=== PATIENT | female | born 1960 | race Caucasian/White ===

== ENCOUNTER 2017-12-01 06:56 | Emergency (ER) | payer OTHER ==
[~2017-12-01] VITALS: Ht 172.7 cm; Wt 104.3 kg
[~2017-12-01 06:56] MED LIST: ALCLOMETASONE D15 GM TOP; AMLODIPINE BESY10 MG PO; CYCLOBENZAPRINE10 MG PO; DERMOTIC20 ML; FARXIGA PO; FENOFIBRATE67 MG PO; FISH OIL 1,0001 EAC2 PO; FLUOCINOLON118.28 ML OT; FUROSEMIDE40 MG PO; GABAPENTIN400 MG PO; LEVEMIR100 UNIT/1 SQ; LEVOTHYROXINE75 MCG PO; LIDODERM700 MG TOP; LOSARTAN POTASS50 MG PO; METFORMIN HCL500 MG PO; MINOCIN50 MG PO; MINOCYCLINE HCL50 MG PO; NORCO 10-325 T1 EACH PO; NOVOLIN R100 UNIT/1 SQ; OMEPRAZOLE40 MG PO; PRAVASTATIN SOD40 MG PO; TIZANIDINE HCL4 M1 PO
[2017-12-01] MEDS ORDERED: ASPIRIN 81 MG CHEW TAB PO ONE (07:45)
[2017-12-01 07:52] LABS: BASOPHILS % 0.6 % (0.0-1.0); EOSINOPHILS # (AUTO) 0.2 (0.0-0.4); EOSINOPHILS % 2.7 % (0.0-6.0); HEMATOCRIT 40.8 % (34.2-44.1); HEMOGLOBIN 13.3 g/dL (12.0-16.0); LYMPHOCYTES # (AUTO) 2.7 (1.0-3.2); LYMPHOCYTES % 40.3 % (18.0-39.1); MEAN CORPUSCULAR HGB CONC 32.6 g/dL (31-35); MEAN CORPUSCULAR VOLUME 89.1 fL (81-99); MONOCYTES # (AUTO) 0.4 (0.2-0.8); MONOCYTES % 5.6 % (4.4-11.3); NEUTROPHILS # (AUTO) 3.3 (2.1-6.9); PLATELET COUNT 288 x10e3/uL (140-360); RED BLOOD COUNT 4.58 x10e6/uL (3.6-5.1); RED CELL DISTRIBUTION WIDTH 13.2 % (11.7-14.4)
[2017-12-01] MEDS ORDERED: CLONIDINE HCL0.1 MG PO (07:54)
[2017-12-01] MEDS ORDERED: CYCLOBENZAPRINE10 MG PO (07:54)
[2017-12-01] MEDS ORDERED: MIRALAX17 GM PO (07:54)
[2017-12-01] MEDS ORDERED: FERROUS SULFAT325 MG PO (07:54)
[2017-12-01] MEDS ORDERED: TIZANIDINE HCL4 MG PO (07:54)
[2017-12-01] MEDS ORDERED: BUMETANIDE1 MG PO (07:54)
[2017-12-01] MEDS ORDERED: PLAVIX75 MG PO (07:54)
[2017-12-01 08:04] LABS: ALANINE AMINOTRANSFERASE 23 IU/L (0-55); ALBUMIN 3.7 g/dL (3.5-5.0); ALKALINE PHOSPHATASE 90 IU/L (40-150); ANION GAP 12.5 mmol/L (8-16); BLOOD UREA NITROGEN 16 mg/dL (7-26); BUN/CREATININE RATIO 21 (6-25); CARBON DIOXIDE 28 mmol/L (22-29); CHLORIDE 105 mmol/L (98-107); CREATINE KINASE 63 IU/L (29-168); CREATININE, SERUM 0.77 mg/dL (0.57-1.11); EST GLOMERULAR FILTRATION RATE > 60 ML/MIN (60-); GLUCOSE 178 mg/dL (74-118); POTASSIUM 4.5 mmol/L (3.5-5.1); SODIUM 141 mmol/L (136-145)
[2017-12-01 08:07] LABS: CLARITY,URINE HAZY (CLEAR); COLOR,URINE YELLOW (YELLOW); KETONES,URINE NEGATIVE (NEGATIVE); LEUKOCYTE ESTERASE ,URINE 1+ (NEGATIVE); NITRITE,URINE NEGATIVE (NEGATIVE); PROTEIN,URINE DIPSTICK NEGATIVE (NEGATIVE); URINE UROBILINOGEN 0.2 mg/dL (0.2 - 1)
[2017-12-01 08:08] LABS: BILIRUBIN,URINE NEGATIVE (NEGATIVE)
[2017-12-01 08:28] LABS: BACTERIA,URINE FEW /HPF; EPITHELIAL CELLS,URINE MODERATE /LPF; MUCUS,URINE FEW (RARE); RBC,URINE 0-5 /HPF (0-5); RENAL EPITHELIAL CELLS,URINE RARE
[2017-12-01] MEDS ORDERED: MECLIZINE HCL 12.5 MG TAB PO NR (08:30)
[2017-12-01] MEDS ORDERED: KETOROLAC TROMETHAMINE 30 MG/ML VIAL IV NR (08:30)
[2017-12-01] MEDS ORDERED: ONDANSETRON HCL INJ 2 MG/ML VIAL IV NR (08:30)
[2017-12-01] MEDS ORDERED: CEFTRIAXONE SOD 1 GM VIAL IV NR (08:45)
--- NOTE | 2017-12-01 11:07 | Diagnostic Imaging Report ---
History:Syncopal episodes Comparison studies:None Technique: Axial images were obtained from the skull base to the vertex. Coronal and sagittal images reconstructed from the axial data. Intravenous contrast: None Findings: Scalp/skull: No abnormalities. Extra-axial spaces: No masses. No fluid collections. Brain sulci: Age-appropriate. Ventricles: Age-appropriate. No hydrocephalus. Parenchyma: Few small hypodensities in the supratentorial white matter are small vessel ischemic changes. Chronic lacunar infarct at the right putamen. No masses, hemorrhage, acute or chronic cortical vascular insults. Sellar/suprasellar region: No abnormalities. Craniocervical junction: Patent foramen magnum. No Chiari one malformation. Incidental findings: Atherosclerotic calcifications in the carotid siphons and vertebral arteries . Impression: No acute abnormalities. Chronic findings: 1. Mild supratentorial white matter small vessel ischemic changes. Signed by: DR Pedro Metzger M.D. on 12/01/2017 11:04 AM
[2017-12-01 12:37] VITALS: BP 132/80
== END 2017-12-01 13:08 | disposition home or self-care (01) ==
LOC: ER 06:56
DX: H81.13 Benign paroxysmal vertigo, bilateral (principal); N10 Acute pyelonephritis; I10 Essential (primary) hypertension; E11.9 Type 2 diabetes mellitus without complications; E78.00 Pure hypercholesterolemia, unspecified; Z88.5 Allergy status to narcotic agent; Z91.010 Allergy to peanuts; Z91.018 Allergy to other foods
CPT/HCPCS: 36415; 70450; 80053; 81001; 82550; 82553; 84484; 85025; 93005; 99284; J0696; J1885; J2405

== ENCOUNTER 2018-03-18 16:55 | Inpatient (IN) | payer OTHER ==
[~2018-03-18] VITALS: Ht 172.7 cm; Wt 108.7 kg
[~2018-03-18 16:55] MED LIST changes: +BUMETANIDE1 MG PO; +CLONIDINE HCL0.1 MG PO; +FERROUS SULFAT325 MG PO; +MIRALAX17 GM PO; +PLAVIX75 MG PO; +TIZANIDINE HCL4 MG PO
[2018-03-18] MEDS ORDERED: ONDANSETRON HCL 4 MG ORAL DISINTEGRATING TAB PO ONE (17:30)
[2018-03-18] MEDS ORDERED: HYDROCODONE/APAP 10MG-325MG TAB PO ONE (17:30)
[2018-03-18] MEDS ORDERED: IBUPROFEN 400 MG TAB PO ONE (17:30)
[2018-03-18] MEDS ORDERED: ACETAMINOPHEN 325 MG TAB PO ONE (17:30)
[2018-03-18] MEDS ORDERED: SODIUM CHLORIDE 0.9% 1000ML 1,000 ML IV ONE ×2 (19:45→21:00)
[2018-03-18] MEDS ORDERED: ASPIRIN 81 MG CHEW TAB PO ONE (19:45)
--- NOTE | 2018-03-18 20:02 | Diagnostic Imaging Report ---
Frontal and lateral views of the chest. HISTORY: Fever COMPARISON: None available. DISCUSSION: Soft tissue attenuation partially limits sensitivity of the exam. Lungs: The lungs are well inflated. No evidence of a consolidative pneumonia or pulmonary alveolar edema. Pleura: No pleural effusion or pneumothorax. Heart and mediastinum: The cardiomediastinal silhouette appears unremarkable. Bones: Mild multilevel degenerative changes of the thoracic spine and accentuation of the thoracic kyphosis. IMPRESSION: 1. No acute radiographic abnormality. 2. Specifically, no pneumonia. Signed by: Dr. Dimas Ingram D.O., M.M.M. on 03/18/2018 7:59 PM
[2018-03-18 20:37] LABS: BASOPHILS # (AUTO) 0.1 (0.0-0.1); BASOPHILS % 0.3 % (0.0-1.0); HEMATOCRIT 36.9 % (34.2-44.1); HEMOGLOBIN 12.2 g/dL (12.0-16.0); LYMPHOCYTES # (AUTO) 0.8 (1.0-3.2); LYMPHOCYTES % 4.8 % (18.0-39.1); MEAN CORPUSCULAR HEMOGLOBIN 28.8 pg (28-32); MEAN CORPUSCULAR HGB CONC 33.1 g/dL (31-35); MEAN CORPUSCULAR VOLUME 87.2 fL (81-99); MONOCYTES # (AUTO) 0.6 (0.2-0.8); MONOCYTES % 3.2 % (4.4-11.3); NEUTROPHILS # (AUTO) 15.5 (2.1-6.9); NEUTROPHILS % 90.5 % (38.7-80.0); PLATELET COUNT 291 x10e3/uL (140-360); RED BLOOD COUNT 4.23 x10e6/uL (3.6-5.1); RED CELL DISTRIBUTION WIDTH 12.7 % (11.7-14.4)
[2018-03-18 20:56] LABS: ALANINE AMINOTRANSFERASE 19 IU/L (0-55); ALBUMIN 3.6 g/dL (3.5-5.0); ALBUMIN/GLOBULIN RATIO 0.9 (0.8-2.0); ALKALINE PHOSPHATASE 66 IU/L (40-150); ANION GAP 18.1 mmol/L (8-16); BLOOD UREA NITROGEN 18 mg/dL (7-26); BUN/CREATININE RATIO 12 (6-25); CALCIUM 8.9 mg/dL (8.4-10.2); CARBON DIOXIDE 19 mmol/L (22-29); CHLORIDE 102 mmol/L (98-107); CREATINE KINASE 150 IU/L (29-168); EST GLOMERULAR FILTRATION RATE 36 ML/MIN (60-); GLUCOSE 263 mg/dL (74-118); POTASSIUM 4.1 mmol/L (3.5-5.1); SODIUM 135 mmol/L (136-145)
[2018-03-18] MEDS ORDERED: ONDANSETRON HCL INJ 2 MG/ML VIAL IV PRN (21:30)
[2018-03-18] MEDS ORDERED: MORPHINE SULFATE 2 MG/ML SYR IV PRN (21:30)
[2018-03-18] MEDS ORDERED: PIPER-TAZ 3.375 GM 50 ML IV SCH (22:00)
[2018-03-18] MEDS: PIPERACILLIN/TAZO 2.25 GM 50 ML IV SCH (22:45)
[2018-03-18] MEDS: VANCOMYCIN 1GM/NS 250 ML 250 ML IV SCH (23:12)
[2018-03-19] VITALS (10 sets, daily range): BP systolic 121–149; BP diastolic 59–77
[2018-03-19] MEDS ORDERED: TRAMADOL HCL 50 MG TAB PO PRN
[2018-03-19] MEDS ORDERED: DEXTROSE 50% SYRINGE 50 ML IV PRN ×2 (00:30→14:45)
[2018-03-19 00:52] LABS: BILIRUBIN,URINE NEGATIVE (NEGATIVE); CLARITY,URINE CLEAR (CLEAR); COLOR,URINE YELLOW (YELLOW); EPITHELIAL CELLS,URINE FEW /LPF; KETONES,URINE NEGATIVE (NEGATIVE); LEUKOCYTE ESTERASE ,URINE NEGATIVE (NEGATIVE); MUCUS,URINE FEW (RARE); NITRITE,URINE NEGATIVE (NEGATIVE); PROTEIN,URINE DIPSTICK NEGATIVE (NEGATIVE); RBC,URINE 0-5 /HPF (0-5); RENAL EPITHELIAL CELLS,URINE FEW; URINE UROBILINOGEN 0.2 mg/dL (0.2 - 1); WBC,URINE (MAN) 0-5 /HPF (0-5)
[2018-03-19] MEDS: HYDROCODONE/APAP 10MG-325MG TAB PO PRN ×2 (00:54→19:32)
[2018-03-19] MEDS: SODIUM CHLORIDE 0.9% 1000ML 1,000 ML IV SCH ×3 (01:29→12:16)
[2018-03-19] MEDS: ACETAMINOPHEN 325 MG TAB PO PRN ×2 (04:50→20:28)
[2018-03-19 04:54] LABS: BASOPHILS % 0.3 % (0.0-1.0); HEMATOCRIT 34.2 % (34.2-44.1); HEMOGLOBIN 11.2 g/dL (12.0-16.0); LYMPHOCYTES % 8.2 % (18.0-39.1); MEAN CORPUSCULAR HEMOGLOBIN 28.8 pg (28-32); MEAN CORPUSCULAR HGB CONC 32.7 g/dL (31-35); MEAN CORPUSCULAR VOLUME 87.9 fL (81-99); MONOCYTES # (AUTO) 0.3 (0.2-0.8); MONOCYTES % 2.6 % (4.4-11.3); NEUTROPHILS # (AUTO) 10.6 (2.1-6.9); NEUTROPHILS % 88.4 % (38.7-80.0); PLATELET COUNT 247 x10e3/uL (140-360); RED BLOOD COUNT 3.89 x10e6/uL (3.6-5.1); RED CELL DISTRIBUTION WIDTH 12.9 % (11.7-14.4)
[2018-03-19 05:17] LABS: ANION GAP 16.9 mmol/L (8-16); CALCIUM 8.9 mg/dL (8.4-10.2); CREATININE, SERUM 1.03 mg/dL (0.57-1.11); POTASSIUM 3.9 mmol/L (3.5-5.1)
[2018-03-19] MEDS: PIPERACILLIN/TAZO 2.25 GM 50 ML IV SCH ×3 (05:49→21:07)
[2018-03-19] MEDS: LEVOTHYROXINE SODIUM 75 MCG TAB PO SCH (05:49)
[2018-03-19] MEDS: GABAPENTIN 400 MG CAP PO SCH ×2 (06:38→14:13)
[2018-03-19] MEDS: INSULIN REGULAR, HUMAN 100 UNIT/1 ML 3ML VIAL SQ SCH ×2 (08:43→12:15)
[2018-03-19] MEDS: CLOPIDOGREL BISULFATE 75 MG TAB PO SCH (08:49)
[2018-03-19] MEDS: PANTOPRAZOLE SOD 40 MG TABEC PO SCH (08:49)
[2018-03-19] MEDS: BUMETANIDE 1 MG TAB PO SCH (08:49)
[2018-03-19] MEDS: CYCLOBENZAPRINE HCL 10 MG TAB PO SCH ×3 (08:49→19:32)
[2018-03-19] MEDS: FERROUS SULFATE 325 MG TAB PO SCH ×3 (08:49→19:31)
[2018-03-19] MEDS: TIZANIDINE HCL 4 MG TAB PO SCH (08:50)
[2018-03-19] MEDS: POLYETHYLENE GLYCOL 3350 17 GM PACK PO SCH (08:56)
[2018-03-19] MEDS ORDERED: MINOCYCLINE HCL 50 MG CAP PO SCH (09:00)
[2018-03-19] MEDS ORDERED: AMLODIPINE BESYLATE 10 MG TAB PO SCH (09:00)
[2018-03-19] MEDS: VANCOMYCIN 1GM/NS 250 ML 250 ML IV SCH ×2 (10:34→21:07)
[2018-03-19] MEDS: CLONIDINE HCL 0.1 MG TAB PO SCH (16:57)
[2018-03-19] MEDS: METFORMIN HCL 500 MG TAB CR PO SCH (16:57)
[2018-03-19] MEDS: INSULIN LISPRO 100 UNIT/1 ML 3ML VIAL SQ SCH ×2 (16:57→20:28)
[2018-03-19] MEDS: INSULIN DETEMIR 100 UNIT/ML PEN SQ SCH (20:26)
[2018-03-20] VITALS (7 sets, daily range): BP systolic 98–147; BP diastolic 53–69
[2018-03-20] MEDS: HYDROCODONE/APAP 10MG-325MG TAB PO PRN ×2 (05:00→13:34)
[2018-03-20] MEDS: PIPERACILLIN/TAZO 2.25 GM 50 ML IV SCH ×3 (05:00→23:00)
[2018-03-20] MEDS: LEVOTHYROXINE SODIUM 75 MCG TAB PO SCH (05:00)
[2018-03-20 05:21] LABS: BASOPHILS % 0.2 % (0.0-1.0); EOSINOPHILS % 0.3 % (0.0-6.0); HEMATOCRIT 31.2 % (34.2-44.1); HEMOGLOBIN 10.2 g/dL (12.0-16.0); LYMPHOCYTES # (AUTO) 1.2 (1.0-3.2); LYMPHOCYTES % 11.3 % (18.0-39.1); MEAN CORPUSCULAR HEMOGLOBIN 28.7 pg (28-32); MEAN CORPUSCULAR HGB CONC 32.7 g/dL (31-35); MEAN CORPUSCULAR VOLUME 87.9 fL (81-99); MONOCYTES # (AUTO) 0.4 (0.2-0.8); MONOCYTES % 3.9 % (4.4-11.3); NEUTROPHILS # (AUTO) 8.6 (2.1-6.9); NEUTROPHILS % 83.3 % (38.7-80.0); PLATELET COUNT 207 x10e3/uL (140-360); RED BLOOD COUNT 3.55 x10e6/uL (3.6-5.1); RED CELL DISTRIBUTION WIDTH 12.9 % (11.7-14.4)
[2018-03-20 05:42] LABS: ANION GAP 12.6 mmol/L (8-16); BLOOD UREA NITROGEN 15 mg/dL (7-26); BUN/CREATININE RATIO 20 (6-25); CALCIUM 8.7 mg/dL (8.4-10.2); CARBON DIOXIDE 19 mmol/L (22-29); CHLORIDE 109 mmol/L (98-107); CREATININE, SERUM 0.76 mg/dL (0.57-1.11); EST GLOMERULAR FILTRATION RATE > 60 ML/MIN (60-); GLUCOSE 102 mg/dL (74-118); POTASSIUM 3.6 mmol/L (3.5-5.1); SODIUM 137 mmol/L (136-145)
[2018-03-20] MEDS: INSULIN LISPRO 100 UNIT/1 ML 3ML VIAL SQ SCH ×4 (07:30→21:00)
[2018-03-20] MEDS: SODIUM CHLORIDE 0.9% 1000ML 1,000 ML IV SCH ×2 (07:39→09:35)
[2018-03-20] MEDS: POLYETHYLENE GLYCOL 3350 17 GM PACK PO SCH (09:00)
[2018-03-20] MEDS ORDERED: AMLODIPINE BESYLATE 10 MG TAB PO SCH (09:00)
[2018-03-20] MEDS: METFORMIN HCL 500 MG TAB CR PO SCH ×2 (09:21→16:35)
[2018-03-20] MEDS: BUMETANIDE 1 MG TAB PO SCH (09:21)
[2018-03-20] MEDS: AMLODIPINE BESYLATE 5 MG TAB PO SCH (09:22)
[2018-03-20] MEDS: GABAPENTIN 400 MG CAP PO SCH ×3 (09:22→20:51)
[2018-03-20] MEDS: CLONIDINE HCL 0.1 MG TAB PO SCH ×2 (09:22→16:23)
[2018-03-20] MEDS: LOSARTAN POTASSIUM 100 MG TAB PO SCH (09:22)
[2018-03-20] MEDS: FERROUS SULFATE 325 MG TAB PO SCH ×3 (09:22→20:55)
[2018-03-20] MEDS: CYCLOBENZAPRINE HCL 10 MG TAB PO SCH ×3 (09:22→21:13)
[2018-03-20] MEDS: PANTOPRAZOLE SOD 40 MG TABEC PO SCH (09:23)
[2018-03-20] MEDS: VANCOMYCIN 1GM/NS 250 ML 250 ML IV SCH ×2 (09:23→09:47)
[2018-03-20] MEDS: TIZANIDINE HCL 4 MG TAB PO SCH (09:23)
[2018-03-20] MEDS: CLOPIDOGREL BISULFATE 75 MG TAB PO SCH (09:23)
[2018-03-20] MEDS: INSULIN DETEMIR 100 UNIT/ML PEN SQ SCH (21:00)
[2018-03-21] VITALS (8 sets, daily range): BP systolic 109–168; BP diastolic 56–77
[2018-03-21] MEDS: VANCOMYCIN 1GM/NS 250 ML 250 ML IV SCH ×3 (00:15→22:32)
[2018-03-21] MEDS: SODIUM CHLORIDE 0.9% 1000ML 1,000 ML IV SCH (03:49)
[2018-03-21 05:00] LABS: BASOPHILS % 0.3 % (0.0-1.0); EOSINOPHILS # (AUTO) 0.2 (0.0-0.4); EOSINOPHILS % 2.6 % (0.0-6.0); HEMATOCRIT 27.4 % (34.2-44.1); HEMOGLOBIN 8.8 g/dL (12.0-16.0); LYMPHOCYTES # (AUTO) 1.4 (1.0-3.2); MEAN CORPUSCULAR HEMOGLOBIN 28.9 pg (28-32); MEAN CORPUSCULAR HGB CONC 32.1 g/dL (31-35); MEAN CORPUSCULAR VOLUME 90.1 fL (81-99); MONOCYTES # (AUTO) 0.4 (0.2-0.8); MONOCYTES % 6.1 % (4.4-11.3); NEUTROPHILS # (AUTO) 4.5 (2.1-6.9); NEUTROPHILS % 69.2 % (38.7-80.0); PLATELET COUNT 180 x10e3/uL (140-360); RED BLOOD COUNT 3.04 x10e6/uL (3.6-5.1); RED CELL DISTRIBUTION WIDTH 13.1 % (11.7-14.4)
[2018-03-21] MEDS: LEVOTHYROXINE SODIUM 75 MCG TAB PO SCH (05:05)
[2018-03-21] MEDS: PIPERACILLIN/TAZO 2.25 GM 50 ML IV SCH ×3 (05:05→21:36)
[2018-03-21] MEDS: METFORMIN HCL 500 MG TAB CR PO SCH ×2 (08:09→17:33)
[2018-03-21] MEDS: FERROUS SULFATE 325 MG TAB PO SCH ×3 (08:09→20:45)
[2018-03-21] MEDS: CLONIDINE HCL 0.1 MG TAB PO SCH ×2 (08:09→17:33)
[2018-03-21] MEDS: BUMETANIDE 1 MG TAB PO SCH (08:09)
[2018-03-21] MEDS: PANTOPRAZOLE SOD 40 MG TABEC PO SCH (08:09)
[2018-03-21] MEDS: CYCLOBENZAPRINE HCL 10 MG TAB PO SCH ×3 (08:09→20:45)
[2018-03-21] MEDS: GABAPENTIN 400 MG CAP PO SCH ×3 (08:09→20:45)
[2018-03-21] MEDS: POLYETHYLENE GLYCOL 3350 17 GM PACK PO SCH (08:09)
[2018-03-21] MEDS: LOSARTAN POTASSIUM 100 MG TAB PO SCH (08:09)
[2018-03-21] MEDS: AMLODIPINE BESYLATE 5 MG TAB PO SCH (08:09)
[2018-03-21] MEDS: CLOPIDOGREL BISULFATE 75 MG TAB PO SCH (08:09)
[2018-03-21] MEDS: TIZANIDINE HCL 4 MG TAB PO SCH ×2 (08:10→09:00)
[2018-03-21] MEDS: INSULIN LISPRO 100 UNIT/1 ML 3ML VIAL SQ SCH ×4 (08:10→20:44)
[2018-03-21] MEDS: HYDROCODONE/APAP 10MG-325MG TAB PO PRN ×2 (12:30→20:46)
[2018-03-21] MEDS: INSULIN DETEMIR 100 UNIT/ML PEN SQ SCH (20:45)
[2018-03-22] VITALS (8 sets, daily range): BP systolic 130–168; BP diastolic 60–77
[2018-03-22] MEDS: PIPERACILLIN/TAZO 2.25 GM 50 ML IV SCH ×3 (05:14→21:11)
[2018-03-22] MEDS: LEVOTHYROXINE SODIUM 75 MCG TAB PO SCH (05:14)
[2018-03-22] MEDS: HYDROCODONE/APAP 10MG-325MG TAB PO PRN ×3 (05:15→21:11)
[2018-03-22] MEDS: INSULIN LISPRO 100 UNIT/1 ML 3ML VIAL SQ SCH ×4 (07:30→21:20)
[2018-03-22] MEDS: CYCLOBENZAPRINE HCL 10 MG TAB PO SCH ×3 (09:28→21:10)
[2018-03-22] MEDS: GABAPENTIN 400 MG CAP PO SCH ×3 (09:28→21:10)
[2018-03-22] MEDS: AMLODIPINE BESYLATE 5 MG TAB PO SCH (09:29)
[2018-03-22] MEDS: TIZANIDINE HCL 4 MG TAB PO SCH ×2 (09:29→21:10)
[2018-03-22] MEDS: LOSARTAN POTASSIUM 100 MG TAB PO SCH (09:29)
[2018-03-22] MEDS: CLOPIDOGREL BISULFATE 75 MG TAB PO SCH (09:29)
[2018-03-22] MEDS: METFORMIN HCL 500 MG TAB CR PO SCH ×2 (09:29→17:01)
[2018-03-22] MEDS: PANTOPRAZOLE SOD 40 MG TABEC PO SCH (09:29)
[2018-03-22] MEDS: POLYETHYLENE GLYCOL 3350 17 GM PACK PO SCH (09:29)
[2018-03-22] MEDS: BUMETANIDE 1 MG TAB PO SCH (09:29)
[2018-03-22] MEDS: FERROUS SULFATE 325 MG TAB PO SCH ×3 (09:29→21:00)
[2018-03-22] MEDS: CLONIDINE HCL 0.1 MG TAB PO SCH ×2 (09:30→17:02)
[2018-03-22] MEDS: VANCOMYCIN 1GM/NS 250 ML 250 ML IV SCH ×2 (10:45→21:52)
[2018-03-22] MEDS: INSULIN DETEMIR 100 UNIT/ML PEN SQ SCH (21:10)
[2018-03-23] VITALS (7 sets, daily range): BP systolic 117–163; BP diastolic 57–88
[2018-03-23] MEDS: ACETAMINOPHEN 325 MG TAB PO PRN (00:45)
[2018-03-23] MEDS: HYDROCODONE/APAP 10MG-325MG TAB PO PRN ×2 (05:50→19:16)
[2018-03-23] MEDS: PIPERACILLIN/TAZO 2.25 GM 50 ML IV SCH ×3 (05:51→21:30)
[2018-03-23] MEDS: LEVOTHYROXINE SODIUM 75 MCG TAB PO SCH (05:51)
[2018-03-23] MEDS: POLYETHYLENE GLYCOL 3350 17 GM PACK PO SCH ×2 (09:00→09:08)
[2018-03-23] MEDS: FERROUS SULFATE 325 MG TAB PO SCH ×3 (09:04→21:00)
[2018-03-23] MEDS: BUMETANIDE 1 MG TAB PO SCH (09:04)
[2018-03-23] MEDS: INSULIN LISPRO 100 UNIT/1 ML 3ML VIAL SQ SCH ×4 (09:05→21:20)
[2018-03-23] MEDS: CLONIDINE HCL 0.1 MG TAB PO SCH ×2 (09:06→19:15)
[2018-03-23] MEDS: AMLODIPINE BESYLATE 5 MG TAB PO SCH (09:06)
[2018-03-23] MEDS: LOSARTAN POTASSIUM 100 MG TAB PO SCH ×2 (09:07→09:22)
[2018-03-23] MEDS: CYCLOBENZAPRINE HCL 10 MG TAB PO SCH ×3 (09:08→21:20)
[2018-03-23] MEDS: CLOPIDOGREL BISULFATE 75 MG TAB PO SCH (09:08)
[2018-03-23] MEDS: PANTOPRAZOLE SOD 40 MG TABEC PO SCH (09:08)
[2018-03-23] MEDS: GABAPENTIN 400 MG CAP PO SCH ×3 (09:11→21:20)
[2018-03-23] MEDS: METFORMIN HCL 500 MG TAB CR PO SCH ×2 (09:11→19:15)
[2018-03-23] MEDS: VANCOMYCIN 1GM/NS 250 ML 250 ML IV SCH ×2 (10:30→22:00)
[2018-03-23] MEDS: ENOXAPARIN SOD INJ 40 MG/0.4 ML SYR SC SCH (19:15)
[2018-03-23] MEDS: SODIUM CHLORIDE FLUSH 10 ML SYR INJ PRN (19:17)
[2018-03-23] MEDS: TIZANIDINE HCL 4 MG TAB PO SCH (21:30)
[2018-03-23] MEDS: INSULIN DETEMIR 100 UNIT/ML PEN SQ SCH (21:30)
[2018-03-24 05:25] VITALS: BP 114/56
[2018-03-24] MEDS: LEVOTHYROXINE SODIUM 75 MCG TAB PO SCH (05:32)
[2018-03-24] MEDS: PIPERACILLIN/TAZO 2.25 GM 50 ML IV SCH ×3 (05:32→21:23)
[2018-03-24] MEDS: INSULIN LISPRO 100 UNIT/1 ML 3ML VIAL SQ SCH ×4 (07:30→21:00)
[2018-03-24 08:13] VITALS: BP 135/71
[2018-03-24] MEDS: LOSARTAN POTASSIUM 100 MG TAB PO SCH (08:34)
[2018-03-24] MEDS: GABAPENTIN 400 MG CAP PO SCH ×3 (08:34→21:20)
[2018-03-24] MEDS: AMLODIPINE BESYLATE 5 MG TAB PO SCH (08:34)
[2018-03-24] MEDS: CLONIDINE HCL 0.1 MG TAB PO SCH ×2 (08:34→16:21)
[2018-03-24] MEDS: CLOPIDOGREL BISULFATE 75 MG TAB PO SCH (08:34)
[2018-03-24] MEDS: CYCLOBENZAPRINE HCL 10 MG TAB PO SCH ×3 (08:35→21:20)
[2018-03-24] MEDS: PANTOPRAZOLE SOD 40 MG TABEC PO SCH (08:35)
[2018-03-24] MEDS: BUMETANIDE 1 MG TAB PO SCH (08:35)
[2018-03-24] MEDS: METFORMIN HCL 500 MG TAB CR PO SCH ×2 (08:59→16:20)
[2018-03-24] MEDS: FERROUS SULFATE 325 MG TAB PO SCH ×3 (09:00→21:00)
[2018-03-24] MEDS: POLYETHYLENE GLYCOL 3350 17 GM PACK PO SCH (09:00)
[2018-03-24] MEDS: VANCOMYCIN 1GM/NS 250 ML 250 ML IV SCH ×2 (10:33→21:23)
[2018-03-24 12:28] VITALS: BP 157/68
[2018-03-24] MEDS: SODIUM CHLORIDE FLUSH 10 ML SYR INJ PRN (12:34)
[2018-03-24] MEDS: HYDROCODONE/APAP 10MG-325MG TAB PO PRN ×2 (12:35→20:58)
[2018-03-24 16:19] VITALS: BP 139/63
[2018-03-24] MEDS: ENOXAPARIN SOD INJ 40 MG/0.4 ML SYR SC SCH (16:20)
[2018-03-24 20:00] VITALS: BP 133/63
[2018-03-24 20:54] VITALS: BP 133/63
[2018-03-24] MEDS ORDERED: SODIUM CHLORIDE 0.9% 250ML 250 ML ONE (20:57)
[2018-03-24] MEDS: TIZANIDINE HCL 4 MG TAB PO SCH (21:20)
[2018-03-24] MEDS: INSULIN DETEMIR 100 UNIT/ML PEN SQ SCH (21:23)
[2018-03-25] VITALS (7 sets, daily range): BP systolic 117–160; BP diastolic 56–74
[2018-03-25] MEDS: PIPERACILLIN/TAZO 2.25 GM 50 ML IV SCH ×2 (05:24→14:00)
[2018-03-25] MEDS: LEVOTHYROXINE SODIUM 75 MCG TAB PO SCH (05:24)
[2018-03-25] MEDS: INSULIN LISPRO 100 UNIT/1 ML 3ML VIAL SQ SCH ×4 (07:30→21:51)
[2018-03-25] MEDS: FERROUS SULFATE 325 MG TAB PO SCH ×3 (09:15→21:47)
[2018-03-25] MEDS: AMLODIPINE BESYLATE 5 MG TAB PO SCH (09:20)
[2018-03-25] MEDS: GABAPENTIN 400 MG CAP PO SCH ×3 (09:20→21:49)
[2018-03-25] MEDS: BUMETANIDE 1 MG TAB PO SCH (09:20)
[2018-03-25] MEDS: POLYETHYLENE GLYCOL 3350 17 GM PACK PO SCH (09:20)
[2018-03-25] MEDS: CLOPIDOGREL BISULFATE 75 MG TAB PO SCH (09:20)
[2018-03-25] MEDS: METFORMIN HCL 500 MG TAB CR PO SCH ×2 (09:20→17:26)
[2018-03-25] MEDS: CYCLOBENZAPRINE HCL 10 MG TAB PO SCH ×3 (09:20→21:49)
[2018-03-25] MEDS: LOSARTAN POTASSIUM 100 MG TAB PO SCH (09:20)
[2018-03-25] MEDS: PANTOPRAZOLE SOD 40 MG TABEC PO SCH (09:20)
[2018-03-25] MEDS: CLONIDINE HCL 0.1 MG TAB PO SCH ×2 (09:21→17:27)
[2018-03-25] MEDS: VANCOMYCIN 750MG/NS 150ML IVPB 150 ML IV SCH ×2 (09:45→21:50)
[2018-03-25] MEDS: HYDROCODONE/APAP 10MG-325MG TAB PO PRN (10:07)
[2018-03-25] MEDS: ENOXAPARIN SOD INJ 40 MG/0.4 ML SYR SC SCH (17:26)
[2018-03-25] MEDS: TIZANIDINE HCL 4 MG TAB PO SCH (21:49)
[2018-03-25] MEDS: INSULIN DETEMIR 100 UNIT/ML PEN SQ SCH (21:51)
[2018-03-26] VITALS (7 sets, daily range): BP systolic 119–153; BP diastolic 56–65
[2018-03-26] MEDS: HYDROCODONE/APAP 10MG-325MG TAB PO PRN ×3 (03:05→22:52)
[2018-03-26] MEDS: LEVOTHYROXINE SODIUM 75 MCG TAB PO SCH (05:47)
[2018-03-26 06:49] LABS: BLOOD UREA NITROGEN 8 mg/dL (7-26); BUN/CREATININE RATIO 12 (6-25); CALCIUM 7.5 mg/dL (8.4-10.2); CHLORIDE 103 mmol/L (98-107); CREATININE, SERUM 0.69 mg/dL (0.57-1.11); EST GLOMERULAR FILTRATION RATE > 60 ML/MIN (60-); GLUCOSE 111 mg/dL (74-118); POTASSIUM 3.5 mmol/L (3.5-5.1); SODIUM 140 mmol/L (136-145)
[2018-03-26] MEDS: INSULIN LISPRO 100 UNIT/1 ML 3ML VIAL SQ SCH ×4 (07:30→21:06)
[2018-03-26 07:42] LABS: BASOPHILS % 0.5 % (0.0-1.0); EOSINOPHILS # (AUTO) 0.1 (0.0-0.4); EOSINOPHILS % 1.8 % (0.0-6.0); HEMATOCRIT 28.6 % (34.2-44.1); HEMOGLOBIN 9.2 g/dL (12.0-16.0); LYMPHOCYTES # (AUTO) 1.8 (1.0-3.2); LYMPHOCYTES % 30.9 % (18.0-39.1); MEAN CORPUSCULAR HEMOGLOBIN 28.4 pg (28-32); MEAN CORPUSCULAR HGB CONC 32.2 g/dL (31-35); MEAN CORPUSCULAR VOLUME 88.3 fL (81-99); MONOCYTES # (AUTO) 0.4 (0.2-0.8); MONOCYTES % 6.6 % (4.4-11.3); NEUTROPHILS # (AUTO) 3.2 (2.1-6.9); NEUTROPHILS % 53.3 % (38.7-80.0); PLATELET COUNT 335 x10e3/uL (140-360); RED BLOOD COUNT 3.24 x10e6/uL (3.6-5.1); RED CELL DISTRIBUTION WIDTH 12.8 % (11.7-14.4)
[2018-03-26] MEDS: PANTOPRAZOLE SOD 40 MG TABEC PO SCH (08:35)
[2018-03-26] MEDS: METFORMIN HCL 500 MG TAB CR PO SCH ×2 (08:35→17:40)
[2018-03-26] MEDS: BUMETANIDE 1 MG TAB PO SCH (08:35)
[2018-03-26] MEDS: CLONIDINE HCL 0.1 MG TAB PO SCH ×2 (08:35→17:40)
[2018-03-26] MEDS: GABAPENTIN 400 MG CAP PO SCH ×3 (08:35→21:02)
[2018-03-26] MEDS: AMLODIPINE BESYLATE 5 MG TAB PO SCH (08:35)
[2018-03-26] MEDS: CLOPIDOGREL BISULFATE 75 MG TAB PO SCH (08:35)
[2018-03-26] MEDS: LOSARTAN POTASSIUM 100 MG TAB PO SCH (08:35)
[2018-03-26] MEDS: CYCLOBENZAPRINE HCL 10 MG TAB PO SCH ×3 (08:35→21:02)
[2018-03-26 08:36] LABS: CARBON DIOXIDE 19 mmol/L (22-29)
[2018-03-26 08:43] LABS: ANION GAP 21.5 mmol/L (8-16)
[2018-03-26] MEDS: FERROUS SULFATE 325 MG TAB PO SCH ×3 (09:00→21:00)
[2018-03-26] MEDS: POLYETHYLENE GLYCOL 3350 17 GM PACK PO SCH (09:00)
[2018-03-26 11:34] LABS: BAND NEUTROPHILS % (MANUAL) 1 %; EOSINOPHILS % (MANUAL) 3 % (0-7); LYMPHOCYTES % (MANUAL) 26 % (19-48); METAMYELOCYTES % (MANUAL) 1 % (0-0); MONOCYTES % (MANUAL) 3 % (3.4-9.0); NEUTROPHILS % (MANUAL) 66 % (40-74)
[2018-03-26 11:44] LABS: PLATELET ESTIMATE ADEQUATE; PLATELET MORPHOLOGY COMMENT FEW LARGE; RBC MORPHOLOGY COMMENT ABNORMAL
[2018-03-26 11:45] LABS: HYPOCHROMASIA MODERATE
[2018-03-26] MEDS: VANCOMYCIN 750MG/NS 150ML IVPB 150 ML IV SCH (15:30)
[2018-03-26] MEDS: ENOXAPARIN SOD INJ 40 MG/0.4 ML SYR SC SCH (17:40)
[2018-03-26] MEDS: TIZANIDINE HCL 4 MG TAB PO SCH (21:02)
[2018-03-26] MEDS: INSULIN DETEMIR 100 UNIT/ML PEN SQ SCH (21:06)
[2018-03-27] VITALS: BP 128/57
[2018-03-27] MEDS ORDERED: VANCOMYCIN 750MG/NS 150ML IVPB 150 ML IV SCH (03:30)
[2018-03-27 04:00] VITALS: BP 150/67
[2018-03-27] MEDS ORDERED: SODIUM CHLORIDE 0.9% 100 ML 100 ML ONE (04:14)
[2018-03-27] MEDS: LEVOTHYROXINE SODIUM 75 MCG TAB PO SCH (05:46)
[2018-03-27] MEDS: INSULIN LISPRO 100 UNIT/1 ML 3ML VIAL SQ SCH (07:30)
[2018-03-27 08:02] VITALS: BP 154/66
[2018-03-27] MEDS: METFORMIN HCL 500 MG TAB CR PO SCH (08:36)
[2018-03-27] MEDS: BUMETANIDE 1 MG TAB PO SCH (08:36)
[2018-03-27] MEDS: CLONIDINE HCL 0.1 MG TAB PO SCH (08:36)
[2018-03-27] MEDS: FERROUS SULFATE 325 MG TAB PO SCH (08:37)
[2018-03-27] MEDS: POLYETHYLENE GLYCOL 3350 17 GM PACK PO SCH (08:37)
[2018-03-27] MEDS: PANTOPRAZOLE SOD 40 MG TABEC PO SCH (08:37)
[2018-03-27] MEDS: CYCLOBENZAPRINE HCL 10 MG TAB PO SCH (08:37)
[2018-03-27] MEDS: AMLODIPINE BESYLATE 5 MG TAB PO SCH (08:37)
[2018-03-27] MEDS: GABAPENTIN 400 MG CAP PO SCH (08:37)
[2018-03-27] MEDS: LOSARTAN POTASSIUM 100 MG TAB PO SCH (08:37)
[2018-03-27] MEDS: CLOPIDOGREL BISULFATE 75 MG TAB PO SCH (08:37)
[2018-03-27] MEDS ORDERED: BACTRIM DS TAB1 EACH PO (09:46)
[2018-03-27 09:52] VITALS: BP 154/66
--- NOTE | 2018-03-27 12:32 | Discharge Summary ---
DISCHARGE DIAGNOSES: 1. Left lower extremity cellulitis, improving. 2. Type 2 diabetes mellitus, well controlled. 3. Hypertension, well controlled. 4. Morbid obesity. HISTORY OF PRESENT ILLNESS: Ms. Baxter is a pleasant 57-year-old lady well known to me from the office, who has past medical history significant for type 2 diabetes mellitus, hypertension, peripheral neuropathy, chronic pain, GI bleeding, morbid obesity, and prior episodes of lower extremity cellulitis. She presented with the sudden onset of fever up to 103 degrees, increased left leg redness and warmth, and at the time of presentation in the emergency department she had an elevated white count of 15,000. She was admitted for IV antibiotic. She was started on a combination of IV vancomycin and IV Zosyn and also bed rest. Blood cultures were negative. Venous Doppler was negative for any DVT. During the stay, she had a very slow resolution of symptoms with increased erythema and significant amount of pain. This has slowly subsided over the last 7 days. At the time of discharge, the patient is much less symptomatic. She is not having fever, and her white count has returned to normal. She has no nausea, no vomiting. She is being discharged home in stable condition, and she is to resume her usual home medications and to take trimethoprim/sulfamethoxazole double-strength twice a day for the next 14 days and she is to follow up in my office in 10 days' time. DEANN MERRITT MD Job#: [id number]
--- OUTSIDE RECORDS SUMMARY | 2018-04-02 09:10 | XMS REPORT ---
Author Author [facility] Address Unknown Phone Unavailable Care Team Providers Care Abattoir Manager Name Role Phone Mg GOMEZ Unavailable Unavailable Nellie TURNER Unavailable Unavailable Problems This patient has no known problems. Allergies, Adverse Reactions, Alerts This patient has no known allergies or adverse reactions. Medications This patient has no known medications. Results Test Description Test Time Test Comments Text Results Atomic Results Result Comments CHEST 2 VIEWS 2018-03-18 19:58:00 [place] [address] Patient Name: LAURYN COLLINS MR #: [id number] : 1960 Age/Sex: 57/F Req #: [id number] Adm Physician: Ordered by: DELIA GOMEZ MD Report #: [id number] Location: ER Room/Bed: Procedure: [id number] DX/CHEST 2 VIEWS Exam Date: 03/18/18 Exam Time: 1939 REPORT STATUS: Signed Frontal and lateral views of the chest. HISTORY: Fever COMPARISON: None available. DISCUSSION: Soft tissue attenuation partially limits sensitivity of the exam. Lungs: The lungs are well inflated. No evidence of a consolidative pneumonia or pulmonary alveolar edema. Pleura: No pleural effusion or pneumothorax. Heart and mediastinum: The cardiomediastinal silhouette appears unremarkable. Bones: Mild multilevel degenerative changes of the thoracic spine and accentuation of the thoracic kyphosis. IMPRESSION: 1. No acute radiographic abnormality. 2. Specifically, no pneumonia. Signed by: Dr. Steffen Ingram D.O., M.M.M. on 03/18/2018 7:59 PM Dictated By: STEFFEN INGRAM DO 56 Transcribed By: THEA on 03/18/181958 COPY TO: DELIA GOMEZ MD CT BRAIN WO 2017-12-01 11:01:00 [place] [address] Patient Name: LAURYN COLLINS MR #: [id number] : 1960 Age/Sex: 57/F Req #: [id number] Adm Physician: Ordered by: ROHAN TURNER MD Report #: [id number] Location: ER Room/Bed: Procedure: [id number] CT/CT BRAIN WO Exam Date: 12/01/17 Exam Time: 0843 REPORT STATUS: Signed History:Syncopal episodes Comparison studies:None Technique: Axial images were obtained from the skull base to the vertex. Coronal and sagittal images reconstructed from the axial data. Intravenous contrast: None Findings: Scalp/skull: No abnormalities. Extra-axial spaces: No masses. No fluid collections. Brain sulci: Age-appropriate. Ventricles: Age-appropriate. No hydrocephalus. Parenchyma: Few small hypodensities in the supratentorial white matter are small vessel ischemic changes. Chronic lacunar infarct at the right putamen. No masses, hemorrhage, acute or chronic cortical vascular insults. Sellar/suprasellar region: No abnormalities. Craniocervical junction: Patent foramen magnum. No Chiari one malformation. Incidental findings: Atherosclerotic calcifications in the carotid siphons and vertebral arteries . Impression: No acute abnormalities. Chronic findings: 1. Mild supratentorial white matter small vessel ischemic changes. Signed by: DR Pedro Metzger M.D. on 12/01/2017 11:04 AM Dictated By: PEDRO VALENCIA MD [id number] Transcribed By: THEA on 12/01/17 1107 COPY TO: ROHAN TURNER MD
== END 2018-03-27 10:27 | disposition home or self-care (01) | DRG 603 ==
LOC: ER 16:55 → ERHOLD 21:55 → IMCU 03-19 00:57 → OBSVTOIN 03-21 15:16 → MED/SURG 03-21 21:19
PROVIDERS: ADMIT Internal Medicine; ATTEND Internal Medicine
DX: L03.116 Cellulitis of left lower limb (principal); E11.42 Type 2 diabetes mellitus with diabetic polyneuropathy; G89.29 Other chronic pain; Z68.39 Body mass index [BMI] 39.0-39.9, adult; I10 Essential (primary) hypertension; Z82.49 Family history of ischemic heart disease and other diseases of the circulatory system; E66.01 Morbid (severe) obesity due to excess calories; Z79.4 Long term (current) use of insulin; Z88.5 Allergy status to narcotic agent; Z91.010 Allergy to peanuts; Z91.018 Allergy to other foods
CPT/HCPCS: 36415; 71046; 80048; 80053; 80202; 81001; 82550; 82553; 82948; 83605; 84484; 85025; 87040; 87400; 93971; 96365; 99284; G0378; J1650; J2543; J3370; J7030; J7050

== ENCOUNTER 2018-11-04 08:21 | Emergency (ER) | payer OTHER ==
[~2018-11-04] VITALS: Ht 172.7 cm; Wt 108.4 kg
[~2018-11-04 08:21] MED LIST changes: +BACTRIM DS TAB1 EACH PO
[2018-11-04] MEDS ORDERED: ASPIRIN 81 MG CHEW TAB PO ONE (09:15)
[2018-11-04] MEDS ORDERED: KETOROLAC TROMETHAMINE 30 MG/ML VIAL IV STA (09:18)
[2018-11-04 09:26] LABS: CLARITY,URINE CLEAR (CLEAR); COLOR,URINE YELLOW (YELLOW); LEUKOCYTE ESTERASE ,URINE NEGATIVE (NEGATIVE); NITRITE,URINE NEGATIVE (NEGATIVE); PROTEIN,URINE DIPSTICK 1+ (NEGATIVE)
[2018-11-04 09:28] LABS: BILIRUBIN,URINE NEGATIVE (NEGATIVE); KETONES,URINE NEGATIVE (NEGATIVE); URINE UROBILINOGEN 0.2 mg/dL (0.2 - 1)
[2018-11-04] MEDS ORDERED: PROMETHAZINE 25MG/ NS 50ML (IV) IV ONE (09:30)
[2018-11-04 09:36] LABS: BASOPHILS % 0.5 % (0.0-1.0); EOSINOPHILS # (AUTO) 0.2 (0.0-0.4); HEMATOCRIT 38.2 % (34.2-44.1); HEMOGLOBIN 12.5 g/dL (12.0-16.0); LYMPHOCYTES # (AUTO) 2.2 (1.0-3.2); LYMPHOCYTES % 28.4 % (18.0-39.1); MEAN CORPUSCULAR HEMOGLOBIN 28.5 pg (28-32); MEAN CORPUSCULAR HGB CONC 32.7 g/dL (31-35); MONOCYTES # (AUTO) 0.4 (0.2-0.8); MONOCYTES % 4.7 % (4.4-11.3); NEUTROPHILS # (AUTO) 4.8 (2.1-6.9); NEUTROPHILS % 62.5 % (38.7-80.0); PLATELET COUNT 383 x10e3/uL (140-360); RED BLOOD COUNT 4.39 x10e6/uL (3.6-5.1); RED CELL DISTRIBUTION WIDTH 12.5 % (11.7-14.4)
[2018-11-04 09:37] LABS: BACTERIA,URINE FEW /HPF; EPITHELIAL CELLS,URINE RARE /LPF; RBC,URINE 0-5 /HPF (0-5); WBC,URINE (MAN) 0-5 /HPF (0-5)
[2018-11-04 09:39] LABS: INR 0.81; PROTHROMBIN TIME 11.6 seconds (11.9-14.5)
[2018-11-04 09:40] LABS: PARTIAL THROMBOPLASTIN TIME 30.7 seconds (23.8-35.5)
[2018-11-04 09:45] LABS: ALANINE AMINOTRANSFERASE 17 IU/L (0-55); ALBUMIN 3.8 g/dL (3.5-5.0); ALBUMIN/GLOBULIN RATIO 0.9 (0.8-2.0); ALKALINE PHOSPHATASE 115 IU/L (40-150); BLOOD UREA NITROGEN 15 mg/dL (7-26); BUN/CREATININE RATIO 18 (6-25); CARBON DIOXIDE 21 mmol/L (22-29); CHLORIDE 106 mmol/L (98-107); CREATININE, SERUM 0.83 mg/dL (0.57-1.11); EST GLOMERULAR FILTRATION RATE > 60 ML/MIN (60-); GLUCOSE 208 mg/dL (74-118); SODIUM 137 mmol/L (136-145)
[2018-11-04 10:23] LABS: CREATINE KINASE MB 0.9 ng/mL (0-5.0)
[2018-11-04 10:30] LABS: AMYLASE 37 U/L (25-125); LIPASE 70 U/L (8-78)
--- NOTE | 2018-11-04 12:45 | Diagnostic Imaging Report ---
EXAM: CT Abdomen and Pelvis WITH contrast INDICATION: Upper abdominal pain. COMPARISON: None. TECHNIQUE: Abdomen and pelvis were scanned utilizing a multidetector helical scanner from the lung base to the pubic symphysis after administration of IV contrast. Coronal and sagittal reformations were obtained. Routine protocol was performed. Scan was performed when during portal venous phase. IV CONTRAST: 100 cc of Isovue-370. ORAL CONTRAST: Water COMPLICATIONS: None RADIATION DOSE: Total DLP: 791.4 mGy*cm Dose modulation, iterative reconstruction, and/or weight based adjustment of the mA/kV was utilized to reduce the radiation dose to as low as reasonably achievable. FINDINGS: LINES and TUBES: None. LOWER THORAX: Scattered coronary atherosclerosis. HEPATOBILIARY: Hepatic steatosis with hepatomegaly. Hypodensity near the falciform ligament likely represents focal fatty infiltration. Indeterminant 1.1 cm hypodense lesion in the right hepatic lobe inferiorly on series 2, image 42. Status post cholecystectomy. There is left-sided pneumobilia, which may reflect prior intervention. No evidence of bowel or ductal dilatation. SPLEEN: No splenomegaly. PANCREAS: No focal masses or ductal dilatation. ADRENALS: No adrenal nodules KIDNEYS/URETERS: Kidneys enhance symmetrically. No evidence of hydronephrosis, solid mass, or stone. Mild bilateral perinephric stranding is nonspecific. GI TRACT: No evidence of wall thickening or distension. Appendix is surgically absent per clinical history. Postsurgical changes in the proximal stomach. PELVIC ORGANS/BLADDER: Status post hysterectomy. LYMPH NODES: No lymphadenopathy. VESSELS: There are moderate atherosclerotic calcifications in the aorta and branch vessels. PERITONEUM / RETROPERITONEUM: No free air or fluid. BONES AND SOFT TISSUES: No acute osseous abnormality. No suspicious lytic or blastic lesions. CONCLUSION: Hepatic steatosis with hepatomegaly. Indeterminant 1.1 cm hypodensity in the right hepatic lobe. Follow-up liver protocol CT or MRI is suggested for further evaluation. Status post cholecystectomy. Left-sided pneumobilia is nonspecific, and could reflect prior intervention. Signed by: Dr. Ronnell Shankar MD on 11/04/2018 12:41 PM
[2018-11-04 13:50] VITALS: BP 146/67
[2018-11-04] MEDS ORDERED: IOPAMIDOL 370 MG/ML 200 ML INFUS..BTL INJ ONE (14:31)
[2018-11-04] MEDS ORDERED: SODIUM CHLORIDE 0.9% 50ML 50 ML ONE (14:31)
== END 2018-11-04 14:08 | disposition home or self-care (01) ==
LOC: ER 08:21
DX: R10.11 Right upper quadrant pain (principal); R10.13 Epigastric pain; R11.0 Nausea; R51 Headache; I10 Essential (primary) hypertension; E11.9 Type 2 diabetes mellitus without complications; E03.9 Hypothyroidism, unspecified
CPT/HCPCS: 36415; 74177; 80053; 81001; 82150; 82550; 82553; 83690; 84484; 85025; 85610; 85730; 93005; 99284; J1885; J2550; Q9967

== ENCOUNTER 2019-07-24 14:25 | Emergency (ER) | payer OTHER ==
[~2019-07-24] VITALS: Ht 172.7 cm; Wt 108.4 kg
--- OUTSIDE RECORDS SUMMARY | 2019-07-24 17:10 | XMS REPORT | Summary of Care ---
Author Author CANDE Sanchez, ENMANUEL Organization Unknown Address Unknown Phone Unavailable Care Team Providers Care Belt Puncher Name Role Phone CARMINE Huitron, BERTHA Unavailable Mray MERRITT M.D., DEANN FIERRO M.D., JANAY Unavailable Unavailable SAYRA Huitron, LESLI Unavailable Unavailable ANJEL Huitron, MARCELO Unavailable Unavailable CANDE Sanchez, ENMANUEL Unavailable Unavailable BRIAN Huitron, LUCRECIA Unavailable Unavailable JOSEPH Huitron, VIMALUSTAFA Unavailable Unavailable SHAINA NEAL NC, DEANN Marcos Unavailable Unavailable Anjel NEAL, Marcelo Unavailable Unavailable BROCK NEAL NC, MIGUEL CRUMP Unavailable Unavailable Sayra NEAL, Lesli Unavailable Unavailable JOSEPH NEAL, DONATO Unavailable Unavailable CARMINE NEAL, BERTHA Holliday Unavailable Unavailable Brian NEAL, Ph.D. Unavailable Unavailable Abby NEAL, Dimas Unavailable Unavailable Unavailable Unavailable Functional Status Name Dates Details Functional status health issues are not documented Status: Name Dates Details Cognitive status health issues are not documented Status: Problems Name Dates Details Carpal tunnel syndrome (354.0, G56.00) Status: Active Non-nephrotic range proteinuria (791.0, R80.9) Status: Active Colon cancer screening (V76.51, Z12.11) Status: Active Gastric ulcer (531.90, K25.9) Status: Active Pre-ulcerative calluses (700, L84) Status: Active Osteopenia (733.90, M85.80) Status: Active Angular cheilosis (528.5, K13.0) Status: Active Acute effusion of right ear (381.00, H65.191) Status: Active Mild aortic sclerosis (440.0, I70.0) Status: Active Acute diverticulitis (562.11, K57.92) Status: Active Atypical chest pain (786.59, R07.89) Status: Active Chronic pain (338.29, G89.29) Status: Active Peripheral edema (782.3, R60.9) Status: Active Sleep apnea (780.57, G47.30) Status: Active Polypharmacy (V58.69, Z79.899) Status: Active Fissure in skin of foot (709.8, R23.4) Status: Active Tinea pedis (110.4, B35.3) Status: Active Tinnitus, right (388.30, H93.11) Status: Active Chronic otitis externa (380.23, H60.60) Status: Active Pain of left hip joint (719.45, M25.552) Status: Active Rib pain on left side (786.50, R07.81) Status: Active NLD (necrobiosis lipoidica) (709.3, L92.1) Status: Active Venous stasis dermatitis of left lower extremity (454.1, I87.2) Status: Active Lipodermatosclerosis (729.39, I83.10) Status: Active Acute gastroenteritis (558.9, K52.9) Status: Active Nausea (787.02, R11.0) Status: Active Heart murmur (785.2, R01.1) Status: Active Otitis externa; acute (380.10, H60.509) Status: Active Chronic narcotic use (305.50, F11.90) Status: Active Controlled substance agreement signed (V58.69, Z79.899) Status: Active Sacroiliac dysfunction (724.6, M53.3) Status: Active Anemia (285.9, D64.9) Status: Active Morbid obesity (278.01, E66.01) Status: Active Hypothyroidism (244.9, E03.9) Status: Active CAD (coronary artery disease) (414.00, I25.10) Status: Active Breast cancer screening (V76.10, Z12.39) Status: Active Abdominal pain, acute (789.00, R10.9) Status: Active Colon polyps (211.3, K63.5) Status: Active Constipation (564.00, K59.00) Status: Active Fatty liver (571.8, K76.0) Status: Active Multiple gastric polyps (211.1, K31.7) Status: Active Chronic gastritis (535.10, K29.50) Status: Active Hyperlipidemia (272.4, E78.5) Status: Active Cellulitis of foot (682.7, L03.119) Status: Active Cellulitis of left lower extremity (682.6, L03.116) Status: Active Acute pharyngitis (462, J02.9) Status: Active Acute upper respiratory infection (465.9, J06.9) Status: Active Sacroiliac joint dysfunction (724.6, M53.3) Status: Active Facet arthritis of lumbosacral region (721.3, M47.817) Status: Active Lumbar spondylosis (721.3, M47.816) Status: Active Myofascial pain syndrome (729.1, M79.18) Status: Active Primary hypertension (401.9, I10) Status: Active Non-adherence to medical treatment (V15.81, Z91.19) Status: Active BMI 38.0-38.9,adult (V85.38, Z68.38) Status: Active Need for immunization against influenza (V04.81, Z23) Status: Active Excessive cerumen in both ear canals (380.4, H61.23) Status: Active Asymmetric SNHL (sensorineural hearing loss) (389.16, H90.5) Status: Active Tinnitus (388.30, H93.19) Status: Active Uncontrolled diabetes mellitus (250.02, E11.65) Status: Active Uncontrolled hypertension (401.9, I10) Status: Active Diabetic peripheral neuropathy (250.60, E11.42) Status: Active Medications Name Dates Details Levothyroxine Sodium 75 MCG Oral Tablet TAKE 1 TABLET BY MOUTH ONCE DAILY Quantity: 90 DEANN MERRITT M.D. * Start : 19-Feb-2015 Active metFORMIN HCl - 500 MG Oral Tablet TAKE 2 TABLETS BY MOUTH TWICE DAILY * Quantity: 120 Refills: 2 LESLI COLBERT M.D. * Start : 12-Jun-2013 Active Cyclobenzaprine HCl - 10 MG Oral Tablet Take 1 tablet three times a day * Refills: 0 Active Farxiga 10 MG Oral Tablet TAKE 1 TABLET BY MOUTH ONCE DAILY * Quantity: 30 Refills: 2 LESLI COLBERT M.D. * Start : 01-Jul-2015 Active Alclometasone Dipropionate 0.05 % External Cream APPLY CREAM SPARINGLY TO AFFECTED AREA(S) THREE TIMES DAILY * Quantity: 15 Refills: 0 DEANN MERRITT M.D. * Start : 15-Oct-2015 Active Losartan Potassium 100 MG Oral Tablet TAKE 1 TABLET BY MOUTH ONCE DAILY * Quantity: 90 Refills: 3 ANJEL Huitron, MARCELO * Start : 19-Aug-2018 Active Levemir FlexTouch 100 UNIT/ML Subcutaneous Solution Pen-injector inject 50 U SC qHS MDD:60 U * Quantity: 2 Refills: 2 LESLI COLBERT M.D. * Start : 15-Mar-2016 Active 5 x 3 ML Pen BD Pen Needle Mini U/F 31G X 5 MM use as directed to inject insulin 4 times daily * Quantity: 200 Refills: 2 SAYRA Huitron, LESLI * Start : 15-Mar-2016 Active HumaLOG KwikPen 200 UNIT/ML Subcutaneous Solution Pen-injector inject 15 U SC qAC plus CF 1:50>150 mg/dL and take 2-5 U for bedtime snack MDD:60 U * Quantity: 2 Refills: 2 LESLI COLBERT M.D. * Start : 15-Mar-2016 Active 2 x 3 ML Pen Omeprazole 40 MG Oral Capsule Delayed Release TAKE 1 CAPSULE BY MOUTH ONCE DAILY * Quantity: 90 Refills: 1 DEANN MERRITT M.D. * Start : 31-Mar-2016 Active Ferrous Sulfate 325 (65 Fe) MG Oral Tablet Delayed Release TAKE 1 TABLEt three times a week. * Quantity: 30 Refills: 0 DAENN MERRITT M.D. * Start : 28-Apr-2016 Active Accu-Chek FastClix Lancets USE DIRECTED to check 4 TIMES DAILY * Quantity: 400 Refills: 0 LESLI COLBERT M.D. * Start : 05-Jan-2017 Active Clopidogrel Bisulfate 75 MG Oral Tablet TAKE 1 TABLET BY MOUTH ONCE DAILY * Quantity: 90 Refills: 0 MARCELO HOBBS M.D. * Start : 06-Feb-2017 Active Accu-Chek Brittney Plus In Vitro Strip check BG 4xs daily as directed * Quantity: 4 Refills: 0 LESLI COLBERT M.D. * Start : 22-Jun-2017 Active 100 Strip Box MiraLax Oral Packet MIX 1 PACKET IN 8 OUNCES OF LIQUID AND DRINK ONCE DAILY. * Refills: 0 Active cloNIDine HCl - 0.1 MG Oral Tablet TAKE 1 TABLET BY MOUTH TWICE DAILY * Quantity: 180 Refills: 1 DEANN MERRITT M.D. * Start : 11-Oct-2017 Active Bumetanide 1 MG Oral Tablet TAKE ALTERNATING 2MG AND 1 MG DOSE. * Quantity: 45 Refills: 3 DEANN MERRITT M.D. * Start : 24-Oct-2017 Active Fluocinolone Acetonide 0.01 % Otic Oil INSTILL 3 TO 4 DROPS INTO BOTH EARS ONCE DAILY * Quantity: 20 Refills: 0 BERTHA LOU M.D. * Start : 31-Jan-2018 Active amLODIPine Besylate 10 MG Oral Tablet TAKE 1 TABLET BY MOUTH ONCE DAILY * Quantity: 30 Refills: 6 DEANN MERRITT M.D. * Start : 04-Feb-2018 Active ProLink Solutionse 14 Day Sensor use as directed to monitor sugars every 14 days * Quantity: 2 Refills: 2 LESLI COLBERT M.D. * Start : 08-Feb-2018 Active Triamcinolone Acetonide 0.1 % External Ointment Apply small amount to red, raised, itchy areas twice daily. Avoid face, folds of groin, armpits. * Quantity: 1 Refills: 6 LUCRECIA MATA M.D. * Start : 26-Apr-2018 Active 80 GM Tube Ondansetron 4 MG Oral Tablet Disintegrating 1 TAB EVERY 6 HOURS NEEDED FOR NAUSEA * Quantity: 28 Refills: 0 DEANN MERRITT M.D. * Start : 29-May-2018 Active tiZANidine HCl - 4 MG Oral Tablet TAKE 1 TABLET BY MOUTH ONCE DAILY AT BEDTIME * Quantity: 30 Refills: 2 VIMAL RUIZ M.D.USTAFA * Start : 27-Aug-2018 Active Neurontin 800 MG Oral Tablet TAKE 1 TABLET 3 TIMES DAILY. * Quantity: 90 Refills: 2 SRI Huitron JANAY * Start : 27-Aug-2018 Active HYDROcodone-Acetaminophen 5-325 MG Oral Tablet TAKE 1 TABLET Every twelve hours PRN * Quantity: 60 Refills: 0 KARSTEN RUIZ M.D.AFCynthia * Start : 31-Aug-2018 Active [employer] Santosh [place] Device 1 reciever/[place] for Santosh * Quantity: 1 Refills: 0 SAYRA Huitron, LESLI * Start : 12-Sep-2018 Active Fenofibrate 145 MG Oral Tablet TAKE 1 TABLET DAILY. * Quantity: 90 Refills: 1 SHAINA Huitron, DEANN * Start : 10-Jan-2019 Active Rosuvastatin Calcium 10 MG Oral Tablet TAKE 1 TABLET AT BEDTIME. * Quantity: 90 Refills: 1 SHAINA Huitron, DEANN * Start : 29-Jan-2019 Active Januvia 100 MG Oral Tablet TAKE 1 TABLET DAILY. * Quantity: 90 Refills: 1 SHAINA Huitron, DEANN * Start : 12-Mar-2019 Active Allergies and Adverse Reactions Name Dates Details Morphine Derivatives (Allergy) Status: Active Peanuts (Allergy) Status: Active Past Medical History Name Dates Details History of Acute midline thoracic back pain (724.1, M54.6) Status: Resolved History of Acute upper respiratory infection (465.9, J06.9) Status: Resolved History of angular cheilitis (V12.79, Z87.19) Status: Resolved History of Aortic stenosis, moderate (424.1, I35.0) Status: Resolved History of backache (V13.59, Z87.39) Status: Resolved History of Bacterial pharyngitis (462, J02.8) Status: Resolved History of Bacterial UTI (599.0, N39.0) Status: Resolved History of Bruising (924.9, T14.8XXA) Status: Resolved History of Cellulitis of heel (682.7, L03.119) Status: Resolved History of Cellulitis of left lower extremity (682.6, L03.116) Status: Resolved History of Cervicalgia (723.1, M54.2) Status: Resolved History of chest pain (V13.89, Z87.898) Status: Resolved History of dysphagia (V12.79, Z87.19) Status: Resolved History of Hernia (553.9, K46.9) Status: Resolved History of hypothyroidism (V12.29, Z86.39) Status: Resolved History of insomnia (V13.89, Z87.898) Status: Resolved History of Noncompliance with treatment plan (V15.81, Z91.11) Status: Resolved History of Obstructive sleep apnea (327.23, G47.33) Status: Resolved History of Other intervertebral disc degeneration of lumbar region (722.52, M51.36) Status: Resolved History of Otitis externa (380.10, H60.90) Status: Resolved History of palpitations (V12.59, Z87.898) Status: Resolved History of pancreatitis (V12.79, Z87.19) Status: Resolved History of pneumococcal vaccination (V49.89, Z92.29) Status: Resolved History of Shortness of breath on exertion (786.05, R06.02) Status: Resolved History of syncope (V15.89, Z87.898) Status: Resolved History of Tinea pedis of both feet (110.4, B35.3) Status: Resolved History of type 2 diabetes mellitus (V12.29, Z86.39) Status: Resolved History of Vasovagal near syncope (780.2, R55) Status: Resolved Procedures Procedure Dates Details Abdomen AP view [id number] Date: 03-Jul-2019 History of Tonsillectomy Completed History of Rhinoplasty Completed Comments: Completed: 1990 History of Cataract Surgery Completed History of Tubal Ligation Completed History of Appendectomy Completed History of Cholecystectomy Completed History of Hernia Repair Completed History of Hysterectomy Completed Comments: Completed: 2002 History of Hernia Repair Completed 16-Sep-2012 History of Hysterectomy Completed History of Foot Surgery Completed Immunization Name Dates Details Tdap on: Jun-2013 Fluzone INJ Lot #: [id number] on: 27-Mar-2014 Pneumococcal polysaccharide vaccine, 23 valent Lot #: [id number] on: 26-Jun-2014 Fluzone INJ Lot #: [id number] on: 04-Jun-2015 Fluzone INJ Lot #: [id number] on: 31-Mar-2016 Fluzone Quadrivalent 0.5 ML Intramuscular Suspension Prefilled Syringe Lot #: [id number] on: 12-Mar-2017 Fluzone Quadrivalent 0.5 ML Intramuscular Suspension Prefilled Syringe Lot #: [id number] on: 20-Feb-2018 Fluzone Quadrivalent 0.5 ML Intramuscular Suspension Prefilled Syringe Lot #: [id number] on: 12-Mar-2019 Family History Name Dates Details Family history of Congenital Heart Disease Status: Active Family history of Lung Cancer (V16.1) Status: Active Family history of Hypertension (V17.49) Status: Active Family history of Lung Cancer (V16.1) Status: Active Name Dates Details Family history of Acute Myocardial Infarction (V17.3) Status: Active Social History Name Dates Details - Status: Name Dates Details Never smoker Vital Signs Date Test Result Details No Known Vitals to report Results Date Description Value Details Results not documented Plan of Care Name Dates Details Planned Observations Planned Goals not documented Planned Encounters Appointment; LESLI COLBERT M.D. On: 30-Jul-2019 16:00 Appointment; MARCELO HOBBS M.D. On: 13-Aug-2019 17:00 Appointment; BERTHA LOU M.D. On: 11-Sep-2019 15:00 Appointment; DIMAS CORADO M.D. On: 20-Jan-2020 16:15 Interventions Provided Labs/Procedures/Imaging* Abdomen AP view [id number]; To Be Done: 03 Jul 2019 Instructions Name Dates Details Instructions not documented Encounters Appointment; DIMAS CORADO M.D. Encounter Diagnosis: Problem not documented On: 05-Jul-2017 15:45 Appointment; DEANN MERRITT M.D. Encounter Diagnosis: Problem not documented On: 12-Jul-2017 16:00 Appointment; DEANN MERRITT M.D. Encounter Diagnosis: Problem not documented On: 13-Aug-2017 14:15 Appointment; MARCELO HOBBS M.D. Encounter Diagnosis: Problem not documented On: 22-Aug-2017 16:20 Appointment; LESLI COLBERT M.D. Encounter Diagnosis: Problem not documented On: 31-Aug-2017 16:00 Appointment; DEANN MERRITT M.D. Encounter Diagnosis: Problem not documented On: 19-Sep-2017 15:30 Appointment; DEANN MERRITT M.D. Encounter Diagnosis: Problem not documented On: 11-Oct-2017 15:30 Appointment; DEANN MERRITT M.D. Encounter Diagnosis: Problem not documented On: 24-Oct-2017 16:00 Appointment; DEANN MERRITT M.D. Encounter Diagnosis: Problem not documented On: 21-Nov-2017 16:00 Appointment; DEANN MERRITT M.D. Encounter Diagnosis: Problem not documented On: 14-Dec-2017 13:45 Appointment; DEANN MERRITT M.D. Encounter Diagnosis: Problem not documented On: 24-Jan-2018 16:00 Appointment; BERTHA LOU M.D. Encounter Diagnosis: Problem not documented On: 31-Jan-2018 15:15 Appointment; DEANN MERRITT M.D. Encounter Diagnosis: Problem not documented On: 04-Feb-2018 13:15 Appointment; LESLI COLBERT M.D. Encounter Diagnosis: Problem not documented On: 08-Feb-2018 15:30 Appointment; DEANN MERRITT M.D. Encounter Diagnosis: Problem not documented On: 20-Feb-2018 16:00 Appointment; DEANN MERRITT M.D. Encounter Diagnosis: Problem not documented On: 03-Apr-2018 14:30 Appointment; DEANN MERRITT M.D. Encounter Diagnosis: Problem not documented On: 12-Apr-2018 11:00 Appointment; DEANN MERRITT M.D. Encounter Diagnosis: Problem not documented On: 19-Apr-2018 11:00 Appointment; DEANN MERRITT M.D. Encounter Diagnosis: Problem not documented On: 26-Apr-2018 12:00 Appointment; LUCRECIA MATA M.D. Encounter Diagnosis: Problem not documented On: 26-Apr-2018 14:00 Appointment; DEANN MERRITT M.D. Encounter Diagnosis: Problem not documented On: 01-May-2018 16:00 Appointment; DEANN MERRITT M.D. Encounter Diagnosis: Problem not documented On: 07-May-2018 16:00 Appointment; DEANN MERRITT M.D. Encounter Diagnosis: Problem not documented On: 29-May-2018 13:30 Appointment; DEANN MERRITT M.D. Encounter Diagnosis: Problem not documented On: 06-Jun-2018 16:00 Appointment; [facility] [place] Encounter Diagnosis: Problem not documented On: 26-Jun-2018 16:00 Appointment; MARCELO HOBBS M.D. Encounter Diagnosis: Problem not documented On: 26-Jun-2018 17:00 Appointment; DEANN MERRITT M.D. Encounter Diagnosis: Problem not documented On: 01-Jul-2018 14:00 Appointment; BERTHA LOU M.D. Encounter Diagnosis: Problem not documented On: 01-Aug-2018 15:00 Appointment; BERTHA LOU M.D. Encounter Diagnosis: Problem not documented On: 01-Aug-2018 15:45 Appointment; DEANN MERRITT M.D. Encounter Diagnosis: Problem not documented On: 22-Aug-2018 16:00 Appointment; DONATO RUIZ M.D. Encounter Diagnosis: Problem not documented On: 27-Aug-2018 15:00 Appointment; LESLI COLBERT M.D. Encounter Diagnosis: Problem not documented On: 12-Sep-2018 16:00 Appointment; TRES BERNAL Encounter Diagnosis: Problem not documented On: 17-Sep-2018 15:30 Appointment; BERTHA LOU M.D. Encounter Diagnosis: Problem not documented On: 19-Sep-2018 15:00 Appointment; DONATO RUIZ M.D. Encounter Diagnosis: Problem not documented On: 01-Oct-2018 15:45 Appointment; DONATO RUIZ M.D. Encounter Diagnosis: Problem not documented On: 09-Oct-2018 15:30 Appointment; DONATO RUIZ M.D. Encounter Diagnosis: Problem not documented On: 07-Nov-2018 16:00 Appointment; DIMAS CORADO M.D. Encounter Diagnosis: Problem not documented On: 12-Nov-2018 16:00 Appointment; DEANN MERRITT M.D. Encounter Diagnosis: Problem not documented On: 18-Nov-2018 16:00 Appointment; LESLI COLBERT M.D. Encounter Diagnosis: Problem not documented On: 13-Dec-2018 16:00 Appointment; DEANN MERRITT M.D. Encounter Diagnosis: Problem not documented On: 18-Dec-2018 16:00 Appointment; DIMAS CORADO M.D. Encounter Diagnosis: Problem not documented On: 21-Jan-2019 16:00 Appointment; DEANN MERRITT M.D. Encounter Diagnosis: Problem not documented On: 29-Jan-2019 16:00 Appointment; DEANN MERRITT M.D. Encounter Diagnosis: Problem not documented On: 06-Feb-2019 15:30 Appointment; JANAY FIERRO M.D. Encounter Diagnosis: Problem not documented On: 27-Feb-2019 15:15 Appointment; DEANN MERRITT M.D. Encounter Diagnosis: Problem not documented On: 28-Feb-2019 11:00 Appointment; DEANN MERRITT M.D. Encounter Diagnosis: Problem not documented On: 12-Mar-2019 16:00 Appointment; BERTHA LOU M.D. Encounter Diagnosis: Problem not documented On: 13-Mar-2019 15:00 Appointment; DEANN MERRITT M.D. Encounter Diagnosis: Problem not documented On: 08-Apr-2019 16:00 Appointment; JANAY FIERRO M.D. Encounter Diagnosis: Problem not documented On: 10-Apr-2019 15:15 Appointment; JANAY FIERRO M.D. Encounter Diagnosis: Problem not documented On: 16-Apr-2019 16:00
[2019-07-24 18:10] LABS: BASOPHILS % 0.4 % (0.0-1.0); EOSINOPHILS # (AUTO) 0.1 (0.0-0.4); EOSINOPHILS % 0.5 % (0.0-6.0); HEMATOCRIT 39.3 % (34.2-44.1); HEMOGLOBIN 12.8 g/dL (12.0-16.0); LYMPHOCYTES # (AUTO) 2.4 (1.0-3.2); LYMPHOCYTES % 24.7 % (18.0-39.1); MEAN CORPUSCULAR HEMOGLOBIN 28.6 pg (28-32); MEAN CORPUSCULAR HGB CONC 32.6 g/dL (31-35); MEAN CORPUSCULAR VOLUME 87.7 fL (81-99); MONOCYTES # (AUTO) 0.4 (0.2-0.8); MONOCYTES % 4.2 % (4.4-11.3); NEUTROPHILS # (AUTO) 6.7 (2.1-6.9); NEUTROPHILS % 69.8 % (38.7-80.0); PLATELET COUNT 289 x10e3/uL (140-360); RED BLOOD COUNT 4.48 x10e6/uL (3.6-5.1); RED CELL DISTRIBUTION WIDTH 13.7 % (11.7-14.4)
[2019-07-24 18:29] LABS: ALANINE AMINOTRANSFERASE 20 IU/L (0-55); ALBUMIN 3.8 g/dL (3.5-5.0); ALBUMIN/GLOBULIN RATIO 1.1 (0.8-2.0); ALKALINE PHOSPHATASE 72 IU/L (40-150); BLOOD UREA NITROGEN 11 mg/dL (7-26); BUN/CREATININE RATIO 13 (6-25); CALCIUM 9.6 mg/dL (8.4-10.2); CARBON DIOXIDE 22 mmol/L (22-29); CHLORIDE 106 mmol/L (98-107); CREATININE, SERUM 0.83 mg/dL (0.57-1.11); EST GLOMERULAR FILTRATION RATE > 60 ML/MIN (60-); GLUCOSE 173 mg/dL (74-118); SODIUM 141 mmol/L (136-145)
== END 2019-07-24 18:29 | disposition home or self-care (01) ==
LOC: ER 14:25
DX: S20.219A Contusion of unspecified front wall of thorax, initial encounter (principal); S50.12XA Contusion of left forearm, initial encounter; S80.12XA Contusion of left lower leg, initial encounter; V49.49XA Driver injured in collision with other motor vehicles in traffic accident, initial encounter; Y92.410 Unspecified street and highway as the place of occurrence of the external cause; E11.9 Type 2 diabetes mellitus without complications; E03.9 Hypothyroidism, unspecified; I10 Essential (primary) hypertension; M54.9 Dorsalgia, unspecified; G89.29 Other chronic pain; K21.9 Gastro-esophageal reflux disease without esophagitis; Z79.4 Long term (current) use of insulin
CPT/HCPCS: 36415; 80053; 85025; 99283

== ENCOUNTER 2019-07-28 08:10 | Emergency (ER) | payer OTHER ==
[~2019-07-28] VITALS: Ht 172.7 cm; Wt 108.4 kg
[2019-07-28] MEDS ORDERED: LIDOCAINE 4% PATCH TP ONE (08:30)
[2019-07-28] MEDS ORDERED: KETOROLAC TROMETHAMINE 60 MG/2 ML VIAL IM ONE (09:45)
[2019-07-28] MEDS ORDERED: KETOROLAC TROMETHAMINE 60 MG/2 ML VIAL ONE (09:54)
--- NOTE | 2019-07-28 10:10 | Diagnostic Imaging Report ---
Exam: Right rib series Clinical history: Rib pain Findings: There is no evidence of acute displaced fractures in the visualized osseous structures. The cardiac size is within normal limits. There is no evidence of primary consolidation, pleural effusion, or pneumothorax. Impression: 1. No radiographic evidence of acute osseous injury. Signed by: Dr. Red Cisse MD on 07/28/2019 10:08 AM
[2019-07-28] MEDS ORDERED: ULTRAM50 MG PO (10:35)
== END 2019-07-28 10:58 | disposition home or self-care (01) ==
LOC: ER 08:10
DX: S29.9XXA Unspecified injury of thorax, initial encounter (principal); S20.211A Contusion of right front wall of thorax, initial encounter; V47.5XXA Car driver injured in collision with fixed or stationary object in traffic accident, initial encounter; Y92.488 Other paved roadways as the place of occurrence of the external cause
CPT/HCPCS: 71101; 99283; J1885

== ENCOUNTER 2019-12-24 18:33 | Inpatient (IN) | payer OTHER ==
[~2019-12-24] VITALS: Ht 172.7 cm; Wt 106.6 kg
[~2019-12-24 18:33] MED LIST changes: +ULTRAM50 MG PO
[2019-12-24] MEDS ORDERED: PIPER-TAZ 3.375 GM 50 ML IV ONE (19:30)
[2019-12-24] MEDS ORDERED: VANCOMYCIN 1GM/NS 250 ML 250 ML IV ONE (19:30)
[2019-12-24] MEDS ORDERED: ACETAMINOPHEN 325 MG TAB PO ONE ×2 (19:30→22:30)
--- NOTE | 2019-12-24 19:33 | Emergency Department Note ---
History of Present Illnes History of Present Illness Chief Complaint: COVID PUI History of Present Illness This is a 59 year old female PRESENTS TO THE ER C/O BODY ACHES, FEVER/CHILLS, REDNESS TO RLE AND SPASMS TO BLE ONSET YESTERDAY; REPORTS FEVER AT HOME 103 YESTERDAY; PT DENIES SOB OR COUGH; REDNESS NOTED TO RLE; TEMP 100.0 IN TRIAGE; HX OF CELLULITIS; REPORTS SYMPTOMS ARE SIMILIAR TO WHEN SHE HAD CELLULITIS IN THE PAST; . Historian: Patient Arrival Mode: Car Onset (how long ago): day(s) (1) Location: rle Quality: rendess, pain, fever, body aches Radiation: Reports non-radiation Severity: moderate Onset quality: gradual Duration (how long): day(s) (1) Timing of current episode: constant Progression: worsening Context: Reports recent illness (fever) Relieving factors: none Exacerbating factors: movement Associated symptoms: Reports denies other symptoms Treatments prior to arrival: none Past Medical/Family History Physician Review I have reviewed the patient's past medical and family history. Any updates have been documented here. Past Medical History Recent Fever: Yes Clinical Suspicion of Infectio: Yes New/Unexplained Change in Ment: No Past Medical History: Hypertension, Diabetes, Hypothyroidism, GERD Other Medical History: HEART MURMUR HERNIATED L4/5 ARTHRITIS SLEEP APNEA CELLULITIS Past Surgical History: Cholecysctectomy, Appendectomy, Hysterectomy, T&A, Hernia Repair Other Surgery: NOSE CATARACTS BONE SPURS BILATERAL FEET Social History Smoking Cessation: Never Smoker Alcohol Use: None Any Illegal Drug Use: No Physically hurt or threatened: No Family History Family history of heart diseas: No Other family history htn,dm Other Last Tetanus: UTD Review of Systems Review of Systems Constitutional: Reports as per HPI EENTM: Reports no symptoms Cardiovascular: Reports no symptoms Respiratory: Reports no symptoms Gastrointestinal: Reports no symptoms Genitourinary: Reports no symptoms Musculoskeletal: Reports as per HPI Integumentary: Reports as per HPI Neurological: Reports no symptoms Psychological: Reports no symptoms Endocrine: Reports no symptoms Hematological/Lymphatic: Reports no symptoms Physical Exam Related Data Allergies: Coded Allergies: morphine (Verified Allergy, Severe, SWELLING, 07/28/19) paprika (Verified Allergy, Unknown, 07/28/19) peanut (Verified Allergy, Unknown, 07/28/19) Triage Vital Signs Vital Signs Date Time Temp Pulse Resp B/P (MAP) Pulse Ox O2 Delivery O2 Flow Rate FiO2 12/24/19 19:07 100.0 75 20 110/72 96 Room Air Vital signs reviewed: Yes Physical Exam CONSTITUTIONAL Constitutional: Present well-developed, Present well-nourished HENT HENT: Present normocephalic, Present atraumatic, Present oropharynx clear/moist, Present nose normal HENT L/R: Present left ext ear normal, Present right ext ear normal EYES Eyes: Reports PERRL, Reports conjunctivae normal NECK Neck: Present ROM normal PULMONARY Pulmonary: Present effort normal, Present breath sounds normal CARDIOVASCULAR Cardiovascular: Present regular rhythm, Present heart sounds normal, Present capillary refill normal, Present normal rate GASTROINTESTINAL Abdominal: Present soft, Present nontender, Present bowel sounds normal GENITOURINARY Genitourinary: Present exam deferred SKIN Skin: Present warm, Present dry MUSCULOSKELETAL Musculoskeletal: Present ROM normal, Present tenderness (mild rle), Present swelling (mild rle), Present other (erythema and warth to rle from ankle to knee) NEUROLOGICAL Neurological: Present alert, Present oriented x 3, Present no gross motor or sensory deficits PSYCHOLOGICAL Psychological: Present mood/affect normal, Present judgement normal Results Laboratory Laboratory Laboratory Tests Test 12/24/19 19:14 White Blood Count 13.02 x10e3/uL (4.8-10.8) Red Blood Count 4.17 x10e6/uL (3.6-5.1) Hemoglobin 11.2 g/dL (12.0-16.0) Hematocrit 35.3 % (34.2-44.1) Mean Corpuscular Volume 84.7 fL (81-99) Mean Corpuscular Hemoglobin 26.9 pg (28-32) Mean Corpuscular Hemoglobin Concent 31.7 g/dL (31-35) Red Cell Distribution Width 13.4 % (11.7-14.4) Platelet Count 293 x10e3/uL (140-360) Neutrophils (%) (Auto) 79.5 % (38.7-80.0) Lymphocytes (%) (Auto) 15.1 % (18.0-39.1) Monocytes (%) (Auto) 4.1 % (4.4-11.3) Eosinophils (%) (Auto) 0.3 % (0.0-6.0) Basophils (%) (Auto) 0.5 % (0.0-1.0) Neutrophils # (Auto) 10.4 (2.1-6.9) Lymphocytes # (Auto) 2.0 (1.0-3.2) Monocytes # (Auto) 0.5 (0.2-0.8) Eosinophils # (Auto) 0.0 (0.0-0.4) Basophils # (Auto) 0.1 (0.0-0.1) Absolute Immature Granulocyte (auto 0.06 x10e3/uL (0-0.1) Urine Color Yellow (YELLOW) Urine Clarity Sl cloudy (CLEAR) Urine pH 5.5 (5 - 7) Urine Specific [place] 1.020 (1.010-1.025) Urine Protein Negative (NEGATIVE) Urine Glucose (UA) 3+ (NEGATIVE) Urine Ketones Trace (NEGATIVE) Urine Blood Negative (NEGATIVE) Urine Nitrite Negative (NEGATIVE) Urine Bilirubin Negative (NEGATIVE) Urine Urobilinogen 0.2 mg/dL (0.2 - 1) Urine Leukocyte Esterase Trace (NEGATIVE) Urine RBC None /HPF (0-5) Urine WBC 0-5 /HPF (0-5) Urine Epithelial Cells Moderate /LPF (NONE) Urine Transitional Epithelial Cells Few (NONE) Urine Bacteria Moderate /HPF (NONE) Sodium Level 136 mmol/L (136-145) Potassium Level 3.6 mmol/L (3.5-5.1) Chloride Level 103 mmol/L (98-107) Carbon Dioxide Level 24 mmol/L (22-29) Anion Gap 12.6 mmol/L (8-16) Blood Urea Nitrogen 24 mg/dL (7-26) Creatinine 1.45 mg/dL (0.57-1.11) Estimat Glomerular Filtration Rate 37 ML/MIN (60-) BUN/Creatinine Ratio 17 (6-25) Glucose Level 217 mg/dL (74-118) Calcium Level 9.3 mg/dL (8.4-10.2) Total Bilirubin 0.3 mg/dL (0.2-1.2) Aspartate Amino Transf (AST/SGOT) 13 IU/L (5-34) Alanine Aminotransferase (ALT/SGPT) 13 IU/L (0-55) Alkaline Phosphatase 64 IU/L (40-150) Total Protein 7.3 g/dL (6.5-8.1) Albumin 3.4 g/dL (3.5-5.0) Globulin 3.9 g/dL (2.3-3.5) Albumin/Globulin Ratio 0.9 (0.8-2.0) Lab results reviewed: Yes Imaging Imaging results reviewed: Yes Impressions Procedure: [id number] DX/CHEST SINGLE (PORTABLE) Exam Date: Exam Time: REPORT STATUS: Signed EXAMINATION: CHEST SINGLE (PORTABLE) INDICATION: Fever COMPARISON: Chest x-ray 07/28/2019 FINDINGS: TUBES and LINES: None. LUNGS: Normal lung volumes. Lungs are clear. No consolidations. PLEURA: No pleural effusion or pneumothorax. HEART AND MEDIASTINUM: The cardiomediastinal silhouette is unremarkable. BONES AND SOFT TISSUES: No acute osseous lesion. Soft tissues are unremarkable. UPPER ABDOMEN: No free air under the diaphragm. IMPRESSION: No acute thoracic radiographic abnormality. Signed by: Kaleb Mohan DO on 12/24/2019 10:16 PM Assessment & Plan Medical Decision Making MDM pt with fever, body aches, redness, pain and swelling to rle, states similar symptoms with cellulitis in the past. cbc. cmp, blood cultrure,ua, cxr odered to eval for leukocytosis, electrolyte abnormality, uti, pneumonia zosyn 3.375 grams iv ordered vancomycin 1 gram iv ordered tylenol 650 mg po ordered PT WITH CELLULITIS OF RLE, I SPOKE WITH DR LATIF ADMIT TO INPATIENT Reassessment Reassessment time: 22:18 Reassessment PT'S SYMPTOMS UNCHANGED, I WENT OVER LAB AND XRAY RESULTS WITH PT. Assessment & Plan Final Impression: (1) Cellulitis (2) Diabetes (3) Fever Depart Disposition: ADMITTED Last Vital Signs Date Time Temp Pulse Resp B/P (MAP) Pulse Ox O2 Delivery O2 Flow Rate FiO2 12/24/19 19:07 100.0 75 20 110/72 96 Room Air Home Meds Active Scripts Tramadol Hcl (ULTRAM) 50 Mg Tablet, 50 MG PO Q6HR PRN for MILD PAIN (1-3), #12 TAB Prov:TOMMY CHAPPELL DO 07/28/19 Sulfamethoxazole/Trimethoprim (BACTRIM DS TABLET) 1 Each Tablet, 1 TAB PO BID, #28 TAB Prov:DEANN MERRITT MD 03/27/18 Minocycline Hcl (MINOCIN) 50 Mg Capsule, 100 MG PO BID for 10 Days Prov:SANTOS FUENTES MD 07/11/16 Reported Medications Bumetanide (BUMETANIDE) 1 Mg Tablet, 1 MG PO DAILY, #30 TAB 12/01/17 Clonidine Hcl (CLONIDINE HCL) 0.1 Mg Tablet, 0.1 MG PO BID, #60 TAB 12/01/17 Polyethylene Glycol 3350 (MIRALAX) 17 Gm Powd.pack, 17 GM PO DAILY 12/01/17 Clopidogrel Bisulfate* (PLAVIX) 75 Mg Tablet, 75 MG PO DAILY, #30 TAB 12/01/17 Ferrous Sulfate (FERROUS SULFATE) 325 Mg Tablet, 325 MG PO TID 12/01/17 Tizanidine Hcl (TIZANIDINE HCL) 4 Mg Tablet, 4 MG PO DAILY, TAB 12/01/17 Cyclobenzaprine Hcl (CYCLOBENZAPRINE HCL) 10 Mg Tablet, 10 MG PO TID, TAB 12/01/17 Omeprazole (OMEPRAZOLE) 40 Mg Capsule.dr, 40 MG PO DAILY 07/08/16 Pravastatin Sodium (PRAVASTATIN SODIUM) 40 Mg Tablet, 40 MG PO HS 03/05/16 Insulin Regular, Human (NOVOLIN R) 100 Unit/1 Ml Vial, 15 UNITS SQ AC 03/05/16 Metformin Hcl (METFORMIN HCL) 500 Mg Tablet, 1000 MG PO BID, #60 TAB 03/05/16 Losartan Potassium (LOSARTAN POTASSIUM) 50 Mg Tablet, 50 MG PO DAILY 03/05/16 Levothyroxine Sodium (LEVOTHYROXINE SODIUM) 75 Mcg Tablet, 75 MCG PO DAILY, #30 TAB 03/05/16 Insulin Detemir (LEVEMIR) 100 Unit/1 Ml Vial, 45 UNITS SQ HS 03/05/16 Hydrocodone Bit/Acetaminophen (NORCO 10-325 TABLET) 1 Each Tablet, 10 MG PO Q8H PRN for PAIN 03/05/16 Gabapentin (GABAPENTIN) 400 Mg Capsule, 800 MG PO TID, #30 CAP 03/05/16 Fenofibrate,Micronized (FENOFIBRATE) 67 Mg Capsule, 67 MG PO 03/05/16 [Farxiga] 10 No Conflict Check, 10 MG PO DAILY 03/05/16 Amlodipine Besylate (AMLODIPINE BESYLATE) 10 Mg Tablet, 10 MG PO DAILY, #30 TAB 03/05/16 Medications in the ED Acetaminophen 650 mg ONCE ONCE PO ; Start 12/24/19 at 19:30; Stop 12/24/19 at 19:31; Status UNV Piperacillin Sod/ Tazobactam Sod 50 ml @ 50 mls/hr NOW ONCE IV ; Start 12/24/19 at 19:30; Stop 12/24/19 at 20:29; Status UNV Vancomycin HCl 250 ml @ 200 mls/hr NOW ONCE IV ; Start 12/24/19 at 19:30; Stop 12/24/19 at 20:44; Status UNV BERTHA FERNÁNDEZ MD Dec 24, 2019 19:33
[2019-12-24 19:38] LABS: BASOPHILS # (AUTO) 0.1 (0.0-0.1); BASOPHILS % 0.5 % (0.0-1.0); EOSINOPHILS % 0.3 % (0.0-6.0); HEMATOCRIT 35.3 % (34.2-44.1); HEMOGLOBIN 11.2 g/dL (12.0-16.0); LYMPHOCYTES % 15.1 % (18.0-39.1); MEAN CORPUSCULAR HEMOGLOBIN 26.9 pg (28-32); MEAN CORPUSCULAR HGB CONC 31.7 g/dL (31-35); MEAN CORPUSCULAR VOLUME 84.7 fL (81-99); MONOCYTES # (AUTO) 0.5 (0.2-0.8); MONOCYTES % 4.1 % (4.4-11.3); NEUTROPHILS # (AUTO) 10.4 (2.1-6.9); NEUTROPHILS % 79.5 % (38.7-80.0); PLATELET COUNT 293 x10e3/uL (140-360); RED BLOOD COUNT 4.17 x10e6/uL (3.6-5.1); RED CELL DISTRIBUTION WIDTH 13.4 % (11.7-14.4)
[2019-12-24 19:47] LABS: CLARITY,URINE SL CLOUDY (CLEAR); COLOR,URINE YELLOW (YELLOW); KETONES,URINE TRACE (NEGATIVE); LEUKOCYTE ESTERASE ,URINE TRACE (NEGATIVE); NITRITE,URINE NEGATIVE (NEGATIVE); PROTEIN,URINE DIPSTICK NEGATIVE (NEGATIVE)
[2019-12-24 19:48] LABS: BILIRUBIN,URINE NEGATIVE (NEGATIVE); URINE UROBILINOGEN 0.2 mg/dL (0.2 - 1)
[2019-12-24 19:55] LABS: ALBUMIN 3.4 g/dL (3.5-5.0); ALBUMIN/GLOBULIN RATIO 0.9 (0.8-2.0); ANION GAP 12.6 mmol/L (8-16); CALCIUM 9.3 mg/dL (8.4-10.2); CREATININE, SERUM 1.45 mg/dL (0.57-1.11); POTASSIUM 3.6 mmol/L (3.5-5.1)
[2019-12-24 20:02] LABS: BACTERIA,URINE MODERATE /HPF; EPITHELIAL CELLS,URINE MODERATE /LPF; TRANSITIONAL EPI CELLS,URINE FEW; WBC,URINE (MAN) 0-5 /HPF (0-5)
--- NOTE | 2019-12-24 22:19 | Diagnostic Imaging Report ---
EXAMINATION: CHEST SINGLE (PORTABLE) INDICATION: Fever COMPARISON: Chest x-ray 07/28/2019 FINDINGS: TUBES and LINES: None. LUNGS: Normal lung volumes. Lungs are clear. No consolidations. PLEURA: No pleural effusion or pneumothorax. HEART AND MEDIASTINUM: The cardiomediastinal silhouette is unremarkable. BONES AND SOFT TISSUES: No acute osseous lesion. Soft tissues are unremarkable. UPPER ABDOMEN: No free air under the diaphragm. IMPRESSION: No acute thoracic radiographic abnormality. Signed by: Kaleb Mohan DO on 12/24/2019 10:16 PM
[2019-12-24] MEDS: VANCOMYCIN 1GM/NS 250 ML 250 ML IV SCH (22:30)
[2019-12-24] MEDS ORDERED: DEXTROSE 50% SYRINGE 50 ML IV PRN (22:30)
[2019-12-25] VITALS (10 sets, daily range): BP systolic 108–161; BP diastolic 50–86
--- NOTE | 2019-12-25 02:27 | NUR ---
RECEIVED PATIENT FROM ED VIA WHEELCHAIR AT THIS TIME. PATIENT AMBULATED TO BED, STEADY GAIT NOTED. PATIENT A&OX4. PAIN 10/10 REPORTED, GENERALIZED BUT WORSE IN BLE, WILL MEDICATE. LUNG SOUNDS CLEAR. BOWEL SOUNDS ACTIVE. SKIN INTACT. RLE SWELLING AND REDNESS NOTED FROM ANKLE TO MID-CALF, AROUND CIRCUMFERENCE OF LEG. NO BREAKS IN THE SKIN NOTED. R WRIST 20G IV ASYMPTOMATIC, INTACT, AND PATENT. PATIENT ORIENTED TO ROOM AND CURRENT TREATMENT PLAN. BED LOCKED IN LOWEST POSITION, SIDE RAILS UPX2, CALL LIGHT IN REACH.
[2019-12-25] MEDS ORDERED: PNEUMOCOCCAL VACCINE POLYVALENT 23 MCG/0.5 ML VIAL IM SCH (02:45)
[2019-12-25] MEDS: SODIUM CHLORIDE 0.9% 1000ML 1,000 ML IV ONE ×2 (02:59→04:00)
[2019-12-25] MEDS: HYDROMORPHONE 1MG/1ML INJ IV PRN ×5 (03:01→22:30)
[2019-12-25] MEDS ORDERED: VASCEPA1 GM PO (03:39)
[2019-12-25] MEDS ORDERED: TRESIBA FL200 UNIT/1 SC (03:39)
[2019-12-25] MEDS ORDERED: HUMALOG KW200 UNIT/1 SC (03:39)
[2019-12-25] MEDS ORDERED: JANUVIA100 MG PO (03:39)
[2019-12-25] MEDS ORDERED: ZOFRAN4 MG PO (03:39)
[2019-12-25] MEDS ORDERED: CRESTOR10 MG PO (03:39)
[2019-12-25] MEDS ORDERED: SODIUM CHLORIDE 0.9% 1000ML 1,000 ML ONE (04:00)
[2019-12-25] MEDS: PIPER-TAZ 3.375 GM 50 ML IV SCH ×3 (05:33→22:40)
[2019-12-25 05:55] LABS: BASOPHILS % 0.4 % (0.0-1.0); EOSINOPHILS # (AUTO) 0.1 (0.0-0.4); EOSINOPHILS % 1.2 % (0.0-6.0); HEMATOCRIT 33.1 % (34.2-44.1); HEMOGLOBIN 10.4 g/dL (12.0-16.0); LYMPHOCYTES # (AUTO) 1.7 (1.0-3.2); LYMPHOCYTES % 20.8 % (18.0-39.1); MEAN CORPUSCULAR HEMOGLOBIN 27.7 pg (28-32); MEAN CORPUSCULAR HGB CONC 31.4 g/dL (31-35); MEAN CORPUSCULAR VOLUME 88.3 fL (81-99); MONOCYTES # (AUTO) 0.5 (0.2-0.8); NEUTROPHILS # (AUTO) 5.7 (2.1-6.9); NEUTROPHILS % 71.1 % (38.7-80.0); PLATELET COUNT 208 x10e3/uL (140-360); RED BLOOD COUNT 3.75 x10e6/uL (3.6-5.1); RED CELL DISTRIBUTION WIDTH 13.7 % (11.7-14.4)
[2019-12-25 06:38] LABS: ALBUMIN/GLOBULIN RATIO 0.8 (0.8-2.0); ANION GAP 12.5 mmol/L (8-16); CALCIUM 8.9 mg/dL (8.4-10.2); CREATININE, SERUM 1.2 mg/dL (0.57-1.11); POTASSIUM 3.5 mmol/L (3.5-5.1)
[2019-12-25] MEDS ORDERED: HYDROCODONE/APAP 10MG-325MG TAB PO PRN (07:00)
[2019-12-25] MEDS: POLYETHYLENE GLYCOL 3350 17 GM PACK PO SCH (08:05)
[2019-12-25] MEDS: METFORMIN HCL 500 MG TAB PO SCH ×2 (08:05→17:03)
[2019-12-25] MEDS: BUMETANIDE 1 MG TAB PO SCH (08:06)
[2019-12-25] MEDS: SITAGLIPTIN 100 MG TAB PO SCH (08:06)
[2019-12-25] MEDS: CLONIDINE HCL 0.1 MG TAB PO SCH ×2 (08:06→17:03)
[2019-12-25] MEDS: FERROUS SULFATE 325 MG TAB PO SCH (08:07)
[2019-12-25] MEDS: CYCLOBENZAPRINE HCL 10 MG TAB PO SCH ×3 (08:07→22:19)
[2019-12-25] MEDS: GABAPENTIN 400 MG CAP PO SCH ×3 (08:08→22:19)
[2019-12-25] MEDS: CLOPIDOGREL BISULFATE 75 MG TAB PO SCH (08:09)
[2019-12-25] MEDS: PANTOPRAZOLE SOD 40 MG TABEC PO SCH (08:09)
[2019-12-25] MEDS: INSULIN REGULAR, HUMAN 100 UNIT/1 ML 3ML VIAL SQ SCH ×7 (08:30→21:00)
[2019-12-25] MEDS: LEVOTHYROXINE SODIUM 75 MCG TAB PO SCH (09:00)
[2019-12-25] MEDS: VANCOMYCIN 1GM/NS 250 ML 250 ML IV SCH (10:55)
[2019-12-25] MEDS: AMLODIPINE BESYLATE 10 MG TAB PO SCH (11:06)
[2019-12-25] MEDS: ONDANSETRON HCL INJ 2MG/ML 2ML 2 MG/ML VIAL IV PRN ×3 (12:16→22:30)
--- NOTE | 2019-12-25 18:21 | History and Physical ---
HISTORY OF PRESENT ILLNESS: The patient came in with fever, body aches, chills, and redness in the right lower extremity with temperature at home being about 103. The patient came in, was found to have cellulitis of the lower extremities and admitted for the same. PAST MEDICAL HISTORY: History of hypertension, history of hyperlipidemia, history of sleep apnea, history of arthritis, history of low back pain, history of hypothyroidism, and history of diabetes mellitus. MEDICATIONS: She takes at home, amlodipine 10 mg, Bumex 1 mg daily, clonidine 0.1 mg b.i.d., clopidogrel 75 mg daily, cyclobenzaprine 10 mg 3 times a day, fenofibrate 67 mg daily, ferrous sulfate 325 mg daily, gabapentin 3 times a day, insulin Tresiba 60 units of insulin, Humalog 60 units before meals and at bedtime, levothyroxine 75 mcg, losartan 50 mg, metformin 1000 mg twice a day, minocycline 50 mg, omeprazole 40 mg, polyethylene glycol as needed, rosuvastatin 10, sitagliptin 100 mg, sulfamethoxazole twice a day, tizanidine, tramadol, . PAST SURGICAL HISTORY: History of hernia repair x3, cholecystectomy, appendectomy, total hysterectomy, tubal ligation, tonsillectomy, adenoidectomy, bilateral cataract, and sinus surgery. SOCIAL HISTORY: No EtOH. No IV drug abuse. No history of smoking. REVIEW OF SYSTEMS: Negative for chest pain. Positive for fever. Positive for chills. Positive for some shortness of breath and positive for generalized weakness and fatigue. Other, review of systems are negative. PHYSICAL EXAMINATION: HEENT: Alert and oriented x3. VITAL SIGNS: Temperature is 98.0, blood pressure is 133/55, pulse is 63, and pulse oximetry of 96% on room air. HEENT: Normocephalic, atraumatic. The patient is obese. CVS: S1 and S2 normal. Regular rate and rhythm. ABDOMEN: Soft, nontender, nondistended. EXTREMITIES: Right lower extremity with erythema, tenderness, and swelling extending up into the mid calf area. The patient also has a cut in the right great toe, which the infection. IMAGING STUDIES: The patient's chest x-ray shows no thoracic abnormalities. MICROBIOLOGY: Urine culture is pending. The patient with fever, body ache, redness, cellulitis of the right extremities with ascending lymphangitis. PLAN: Zosyn 3.375 mg, vancomycin 1 g IV q.12. Tylenol as needed. Restart all home medication. Further recommendation per clinical course. We will also give her DVT prophylaxis, was subcu Lovenox 30 mg b.i.d. Further recommendation per clinical course. vancomycin trough will be done. We will continue to monitor the patient also. DVT test to be done. MD TYRESE Pratt/MODL /[id number]
--- NOTE | 2019-12-25 19:00 | NUR ---
BEDSIDE SHIFT REPORT GIVEN TO THE CARTON STENCILER RN. PT DENIED FURTHER NEEDS
--- NOTE | 2019-12-25 19:07 | NUR ---
Patient received sitting in bed. AAO x 4. Patient had no complaints of pain. Respirations even and non-labored. Safety measures in place. Patient instructed to call for assistance when needed. Call light within reach.
[2019-12-25] MEDS ORDERED: SIMVASTATIN 40 MG TAB PO SCH (21:00)
[2019-12-25] MEDS: SIMVASTATIN 20 MG TAB PO SCH (21:00)
[2019-12-25] MEDS: ENOXAPARIN 30 MG/0.3 ML SYR SC SCH (22:25)
[2019-12-26] VITALS (7 sets, daily range): BP systolic 114–140; BP diastolic 54–72
[2019-12-26] MEDS ORDERED: SODIUM CHLORIDE 0.9% 250ML 250 ML ONE (00:17)
[2019-12-26] MEDS: VANCOMYCIN 1GM/NS 250 ML 250 ML IV SCH ×2 (00:22→21:25)
[2019-12-26] MEDS: ONDANSETRON HCL INJ 2MG/ML 2ML 2 MG/ML VIAL IV PRN ×3 (04:54→16:19)
[2019-12-26] MEDS: HYDROMORPHONE 1MG/1ML INJ IV PRN ×4 (04:54→22:01)
[2019-12-26] MEDS: LEVOTHYROXINE SODIUM 75 MCG TAB PO SCH (06:00)
[2019-12-26] MEDS: PIPER-TAZ 3.375 GM 50 ML IV SCH ×3 (06:00→22:55)
--- NOTE | 2019-12-26 07:00 | NUR ---
BEDSIDE SHIFT REPORT RECEIVED FROM THE TEST FACILITY ENGINEER RN. EDUCATED PT ABOUT FALL PRECAUTIONS. PT VERBALIZED UNDERSTANDING. CALL LIGHT WITH IN EASY REACH. BED IS LOW AND LOCKED. SIDE RAILS X2. ALL SAFETY MEASURES IN PLACE. PT DENIES NEEDS AT THIS TIME.
--- NOTE | 2019-12-26 07:00 | NUR ---
Walking rounds done. Patient resting comfortably. BSSR given to oncoming nurse regarding patient's status.
[2019-12-26] MEDS: INSULIN REGULAR, HUMAN 100 UNIT/1 ML 3ML VIAL SQ SCH ×7 (07:30→21:00)
[2019-12-26 08:17] LABS: BASOPHILS % 0.6 % (0.0-1.0); EOSINOPHILS # (AUTO) 0.2 (0.0-0.4); EOSINOPHILS % 3.6 % (0.0-6.0); HEMATOCRIT 33.4 % (34.2-44.1); HEMOGLOBIN 10.1 g/dL (12.0-16.0); LYMPHOCYTES # (AUTO) 1.6 (1.0-3.2); LYMPHOCYTES % 33.1 % (18.0-39.1); MEAN CORPUSCULAR HEMOGLOBIN 26.1 pg (28-32); MEAN CORPUSCULAR HGB CONC 30.2 g/dL (31-35); MEAN CORPUSCULAR VOLUME 86.3 fL (81-99); MONOCYTES # (AUTO) 0.4 (0.2-0.8); MONOCYTES % 8.4 % (4.4-11.3); NEUTROPHILS # (AUTO) 2.5 (2.1-6.9); NEUTROPHILS % 53.7 % (38.7-80.0); PLATELET COUNT 244 x10e3/uL (140-360); RED BLOOD COUNT 3.87 x10e6/uL (3.6-5.1); RED CELL DISTRIBUTION WIDTH 13.2 % (11.7-14.4)
[2019-12-26 08:37] LABS: ANION GAP 11.3 mmol/L (8-16); CREATININE, SERUM 1.01 mg/dL (0.57-1.11); MAGNESIUM 2.1 MG/DL (1.3-2.1); POTASSIUM 4.3 mmol/L (3.5-5.1)
[2019-12-26] MEDS: POLYETHYLENE GLYCOL 3350 17 GM PACK PO SCH (09:00)
[2019-12-26] MEDS: METFORMIN HCL 500 MG TAB PO SCH ×2 (09:00→16:27)
--- NOTE | 2019-12-26 09:15 | NUR ---
PAGED DR. LATIF AND INFORMED PT VANC TROUGH 14.4. NEW ORDER RECEIVED.
[2019-12-26] MEDS: BUMETANIDE 1 MG TAB PO SCH (09:42)
[2019-12-26] MEDS: CLONIDINE HCL 0.1 MG TAB PO SCH ×2 (09:42→16:19)
[2019-12-26] MEDS: FERROUS SULFATE 325 MG TAB PO SCH (09:43)
[2019-12-26] MEDS: GABAPENTIN 400 MG CAP PO SCH ×3 (09:43→21:26)
[2019-12-26] MEDS: CLOPIDOGREL BISULFATE 75 MG TAB PO SCH (09:43)
[2019-12-26] MEDS: PANTOPRAZOLE SOD 40 MG TABEC PO SCH (09:43)
[2019-12-26] MEDS: SITAGLIPTIN 100 MG TAB PO SCH (09:43)
[2019-12-26] MEDS: AMLODIPINE BESYLATE 10 MG TAB PO SCH (09:45)
[2019-12-26] MEDS: CYCLOBENZAPRINE HCL 10 MG TAB PO SCH ×3 (09:45→21:39)
[2019-12-26] MEDS: ENOXAPARIN 30 MG/0.3 ML SYR SC SCH ×2 (09:45→21:27)
[2019-12-26] MEDS ORDERED: POLYETHYLENE GLYCOL 3350 17 GM PACK PO PRN (15:45)
--- NOTE | 2019-12-26 19:00 | NUR ---
BEDSIDE SHIFT REPORT GIVEN TO THE PRESS LOADER RN. PT DENIED FURTHER NEEDS.
--- NOTE | 2019-12-26 19:51 | Progress Note ---
DATE: SUBJECTIVE: A 59-year-old female came in with cellulitis of the right lower extremity. The patient is feeling better. Tenderness, erythema, and warmth is going down. No chest pain. No shortness of breath. No nausea. No vomiting. OBJECTIVE: VITAL SIGNS: Temperature is 98.4, respirations of 18, blood pressure is 122/54, and pulse oximetry of 97%. HEENT: Normocephalic and atraumatic. Pupils are reactive. CVS: S1 and S2 normal. Regular rate and rhythm. ABDOMEN: Soft, nontender, and nondistended. EXTREMITIES: Right lower extremity with swelling and erythema, which is better than yesterday. Right toe with cellulitis, doing better. LABORATORY VALUES: White count of 4.74, hemoglobin of 10.1, and hematocrit of 33.4. Chemistry shows sodium of 138, potassium of 4.3, BUN of 18, creatinine 1.01, glucose of 137 to 230, magnesium is 2.9, and calcium of 9.0. ASSESSMENT: Ms. Manuela Baxter with: 1. Cellulitis of the left lower extremity. 2. Hypertension, hyperlipidemia, and diabetes mellitus. PLAN: Continue Zosyn 3.375 g q.6 hours, vancomycin 1 g q.24 hours. The patient is on subcutaneous Lovenox 30 mg b.i.d. for prophylaxis and venous Doppler will be ordered. Further recommendation per clinical course. We will continue to monitor the patient. MD TYRESE Pratt/MODL /[id number]
[2019-12-26] MEDS: SIMVASTATIN 20 MG TAB PO SCH (21:26)
[2019-12-27] VITALS (8 sets, daily range): BP systolic 99–132; BP diastolic 47–67
[2019-12-27] MEDS: ONDANSETRON HCL INJ 2MG/ML 2ML 2 MG/ML VIAL IV PRN ×4 (01:45→17:48)
[2019-12-27] MEDS: HYDROMORPHONE 1MG/1ML INJ IV PRN ×5 (01:51→21:22)
[2019-12-27] MEDS: PIPER-TAZ 3.375 GM 50 ML IV SCH ×3 (06:50→22:41)
[2019-12-27] MEDS: LEVOTHYROXINE SODIUM 75 MCG TAB PO SCH (06:50)
[2019-12-27] MEDS ORDERED: SODIUM CHLORIDE 0.9% 250ML 250 ML ONE (07:00)
--- NOTE | 2019-12-27 07:10 | NUR ---
PATIENT IS ALERT, AWAKE, AND IN STABLE CONDITION WITH NO S/S OF RESPIRATORY DISTRESS- NO PAIN VOICED AT THIS TIME. CALL LIGHT IS WITHIN REACH, PATIENT INSTRUCTED TO CALL FOR ASSISTANCE NEEDED.
[2019-12-27] MEDS: INSULIN REGULAR, HUMAN 100 UNIT/1 ML 3ML VIAL SQ SCH ×7 (07:30→20:28)
--- NOTE | 2019-12-27 07:41 | NUR ---
REPORT GIVEN TO DAYSHIFT. ALERT. NO SIGNS IV INFILTRATION. BED LOCKED AND IN LOW POSITION. CALL LIGHT WITHIN REACH. BED ALARM ACTIVATED.
[2019-12-27] MEDS: ENOXAPARIN 30 MG/0.3 ML SYR SC SCH ×2 (08:53→20:29)
[2019-12-27] MEDS: PANTOPRAZOLE SOD 40 MG TABEC PO SCH (08:53)
[2019-12-27] MEDS: CYCLOBENZAPRINE HCL 10 MG TAB PO SCH ×3 (08:54→20:35)
[2019-12-27] MEDS: AMLODIPINE BESYLATE 10 MG TAB PO SCH (08:54)
[2019-12-27] MEDS: FERROUS SULFATE 325 MG TAB PO SCH (08:54)
[2019-12-27] MEDS: CLOPIDOGREL BISULFATE 75 MG TAB PO SCH (08:54)
[2019-12-27] MEDS: GABAPENTIN 400 MG CAP PO SCH ×3 (08:54→20:29)
[2019-12-27] MEDS: SITAGLIPTIN 100 MG TAB PO SCH (08:54)
[2019-12-27] MEDS: CLONIDINE HCL 0.1 MG TAB PO SCH ×2 (08:55→17:00)
[2019-12-27] MEDS: BUMETANIDE 1 MG TAB PO SCH (08:55)
[2019-12-27] MEDS: METFORMIN HCL 500 MG TAB PO SCH ×2 (08:55→17:02)
--- NOTE | 2019-12-27 11:14 | Progress Note ---
DATE: SUBJECTIVE: This is a 59-year-old Ms. Baxter with cellulitis of the right lower extremity. The patient is doing better. A Doppler is still pending. No chest pain. No shortness of breath. MEDICATIONS: Reviewed. OBJECTIVE: VITAL SIGNS: Temperature 98.0, pulse of 64, respirations 16, blood pressure is 132/67, pulse ox on room air is 100%. HEENT: Normocephalic and atraumatic. Pupils are reactive. CVS: S1 and S2 normal. Regular rate and rhythm. ABDOMEN: Soft, nontender. EXTREMITIES: Right lower extremity erythema down, extremity swelling down. Positive for some tenderness and pain, and erythema in the right toe. LABORATORY VALUES: White count is 4.74, hemoglobin and hematocrit are 10.1 and 33.4. Chemistries; glucose is running in the 160s to 230s. BUN and creatinine are normal at 18 and 1.01. SEROLOGY: Coronavirus is pending still. Toxicology; vancomycin trough is 14.4. ASSESSMENT AND PLAN: Ms. Manuela Baxter with: 1. Cellulitis of left lower extremity. 2. Hypertension. 3. Hyperlipidemia. 4. Diabetes mellitus. Continue on Zosyn 3.375 q.6 hours. Continue vancomycin. The patient is on subcutaneous Lovenox for DVT prophylaxis. Keep moving, top run to be seen. Possible discharge in 1 to 2 days. Further recommendation per clinical course. MD TYRESE Pratt/MODL /[id number]
--- NOTE | 2019-12-27 19:26 | NUR ---
PATIENT IS RESTING IN BED- IN STABLE CONDITION WITH NO S/S OF RESPIRATORY DISTRESS. NO C/O PAIN AT THIS TIME- PAIN MEDICATION WAS RECENTLY GIVEN AND NOT AVAILABLE AT THIS TIME. CALL LIGHT IS WITHIN REACH, PATIENT INSTRUCTED TO CALL FOR ASSISTANCE NEEDED. BEDSIDE SHIFT REPORT GIVEN TO ONCOMING NURSE.
[2019-12-27] MEDS: SIMVASTATIN 20 MG TAB PO SCH (20:29)
[2019-12-27] MEDS: VANCOMYCIN 1GM/NS 250 ML 250 ML IV SCH (20:29)
[2019-12-28] VITALS: BP 107/55
[2019-12-28 01:45] VITALS: BP 145/90
[2019-12-28] MEDS: HYDROMORPHONE 1MG/1ML INJ IV PRN (01:50)
[2019-12-28] MEDS: ONDANSETRON HCL INJ 2MG/ML 2ML 2 MG/ML VIAL IV PRN (01:50)
[2019-12-28 04:00] VITALS: BP 110/52
[2019-12-28] MEDS: LEVOTHYROXINE SODIUM 75 MCG TAB PO SCH (05:23)
[2019-12-28] MEDS: PIPER-TAZ 3.375 GM 50 ML IV SCH (05:23)
[2019-12-28 07:10] VITALS: BP 110/52
--- NOTE | 2019-12-28 07:12 | NUR ---
PATIENT IS IN STABLE CONDITION WITH NO S/S OF RESPIRATORY DISTRESS- NO PAIN VOICED. CALL LIGHT IS WITHIN REACH, PATIENT INSTRUCTED TO CALL FOR ASSISTANCE NEEDED.
--- NOTE | 2019-12-28 07:13 | NUR ---
REPORT GIVEN TO DAYSHIFT NURSE. ALERT. NO SIGNS IV INFILTRATION. BED LOCKED AND IN LOW POSITION. CALL LIGHT WITHIN REACH. BED ALARM ACTIVATED.
[2019-12-28] MEDS: INSULIN REGULAR, HUMAN 100 UNIT/1 ML 3ML VIAL SQ SCH ×2 (07:30→09:19)
[2019-12-28 08:23] VITALS: BP 128/51
[2019-12-28] MEDS: BUMETANIDE 1 MG TAB PO SCH (08:48)
[2019-12-28] MEDS: METFORMIN HCL 500 MG TAB PO SCH (08:48)
[2019-12-28] MEDS: FERROUS SULFATE 325 MG TAB PO SCH (08:48)
[2019-12-28] MEDS: CLOPIDOGREL BISULFATE 75 MG TAB PO SCH (08:49)
[2019-12-28] MEDS: ENOXAPARIN 30 MG/0.3 ML SYR SC SCH (08:49)
[2019-12-28] MEDS: SITAGLIPTIN 100 MG TAB PO SCH (08:49)
[2019-12-28] MEDS: GABAPENTIN 400 MG CAP PO SCH (08:49)
[2019-12-28] MEDS: CYCLOBENZAPRINE HCL 10 MG TAB PO SCH (08:49)
[2019-12-28] MEDS: CLONIDINE HCL 0.1 MG TAB PO SCH (08:49)
[2019-12-28] MEDS: AMLODIPINE BESYLATE 10 MG TAB PO SCH (08:49)
[2019-12-28] MEDS: PANTOPRAZOLE SOD 40 MG TABEC PO SCH (08:49)
--- NOTE | 2019-12-28 10:19 | Progress Note ---
DATE: SUBJECTIVE: The patient is a 59-year-old female who came in with cellulitis of the right lower extremity post nail injury. The patient is feeling better. Her redness and erythema has come down. The patient continues to feel well. Her doppler was negative. OBJECTIVE: VITAL SIGNS: Temperature is 98.1, blood pressure is 128/51, respirations of 16, pulse oximeter 97% on room air. HEENT: Normocephalic and atraumatic. Pupils are reactive. CVS: S1 and S2 normal. Regular rate and rhythm. ABDOMEN: Soft, nontender. EXTREMITIES: Right lower extremity; redness, erythema, and swelling all down except for some redness in the LABORATORY DATA: The patient's laboratory values are stable. ASSESSMENT AND PLAN: The patient can be discharged home today on clindamycin to be followed up with Dr. Lara and the patient has been given mid , Sunday until she follows up with Dr. Lara. Further recommendation per clinical course. Strict ER warnings given. MD TYRESE Pratt/MODL /[id number]
--- NOTE | 2019-12-28 11:53 | NUR ---
PATIENT DISCHARGE HOME- PATIENT OFF THE UNIT AT 1100 PER WHEELCHAIR ACCOMPANIED BY RN TO THE FRONT LOBBY. PATIENT IS IN STABLE CONDITION WITH NO S/S OF RESPIRATORY DISTRESS. NO PAIN VOICED. IV REMOVED WITH TIP INTACT. DISCHARGE TEACHING, INSTRUCTIONS, AND MEDICATIONS GIVEN TO THE PATIENT. ALL PERSONAL ITEMS TAKEN WITH THE PATIENT.
== END 2019-12-28 11:00 | disposition home or self-care (01) | DRG 603 ==
LOC: ER 19:30 → ERHOLD 22:27 → MED/SURG3 12-25 02:29
PROVIDERS: ADMIT Family Medicine; ATTEND Family Medicine
DX: L03.115 Cellulitis of right lower limb (principal); Z11.59 Encounter for screening for other viral diseases; E11.9 Type 2 diabetes mellitus without complications; R50.9 Fever, unspecified; I10 Essential (primary) hypertension; E78.5 Hyperlipidemia, unspecified
CPT/HCPCS: 36415; 71045; 80048; 80053; 80202; 81001; 82948; 83735; 84443; 85025; 87040; 87086; 93970; 99284; J1170; J1650; J1817; J2405; J2543; J3370; J7030; J7050; U0002

== ENCOUNTER 2020-03-23 04:59 | Observation (INO) | payer OTHER ==
[~2020-03-23] VITALS: Ht 172.7 cm; Wt 113.4 kg
[~2020-03-23 04:59] MED LIST changes: +CRESTOR10 MG PO; +HUMALOG KW200 UNIT/1 SC; +JANUVIA100 MG PO; +TRESIBA FL200 UNIT/1 SC; +VASCEPA1 GM PO; +ZOFRAN4 MG PO
[2020-03-23] MEDS ORDERED: ONDANSETRON HCL INJ 2MG/ML 2ML 2 MG/ML VIAL IV STA ×2 (05:09→05:12)
[2020-03-23] MEDS ORDERED: ACETAMINOPHEN 325 MG TAB PO STA (05:10)
[2020-03-23] MEDS ORDERED: SODIUM CHLORIDE 0.9% 1000ML 1,000 ML IV STA ×2 (05:11→05:13)
[2020-03-23] MEDS ORDERED: MORPHINE SULFATE INJ 4 MG/ML INJ 1ML IV STA (05:12)
[2020-03-23] MEDS ORDERED: PIPER-TAZ 3.375 GM 50 ML IV SCH (05:15)
--- NOTE | 2020-03-23 05:17 | Emergency Department Note ---
History of Present Illnes History of Present Illness Chief Complaint: COVID PUI History of Present Illness This is a 59 year old female presents to the ED for r "hip" pain with dysuria and R leg redness. . Historian: Patient Onset (how long ago): day(s) (1) Radiation: Reports extremity, Reports flank Severity: moderate Onset quality: gradual Duration (how long): day(s) (1) Timing of current episode: constant Progression: worsening Chronicity: new Context: Denies recent illness, Denies recent surgery, Denies recent immobilization, Denies recent travel, Denies trauma/injury, Denies new medica tions, Denies hx of DVT/PE, Denies non-compliance w/ medications, Denies other Relieving factors: none Exacerbating factors: none Associated symptoms: Reports fever/chills, Reports malaise, Reports shortness of breath, Reports weakness Treatments prior to arrival: none (JAYDEN GARCIA DO) Past Medical/Family History Physician Review I have reviewed the patient's past medical and family history. Any updates have been documented here. (JAYDEN GACRIA DO) Past Medical History Recent Fever: Yes Clinical Suspicion of Infectio: Yes New/Unexplained Change in Ment: Yes Past Medical History: Hypertension, Diabetes, Hypothyroidism, GERD Other Medical History: HEART MURMUR HERNIATED L4/5 ARTHRITIS SLEEP APNEA CELLULITIS NEUROPATHY Past Surgical History: Cholecysctectomy, Appendectomy, Hysterectomy, T&A, Hernia Repair Other Surgery: NOSE CATARACTS BONE SPURS BILATERAL FEET (JAYDEN GARCIA DO) Social History Smoking Cessation: Never Smoker Alcohol Use: None Any Illegal Drug Use: No (JAYDEN GARCIA DO) Other Last Tetanus: UTD (JAYDEN GARCIA DO) Review of Systems Review of Systems Constitutional: Reports fever EENTM: Reports no symptoms Cardiovascular: Reports no symptoms Respiratory: Reports dyspnea Gastrointestinal: Reports no symptoms Genitourinary: Reports no symptoms Musculoskeletal: Reports joint pain (R hip), Reports muscle pain Integumentary: Reports change in color Neurological: Reports no symptoms Psychological: Reports no symptoms Endocrine: Reports no symptoms Hematological/Lymphatic: Reports no symptoms (JAYDEN GARCIA DO) Physical Exam Related Data Allergies: Coded Allergies: morphine (Verified Allergy, Severe, SWELLING, 07/28/19) paprika (Verified Allergy, Unknown, 07/28/19) peanut (Verified Allergy, Unknown, 07/28/19) Vital signs reviewed: Yes (JAYDEN GARCIA DO) Physical Exam CONSTITUTIONAL Constitutional: Present morbidly obese HENT HENT: Present normocephalic, Present atraumatic, Present oropharynx clear/moist, Present nose normal HENT L/R: Present left ext ear normal, Present right ext ear normal EYES Eyes: Reports PERRL, Reports conjunctivae normal NECK Neck: Present ROM normal PULMONARY Pulmonary: Present effort normal, Present breath sounds normal CARDIOVASCULAR Cardiovascular: Present LLE edema, Present RLE edema GASTROINTESTINAL Abdominal: Present right CVA tenderness GENITOURINARY Genitourinary: Present exam deferred SKIN Skin: Present erythema (distal 1/3 R leg) MUSCULOSKELETAL Musculoskeletal: Present ROM normal NEUROLOGICAL Neurological: Present alert, Present oriented x 3, Present no gross motor or sensory deficits PSYCHOLOGICAL Psychological: Present mood/affect normal, Present judgement normal (JAYDEN GARCIA DO) Results Laboratory Lab results reviewed: Yes (JAYDEN GARCIA DO) Imaging Imaging results reviewed: Yes Impressions [place] [address] Patient Name: LAURYN COLLINS MR #: [id number] : 1960 Age/Sex: 59/F Req #: [id number] Adm Physician: Ordered by: JAYDEN GARCIA DO Report #: [id number] Location: ER Room/Bed: Procedure: [id number] DX/CHEST SINGLE (PORTABLE) Exam Date: 03/23/20 Exam Time: 0740 REPORT STATUS: Signed EXAMINATION: CHEST SINGLE (PORTABLE) INDICATION: Shortness of breath, right hip pain COMPARISON: CT abdomen and pelvis of the same day, chest radiograph 12/24/2019 FINDINGS: LINES/TUBES:EKG leads overlie the chest. LUNGS:The lungs are well-inflated. No focal consolidation or pulmonary edema. PLEURA:No pleural effusion or pneumothorax. MEDIASTINUM:The cardiomediastinal silhouette appears normal in size and shape. BONES/SOFT TISSUES:No acute osseous injury. ABDOMEN:No free air under the diaphragm. IMPRESSION: No focal pneumonia or pulmonary edema. Signed by: Enrique Ge MD on 03/23/2020 8:49 AM Dictated By: ENRIQUE GE MD 8 Transcribed By: THEA on 03/23/20848 COPY TO: JAYDEN GARCIA DO~ [place] [address] Patient Name: LAURYN COLLINS MR #: [id number] : 1960 Age/Sex: 59/F Req #: [id number] Adm Physician: Ordered by: JAYDEN GARCIA DO Report #: [id number] Location: ER Room/Bed: Procedure: [id number] CT/CT ABDOMEN/PELVIS W Exam Date: 03/23/20 Exam Time: 0740 REPORT STATUS: Signed EXAM: CT Abdomen and Pelvis WITH intravenous contrast INDICATION: Right flank pain COMPARISON: CT abdomen and pelvis of 11/04/2018 TECHNIQUE: Abdomen and pelvis were scanned utilizing a multidetector helical scanner from the lung base to the pubic symphysis after administration of IV contrast. Coronal and sagittal reformations were obtained. Routine protocol was performed. Scan was performed during portal venous phase. IV CONTRAST: 100mL of Isovue 370 ORAL CONTRAST: None RADIATION DOSE: Total DLP: 731 mGy*cm Dose modulation, iterative reconstruction, and/or weight based adjustment of the mA/kV was utilized to reduce the radiation dose to as low as reasonably achievable. FINDINGS: LOWER THORAX: Normal. HEPATOBILIARY: Diffuse hepatic steatosis. No focal liver lesion. No biliary ductal dilation. Small amount of common bile duct and left intrahepatic pneumobilia, unchanged from 11/04/2018. Status post cholecystectomy. SPLEEN: No splenomegaly. PANCREAS: No focal masses or ductal dilatation. ADRENALS: No adrenal nodules. KIDNEYS/URETERS: No hydronephrosis, stones, or solid mass lesions. PELVIC ORGANS/BLADDER: Unremarkable. PERITONEUM / RETROPERITONEUM: No free air or fluid. LYMPH NODES: No lymphadenopathy. VESSELS: Mild scattered atherosclerotic calcifications of the nonaneurysmal abdominal aorta and major branches. GI TRACT: No abnormal bowel thickening. No bowel obstruction. BONES AND SOFT TISSUES: No acute osseous injury. No suspicious lytic or blastic lesions. IMPRESSION: No acute findings in the abdomen or pelvis. Diffuse hepatic steatosis. Unchanged common bile duct and left intrahepatic ductal pneumobilia. Signed by: Enrique Ge MD on 03/23/2020 8:48 AM Dictated By: ENRIQUE GE MD 7 Transcribed By: THEA on 03/23/20847 COPY TO: JAYDEN GARCIA DO~ (JAYDEN GARCIA DO) Procedures 12 Lead ECG Interpretation ECG Interpretation : ECG: ECG 1 Box Sealing Inspector: Interpreted by ED physician Date: Mar 23, 2020 Time: 05:26 Prior ECG tracings: reviewed Rhythm: sinus rhythm Rate: normal BPM: 94 QRS axis: normal ST segments normal: Yes T waves normal: No T waves flattening: all Clinical Impression: non-specific ECG (JAYDEN GARCIA DO) Assessment & Plan Medical Decision Making MDM Diff Dx : PNA, Cellulitis, UTI, sepsis, COVID-19 infection, ACS (JAYDEN GARCIA DO) MDM W/u shows cellulitis. Discussed with Dr. Nina who has agreed to admit. (MALGORZATA INMAN MD) Reassessment Reassessment time: 09:16 Reassessment Well appearing, NAD (MALGORZATA INMAN MD) Assessment & Plan Final Impression: (1) Cellulitis (JAYDEN GARCIA DO) Depart Disposition: ADMITTED Home Meds Active Scripts Tramadol Hcl (ULTRAM) 50 Mg Tablet, 50 MG PO Q6HR PRN for MILD PAIN (1-3), #12 TAB Prov:TOMMY CHAPPELL DO 07/28/19 Sulfamethoxazole/Trimethoprim (BACTRIM DS TABLET) 1 Each Tablet, 1 TAB PO BID, #28 TAB Prov:DEANN MERRITT MD 03/27/18 Minocycline Hcl (MINOCIN) 50 Mg Capsule, 100 MG PO BID for 10 Days Prov:SANTOS FUENTES MD 07/11/16 Reported Medications Insulin Lispro (Humalog Kwikpen U-200) 200 Unit/1 Ml Insuln.pen, 16 UNITS SC AC 12/25/19 Insulin Degludec (Tresiba Flextouch U-200) 200 Unit/1 Ml Insuln.pen, 60 UNITS SC HS 12/25/19 Icosapent Ethyl (Vascepa) 1 Gm Capsule, 1 GM PO BID 12/25/19 Sitagliptin Phosphate (JANUVIA) 100 Mg Tablet, 100 MG PO DAILY, #30 TAB 12/25/19 Rosuvastatin Calcium (CRESTOR) 10 Mg Tab, 10 MG PO HS THERAPEUTICALLY SUBSTITUTED WITH SIMVASTATIN 40MG 12/25/19 Ondansetron Hcl* (ZOFRAN*) 4 Mg Tablet, 4 MG PO Q6H PRN for NAUSEA 12/25/19 Bumetanide (BUMETANIDE) 1 Mg Tablet, 1 MG PO DAILY, #30 TAB 12/01/17 Clonidine Hcl (CLONIDINE HCL) 0.1 Mg Tablet, 0.1 MG PO BID, #60 TAB 12/01/17 Polyethylene Glycol 3350 (MIRALAX) 17 Gm Powd.pack, 17 GM PO DAILY 12/01/17 Clopidogrel Bisulfate* (PLAVIX) 75 Mg Tablet, 75 MG PO DAILY, #30 TAB 12/01/17 Ferrous Sulfate (FERROUS SULFATE) 325 Mg Tablet, 325 MG PO DAILY 12/01/17 Tizanidine Hcl (TIZANIDINE HCL) 4 Mg Tablet, 4 MG PO BID, TAB 12/01/17 Cyclobenzaprine Hcl (CYCLOBENZAPRINE HCL) 10 Mg Tablet, 10 MG PO TID, TAB 12/01/17 Omeprazole (OMEPRAZOLE) 40 Mg Capsule.dr, 40 MG PO DAILY 07/08/16 Pravastatin Sodium (PRAVASTATIN SODIUM) 40 Mg Tablet, 40 MG PO HS 03/05/16 Insulin Regular, Human (NOVOLIN R) 100 Unit/1 Ml Vial, 15 UNITS SQ AC 03/05/16 Metformin Hcl (METFORMIN HCL) 500 Mg Tablet, 1000 MG PO BID, #60 TAB 03/05/16 Losartan Potassium (LOSARTAN POTASSIUM) 50 Mg Tablet, 100 MG PO DAILY 03/05/16 Levothyroxine Sodium (LEVOTHYROXINE SODIUM) 75 Mcg Tablet, 75 MCG PO DAILY, #30 TAB 03/05/16 Insulin Detemir (LEVEMIR) 100 Unit/1 Ml Vial, 45 UNITS SQ HS 03/05/16 Hydrocodone Bit/Acetaminophen (NORCO 10-325 TABLET) 1 Each Tablet, 5 MG PO Q8H PRN for PAIN 03/05/16 Gabapentin (GABAPENTIN) 400 Mg Capsule, 800 MG PO TID, #30 CAP 03/05/16 Fenofibrate,Micronized (FENOFIBRATE) 67 Mg Capsule, 67 MG PO 03/05/16 [Farxiga] 10 No Conflict Check, 10 MG PO DAILY 03/05/16 Amlodipine Besylate (AMLODIPINE BESYLATE) 10 Mg Tablet, 10 MG PO DAILY, #30 TAB 03/05/16 Medications in the ED Ondansetron HCl 4 mg NOW STAT IV ; Start 03/23/20 at 05:09; Stop 03/23/20 at 05:12; Status DC Piperacillin Sod/ Tazobactam Sod 50 ml @ 50 mls/hr Q6H IV ; Start 03/23/20 at 05:15; Stop 03/30/20 at 05:14; Status UNV Acetaminophen 975 mg ONCE STAT PO ; Start 03/23/20 at 05:10; Stop 03/23/20 at 05:13; Status DC Sodium Chloride 1,000 ml @ 0 mls/hr Q0M STAT IV ; Start 03/23/20 at 05:11; Stop 03/23/20 at 05:13; Status DC Morphine Sulfate 4 mg ONCE STAT IV ; Start 03/23/20 at 05:12; Stop 03/23/20 at 05:13; Status UNV Ondansetron HCl 4 mg NOW STAT IV ; Start 03/23/20 at 05:12; Stop 03/23/20 at 05:13; Status UNV (JAYDEN GARCIA DO) JAYDEN GARCIA DO Mar 23, 2020 05:17 MALGORZATA INMAN MD Mar 23, 2020 09:16
[2020-03-23] MEDS ORDERED: KETOROLAC TROMETHAMINE 30 MG/ML VIAL IV STA (05:31)
--- OUTSIDE RECORDS SUMMARY | 2020-03-23 05:32 | XMS REPORT | Continuity of Care Document ---
Author Author [employer] LAURYN Mir [employer] Address Unknown Phone Unavailable Care Team Providers Care Night Coordinator Name Role Phone [employer] Unavailable Un available Problems Problem Status Onset Date Classification Date Reported Comments Source Back Pain Active 10/23/2013 [facility] Essential Hypertension Active 10/23/2013 [facility] Hypothyroidism Active 10/23/2013 [facility] Morbid Obesity Active 10/23/2013 [facility] Type 2 Diabetes Mellitus - Uncomplicated, Uncontrolled Active 10/23/2013 [facility] Uncontrolled Type 2 Diabetes With Foot Ulcer Active 10/23/2013 [facility] Hypertension Active 09/23/2013 [facility] Hyperlipidemia Active 10/23/2013 [facility] Abdominal Pain Active 10/23/2013 [facility] Change In The Stool Active 10/23/2013 [facility] Anemia Active 10/23/2013 [facility] Medications Medication Details Route Status Patient Instructions Ordering Provider Order Date Source Hydrocodone-Acetaminophen 7.5-325 MG Oral Tablet ; Start Date: 08/08/2013 (Active) Active 08/08/2013 [facility] Diazepam 10 MG Oral Tablet ; S tart Date: 08/08/2013 (Active) Active 08/08/2013 [facility] Pravastatin Sodium 40 MG Oral Tablet ; Start Date: 06/17/2013; End Date: (Active) Active 06/17/2013 [facility] Lisinopril 20 MG Oral Tablet ; Start Date: 06/12/2013; End Date: (Active) Active 06/12/2013 [facility] MetFORMIN HCl 500 MG Oral Tablet ; Start Date: 06/12/2013; End Date: (Active) Active 06/12/2013 [facility] Levothyroxine Sodium 50 MCG Oral Tablet ; Start Date: ; End Date: (Active) Inactive [facility] Levothyroxine Sodium 75 MCG Oral Tablet ; Start Date: ; End Date: (Active) Inactive [facility] Aspirin 81 MG Oral Tablet (Ac tive) [facility] Cleocin 300 MG Oral Capsule ( Active) [facility] Diazepam 10 MG Oral Tablet (A ctive) [facility] Gabapentin 300 MG Oral Capsule (Active) Active [facility] Hydrocodone-Acetaminophen 7.5-325 MG Oral Tablet (Active) Active [facility] HumuLIN R 100 UNIT/ML Injection Solution (Active) Active [facility] Meloxicam 7.5 MG Oral Tablet (Active) [facility] Keflex TABS (Active) Active [facility] Pantoprazole Sodium 40 MG Oral Tablet Delayed Release (Active) [facility] Dicyclomine HCl 20 MG Oral Tablet (Active) [facility] Iron TABS (Active) Active [facility] Allergies, Adverse Reactions, Alerts Substance Category Reaction Severity Reaction type Status Date Reported Comments Source Morphine Derivatives drug kiersten rgy drug aller gy [facility] Peanuts food allergy food allergy [facility] Immunizations No Data Provided for This Section Results No Data Provided for This Section Pathology Reports No Data Provided for This Section Diagnostic Reports No Data Provided for This Section Consultation Notes No Data Provided for This Section Discharge Summaries No Data Provided for This Section History and Physicals No Data Provided for This Section Vital Signs No Data Provided for This Section Encounters Location Location Details Encounter Type Encounter Number Reason For Visit Attending Provider ADM Date DC Date Status Source AUDIT [id number] 06/16/2013 06/16/2013 [facility] A[facility] [id number] 06/17/2013 06/17/2013 [facility] A[facility] [id number] 07/14/2013 07/14/2013 [facility] Claudio MEDINA tegan: DEANN MERRITT, Status: Pen, Time: 3:15 PM [id number] 07/14/19 14 06/17/2013 [facility] A[facility]IT [id number] 08/12/2013 08/12/2013 [facility] Claudio MEDINA tegan: DEANN MERRITT, Status: Pen, Time: 3:00 PM [id number] 08/26/19 14 08/12/2013 [facility] [id number] 08/25/2013 08/25/2013 [facility] AUDIT [id number] 08/26/2013 08/26/2013 [facility] A[facility] [id number] 09/04/2013 09/04/2013 [facility] [id number] 09/23/2013 09/23/2013 [facility] Claudio MEDINA tegan: DEANN MERRITT, Status: Pen, Time: 2:45 PM [id number] 09/30/19 14 09/23/2013 [facility] AUDIT [id number] 10/23/2013 10/23/2013 [facility] Claudio MEDINA tegan: DEANN MERRITT, Status: Pen, Time: 3:45 PM [id number] 11/15/19 14 10/23/2013 [facility] Procedures No Data Provided for This Section Assessment and Plan No Data Provided for This Section Plan of Care Plan of Care Date Source CT Abdomen/Pelvis w/wo contrast [id number] 08/25/2013 [facility] 10/23/[address] [facility] [address] Abdomen/Pelvis w/wo contrast [id number] [facility] CBC (INCLUDES DIFF/PLT) 09/23/2013 Routine 09/23/[address] [facility] [address] Abdomen/Pelvis w/wo contrast [id number] 08/25/2013 [facility] 09/04/[address] [facility] [address] Abdomen/Pelvis w/wo contrast [id number] 08/25/2013 [facility] 08/26/2013 [facility] Endocrinology Referral 07/14/2013 Routine 07/14/2013 [facility] Social History Social History Date Source Marital History - Currently (Active) Never A Smoker (Active) 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) Marital History - Currently (Active) Being A Social Drinker (Active) Never A Smoker (Active) 10/23/2013 [facility] Family History Value Date S ource Paternal history of Acute Myocardial Inf arction (V17.3); (Active) Maternal history of Congenital Heart Disease (Active) Maternal history of Lung Cancer (V16.1); (Active) Maternal history of Hypertension (V17.49); (Active) Maternal history of Lung Cancer (V16.1); (Active) 10/23/2013 [facility] Paternal history of Acute Myocardial Inf arction (V17.3); (Active) Maternal history of Congenital Heart Disease (Active) Maternal history of Lung Cancer (V16.1); (Active) Maternal history of Hypertension (V17.49); (Active) Maternal history of Lung Cancer (V16.1); (Active) 09/23/2013 [facility] Paternal history of Acute Myocardial Inf arction (V17.3); (Active) Maternal history of Congenital Heart Disease (Active) Maternal history of Lung Cancer (V16.1); (Active) Maternal history of Hypertension (V17.49); (Active) Maternal history of Lung Cancer (V16.1); (Active) 09/04/2013 [facility] Paternal history of Acute Myocardial Inf arction (V17.3); (Active) Maternal history of Congenital Heart Disease (Active) Maternal history of Lung Cancer (V16.1); (Active) Maternal history of Hypertension (V17.49); (Active) Maternal history of Lung Cancer (V16.1); (Active) 08/26/2013 [facility] Paternal history of Acute Myocardial Inf arction (V17.3); (Active) Maternal history of Congenital Heart Disease (Active) Maternal history of Lung Cancer (V16.1); (Active) Maternal history of Hypertension (V17.49); (Active) Maternal history of Lung Cancer (V16.1); (Active) 08/25/2013 [facility] Paternal history of Acute Myocardial Inf arction (V17.3); (Active) Maternal history of Congenital Heart Disease (Active) Maternal history of Lung Cancer (V16.1); (Active) Maternal history of Hypertension (V17.49); (Active) Maternal history of Lung Cancer (V16.1); (Active) 08/12/2013 [facility] Paternal history of Acute Myocardial Inf arction (V17.3); (Active) Maternal history of Congenital Heart Disease (Active) Maternal history of Lung Cancer (V16.1); (Active) Maternal history of Hypertension (V17.49); (Active) Maternal history of Lung Cancer (V16.1); (Active) 07/14/2013 [facility] Paternal history of Acute Myocardial Inf arction (V17.3); (Active) Maternal history of Congenital Heart Disease (Active) Maternal history of Lung Cancer (V16.1); (Active) 06/17/2013 [facility] Paternal history of Acute Myocardial Inf arction (V17.3); (Active) Maternal history of Congenital Heart Disease (Active) Maternal history of Lung Cancer (V16.1); (Active) 06/16/2013 [facility] Advance Directives Order Name Results Value Date Source Advance Directives Advance Dir ectives No Advance Directives available. 10/23/2013 [facility] Advance Directives Advance Dir ectives No Advance Directives available. 09/23/2013 [facility] Advance Directives Advance Dir ectives No Advance Directives available. 09/04/2013 [facility] Advance Directives Advance Dir ectives No Advance Directives available. 08/26/2013 [facility] Advance Directives Advance Dir ectives No Advance Directives available. 08/25/2013 [facility] Advance Directives Advance Dir ectives No Advance Directives available. 08/12/2013 [facility] Advance Directives Advance Dir ectives No Advance Directives available. 07/14/2013 [facility] Advance Directives Advance Dir ectives No Advance Directives available. 06/17/2013 [facility] Advance Directives Advance Dir ectives No Advance Directives available. 06/16/2013 [facility] Functional Status No Data Provided for This Section
--- OUTSIDE RECORDS SUMMARY | 2020-03-23 05:34 | XMS REPORT | Continuity of Care Document ---
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 blood pressure 2019-11-12 16:03:00 74 mm[Hg] Loc ation: LUE; Position: Sitting [facility] Body height 2019-11-12 16:03:00 68 [in_us] [facility] Weight 2019-11-12 16:03:00 240.375 [lb_av] [facility] Body mass index (BMI) [Ratio] 2019-11-12 16:03:00 36.55 kg/m2 [facility] Body temperature 2019-11-12 16:03:00 97.6 [degF] Method: [facility] Heart Rate 2019-11-12 16:03:00 64 /min [facility] Respiratory rate 2019-11-12 16:03:00 16 /min [facility] Body temperature 2019-11-11 15:31:00 97.6 [degF] Method: [facility] Systolic blood pressure 2019-11-05 16:39:00 146 mm[Hg] Loca tion: LUE; Position: Sitting [facility] Diastolic blood pressure 2019-11-05 16:39:00 77 mm[Hg] Loc ation: LUE; Position: Sitting [facility] Heart Rate 2019-11-05 16:39:00 76 /min [facility] Systolic blood pressure 2019-11-05 15:48:00 162 mm[Hg] Loca tion: LUE; Position: Sitting [facility] Diastolic blood pressure 2019-11-05 15:48:00 85 mm[Hg] Loc ation: LUE; Position: Sitting [facility] Heart Rate 2019-11-05 15:48:00 82 /min [facility] Body height 2019-11-05 15:48:00 68 [in_us] [facility] Weight 2019-11-05 15:48:00 236.3125 [lb_av] [facility] Body mass index (BMI) [Ratio] 2019-11-05 15:48:00 35.93 kg/m2 [facility] Body temperature 2019-11-05 15:48:00 96.8 [degF] [facility] Body temperature 2019-10-16 15:42:00 98.4 [degF] Method: Oral [facility] Systolic blood pressure 2019-10-03 10:21:00 141 mm[Hg] Loca tion: LUE; Position: Sitting [facility] Diastolic blood pressure 2019-10-03 10:21:00 71 mm[Hg] Loc ation: LUE; Position: Sitting [facility] Heart Rate 2019-10-03 10:21:00 80 /min [facility] Systolic blood pressure 2019-10-03 10:20:00 145 mm[Hg] Loca tion: LUE; Position: Sitting [facility] Diastolic blood pressure 2019-10-03 10:20:00 73 mm[Hg] Loc ation: LUE; Position: Sitting [facility] Heart Rate 2019-10-03 10:20:00 75 /min [facility] Body height 2019-10-03 10:20:00 68 [in_us] [facility] Weight 2019-10-03 10:20:00 231 [lb_av] [facility] Body mass index (BMI) [Ratio] 2019-10-03 10:20:00 35.12 kg/m2 [facility] Body temperature 2019-10-03 10:20:00 97.6 [degF] Method: Temporal [facility] Respiratory rate 2019-10-03 10:20:00 16 /min [facility] Systolic blood pressure 2019-08-13 15:51:00 120 mm[Hg] Loca tion: LUE; Position: Sitting [facility] Diastolic blood pressure 2019-08-13 15:51:00 75 mm[Hg] Loc ation: LUE; Position: Sitting [facility] Body height 2019-08-13 15:51:00 68 [in_us] [facility] Weight 2019-08-13 15:51:00 231 [lb_av] [facility] Body mass index (BMI) [Ratio] 2019-08-13 15:51:00 35.12 kg/m2 [facility] Heart Rate 2019-08-13 15:51:00 78 /min Location: L Brachial Artery; [facility] Systolic blood pressure 2019-08-01 11:49:00 147 mm[Hg] Loca tion: RUE; Position: Sitting [facility] Diastolic blood pressure 2019-08-01 11:49:00 81 mm[Hg] Loc ation: RUE; Position: Sitting [facility] O2 SAT 2019-08-01 11:49:00 98 % Source: RA [facility] Body height 2019-08-01 11:49:00 68 [in_us] [facility] Weight 2019-08-01 11:49:00 227.2 [lb_av] [facility] Body mass index (BMI) [Ratio] 2019-08-01 11:49:00 34.55 kg/m2 [facility] Body temperature 2019-08-01 11:49:00 98.9 [degF] Method: Oral [facility] Heart Rate 2019-08-01 11:49:00 83 /min [facility] Respiratory rate 2019-08-01 11:49:00 16 /min [facility] Systolic blood pressure 2019-07-30 15:59:00 157 mm[Hg] Loca tion: ANNE; Position: Sitting [facility] Diastolic blood pressure 2019-07-30 15:59:00 85 mm[Hg] Loc ation: ANNE; Position: Sitting [facility] Body height 2019-07-30 15:59:00 68 [in_us] [facility] Weight 2019-07-30 15:59:00 228 [lb_av] [facility] Body mass index (BMI) [Ratio] 2019-07-30 15:59:00 34.67 kg/m2 [facility] Heart Rate 2019-07-30 15:59:00 80 /min [facility] BP Systolic 2019-04-08 16:48:00 147 mm[Hg] Location: LUE; Positi on: Sitting [facility] BP Diastolic 2019-04-08 16:48:00 79 mm[Hg] Location: LUE; Positi on: Sitting [facility] Heart Rate 2019-04-08 16:48:00 80 /min [facility] BP Systolic 2019-04-08 16:46:00 145 mm[Hg] Location: LUE; Positi on: Sitting [facility] BP Diastolic 2019-04-08 16:46:00 77 mm[Hg] Location: LUE; Positi on: Sitting [facility] Heart Rate 2019-04-08 16:46:00 77 /min [facility] Height 2019-04-08 16:46:00 68 [in_us] [facility] Weight 2019-04-08 16:46:00 243.6 [lb_av] [facility] Body Mass Index Calculated 2019-04-08 16:46:00 37.04 kg/m2 [facility] Temperature 2019-04-08 16:46:00 98.8 [degF] Method: Oral [facility] Respiration Rate 2019-04-08 16:46:00 16 /min [facility] BP Systolic 2019-03-13 15:43:00 133 mm[Hg] Location: AMBERE; Positi on: Sitting [facility] BP Diastolic 2019-03-13 15:43:00 75 mm[Hg] Location: LUE; Positi on: Sitting [facility] Height 2019-03-13 15:43:00 68 [in_us] [facility] Weight 2019-03-13 15:43:00 252.4 [lb_av] [facility] Body Mass Index Calculated 2019-03-13 15:43:00 38.38 kg/m2 [facility] Heart Rate 2019-03-13 15:43:00 80 /min [facility] BP Systolic 2019-03-12 15:47:00 128 mm[Hg] Location: LUE; Positi on: Sitting [facility] BP Diastolic 2019-03-12 15:47:00 73 mm[Hg] Location: AMBERE; Positi on: Sitting [facility] Height 2019-03-12 15:47:00 68 [in_us] [facility] Weight 2019-03-12 15:47:00 251.1 [lb_av] [facility] Body Mass Index Calculated 2019-03-12 15:47:00 38.18 kg/m2 [facility] Heart Rate 2019-03-12 15:47:00 76 /min [facility] Temperature 2019-03-12 15:47:00 98.8 [degF] Method: Oral [facility] Respiration Rate 2019-03-12 15:47:00 16 /min [facility] BP Systolic 2019-02-28 11:13:00 138 mm[Hg] Location: AMBERE; Positi on: Sitting [facility] BP Diastolic 2019-02-28 11:13:00 80 mm[Hg] Location: AMBERE; Positi on: Sitting [facility] Height 2019-02-28 11:13:00 68 [in_us] [facility] Weight 2019-02-28 11:13:00 236.1 [lb_av] [facility] Body Mass Index Calculated 2019-02-28 11:13:00 35.9 kg/m2 [facility] Heart Rate 2019-02-28 11:13:00 85 /min [facility] Temperature 2019-02-28 11:13:00 99 [degF] Method: Oral [facility] Respiration Rate 2019-02-28 11:13:00 16 /min [facility] O2 SAT 2019-02-28 11:13:00 98 % Source: RA [facility] BP Systolic 2019-02-27 15:59:00 147 mm[Hg] Location: ANNE; Positi on: Sitting [facility] BP Diastolic 2019-02-27 15:59:00 83 mm[Hg] Location: ANNE; Positi on: Sitting [facility] Height 2019-02-27 15:59:00 68 [in_us] [facility] Weight 2019-02-27 15:59:00 238 [lb_av] [facility] Body Mass Index Calculated 2019-02-27 15:59:00 36.19 kg/m2 [facility] Heart Rate 2019-02-27 15:59:00 91 /min [facility] BP Systolic 2019-02-06 15:46:00 120 mm[Hg] Location: ANNE; Positi on: Sitting [facility] BP Diastolic 2019-02-06 15:46:00 79 mm[Hg] Location: ANNE; Positi on: Sitting [facility] Height 2019-02-06 15:46:00 68 [in_us] [facility] Weight 2019-02-06 15:46:00 241.8 [lb_av] [facility] Body Mass Index Calculated 2019-02-06 15:46:00 36.77 kg/m2 [facility] Heart Rate 2019-02-06 15:46:00 90 /min [facility] Temperature 2019-02-06 15:46:00 98.3 [degF] Method: Oral [facility] Respiration Rate 2019-02-06 15:46:00 16 /min [facility] BP Systolic 2019-01-29 15:54:00 149 mm[Hg] Location: LUE; Positi on: Sitting [facility] BP Diastolic 2019-01-29 15:54:00 81 mm[Hg] Location: LUE; Positi on: Sitting [facility] Heart Rate 2019-01-29 15:54:00 76 /min [facility] BP Systolic 2019-01-29 15:51:00 144 mm[Hg] Location: LUE; Positi on: Sitting [facility] BP Diastolic 2019-01-29 15:51:00 78 mm[Hg] Location: LUE; Positi on: Sitting [facility] Height 2019-01-29 15:51:00 68 [in_us] [facility] Weight 2019-01-29 15:51:00 252.9 [lb_av] [facility] Body Mass Index Calculated 2019-01-29 15:51:00 38.45 kg/m2 [facility] Heart Rate 2019-01-29 15:51:00 78 /min [facility] Temperature 2019-01-29 15:51:00 99.1 [degF] Method: Oral [facility] Respiration Rate 2019-01-29 15:51:00 16 /min [facility] BP Systolic 2019-01-21 15:52:00 146 mm[Hg] Location: LUE; Positi on: Sitting [facility] BP Diastolic 2019-01-21 15:52:00 79 mm[Hg] Location: LUE; Positi on: Sitting [facility] Heart Rate 2019-01-21 15:52:00 83 /min Location: L Radial; [facility] BP Systolic 2019-01-21 15:50:00 145 mm[Hg] Location: LUE; Positi on: Sitting [facility] BP Diastolic 2019-01-21 15:50:00 76 mm[Hg] Location: LUE; Positi on: Sitting [facility] Height 2019-01-21 15:50:00 68 [in_us] [facility] Weight 2019-01-21 15:50:00 248 [lb_av] [facility] Body Mass Index Calculated 2019-01-21 15:50:00 37.71 kg/m2 [facility] Heart Rate 2019-01-21 15:50:00 90 /min Location: L Radial; [facility] BP Systolic 2018-12-18 16:38:00 140 mm[Hg] Location: LUE; Positi on: Sitting [facility] BP Diastolic 2018-12-18 16:38:00 76 mm[Hg] Location: LUE; Positi on: Sitting [facility] Heart Rate 2018-12-18 16:38:00 76 /min [facility] BP Systolic 2018-12-18 16:32:00 143 mm[Hg] Location: LUE; Positi on: Sitting [facility] BP Diastolic 2018-12-18 16:32:00 80 mm[Hg] Location: LUE; Positi on: Sitting [facility] Heart Rate 2018-12-18 16:32:00 76 /min [facility] Height 2018-12-18 16:32:00 68 [in_us] [facility] Weight 2018-12-18 16:32:00 251.1 [lb_av] [facility] Body Mass Index Calculated 2018-12-18 16:32:00 38.18 kg/m2 [facility] Temperature 2018-12-18 16:32:00 98.2 [degF] Method: Oral [facility] Respiration Rate 2018-12-18 16:32:00 16 /min [facility] BP Systolic 2018-12-13 16:14:00 149 mm[Hg] Location: LUE; Positi on: Sitting [facility] BP Diastolic 2018-12-13 16:14:00 83 mm[Hg] Location: AMBERE; Positi on: Sitting [facility] Height 2018-12-13 16:14:00 68 [in_us] [facility] Weight 2018-12-13 16:14:00 254 [lb_av] [facility] Body Mass Index Calculated 2018-12-13 16:14:00 38.62 kg/m2 [facility] Heart Rate 2018-12-13 16:14:00 81 /min [facility] BP Systolic 2018-11-18 16:29:00 141 mm[Hg] Location: LUE; Positi on: Sitting [facility] BP Diastolic 2018-11-18 16:29:00 79 mm[Hg] Location: LUE; Positi on: Sitting [facility] Heart Rate 2018-11-18 16:29:00 89 /min [facility] BP Systolic 2018-11-18 16:25:00 146 mm[Hg] Location: LUE; Positi on: Sitting [facility] BP Diastolic 2018-11-18 16:25:00 82 mm[Hg] Location: LUE; Positi on: Sitting [facility] Heart Rate 2018-11-18 16:25:00 93 /min [facility] Height 2018-11-18 16:25:00 68 [in_us] [facility] Weight 2018-11-18 16:25:00 249 [lb_av] [facility] Body Mass Index Calculated 2018-11-18 16:25:00 37.86 kg/m2 [facility] Temperature 2018-11-18 16:25:00 98.6 [degF] Method: Oral [facility] Respiration Rate 2018-11-18 16:25:00 16 /min [facility] BP Systolic 2018-11-12 15:50:00 170 mm[Hg] Location: LUE; Positi on: Sitting [facility] BP Diastolic 2018-11-12 15:50:00 91 mm[Hg] Location: LUE; Positi on: Sitting [facility] Heart Rate 2018-11-12 15:50:00 80 /min Location: L Radial; [facility] BP Systolic 2018-11-12 15:47:00 169 mm[Hg] Location: LUE; Positi on: Sitting [facility] BP Diastolic 2018-11-12 15:47:00 81 mm[Hg] Location: LUE; Positi on: Sitting [facility] Heart Rate 2018-11-12 15:47:00 88 /min Location: L Radial; [facility] Height 2018-11-12 15:47:00 68 [in_us] [facility] Weight 2018-11-12 15:47:00 248 [lb_av] [facility] Body Mass Index Calculated 2018-11-12 15:47:00 37.71 kg/m2 [facility] BP Systolic 2018-11-07 16:17:00 163 mm[Hg] Location: LUE; Positi on: Sitting [facility] BP Diastolic 2018-11-07 16:17:00 81 mm[Hg] Location: LUE; Positi on: Sitting [facility] Heart Rate 2018-11-07 16:17:00 80 /min [facility] Height 2018-11-07 16:17:00 68 [in_us] [facility] Weight 2018-11-07 16:17:00 246 [lb_av] [facility] Body Mass Index Calculated 2018-11-07 16:17:00 37.4 kg/m2 [facility] BP Systolic 2018-10-09 13:37:00 166 mm[Hg] Location: LUE; Positi on: Sitting [facility] BP Diastolic 2018-10-09 13:37:00 86 mm[Hg] Location: LUE; Positi on: Sitting [facility] Height 2018-10-09 13:37:00 68 [in_us] [facility] Weight 2018-10-09 13:37:00 249 [lb_av] [facility] Body Mass Index Calculated 2018-10-09 13:37:00 37.86 kg/m2 [facility] Heart Rate 2018-10-09 13:37:00 82 /min [facility] BP Systolic 2018-10-01 15:59:00 149 mm[Hg] Location: LUE; Positi on: Sitting [facility] BP Diastolic 2018-10-01 15:59:00 84 mm[Hg] Location: LUE; Positi on: Sitting [facility] Heart Rate 2018-10-01 15:59:00 80 /min [facility] Height 2018-10-01 15:59:00 68 [in_us] [facility] Weight 2018-10-01 15:59:00 249 [lb_av] [facility] [facility] Body Mass Index Calculated 2018-10-01 15:59:00 37.86 kg/m2 [facility] BP Systolic 2018-09-19 15:45:00 160 mm[Hg] Location: LUE; Positi on: Sitting [facility] BP Diastolic 2018-09-19 15:45:00 84 mm[Hg] Location: LUE; Positi on: Sitting [facility] Height 2018-09-19 15:45:00 68 [in_us] [facility] Weight 2018-09-19 15:45:00 250.125 [lb_av] [facility] Body Mass Index Calculated 2018-09-19 15:45:00 38.03 kg/m2 [facility] Temperature 2018-09-19 15:45:00 98.9 [degF] Method: Brachial [facility] Heart Rate 2018-09-19 15:45:00 87 /min Location: L Radial; [facility] BP Systolic 2018-09-12 16:52:00 174 mm[Hg] Location: LUE; Positi on: Sitting [facility] BP Diastolic 2018-09-12 16:52:00 93 mm[Hg] Location: AMBERE; Positi on: Sitting [facility] Heart Rate 2018-09-12 16:52:00 80 /min [facility] BP Systolic 2018-09-12 15:56:00 174 mm[Hg] Location: AMBERE; Positi on: Sitting [facility] BP Diastolic 2018-09-12 15:56:00 83 mm[Hg] Location: LUE; Positi on: Sitting [facility] Heart Rate 2018-09-12 15:56:00 86 /min [facility] Height 2018-09-12 15:56:00 68 [in_us] [facility] Weight 2018-09-12 15:56:00 250.0 [lb_av] [facility] Body Mass Index Calculated 2018-09-12 15:56:00 38.01 kg/m2 [facility] BP Systolic 2018-08-27 15:28:00 159 mm[Hg] Location: LUE; Positi on: Sitting [facility] BP Diastolic 2018-08-27 15:28:00 85 mm[Hg] Location: LUE; Positi on: Sitting [facility] Heart Rate 2018-08-27 15:28:00 86 /min [facility] Height 2018-08-27 15:28:00 68 [in_us] [facility] Weight 2018-08-27 15:28:00 246 [lb_av] [facility] Body Mass Index Calculated 2018-08-27 15:28:00 37.4 kg/m2 [facility] BP Systolic 2018-08-22 16:14:00 163 mm[Hg] Location: LUE; Positi on: Sitting [facility] BP Diastolic 2018-08-22 16:14:00 83 mm[Hg] Location: LUE; Positi on: Sitting [facility] Heart Rate 2018-08-22 16:14:00 80 /min [facility] BP Systolic 2018-08-22 16:08:00 168 mm[Hg] Location: LUE; Positi on: Sitting [facility] BP Diastolic 2018-08-22 16:08:00 83 mm[Hg] Location: LUE; Positi on: Sitting [facility] Heart Rate 2018-08-22 16:08:00 82 /min [facility] Height 2018-08-22 16:08:00 68 [in_us] [facility] Weight 2018-08-22 16:08:00 251.3 [lb_av] [facility] Body Mass Index Calculated 2018-08-22 16:08:00 38.21 kg/m2 [facility] Temperature 2018-08-22 16:08:00 98.8 [degF] Method: Oral [facility] Respiration Rate 2018-08-22 16:08:00 16 /min [facility] BP Systolic 2018-08-01 15:17:00 152 mm[Hg] Location: LUE; Positi on: Sitting [facility] BP Diastolic 2018-08-01 15:17:00 84 mm[Hg] Location: LUE; Positi on: Sitting [facility] Height 2018-08-01 15:17:00 68 [in_us] [facility] Weight 2018-08-01 15:17:00 245 [lb_av] [facility] Body Mass Index Calculated 2018-08-01 15:17:00 37.25 kg/m2 [facility] Heart Rate 2018-08-01 15:17:00 81 /min [facility] BP Systolic 2018-07-01 13:04:00 138 mm[Hg] Location: LUE; Positi on: Sitting [facility] BP Diastolic 2018-07-01 13:04:00 77 mm[Hg] Location: LUE; Positi on: Sitting [facility] Height 2018-07-01 13:04:00 68 [in_us] [facility] Weight 2018-07-01 13:04:00 242.3 [lb_av] [facility] Body Mass Index Calculated 2018-07-01 13:04:00 36.84 kg/m2 [facility] Temperature 2018-07-01 13:04:00 99.1 [degF] Method: Oral [facility] Heart Rate 2018-07-01 13:04:00 79 /min [facility] BP Systolic 2018-06-26 16:45:00 139 mm[Hg] Location: ANNE; [facility] BP Diastolic 2018-06-26 16:45:00 75 mm[Hg] Location: ANNE; [facility] Height 2018-06-26 16:45:00 68 [in_us] [facility] Body Mass Index Calculated 2018-06-26 16:45:00 31.63 kg/m2 [facility] Weight 2018-06-26 16:45:00 208 [lb_av] [facility] Heart Rate 2018-06-26 16:45:00 79 /min Location: L Brachial Artery; [facility] BP Systolic 2018-06-26 16:30:00 166 mm[Hg] Location: ANNE; [facility] BP Diastolic 2018-06-26 16:30:00 84 mm[Hg] Location: DONAVON [facility] Heart Rate 2018-06-26 16:30:00 76 /min Location: L Brachial Artery; [facility] BP Systolic 2018-06-26 16:27:00 178 mm[Hg] Location: ANNE; [facility] BP Diastolic 2018-06-26 16:27:00 81 mm[Hg] Location: ANNE; [facility] Height 2018-06-26 16:27:00 68 [in_us] [facility] Body Mass Index Calculated 2018-06-26 16:27:00 36.34 kg/m2 [facility] Weight 2018-06-26 16:27:00 239 [lb_av] [facility] Heart Rate 2018-06-26 16:27:00 79 /min Location: L Brachial Artery; [facility] Temperature 2018-06-26 16:27:00 98.5 [degF] Method: Oral [facility] Respiration Rate 2018-06-26 16:27:00 16 /min Quality: Normal [facility] BP Systolic 2018-06-06 16:21:00 148 mm[Hg] Location: LUE; Positi on: Sitting [facility] BP Diastolic 2018-06-06 16:21:00 81 mm[Hg] Location: LUE; Positi on: Sitting [facility] Heart Rate 2018-06-06 16:21:00 76 /min [facility] BP Systolic 2018-06-06 16:02:00 154 mm[Hg] Location: LUE; Positi on: Sitting [facility] BP Diastolic 2018-06-06 16:02:00 80 mm[Hg] Location: LUE; Positi on: Sitting [facility] Heart Rate 2018-06-06 16:02:00 76 /min [facility] Height 2018-06-06 16:02:00 68 [in_us] [facility] Weight 2018-06-06 16:02:00 239.5 [lb_av] [facility] Body Mass Index Calculated 2018-06-06 16:02:00 36.42 kg/m2 [facility] Temperature 2018-06-06 16:02:00 98.7 [degF] Method: Oral [facility] Respiration Rate 2018-06-06 16:02:00 16 /min [facility] BP Systolic 2018-05-29 13:25:00 129 mm[Hg] Location: LUE; Positi on: Sitting [facility] BP Diastolic 2018-05-29 13:25:00 80 mm[Hg] Location: LUE; Positi on: Sitting [facility] Heart Rate 2018-05-29 13:25:00 78 /min [facility] BP Systolic 2018-05-29 13:23:00 142 mm[Hg] Location: LUE; Positi on: Sitting [facility] BP Diastolic 2018-05-29 13:23:00 83 mm[Hg] Location: LUE; Positi on: Sitting [facility] Heart Rate 2018-05-29 13:23:00 81 /min [facility] Height 2018-05-29 13:23:00 68 [in_us] [facility] Weight 2018-05-29 13:23:00 229.9 [lb_av] [facility] Body Mass Index Calculated 2018-05-29 13:23:00 34.96 kg/m2 [facility] Temperature 2018-05-29 13:23:00 98.7 [degF] Method: Oral [facility] Respiration Rate 2018-05-29 13:23:00 16 /min [facility] Systolic 2018-05-07 15:49:00 154 mm[Hg] Location: LUE; Positi on: Sitting [facility] BP Diastolic 2018-05-07 15:49:00 84 mm[Hg] Location: LUE; Positi on: Sitting [facility] Heart Rate 2018-05-07 15:49:00 88 /min [facility] BP Systolic 2018-05-07 15:47:00 162 mm[Hg] Location: LUE; Positi on: Sitting [facility] BP Diastolic 2018-05-07 15:47:00 85 mm[Hg] Location: LUE; Positi on: Sitting [facility] Heart Rate 2018-05-07 15:47:00 87 /min [facility] Height 2018-05-07 15:47:00 68 [in_us] [facility] Weight 2018-05-07 15:47:00 244.2 [lb_av] [facility] Body Mass Index Calculated 2018-05-07 15:47:00 37.13 kg/m2 [facility] Temperature 2018-05-07 15:47:00 98.5 [degF] Method: Oral [facility] Respiration Rate 2018-05-07 15:47:00 16 /min [facility] BP Systolic 2018-04-26 14:43:00 144 mm[Hg] Location: LUE; Positi on: Sitting [facility] BP Diastolic 2018-04-26 14:43:00 82 mm[Hg] Location: LUE; Positi on: Sitting [facility] Height 2018-04-26 14:43:00 68 [in_us] [facility] Body Mass Index Calculated 2018-04-26 14:43:00 35.88 kg/m2 [facility] Weight 2018-04-26 14:43:00 236.0 [lb_av] [facility] Heart Rate 2018-04-26 14:43:00 90 /min Location: L Brachial Artery; [facility] Respiration Rate 2018-04-26 14:43:00 18 /min [facility] BP Systolic 2018-04-26 11:08:00 132 mm[Hg] Location: LUE; Positi on: Sitting [facility] BP Diastolic 2018-04-26 11:08:00 80 mm[Hg] Location: LUE; Positi on: Sitting [facility] Heart Rate 2018-04-26 11:08:00 85 /min [facility] BP Systolic 2018-04-26 11:06:00 143 mm[Hg] Location: LUE; Positi on: Sitting [facility] BP Diastolic 2018-04-26 11:06:00 83 mm[Hg] Location: LUE; Positi on: Sitting [facility] Heart Rate 2018-04-26 11:06:00 89 /min [facility] Height 2018-04-26 11:06:00 68 [in_us] [facility] Weight 2018-04-26 11:06:00 236.8 [lb_av] [facility] Body Mass Index Calculated 2018-04-26 11:06:00 36.01 kg/m2 [facility] Temperature 2018-04-26 11:06:00 98.3 [degF] Method: Oral [facility] Respiration Rate 2018-04-26 11:06:00 16 /min [facility] BP Systolic 2018-04-19 10:49:00 138 mm[Hg] Location: LUE; Positi on: Sitting [facility] BP Diastolic 2018-04-19 10:49:00 79 mm[Hg] Location: LUE; Positi on: Sitting [facility] Heart Rate 2018-04-19 10:49:00 80 /min [facility] BP Systolic 2018-04-19 10:48:00 144 mm[Hg] Location: LUE; Positi on: Sitting [facility] BP Diastolic 2018-04-19 10:48:00 77 mm[Hg] Location: LUE; Positi on: Sitting [facility] Heart Rate 2018-04-19 10:48:00 82 /min [facility] Height 2018-04-19 10:48:00 68 [in_us] [facility] Weight 2018-04-19 10:48:00 240 [lb_av] [facility] Body Mass Index Calculated 2018-04-19 10:48:00 36.49 kg/m2 [facility] Temperature 2018-04-19 10:48:00 98.7 [degF] [facility] Respiration Rate 2018-04-19 10:48:00 16 /min [facility] BP Systolic 2018-04-12 10:18:00 148 mm[Hg] Location: ANNE; Positi on: Sitting [facility] BP Diastolic 2018-04-12 10:18:00 78 mm[Hg] Location: ANNE; Positi on: Sitting [facility] Heart Rate 2018-04-12 10:18:00 88 /min [facility] BP Systolic 2018-04-12 10:16:00 152 mm[Hg] Location: ANNE; Positi on: Sitting [facility] BP Diastolic 2018-04-12 10:16:00 82 mm[Hg] Location: ANNE; Positi on: Sitting [facility] Heart Rate 2018-04-12 10:16:00 89 /min [facility] Height 2018-04-12 10:16:00 68 [in_us] [facility] Weight 2018-04-12 10:16:00 238.3 [lb_av] [facility] Body Mass Index Calculated 2018-04-12 10:16:00 36.23 kg/m2 [facility] Temperature 2018-04-12 10:16:00 98.6 [degF] Method: Oral [facility] Respiration Rate 2018-04-12 10:16:00 16 /min [facility] BP Systolic 2018-04-03 13:40:00 136 mm[Hg] Location: ANNE; Positi on: Sitting [facility] BP Diastolic 2018-04-03 13:40:00 78 mm[Hg] Location: ANNE; Positi on: Sitting [facility] Height 2018-04-03 13:40:00 68 [in_us] [facility] Weight 2018-04-03 13:40:00 240.3 [lb_av] [facility] Body Mass Index Calculated 2018-04-03 13:40:00 36.54 kg/m2 [facility] Temperature 2018-04-03 13:40:00 97.7 [degF] Method: Oral [facility] Respiration Rate 2018-04-03 13:40:00 16 /min [facility] Heart Rate 2018-04-03 13:40:00 84 /min [facility] BP Systolic 2018-02-20 16:03:00 166 mm[Hg] Location: LUE; Positi on: Sitting [facility] BP Diastolic 2018-02-20 16:03:00 87 mm[Hg] Location: LUE; Positi on: Sitting [facility] Heart Rate 2018-02-20 16:03:00 81 /min [facility] BP Systolic 2018-02-20 15:55:00 156 mm[Hg] Location: LUE; Positi on: Sitting [facility] BP Diastolic 2018-02-20 15:55:00 84 mm[Hg] Location: LUE; Positi on: Sitting [facility] Heart Rate 2018-02-20 15:55:00 83 /min [facility] Height 2018-02-20 15:55:00 68 [in_us] [facility] Weight 2018-02-20 15:55:00 246.4 [lb_av] [facility] Calculated 2018-02-20 15:55:00 37.47 kg/m2 [facility] Temperature 2018-02-20 15:55:00 98.6 [degF] Method: Oral [facility] Respiration Rate 2018-02-20 15:55:00 16 /min [facility] BP Systolic 2018-02-08 15:00:00 164 mm[Hg] Location: LUE; Positi on: Sitting [facility] BP Diastolic 2018-02-08 15:00:00 83 mm[Hg] Location: LUE; Positi on: Sitting [facility] Height 2018-02-08 15:00:00 68 [in_us] [facility] Weight 2018-02-08 15:00:00 247.5625 [lb_av] [facility] Body Mass Index Calculated 2018-02-08 15:00:00 37.64 kg/m2 [facility] Heart Rate 2018-02-08 15:00:00 78 /min [facility] BP Systolic 2018-02-04 13:23:00 157 mm[Hg] Location: LUE; Positi on: Sitting [facility] BP Diastolic 2018-02-04 13:23:00 84 mm[Hg] Location: AMBERE; Positi on: Sitting [facility] Heart Rate 2018-02-04 13:23:00 71 /min [facility] BP Systolic 2018-02-04 13:21:00 156 mm[Hg] Location: LUE; Positi on: Sitting [facility] BP Diastolic 2018-02-04 13:21:00 84 mm[Hg] Location: AMBERE; Positi on: Sitting [facility] Height 2018-02-04 13:21:00 68 [in_us] [facility] Weight 2018-02-04 13:21:00 240.6 [lb_av] [facility] Body Mass Index Calculated 2018-02-04 13:21:00 36.58 kg/m2 [facility] Heart Rate 2018-02-04 13:21:00 71 /min [facility] Temperature 2018-02-04 13:21:00 98.6 [degF] Method: Oral [facility] Respiration Rate 2018-02-04 13:21:00 16 /min [facility] BP Systolic 2018-01-31 15:11:00 157 mm[Hg] Location: AMBERE; Positi on: Sitting [facility] BP Diastolic 2018-01-31 15:11:00 91 mm[Hg] Location: LUE; Positi on: Sitting [facility] Height 2018-01-31 15:11:00 68 [in_us] [facility] Weight 2018-01-31 15:11:00 247.0625 [lb_av] [facility] Body Mass Index Calculated 2018-01-31 15:11:00 37.57 kg/m2 [facility] Heart Rate 2018-01-31 15:11:00 78 /min [facility] BP Systolic 2018-01-24 16:21:00 182 mm[Hg] Location: LUE; Positi on: Sitting [facility] BP Diastolic 2018-01-24 16:21:00 94 mm[Hg] Location: LUE; Positi on: Sitting [facility] Heart Rate 2018-01-24 16:21:00 84 /min [facility] BP Systolic 2018-01-24 16:13:00 181 mm[Hg] Location: LUE; Positi on: Sitting [facility] BP Diastolic 2018-01-24 16:13:00 92 mm[Hg] Location: LUE; Positi on: Sitting [facility] Heart Rate 2018-01-24 16:13:00 85 /min [facility] Height 2018-01-24 16:13:00 68 [in_us] [facility] Weight 2018-01-24 16:13:00 243.6 [lb_av] [facility] Body Mass Index Calculated 2018-01-24 16:13:00 37.04 kg/m2 [facility] Temperature 2018-01-24 16:13:00 98.2 [degF] Method: Oral [facility] Respiration Rate 2018-01-24 16:13:00 16 /min [facility] BP Systolic 2017-12-14 13:36:00 134 mm[Hg] Location: AMBERE; Positi on: Sitting [facility] BP Diastolic 2017-12-14 13:36:00 79 mm[Hg] Location: AMBERE; Positi on: Sitting [facility] Height 2017-12-14 13:36:00 68 [in_us] [facility] Weight 2017-12-14 13:36:00 247.5 [lb_av] [facility] Body Mass Index Calculated 2017-12-14 13:36:00 37.63 kg/m2 [facility] Temperature 2017-12-14 13:36:00 98.5 [degF] Method: Oral [facility] Heart Rate 2017-12-14 13:36:00 80 /min [facility] Respiration Rate 2017-12-14 13:36:00 16 /min [facility] Systolic 2017-11-21 16:31:00 126 mm[Hg] Location: LUE; Positi on: Sitting [facility] BP Diastolic 2017-11-21 16:31:00 77 mm[Hg] Location: LUE; Positi on: Sitting [facility] Height 2017-11-21 16:31:00 68 [in_us] [facility] Weight 2017-11-21 16:31:00 244.8 [lb_av] [facility] Body Mass Index Calculated 2017-11-21 16:31:00 37.22 kg/m2 [facility] Temperature 2017-11-21 16:31:00 98.4 [degF] Method: Oral [facility] Heart Rate 2017-11-21 16:31:00 77 /min [facility] Respiration Rate 2017-11-21 16:31:00 16 /min [facility] BP Systolic 2017-10-24 15:51:00 129 mm[Hg] Location: LUE; Positi on: Sitting [facility] BP Diastolic 2017-10-24 15:51:00 77 mm[Hg] Location: AMBERE; Positi on: Sitting [facility] Height 2017-10-24 15:51:00 68 [in_us] [facility] Weight 2017-10-24 15:51:00 248.7 [lb_av] [facility] Body Mass Index Calculated 2017-10-24 15:51:00 37.81 kg/m2 [facility] Temperature 2017-10-24 15:51:00 98.4 [degF] Method: Oral [facility] Heart Rate 2017-10-24 15:51:00 79 /min [facility] Respiration Rate 2017-10-24 15:51:00 16 /min [facility] BP Systolic 2017-10-11 15:29:00 155 mm[Hg] Location: LUE; Positi on: Sitting [facility] BP Diastolic 2017-10-11 15:29:00 82 mm[Hg] Location: LUE; Positi on: Sitting [facility] Height 2017-10-11 15:29:00 68 [in_us] [facility] Weight 2017-10-11 15:29:00 247.2 [lb_av] [facility] Body Mass Index Calculated 2017-10-11 15:29:00 37.59 kg/m2 [facility] Temperature 2017-10-11 15:29:00 98.1 [degF] Method: Oral [facility] Heart Rate 2017-10-11 15:29:00 76 /min [facility] Respiration Rate 2017-10-11 15:29:00 16 /min [facility] BP Systolic 2017-09-19 16:06:00 131 mm[Hg] Location: LUE; Positi on: Sitting [facility] BP Diastolic 2017-09-19 16:06:00 82 mm[Hg] Location: LUE; Positi on: Sitting [facility] Height 2017-09-19 16:06:00 68 [in_us] [facility] Weight 2017-09-19 16:06:00 236 [lb_av] [facility] Body Mass Index Calculated 2017-09-19 16:06:00 35.88 kg/m2 [facility] Temperature 2017-09-19 16:06:00 96.7 [degF] Method: Temporal [facility] Heart Rate 2017-09-19 16:06:00 90 /min Location: L Radial; [facility] Respiration Rate 2017-09-19 16:06:00 16 /min [facility] Systolic 2017-08-31 15:08:00 142 mm[Hg] Location: LUE; Positi on: Sitting [facility] BP Diastolic 2017-08-31 15:08:00 81 mm[Hg] Location: LUE; Positi on: Sitting [facility] Height 2017-08-31 15:08:00 68 [in_us] [facility] Weight 2017-08-31 15:08:00 239 [lb_av] [facility] Body Mass Index Calculated 2017-08-31 15:08:00 36.34 kg/m2 [facility] Heart Rate 2017-08-31 15:08:00 86 /min [facility] Procedures Procedure Date / Time Performed Performing Clinician Robert saravia MA Bone Density [employer] [id number] 2020-03-08 00:00:00 [facility] LAZARO Digital Mammo Screening Abdirizak [id number] 2020-03-08 00:00:00 [facility] GI Esophagus barium swallow function video [id number] 2020-03-05 00:0 0:00 [facility] GI Esophagus barium swallow function video [id number] 2020-02-24 00:0 0:00 [facility] [QL] CBC (INCLUDES DIFF/PLT) 2019-12-30 00:00:00 [facility] [QL] VITAMIN B12 2019-12-30 00:00:00 [facility] [QL] FERRITIN 2019-12-30 00:00:00 [place] [facility] EKG (In Office) 2019-10-03 00:00:00 [place] [facility] [QL] LIPID PANEL 2019-10-03 00:00:00 [facility] [QL] CBC (INCLUDES DIFF/PLT) 2019-10-03 00:00:00 [facility] [QL] CMP W/EGFR 2019-10-03 00:00:00 [facility] [QL] TSH, 3RD GENERATION W/REFLEX TO FT4 2019-10-03 00:00:00 [facility] [QL] FERRITIN 2019-10-03 00:00:00 [place] [facility] [QL] VITAMIN B12 2019-10-03 00:00:00 [facility] CT Brain w contrast [id number] 2019-10-03 00:00[facility]00 [facility] Spine cervical wo contrast [id number] 2019-10-03 00:00:00 [facility] MRI Neck wo contrast [id number] 2019-10-03 [facility]:00[facility] [id number] 2019-10-03 00:00[facility] [QH] LIPID PANEL WITH REFLEX TO DIRECT LDL 2019-08-13 00:00:00 [facility] [QLH] CMP W/EGFR 2019-08-13 00:00:00 [facility] [Q] LIPID PANEL WITH REFLEX TO DIRECT LDL 2019-08-13 00:00:00 [facility] [QL] CMP W/EGFR 2019-08-13 00:00:00 [place] [facility] Abdomen AP view [id number] 2019-07-03 00:00:00 [facility] Colonoscopy 2019-05-07 00:00:00 [place] [facility] [QLH] HEMOGLOBIN A1c 2019-03-12 00:00:00 [facility] [H] Iron, TIBC \T\ Ferritin 2019-02-13 00:00:00 [facility] [[facility]] CBC (INCLUDES DIFF/PLT) 2019-02-13 00:00:00 [facility] [[facility]] CBC (INCLUDES DIFF/PLT) 2019-01-29 00:00:00 [facility] [Q] IRON, TIBC AND FERRITIN PANEL 2019-01-29 00:00:00 [facility] [[facility]] VITAMIN B12 2019-01-29 00:00:00 [facility] [[facility]] LIPID PANEL 2019-01-08 00:00:00 [facility] [[facility]] MICROALBUMIN, RANDOM URINE (W/CREATININE) 2019-01-08 00:00 :00 [facility] [[facility]] HEPATITIS C ANTIBODY 2019-01-08 00:00:00 U [facility] MA Digital Mammo Screening Abdirizak [id number] 2018-12-18 00:00:00 [facility] [[facility]] LIPID PANEL 2018-12-18 00:00:00 [facility] [[facility]] MICROALBUMIN, RANDOM URINE (W/CREATININE) 2018-12-18 00:00 :00 [facility] [[facility]] HEPATITIS C ANTIBODY 2018-12-18 00:00:00 [facility] EGD (Esophagogastroduodenoscopy) 2018-11-13 00:00:00 [facility] Computed tomography of abdomen and pelvis with contrast 2018 00:00:00 ROHAN TURNER [facility] [Q] DRUG ABUSE PANEL 2018-10-01 00:00:00 Un [facility] MRI Internal Auditory Canal w/wo contrast [id number] 2018-09-19 00:00 :00 [facility] MRI Spine lumbar wo contrast [id number] 2018-09-19 00:00:00 [facility] [Q] DRUG ABUSE PANEL 2018-08-27 00:00:00 Un [facility] [O] Basic Audiometry Screen 2018-08-01 00:00:00 [facility] [[facility]] CLOSTRIDIUM DIFFICILE TOXIN A AND B, EIA 2018-05-29 00:00: 00 [facility] CT Abdomen/Pelvis wo contrast [id number] 2018-05-29 00:00:00 [facility] [[facility]] CBC (INCLUDES DIFF/PLT) 2018-05-29 00:00:00 [facility] [[facility]] CMP W/EGFR 2018-05-29 00:00:00 [facility] [QL] AMYLASE 2018-05-29 00:00:00 [place] [facility] [place] [facility] [QL] LIPASE 2018-05-29 00:00:00 [place] [facility] [place] [facility] MR Tib Fib wo contrast [id number] 2018-04-19 00:00:00 [facility] XRAY Hip 1 view [id number] 2018-02-05 00:00:00 [facility] XRAY Ribs unilateral [id number] 2018-02-05 00:00:00 U [facility] US Renal with Renal vessel Doppler [id number] 2018-02-04 00:00:00 [facility] [O] Basic Audiometry Screen 2018-01-31 00:00:00 [facility] CT Abdomen/Pelvis wo contrast [id number] 2017-09-19 00:00:00 [facility] [N] 2D Echo complete, with Doppler [id number] 2017-08-22 00:00:00 [facility] History of Hernia Repair 2012-09-16 00:00:00 [facility] Tons[facility] History of Rhinoplasty [facility] History of Cataract Surgery [facility] History of Tubal Ligation [facility] History of Appendectomy [facility] History of Cholecystectomy [facility] History of Hysterectomy [facility] History of Foot Surgery [facility] Plan of Care Planned Activity Planned Date Details Comments Source Future Scheduled Test 2019-11-11 00:00:00 [QH] LIPID PANEL W ITH REFLEX TO DIRECT LDL [code = [Q] LIPID PANEL WITH REFLEX TO DIRECT LDL] [facility] Future Scheduled Test 2019-11-11 00:00:00 [QLH] CMP W/EGFR [ code = [QLH] CMP W/EGFR] [facility] Future Scheduled Test 2019-11-11 00:00:00 [QH] LIPID PANEL W ITH REFLEX TO DIRECT LDL [code = [QH] LIPID PANEL WITH REFLEX TO DIRECT LDL] [facility] Future Scheduled Test 2019-11-11 00:00:00 [QLH] CMP W/EGFR [ code = [QLH] CMP W/EGFR] [facility] Diagnostic Test Pending 2019-05-31 00:00:00 Colonoscopy [code = 737 32759] [facility] Diagnostic Test Pending 2018-12-23 00:00:00 EGD (Esophagogas troduodenoscopy) [code = EGD (Esophagogastroduodenoscopy)] [facility] Diagnostic Test Pending 2018-12-23 00:00:00 EGD (Esophagogas troduodenoscopy) [code = EGD (Esophagogastroduodenoscopy)] [facility] Diagnostic Test Pending 2018-12-06 00:00:00 EGD (Esophagogas troduodenoscopy) [code = EGD (Esophagogastroduodenoscopy)] [facility] Diagnostic Test Pending 2018-12-06 00:00:00 EGD (Esophagogas troduodenoscopy) [code = EGD (Esophagogastroduodenoscopy)] [facility] Diagnostic Test Pending 2018-08-01 00:00:00 [O] Basic Audiom etry Screen [code = [O] Basic Audiometry Screen] [facility] Diagnostic Test Pending 2018-08-01 00:00:00 [O] Basic Audiom etry Screen [code = [O] Basic Audiometry Screen] [facility] Pending 2018-01-31 00:00:00 [O] Basic Audiom etry Screen [code = [O] Basic Audi[facility] Screen] [facility] 2013-10-23 20:01:07 Plan of Care [code = 1877 6-5] [facility] Scheduled Test 2013-09-23 20:20:52 Plan of Care [code = 1877 6-5] [facility] Scheduled Test 2013-09-04 19:20:34 Plan of Care [code = 1877 6-5] [facility] Scheduled Test 2013-08-26 20:45:09 Plan of Care [code = 1877 6-5] [facility] Scheduled Test 2013-07-14 21:01:23 Plan of Care [code = 1877 6-5] [facility] Future Appointment 2020-06-08 16:00:00 Tomy ZACARIAS, [facility] Future Appointment 2020-06-08 16:00:00 Tomy ZACARIAS, [facility] Future Appointment 2020-05-14 15:30:00 Tomy VERA, [facility] Future Appointment 2020-05-12 16:00:00 Tomy ZEPEDA [facility] Future Appointment 2020-04-21 16:00:00 Tomy BALLESTEROS, [facility] Future Appointment 2020-03-25 08:30:00 [facility] Start Date/Time End Date/Time Encounter Type Admission Type Attendi [facility] Care Department Encounter ID Source 2020-03-09 14:15:00 2020-03-09 14:15:00 Appointment; VIMAL LARA M.D. WALTON, HAROLD, M.D. [facility] [id number] [facility] 2020-03-08 16:00:00 2020-03-08 16:00:00 Appointment; VIMAL LARA M.D. WALTON, HAROLD, M.D. [facility] [id number] [facility] 2020-02-24 16:00:00 2020-02-24 16:00:00 Appointment; DIMAS CORADO M.D. CATALANO, MARC, M.D. [facility], [address] [id number] [facility] 2020-01-20 16:15:00 2020-01-20 16:15:00 Appointment; DIMAS CORADO M.D. CATALANO, MARC, M.D. [facility] [id number] [facility] 2020-01-15 13:30:00 2020-01-15 13:30:00 Appointment; BRANDON ROSARIO APRN HOANG, CHRISTINA, APRN [facility] UTP [id number] [facility] 2019-12-30 13:30:00 2019-12-30 13:30:00 Appointment; BRANDON ROSARIO APRN HOANG, CHRISTINA, APRN [facility] [id number] [facility] 2019-12-16 07:45:00 2019-12-16 07:45:00 Appointment; BRANDON ROSARIO APRN HOANG, CHRISTINA, APRN [facility], [address] [id number] [facility] 2019-11-12 16:40:00 2019-11-12 16:40:00 Appointment; KATELYN GRACIA M.D. CHARITAKIS, KONSTANTINOS, M.D. [facility], [address] [id number] [facility] 2019-11-11 15:30:00 2019-11-11 15:30:00 Appointment; CHUY ISIDRO M.D. GOMEZ-RIVERA, FERNANDO, M.D. [facility] [place] rhinolaryngology [facility] [id number] [facility] 2019-11-07 11:15:00 2019-11-07 11:15:00 Appointment; BRANDON ROSARIO APRN HOANG, CHRISTINA, APRN [facility], [address] [id number] [facility] 2019-11-05 16:00:00 2019-11-05 16:00:00 Appointment; LESLI COLBERT M.D. NASSIF, JULIA, M.D. [facility], [address] [id number] [facility] 2019-11-05 15:30:00 2019-11-05 15:30:00 Appointment; CHUY ISIDRO M.D. GOMEZ-RIVERA, FERNANDO, M.D. [facility] [id number] [facility] 2019-10-31 13:45:00 2019-10-31 13:45:00 Appointment; BRANDON ROSARIO APRN HOANG, CHRISTINA, APRN [facility], [address] [id number] [facility] 2019-10-24 15:30:00 2019-10-24 15:30:00 Appointment; CHUY ISIDRO M.D. GOMEZ-RIVERA, FERNANDO, M.D. [facility] [id number] [facility] 2019-10-24 13:00:2019-10-24 13:00:00 Appointment; BRANDON ROSARIO APRN HOANG, CHRISTINA, APRN [facility], [address] [id number] [facility] 2019-10-16 14:30:00 2019-10-16 14:30:00 Appointment; BRANDON ROSARIO APRN HOANG, CHRISTINA, APRN [facility], [address] [id number] [facility] 2019-10-03 10:30:00 2019-10-03 10:30:00 Appointment; BRANODN ROSARIO APRN HOANG, CHRISTINA, APRN [facility], [address] [id number] [facility] 2019-08-13 17:00:2019-08-13 17:00:00 Appointment; KATELYN GRACIA M.D. CHARITAKIS, KONSTANTINOS, M.D. [facility], [address] [id number] [facility] 2019-08-01 12:00:00 2019-08-01 12:00:00 Appointment; VIMAL LARA M.D. WALTON, HAROLD, M.D. [facility], [address] [id number] [facility] 2019-07-30 16:00:00 2019-07-30 16:00:00 Appointment; LESLI COLBERT M.D. NASSIF, JULIA, M.D. [facility], [address] [id number] [facility] 2019-07-28 08:10:00 2019-07-28 10:58:00 Departed Emergency Room 1 TA TOMMY [facility] [id number] [facility] 2019-07-24 14:25:00 2019-07-24 18:29:00 Departed Emergency Room [facility] [id number] [facility] 2019-04-16 16:00:00 2019-04-16 16:00:00 Appointment; JANAY FIERRO M .D. JAVED, SABA, M.D. [facility] [id number] [facility] 2019-04-10 15:15:00 2019-04-10 15:15:00 Appointment; JANAY FIERRO M .D. JAVED, SABA, M.D. [facility] [id number] [facility] 2019-04-08 16:00:00 2019-04-08 16:00:00 Appointment; VIMAL LARA M.D. WALTON, HAROLD, M.D. [facility], [address] [id number] [facility] 2019-03-13 15:00:00 2019-03-13 15:00:00 Appointment; BERTHA LOU M.D. BYRD, MICHAEL, M.D. [facility], [address] [id number] [facility] 2019-03-12 16:00:00 2019-03-12 16:00:00 Appointment; VIMAL LARA M.D. WALTON, HAROLD, M.D. [facility] [id number] [facility] 2019-02-28 15:30:00 2019-02-28 15:30:00 Appointment; LESLI COLBERT M.D. NASSIF, JULIA, M.D. [facility], [address] [id number] [facility] 2019-02-28 11:00:00 2019-02-28 11:00:00 Appointment; VIMAL LARA M.D. WALTON, HAROLD, M.D. [facility], [address] [id number] [facility] 2019-02-27 15:15:00 2019-02-27 15:15:00 Appointment; JANAY FIERRO M .D. JAVED, SABA, M.D. [facility] [id number] [facility] 2019-02-06 15:30:00 2019-02-06 15:30:00 Appointment; VIMAL LARA M.D. WALTON, HAROLD, M.D. [facility] [id number] [facility] 2019-01-29 16:00:00 2019-01-29 16:00:00 Appointment; VIMAL LARA M.D. WALTON, HAROLD, M.D. [facility], [address] [id number] [facility] 2019-01-21 16:00:00 2019-01-21 16:00:00 Appointment; DIMAS CORADO M.D. CATALANO, MARC, M.D. [facility], [address] [id number] [facility] 2018-12-18 16:00:00 2018-12-18 16:00:00 Appointment; VIMAL LARA M.D. WALTON, HAROLD, M.D. [facility] [id number] [facility] 2018-12-13 16:00:00 2018-12-13 16:00:00 Appointment; LESLI COLBERT M.D. NASSIF, JULIA, M.D. [facility], [address] [id number] [facility] 2018-12-06 09:00:00 2018-12-06 09:00:00 Appointment; DIMAS CORADO M.D. CATALANO, MARC, M.D. [facility] [id number] [facility] 2018-11-18 16:00:00 2018-11-18 16:00:00 Appointment; VIMAL LARA M.D. WALTON, HAROLD, M.D. [facility], [address] [id number] [facility] 2018-11-12 16:00:00 2018-11-12 16:00:00 Appointment; DIMAS CORADO M.D. CATALANO, MARC, M.D. [facility] [address] [id number] [facility] 2018-11-07 16:00:00 2018-11-07 16:00:00 Appointment; MARCELINA RUIZ M.D. AHMED, MOUSTAFA, M.D. [facility] [id number] [facility] [place] [facility] 2018-11-04 08:21:00 2018-11-04 14:08:00 Departed Emergency Room 1 ROHAN TURNER [facility] [id number] [facility] 2018-10-09 15:30:00 2018-10-09 15:30:00 Appointment; MARCELINA RUIZ M.D. AHMED, MOUSTAFA, M.D. [facility] [id number] [facility] [place] [facility] 2018-10-01 15:45:00 2018-10-01 15:45:00 Appointment; MARCELINA RUIZ M.D. AHMED, MOUSTAFA, M.D. [facility] [id number] [facility] [place] [facility] 2018-09-19 15:00:00 2018-09-19 15:00:00 Appointment; BERTHA LOU M.D. BYRD, MICHAEL, M.D. [facility] Otorhinolaryngology [facility] [id number] [facility] 2018-09-17 15:30:00 2018-09-17 15:30:00 Appointment; ANGELA BERNAL KIMBERLY [facility] Otorhinolaryngology [facility] [id number] [facility] 2018-09-12 16:00:00 2018-09-12 16:00:00 Appointment; LESLI COLBERT M.D. NASSIF, JULIA, M.D. [facility] [address] [id number] [facility] 2018-08-27 15:00:00 2018-08-27 15:00:00 Appointment; MARCELINA RUIZ M.D. AHMED, MOUSTAFA, M.D. [facility] [id number] [facility] [place] [facility] 2018-08-22 16:00:00 2018-08-22 16:00:00 Appointment; VIMAL LARA M.D. WALTON, HAROLD, M.D. [facility] [id number] [facility] 2018-08-01 15:45:00 2018-08-01 15:45:00 Appointment; BERTHA LOU M.D. BYRD, MICHAEL, M.D. [facility] [id number] [facility] 2018-08-01 15:00:00 2018-08-01 15:00:00 Appointment; BERTHA LOU M.D. BYRD, MICHAEL, M.D. [facility] [address] [id number] [facility] 2018-07-01 14:00:00 2018-07-01 14:00:00 Appointment; VIMAL LARA M.D. WALTON, HAROLD, M.D. [facility] [id number] [facility] [place] [facility] 2018-06-26 17:00:00 2018-06-26 17:00:00 Appointment; KATELYN GRACIA M.D. CHARITAKIS, KONSTANTINOS, M.D. [facility] [address] [id number] [facility] 2018-06-26 16:00:00 2018-06-26 16:00:00 Appointment; BAYORE-MS, Sherrie [facility], NELL [facility] [id number] [facility] 2018-06-06 16:00:00 2018-06-06 16:00:00 Appointment; VIMAL LARA M.D. WALTON, HAROLD, M.D. [facility] [id number] [facility] [place] [facility] 2018-05-29 13:30:00 2018-05-29 13:30:00 Appointment; VIMAL LARA M.D. WALTON, HAROLD, M.D. [facility] [id number] [facility] [place] [facility] 2018-05-07 16:00:00 2018-05-07 16:00:00 Appointment; VIMAL LARA M.D. WALTON, HAROLD, M.D. [facility] [id number] [facility] 2018-05-01 16:00:00 2018-05-01 16:00:00 Appointment; VIMAL LARA M.D. WALTON, HAROLD, M.D. [facility] [id number] [facility] 2018-04-26 14:00:00 2018-04-26 14:00:00 Appointment; CONRAD MATA M.D. KOSHELEV, MISHA, M.D. [facility] [address] [id number] [facility] 2018-04-26 12:00:00 2018-04-26 12:00:00 Appointment; VIMAL LARA M.D. WALTON, HAROLD, M.D. [facility] [id number] [facility] 2018-04-19 11:00:00 2018-04-19 11:00:00 Appointment; VIMAL LARA M.D. WALTON, HAROLD, M.D. [facility] [address] [id number] [facility] 2018-04-12 11:00:00 2018-04-12 11:00:00 Appointment; VIMAL LARA M.D. WALTON, HAROLD, M.D. [facility] [id number] [facility] 2018-04-03 14:30:00 2018-04-03 14:30:00 Appointment; VIMAL LAAR M.D. WALTON, HAROLD, M.D. [facility] [address] [id number] [facility] 2018-03-21 15:16:00 2018-03-27 10:27:00 Discharged Inpatient 1 DELIA GOMEZ [facility] [id number] [facility] 2018-02-20 16:00:00 2018-02-20 16:00:00 Appointment; VIMAL LARA M.D. WALTON, HAROLD, M.D. [facility] [address] [id number] [facility] 2018-02-08 15:30:00 2018-02-08 15:30:00 Appointment; LESLI COLBERT M.D. NASSIF, JULIA, M.D. [facility] [address] [id number] [facility] 2018-02-04 13:15:00 2018-02-04 13:15:00 Appointment; VIMAL LARA M.D. WALTON, HAROLD, M.D. [facility] [address] [id number] [facility] 2018-01-31 15:15:00 2018-01-31 15:15:00 Appointment; BERTHA LOU M.D. BYRD, MICHAEL, M.D. [facility] [id number] [facility] 2018-01-24 16:00:00 2018-01-24 16:00:00 Appointment; VIMAL LARA M.D. WALTON, HAROLD, M.D. [facility] [id number] [facility] 2017-12-14 13:45:00 2017-12-14 13:45:00 Appointment; VIMAL LARA M.D. WALTON, HAROLD, M.D. [facility] [address] [id number] [facility] 2017-12-01 06:56:00 2017-12-01 13:08:00 Departed Emergency Room 1 ROHAN TURNER [facility] [id number] [facility] 2017-11-21 16:00:00 2017-11-21 16:00:00 Appointment; VIMAL LARA M.D. WALTON, HAROLD, M.D. [facility] [id number] [facility] 2017-10-24 16:00:00 2017-10-24 16:00:00 Appointment; VIMAL LARA M.D. WALTON, HAROLD, M.D. [facility] [address] [id number] [facility] 2017-10-11 15:30:00 2017-10-11 15:30:00 Appointment; VIMAL LARA M.D. WALTON, HAROLD, M.D. [facility] [address] [id number] [facility] 2017-09-19 15:30:00 2017-09-19 15:30:00 Appointment; VIMAL LARA M.D. WALTON, HAROLD, M.D. [facility] [id number] [facility] 2017-08-31 16:00:00 2017-08-31 16:00:00 Appointment; LESLI COLBERT M.D. NASSIF, JULIA, M.D. UTP UTP [id number] [facility] 2017-08-22 16:20:00 2017-08-22 16:20:00 Appointment; KATELYN GRACIA M.D. CHARITAKIS, KONSTANTINOS, M.D. [facility] UTP [id number] [facility] 2017-08-13 14:15:00 2017-08-13 14:15:00 Appointment; VIMAL LARA M.D. WALTON, HAROLD, M.D. [facility] UTP [id number] [facility] 2017-07-12 16:00:00 2017-07-12 16:00:00 Appointment; VIMAL LAAR M.D. WALTON, HAROLD, M.D. [facility] UTP [id number] [facility] 2017-07-05 15:45:00 2017-07-05 15:45:00 Appointment; DIMAS CORADO M.D. CATALANO, MARC, M.D. UTP UTP [id number] [facility] 2017-06-13 15:30:00 2017-06-13 15:30:00 Appointment; VIMAL LARA M.D. WALTON, HAROLD, M.D. U[facility] UTP [id number] [facility] 2017-06-07 15:45:00 2017-06-07 15:45:00 Appointment; BERTHA LOU M.D. BYRD, MICHAEL, M.D. UTP UTP [id number] [facility] 2017-05-25 16:00:00 2017-05-25 16:00:00 Appointment; LESLI COLBERT M.D. NASSIF, JULIA, M.D. UTP UTP [id number] [facility] 2017-05-08 15:45:00 2017-05-08 15:45:00 Appointment; DIMAS CORADO M.D. CATALANO, MARC, M.D. UTP UTP [id number] [facility] 2017-04-12 16:00:00 2017-04-12 16:00:00 Appointment; VIMAL LARA M.D. WALTON, HAROLD, M.D. UTP UTP [id number] [facility] 2017-03-12 15:30:00 2017-03-12 15:30:00 Appointment; VIMAL LARA M.D. WALTON, HAROLD, M.D. UTP UTP [id number] [facility] 2017-02-06 12:00:00 2017-02-06 12:00:00 Appointment; KATELYN GRACIA M.D. CHARITAKIS, KONSTANTINOS, M.D. UTP UTP [id number] [facility] 2017-02-06 08:00:00 2017-02-06 08:00:00 Appointment; BAYSHORE-MS, N UCLEAR BAYSHORE-MS, NUCLEAR UTP UTP [id number] [facility] 2017-01-12 16:00:00 2017-01-12 16:00:00 Appointment; VIMAL LARA M.D. WALTON, HAROLD, M.D. UTP UTP [id number] [facility] 2017-01-10 16:00:00 2017-01-10 16:00:00 Appointment; VIMAL LARA M.D. WALTON, HAROLD, M.D. UTP UTP [id number] [facility] 2017-01-05 15:30:00 2017-01-05 15:30:00 Appointment; LESLI COLBERT M.D. NASSIF, JULIA, M.D. UTP UTP [id number] [facility] 2016-11-30 15:15:00 2016-11-30 15:15:00 Appointment; BERTHA LOU M.D. BYRD, MICHAEL, M.D. UTP UTP [id number] [facility] 2016-10-26 14:00:00 2016-10-26 14:00:00 Appointment; BAYSHORE-MS, H OLTER BAYSHORE-MS, HOLTER UTP UTP [id number] [facility] 2016-10-26 13:00:00 2016-10-26 13:00:00 Appointment; BAYSHORE-MS, E CHO BAYSHORE-MS, ECHO UTP UTP [id number] [facility] 2016-10-13 15:15:00 2016-10-13 15:15:00 Appointment; VIMAL LARA M.D. WALTON, HAROLD M.D. [facility] UTP [id number] [facility] 2016-10-05 15:30:00 2016-10-05 15:30:00 Appointment; LESLI COLBERT M.D. NASSIF, JULIA, M.D. [facility] UTP [id number] [facility] 2016-09-06 15:40:00 2016-09-06 15:40:00 Appointment; KATELYN GRACIA M.D. CHARITAKIS, KONSTANTINOS, M.D. UTP UTP [id number] [facility] 2016-07-18 15:30:00 2016-07-18 15:30:00 Appointment; VIMAL LARA M.D. WALTON, HAROLD, M.D. UTP UTP [id number] [facility] 2016-07-06 16:00:00 2016-07-06 16:00:00 Appointment; LESLI COLBERT M.D. NASSIF, JULIA, M.D. [facility] UTP [id number] [facility] 2016-07-03 15:45:00 2016-07-03 15:45:00 Appointment; DIMAS CORADO M.D. CATALANO, MARC, M.D. UTP UTP [id number] [facility] 2016-06-01 15:15:00 2016-06-01 15:15:00 Appointment; BERTHA LOU M.D. BYRD, MICHAEL, M.D. UTP UTP [id number] [facility] 2016-05-25 15:15:00 2016-05-25 15:15:00 Appointment; BERTHA LOU M.D. BYRD, MICHAEL, M.D. UTP UTP [id number] [facility] 2016-05-22 15:45:00 2016-05-22 15:45:00 Appointment; DIMAS CORADO M.D. CATALANO, MARC, M.D. UTP UTP [id number] [facility] 2016-04-28 15:15:00 2016-04-28 15:15:00 Appointment; VIMAL LARA M.D. WALTON, HAROLD, M.D. UTP UTP [id number] [facility] 2016-04-17 14:00:00 2016-04-17 14:00:00 Appointment; DIMAS CORADO M.D. CATALANO, MARC, M.D. UTP UTP [id number] [facility] 2016-03-31 15:45:00 2016-03-31 15:45:00 Appointment; VIMAL LARA M.D. WALTON, HAROLD, M.D. UTP UTP [id number] [facility] 2016-03-15 15:30:00 2016-03-15 15:30:00 Appointment; LESLI COLBERT M.D. NASSIF, JULIA, M.D. UTP UTP [id number] [facility] 2016-02-16 15:00:00 2016-02-16 15:00:00 Appointment; KATELYN GRACIA M.D. CHARITAKIS, KONSTANTINOS, M.D. UTP UTP [id number] [facility] 2016-02-16 14:00:00 2016-02-16 14:00:00 Appointment; BAYSHORE-MS, S TRESS BAYSHORE-MS, STRESS UTP UTP [id number] [facility] 2016-01-21 16:00:00 2016-01-21 16:00:00 Appointment; VIMAL LARA M.D. WALTON, HAROLD, M.D. UTP UTP [id number] [facility] 2016-01-12 16:00:00 2016-01-12 16:00:00 Appointment; KATELYN GRACIA M.D. CHARITAKIS, KONSTANTINOS, M.D. UTP UTP [id number] [facility] 2016-01-04 16:00:00 2016-01-04 16:00:00 Appointment; BAYSHORE-MS, E CHO BAYSHORE-MS, ECHO UTP UTP [id number] [facility] 2016-01-03 15:00:00 2016-01-03 15:00:00 Appointment; BAYSHORE-MS, H OLTER BAYSHORE-MS, HOLTER UTP UTP [id number] [facility] 2015-12-29 16:40:00 2015-12-29 16:40:00 Appointment; YOU KIS, Tomy ZEPEDA KONSTANTINOS, M.D. UTP UTP [id number] [facility] 2015-12-10 15:00:00 2015-12-10 15:00:00 Appointment; VIMAL LARA M.D. WALTON, HAROLD, M.D. UTP UTP [id number] [facility] 2015-12-09 15:15:00 2015-12-09 15:15:00 Appointment; BERTHA LOU M.D. BYRD, MICHAEL, M.D. [facility] UTP [id number] [facility] 2015-12-07 15:15:00 2015-12-07 15:15:00 Appointment; TALON BAKER M.D. OWENS, TERRYL, M.D. UTP UTP [id number] [facility] 2015-12-02 15:00:00 2015-12-02 15:00:00 Appointment; LESLI COLBERT M.D. NASSIF, JULIA, M.D. UTP UTP [id number] [facility] 2015-11-25 15:15:00 2015-11-25 15:15:00 Appointment; BERTHA LOU M.D. BYRD, MICHAEL, M.D. UTP UTP [id number] [facility] 2015-11-17 13:00:00 2015-11-17 13:00:00 Appointment; BRANDON ROSARIO NP HOANG, CHRISTINA, NP UTP UTP [id number] [facility] 2015-10-08 16:00:00 2015-10-08 16:00:00 Appointment; VIMAL LARA M.D. WALTON, HAROLD, M.D. UTP UTP [id number] [facility] 2013-10-23 15:01:07 2013-10-23 15:01:07 Outpatient MHIE MHIE [id number] 2013-09-23 15:20:52 2013-09-23 15:20:52 Outpatient MHIE MHIE [id number] 2013-09-04 14:20:34 2013-09-04 14:20:34 Outpatient MHIE MHIE [id number] 2013-08-26 15:45:10 2013-08-26 15:45:09 Outpatient MHIE MHIE [id number] 2013-08-25 15:16:06 2013-08-25 15:16:06 Outpatient MHIE NALLELYIE [id number] 2013-08-12 10:16:13 2013-08-12 10:16:12 Outpatient MHIE IE [id number] 2013-07-14 15:01:24 2013-07-14 15:01:23 Outpatient MHIE NAE [id number] 2013-06-17 11:16:06 2013-06-17 11:16:06 Outpatient MHIE DEVAN [id number] 2013-06-16 17:00:26 2013-06-16 17:00:25 Outpatient MHIE IE [id number] 2013-06-12 12:30:00 2013-06-12 12:30:00 Appointment; VIMAL LARA M.D. VIMAL LARA M.D. [facility] 1 [id number] [facility] Results Test Description Test Time Test Comments Results Result Comments Source [QL] CBC (INCLUDES DIFF/PLT) 2019-12-30 14:35:00 Test Item WHITE BLOOD CELL COUNT (test code = WHITE BLOOD CELL COUNT) 8.4 {Thousand/u} 3.8-10.8 N RED BLOOD CELL COUNT (test code = RED BLOOD CELL COUNT) 4.61 {Million/uL} 3.80-5.10 N HEMOGLOBIN; Normal (test code = 76761-3) 12.1 g/dl 11.7-15.5 N HEMATOCRIT; Normal (test code = 4544-3) 38.5 % 35.0-45.0 N MCV; Normal (test code = 787-2) 83.5 fL 80.0-100.0 N MCHC; Below Low Threshold (test code = 32639-7) 31.4 g/dl 32.0-3 6.0 RDW; Normal (test code = 788-0) 13.2 % 11.0-15.0 N PLATELET COUNT; Normal (test code = 777-3) 396 {Thousand/u} 140-400 N MPV; Normal (test code = 99722-8) 8.6 fL 7.5-12.5 N ABSOLUTE NEUTROPHILS (test code = ABSOLUTE NEUTROPHILS) 5603 {cells/uL} 5162-6229 N ABSOLUTE LYMPHOCYTES (test code = ABSOLUTE LYMPHOCYTES) 2243 {cells/uL} 850-3900 N ABSOLUTE MONOCYTES (test code = ABSOLUTE MONOCYTES) 344 {cells/uL} 200-950 N ABSOLUTE EOSINOPHILS (test code = ABSOLUTE EOSINOPHILS) 151 {cells/ uL} 15-500 N ABSOLUTE BASOPHILS (test code = ABSOLUTE BASOPHILS) 59 {cells/uL} 0 -200 N NEUTROPHILS (test code = NEUTROPHILS) 66.7 % N LYMPHOCYTES (test code = LYMPHOCYTES) 26.7 % N MONOCYTES; Normal (test code = 34604-0) 4.1 % N EOSINOPHILS; Normal (test code = 03033-8) 1.8 % N BASOPHILS; Normal (test code = 81322-4) 0.7 % N COMMENT(S) (test code = COMMENT(S)) See Comment Review of peripheral smear confirmsautomated results. [facility][QL] [id number] 14:35:00* Test Item Value Reference Range Interpretation Comments FERRITIN (test code = FERRITIN) 49 ng/ml 16-288 N [facility][QL] VITAMIN [id number] 14:35:00* Test Item Value Reference Range Interpretation Comments VITAMIN B12 (test code = VITAMIN B12) 487 pg/ml 200-1100 N [facility] SINGLE (PORTABLE)2019-12-24 22:15:00 [place] [address] Patient Name: LAURYN COLLINS MR #: [id number] : 1960 Age/Sex: 59/F Req #: [id number] Adm Physician: XOCHITL LATIF MD Ordered by: BERTHA FERNÁNDEZ MD Report #: [id number] Location: MED/SURG3 Room/Bed: 2861 Procedure: [id number] DX/CHEST SINGLE (PORTABLE) Exam Date: 12/24/19 Exam Time: 21 49 REPORT STATUS: Signed EXAMINA TION: CHEST SINGLE (PORTABLE) INDICATION: Fever COMPARISON: Chest x-ray 07/28/2019 FINDINGS: TUBES and LINES: None. LUNGS: Normal lung volumes. Lungs are clear. No consolidations. PLEURA: No pleural effusion or pneumothorax. HEART AND MEDIASTINUM: The cardiome diastinal silhouette is unremarkable. BONES AND SOFT TISSUES: No acute osseous lesion. Soft tissues are unremarkable. UPPER ABDOMEN: No free a ir under the diaphragm. IMPRESSION: No acute thoracic radiographi c abnormality. Signed by: Kaleb Suazo DO on 12/24/2019 10:16 PM Dictated By: KALEB SUAZO DO 15 Transcribed By: THEA on 12/24/192215 COPY TO: BERTHA PERAZA MD Glucose (Point of Care In Office)2019-11-05 15:49:00* Test Item Value Reference Range Interpretation Comments Glucose POC Lifescan (test code = Glucose POC Lifescan) 118 [facility][O] Hemoglobin A1c (in office)2019-11-05 15:49:00 * Test Item Value Reference Range Interpretation Comments HEMOGLOBIN A1c (test code = 4548-4) 8.6 [facility][QL] LIPID [id number] 11:20:00* Test Item Value Reference Range Interpretation Comments CHOLESTEROL, TOTAL; Above High Threshold (test code = 2093-3) 202 m g/dl <200 HDL CHOLESTEROL; Normal (test code = 2085-9) 67 mg/dl > OR = 50 N TRIGLYCERIDES; Normal (test code = 2571-8) 136 mg/dl <150 N LDL-CHOLESTEROL; Above High Threshold (test code = 16494-6) 110 {MG/DL VASU} Reference range: <100 Desirable range <1 00 mg/dL for primary prevention; <70 mg/dL for patients with CHD or diabetic patients with > or = 2 CHD risk factors. LDL-C is now calculated using the Nicole calculation, which is a validated novel method providing better accuracy than the Friedewald equation in the estimation of LDL-C. Juan Manuel SS et al. ABIGAIL. 2013;310(19): 3989-0630 (http ://education.[employer].VidAngel/faq/ZVY326) CHOL/HDLC RATIO (test code = CHOL/HDLC RATIO) 3.0 {CALC} <5.0 N NON HDL CHOLESTEROL (test code = NON HDL CHOLESTEROL) 135 {MG/DL C AL} <130 For patients with diabetes plus 1 major ASCVD risk factor, treating to a non-HDL-C goal of <100 mg/dL (LDL-C of <70 mg/dL) is considered a therapeutic option. [facility][QL] CMP [id number] 11:20:00* Test Item Value Reference Range Interpretation Comments GLUCOSE; Above High Threshold (test code = 1547-9) 201 mg/dl 65- 99 Fasting reference interval For someone without known diabetes, a glucosevalue >125 mg/dL indicates that they may havediabetes and this should be confirmed with afollow- up test. UREA NITROGEN (BUN) (test code = UREA NITROGEN (BUN)) 12 mg/dl 7-25 N CREATININE (test code = CREATININE) 0.83 mg/dl 0.50-0.99 N For patients >49 years of age, the reference limitfor Creatinine is approximately 13% higher for peopleidentified as -Jordanian. eGFR NON- (test code = eGFR NON-CATY N THAI) 76 {ML/MIN/1.7} > OR = 60 N eGFR (test code = eGFR ) 88 {ML/MIN/1.7} > OR = 60 N BUN/CREATININE RATIO (test code = BUN/CREATININE RATIO) NOT APPLICA BLE 6-22 SODIUM (test code = SODIUM) 141 mmol/L 135-146 N POTASSIUM (test code = POTASSIUM) 4.4 mmol/L 3.5-5.3 N CHLORIDE (test code = CHLORIDE) 107 mmol/L 98-110 N CARBON DIOXIDE (test code = CARBON DIOXIDE) 25 mmol/L 20-32 N CALCIUM (test code = CALCIUM) 9.8 mg/dl 8.6-10.4 N PROTEIN, TOTAL (test code = PROTEIN, TOTAL) 7.3 g/dl 6.1-8.1 N ALBUMIN (test code = ALBUMIN) 4.3 g/dl 3.6-5.1 N GLOBULIN (test code = GLOBULIN) 3.0 {G/DL CALC} 1.9-3.7 N ALBUMIN/GLOBULIN RATIO (test code = ALBUMIN/GLOBULIN RATIO) 1.4 {CALC} 1.0-2.5 N BILIRUBIN, TOTAL; Normal (test code = 16888-6) 0.2 mg/dl 0.2-1.2 N ALKALINE PHSPHATASE (test code = ALKALINE PHSPHATASE) 68 u/l 37-153 N AST; Normal (test code = 1916-6) 15 u/l 10-35 N ALT; Normal (test code = 1742-6) 16 u/l 6-29 N [facility][QL] CBC (INCLUDES DIFF/PLT)2019-10-03 11:20:00* Test Item Value Reference Range Interpretation Comments WHITE BLOOD CELL COUNT (test code = WHITE BLOOD CELL COUNT) 5.9 {Thousand/u} 3.8-10.8 N RED BLOOD CELL COUNT (test code = RED BLOOD CELL COUNT) 4.52 {Million/uL} 3.80-5.10 N HEMAGLOBIN; Normal (test code = 61526-4) 12.7 g/dl 11.7-15.5 N HEMATOCRIT; Normal (test code = 4544-3) 39.3 % 35.0-45.0 N MCV; Normal (test code = 787-2) 86.9 fL 80.0-100.0 N MCHC; Normal (test code = 12263-6) 32.3 g/dl 32.0-36.0 N RDW; Normal (test code = 788-0) 12.3 % 11.0-15.0 N PLATELET COUNT; Above High Threshold (test code = 777-3) 406 {Thousand/u} 140-400 MPV; Normal (test code = 63550-1) 8.8 fL 7.5-12.5 N ABSOLUTE NEUTROPHILS (test code = ABSOLUTE NEUTROPHILS) 3682 {cells/uL} 6669-8566 N ABSOLUTE LYMPHOCYTES (test code = ABSOLUTE LYMPHOCYTES) 1758 {cells/uL} 850-3900 N ABSOLUTE MONOCYTES (test code = ABSOLUTE MONOCYTES) 277 {cells/uL} 200-950 N ABSOLUTE EOSINOPHILS (test code = ABSOLUTE EOSINOPHILS) 142 {cells/ uL} 15-500 N ABSOLUTE BASOPHILS (test code = ABSOLUTE BASOPHILS) 41 {cells/uL} 0 -200 N NEUTROPHILS (test code = NEUTROPHILS) 62.4 % N LYMPHOCYTES (test code = LYMPHOCYTES) 29.8 % N MONOCYTES; Normal (test code = 52957-8) 4.7 % N EOSINOPHILS; Normal (test code = 42281-8) 2.4 % N BASOPHILS; Normal (test code = 17060-2) 0.7 % N [facility][QL] [id number] 11:20:00* Test Item Value Reference Range Interpretation Comments FERRITIN (test code = FERRITIN) 27 ng/ml 16-288 N [facility][QL] VITAMIN [id number] 11:20:00* Test Item Value Reference Range Interpretation Comments VITAMIN B12 (test code = VITAMIN B12) 257 pg/ml 200-1100 N Please Note: Although the reference range for dludiouZ11 is 200-1100 pg/mL, it has been reported that between5 and 10% of patients with values between 200 and 400pg/mL may experience neuropsychiatric and hematologicabnormalities due to occult B12 deficiency; less than 1%of patients with values above 400 pg/mL will have symptoms. [facility][QL] TSH, 3RD GENERATION W/REFLEX TO [id number] 11:20:00* Test Item Value Reference Range Interpretation Comments TSH, 3RD GENERATION W/REFLEX TO FT4 (fidel t code = TSH, 3RD GENERATION W/REFLEX TO FT4) 2.63 {MIU/L} 0.40-4.50 N [facility][O] Urine Dipstick (In Office)2019-10-03 11:02:00 * Test Item Value Reference Range Interpretation Comments Glucose (test code = Glucose) 100 LEUKOCYTES (test code = LEUKOCYTES) NEGATIVE N NITRITE; Normal (test code = 04632-8) NEGATIVE N UROBILINOGEN; Normal (test code = 14622-7) NORMAL N PROTEIN; Normal (test code = 21680-1) NEGATIVE N pH (test code = pH) 5 N URINE BLOOD; Normal (test code = 59749-4) NEGATIVE N SPECIFIC GRAVITY; Normal (test code = 2965-2) 1.015 N KETONES; Normal (test code = 72630-5) NEGATIVE N BILIRUBIN; Normal (test code = 19518-0) NEGATIVE N COLOR URINE; Normal (test code = 5778-6) YELLOW N [facility][O] Hemoglobin A1c (in office)2019-10-03 10:40:00 * Test Item Value Reference Range Interpretation Comments HEMOGLOBIN A1c; Abnormal (test code = 4548-4) 8.3% A [facility][O] Hemoglobin A1c (in office)2019-07-30 16:01:00 * Test Item Value Reference Range Interpretation Comments HEMOGLOBIN A1c (test code = 4548-4) 8.7 [facility] ([facility] In [facility])2019-07-30 16:00:00* Test Item Value Reference Range Interpretation Comments Glucose POC Lifescan (test code = Glucose POC Lifescan) 179 [facility] PhysiciansRIBS UNILAT [id number] 10:05:00 [place] [address] Patient Name: LAURYN COLLINS MR #: [id number] : 1960 Age/Sex: 59/F Req #: [id number] Adm Physician: Ordered by: TOMMY LEON DO Report #: [id number] Location: ER Room/Bed: Procedure: [id number] D X/RIBS UNILAT W/CXR Exam Date: 07/28/19 Exam Time: 0 855 REPORT STATUS: Signed Exam: Right rib series Clinical history: Rib pain Findings: There is no evid ence of acute displaced fractures in the visualized osseous structures. The ca rdiac size is within normal limits. There is no evidence of primary consolidat ion, pleural effusion, or pneumothorax. Impression: 1. No radiographic ev idence of acute osseous injury. Signed by: Dr. Red Cisse MD on 07/28/2019 10:08 AM Dictated By: RANJIT CISSE MD 1008 Transcribed By: THEA on 07/28/19 1008 CO PY TO: TOMMY LEON DO Sodium [id number] 18:32:00* Test Item Value Reference Range Interpretation Comments Sodium Level (test code = 2951-2) 141 136-145 [facility] [id number] 18:32:00* Test Item Value Reference Range Interpretation Comments Potassium Level (test code = 2823-3) 4.0 3.5-5.1 [facility] HospitalChloride [id number] 18:32:00* Test Item Value Reference Range Interpretation Comments Chloride Level (test code = 2075-0) 106 98-107 [facility] HospitalCarbon Dioxide [id number] 18:32:00* Test Item Value Reference Range Interpretation Comments Carbon Dioxide Level (test code = 2028-9) 22 22-29 [facility] HospitalAnion [id number] 18:32:00* Test Item Value Reference Range Interpretation Comments Anion Gap (test code = 15866-4) 17.0 8-16 H [facility] HospitalBlood Urea [id number] 18:32:00* Test Item Value Reference Range Interpretation Comments Blood Urea Nitrogen (test code = 3094-0) 11 7-26 [facility] HospitalCreatinine2020-02-06 18:32:00* Test Item Value Reference Range Interpretation Comments Creatinine (test code = 2160-0) 0.83 0.57-1.11 [facility] HospitalBUN/Creatinine [id number] 18:32:00* Test Item Value Reference Range Interpretation Comments BUN/Creatinine Ratio (test code = 3097-3) 13 6-25 [facility] HospitalEstimat Glomerular Filtration Rate 2019-07-24 18:32:00* Test Item Value Reference Range Interpretation Comments Estimat Glomerular Filtration Rate (test code = 774522814) > 60 >60 Ranges were taken from the National Kidney Disease Education Program and the [facility] literature.Reference ranges:60 or greater: Ryeirj68-08 ( for 3 consecutive months): Chronic kidney disease 15 or less: Kidney failureHouston Methodist Clear Lake HospitalGlucose Lvvbw7273-28-78 18:32:00* Test Item Value Reference Range Interpretation Comments Glucose Level (test code = MQY0930) 173 74-118 H [facility] HospitalCalcium [id number] 18:32:00* Test Item Value Reference Range Interpretation Comments Calcium Level (test code = 71064-7) 9.6 8.4-10.2 [facility] HospitalTotal [id number] 18:32:00* Test Item Value Reference Range Interpretation Comments Total Bilirubin (test code = 1975-2) 0.3 0.2-1.2 [facility] HospitalAspartate Amino Transf (AST/SGOT) 2019-07-24 18:32:00* Test Item Value Reference Range Interpretation Comments Aspartate Amino Transf (AST/SGOT) (test code = Aspartate Amino Transf (AST/SGOT)) 14 5-34 [facility] HospitalAlanine Aminotransferase (ALT/SGPT) 2019-07-24 18:32:00* Test Item Value Reference Range Interpretation Comments Alanine Aminotransferase (ALT/SGPT) (test code = 1742-6) 20 0-55 [facility] HospitalTotal [id number] 18:32:00* Test Item Value Reference Range Interpretation Comments Total Protein (test code = 2885-2) 7.4 6.5-8.1 [facility] HospitalAlbumin2020-02-06 18:32:00* Test Item Value Reference Range Interpretation Comments Albumin (test code = 1751-7) 3.8 3.5-5.0 [facility] HospitalGlobulin2020-02-06 18:32:00* Test Item Value Reference Range Interpretation Comments Globulin (test code = 06255-4) 3.6 2.3-3.5 H [facility] HospitalAlbumin/Globulin [id number] 18:32:00 * Test Item Value Reference Range Interpretation Comments Albumin/Globulin Ratio (test code = 1759-0) 1.1 0.8-2.0 [facility] HospitalAlkaline [id number] 18:32:00* Test Item Value Reference Range Interpretation Comments Alkaline Phosphatase (test code = 6768-6) 72 40-150 [facility] HospitalWhite Blood Naypr1419-74-22 18:12:00* Test Item Value Reference Range Interpretation Comments White Blood Count (test code = 6690-2) 9.58 4.8-10.8 [facility] HospitalRed Blood [id number] 18:12:00* Test Item Value Reference Range Interpretation Comments Red Blood Count (test code = 789-8) 4.48 3.6-5.1 [facility] HospitalHemoglobin2020-02-06 18:12:00* Test Item Value Reference Range Interpretation Comments Hemoglobin (test code = 89250-4) 12.8 12.0-16.0 [facility] HospitalHematocrit2020-02-06 18:12:00* Test Item Value Reference Range Interpretation Comments Hematocrit (test code = 4544-3) 39.3 34.2-44.1 [facility] HospitalMean Corpuscular [id number] 18:12:00* Test Item Value Reference Range Interpretation Comments Mean Corpuscular Volume (test code = 787-2) 87.7 81-99 [facility] HospitalMean Corpuscular Gtabrkrnnt9403-05-81 18:12:00* Test Item Value Reference Range Interpretation Comments Mean Corpuscular Hemoglobin (test code = 785-6) 28.6 28-32 [facility] HospitalMean Corpuscular Hemoglobin Concent 2019-07-24 18:12:00* Test Item Value Reference Range Interpretation Comments Mean Corpuscular Hemoglobin Concent (test code = 786-4) 32.6 31-35 [facility] HospitalRed Cell Distribution Vyeet3618-67-87 18:12:00* Test Item Value Reference Range Interpretation Comments Red Cell Distribution Width (test code = 31935-7) 13.7 11.7 -14.4 [facility] HospitalPlatelet Zmizz9568-67-21 18:12:00* Test Item Value Reference Range Interpretation Comments Platelet Count (test code = 777-3) 289 140-360 [facility] HospitalNeutrophils (%) (Auto)2019-07-24 18:12:00 * Test Item Value Reference Range Interpretation Comments Neutrophils (%) (Auto) (test code = 34819-6) 69.8 38.7-80.0 [facility] HospitalLymphocytes (%) (Auto)2019-07-24 18:12:00 * Test Item Value Reference Range Interpretation Comments Lymphocytes (%) (Auto) (test code = 736-9) 24.7 18.0-39.1 [facility] HospitalMonocytes (%) (Auto)2019-07-24 18:12:00* Test Item Value Reference Range Interpretation Comments Monocytes (%) (Auto) (test code = 5905-5) 4.2 4.4-11.3 L [facility] HospitalEosinophils (%) (Auto)2019-07-24 18:12:00 * Test Item Value Reference Range Interpretation Comments Eosinophils (%) (Auto) (test code = 713-8) 0.5 0.0-6.0 [facility] HospitalBasophils (%) (Auto)2019-07-24 18:12:00* Test Item Value Reference Range Interpretation Comments Basophils (%) (Auto) (test code = 706-2) 0.4 0.0-1.0 [facility] HospitalIM GRANULOCYTES %2019-07-24 18:12:00* Test Item Value Reference Range Interpretation Comments IM GRANULOCYTES % (test code = IM GRANULOCYTES %) 0.4 0.0- 1.0 [facility] HospitalNeutrophils # (Auto)2019-07-24 18:12:00* Test Item Value Reference Range Interpretation Comments Neutrophils # (Auto) (test code = 751-8) 6.7 2.1-6.9 [facility] HospitalLymphocytes # (Auto)2019-07-24 18:12:00* Test Item Value Reference Range Interpretation Comments Lymphocytes # (Auto) (test code = 46782-7) 2.4 1.0-3.2 [facility]Mon[facility] # (Auto)2019-07-24 18:12:00* Test Item Value Reference Range Interpretation Comments Monocytes # (Auto) (test code = 742-7) 0.4 0.2-0.8 [facility]Eosinophils [facility] (Auto)2019-07-24 18:12:00* Test Item Value Reference Range Interpretation Comments Eosinophils # (Auto) (test code = 711-2) 0.1 0.0-0.4 [facility]Basophils [facility] (Auto)2019-07-24 18:12:00* Test Item Value Reference Range Interpretation Comments Basophils # (Auto) (test code = 704-7) 0.0 0.0-0.1 [facility] HospitalAbsolute Immature Granulocyte (auto 2019-07-24 18:12:00* Test Item Value Reference Range Interpretation Comments Absolute Immature Granulocyte (auto (fidel t code = Absolute Immature Granulocyte (auto) 0.04 0-0.1 [facility] [id number] 18:12:00* Test Item Value Reference Range Interpretation Comments White Blood Count (test code = 6690-2) 9.58 4.8-10.8 [facility]Red Blood [id number] 18:12:00* Test Item Value Reference Range Interpretation Comments Red Blood Count (test code = 789-8) 4.48 3.6-5.1 [facility]Hemoglobin2020-02-06 18:12:00* Test Item Value Reference Range Interpretation Comments Hemoglobin (test code = 24423-7) 12.8 12.0-16.0 [facility] HospitalHematocrit2020-02-06 18:12:00* Test Item Value Reference Range Interpretation Comments Hematocrit (test code = 4544-3) 39.3 34.2-44.1 [facility] HospitalMean Corpuscular [id number] 18:12:00* Test Item Value Reference Range Interpretation Comments Mean Corpuscular Volume (test code = 787-2) 87.7 81-99 [facility]Mean Corpuscular [id number] 18:12:00* Test Item Value Reference Range Interpretation Comments Mean Corpuscular Hemoglobin (test code = 785-6) 28.6 28-32 [facility] HospitalMean Corpuscular Hemoglobin Concent 2019-07-24 18:12:00* Test Item Value Reference Range Interpretation Comments Mean Corpuscular Hemoglobin Concent (test code = 786-4) 32.6 31-35 [facility] HospitalRed Cell Distribution [id number] 18:12:00* Test Item Value Reference Range Interpretation Comments Red Cell Distribution Width (test code = 69698-4) 13.7 11.7 -14.4 [facility] HospitalPlatelet [id number] 18:12:00* Test Item Value Reference Range Interpretation Comments Platelet Count (test code = 777-3) 289 140-360 [facility] HospitalNeutrophils (%) (Auto)2019-07-24 18:12:00 * Test Item Value Reference Range Interpretation Comments Neutrophils (%) (Auto) (test code = 17109-5) 69.8 38.7-80.0 [facility] HospitalLymphocytes (%) (Auto)2019-07-24 18:12:00 * Test Item Value Reference Range Interpretation Comments Lymphocytes (%) (Auto) (test code = 736-9) 24.7 18.0-39.1 [facility] HospitalMonocytes (%) (Auto)2019-07-24 18:12:00* Test Item Value Reference Range Interpretation Comments Monocytes (%) (Auto) (test code = 5905-5) 4.2 4.4-11.3 L [facility] HospitalEosinophils (%) (Auto)2019-07-24 18:12:00 * Test Item Value Reference Range Interpretation Comments Eosinophils (%) (Auto) (test code = 713-8) 0.5 0.0-6.0 [facility] HospitalBasophils (%) (Auto)2019-07-24 18:12:00* Test Item Value Reference Range Interpretation Comments Basophils (%) (Auto) (test code = 706-2) 0.4 0.0-1.0 [facility] HospitalIM GRANULOCYTES %2019-07-24 18:12:00* Test Item Value Reference Range Interpretation Comments IM GRANULOCYTES % (test code = IM GRANULOCYTES %) 0.4 0.0- 1.0 [facility] HospitalNeutrophils # (Auto)2019-07-24 18:12:00* Test Item Value Reference Range Interpretation Comments Neutrophils # (Auto) (test code = 751-8) 6.7 2.1-6.9 [facility] HospitalLymphocytes # (Auto)2019-07-24 18:12:00* Test Item Value Reference Range Interpretation Comments Lymphocytes # (Auto) (test code = 09953-4) 2.4 1.0-3.2 [facility] HospitalMonocytes # (Auto)2019-07-24 18:12:00* Test Item Value Reference Range Interpretation Comments Monocytes # (Auto) (test code = 742-7) 0.4 0.2-0.8 [facility] HospitalEosinophils # (Auto)2019-07-24 18:12:00* Test Item Value Reference Range Interpretation Comments Eosinophils # (Auto) (test code = 711-2) 0.1 0.0-0.4 [facility] HospitalBasophils # (Auto)2019-07-24 18:12:00* Test Item Value Reference Range Interpretation Comments Basophils # (Auto) (test code = 704-7) 0.0 0.0-0.1 [facility] HospitalAbsolute Immature Granulocyte (auto 2019-07-24 18:12:00* Test Item Value Reference Range Interpretation Comments Absolute Immature Granulocyte (auto (fidel t code = Absolute Immature Granulocyte (auto) 0.04 0-0.1 [facility] HospitalPositive Retinal Eye Exam (Diabetic) 2019-03-20 05:00:00* Test Item Value Reference Range Interpretation Comments Positive Diabetic Eye Screening (test code = Positive Diabetic Eye Screening) 20Mar2019 A [facility]] HEMOGLOBIN [id number] 15:05:00* Test Item Value Reference Range Interpretation Comments Hemoglobin A1c; Above High Threshold (test code = 4548-4) 9.4 % <=5.6 [facility]] CBC (INCLUDES DIFF/PLT)2019-02-13 15:59:00* Test Item Value Reference Range Interpretation Comments WBC (test code = 6690-2) 9.8 {K/CMM} 3.7-10.4 RBC (test code = 789-8) 4.39 {M/CMM} 4.20-5.40 Hgb (test code = 718-7) 12.3 g/dl 12.0-16.0 Hct (test code = 96575-6) 37.2 % 36.0-48.0 MCV (test code = 787-2) 84.8 fL 80.0-98.0 MCH (test code = 785-6) 28.0 pg 27.0-31.0 MCHC (test code = 786-4) 33.0 g/dl 32.0-36.0 RDW; Above High Threshold (test code = 788-0) 15.2 % 11.5-14. 5 Platelet (test code = 67746-4) 399 {K/CMM} 133-450 Mean Platelet Volume; Below Low Threshold (test code = 39434-5) 6.8 fL 7.4-10.4 [facility]] Gqsbktgyoqrx6428-00-43 15:59:00* Test Item Value Reference Range Interpretation Comments Segmented Neutrophils (test code = 16592-6) 64.2 % 45.0-75.0 Monocytes (test code = 98475-1) 4.0 % 2.0-12.0 Lymphocytes (test code = 86728-3) 30.2 % 20.0-40.0 Eosinophils (test code = 16973-1) 1.1 % 0.0-4.0 Basophils (test code = 706-2) 0.5 % 0.0-1.0 Segs-Bands # (test code = 40169-8) 6.3 {K/CMM} 1.5-8.1 Lymphocytes # (test code = 74809-1) 2.9 {K/CMM} 1.0-5.5 Monocytes # (test code = 24953-8) 0.4 {K/CMM} 0.0-0.8 Eosinophils # (test code = 08061-1) 0.1 {K/CMM} 0.0-0.5 [facility][H] Iron, TIBC \T\ [id number] 15:59:00* Test Item Value Reference Range Interpretation Comments Iron (test code = 2498-4) 48 ug/dL 30-160 % Satur Fe (test code = 2502-3) 12 % 12-57 TIBC (test code = 2500-7) 403 ug/dL 228-428 UIBC (test code = UIBC) 355 ug/dL 110-370 Ferritin Lvl (test code = 2276-4) 54 ng/ml 5-204 [facility] [id number] 11:48:00* Test Item Value Reference Range Interpretation Comments GLUBED (test code = GLUBED) 291 mg/dL 74-106 H Performed by certified lay out machine operator at [facility] - MRI LOW EXT W/O CONT [id number] 08:54:00 FAX: Marilu Lew [phone] [place]: B St: ADM FAX: Vimal Barker MD [phone] Name: LAURYN COLLINS [facility] : 1960 Age/S: 58/F [address] Count Includes The [facility] Unit #: [id number] Loc: [place] [address] Phys: Marilu Rosario MD Acct: [id number] Dis Date: Status: ADM IN PHONE #: [phone] Exam Date: 02/05/2019 0839 FAX #: [phone] Reason: Right foot sweeling , r/o Osteomyelitis EXAMS: CPT CODE: [id number] MRI LOW EXT W/[place] [address] HISTORY: Right foot swelling/osteomyelitis evaluation. COMPARISON: X-ray from February 04, 2019. MRI right foot withou t contrast: Bone marrow signal within the foot bones is normal. No edema or erosive or destructive changes within the bony skeleton to sugge st osteomyelitis. The fascial planes are preserved as well. Musculature is without atrophy or myositis. Soft tissue swelling along the dorsum consistent with cellulitis of unclear etiology. The visualized tendons are unremarkable. Visualized ligaments are unremarkable. Plantar calcaneal en thesophyte. No evidence for plantar fascitis. 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 IMPRESSION: Cellulit is and soft tissue swelling along the dorsum of the foot without drainab le fluid collection. No osteomyelitis with no erosive or destructive avery nge or abnormal bone marrow signal. at 0854 Reported and signed by: James Guerra M.D. CC: Marilu Rosario MD; Jeevan Lara Technologist: JAMES MONTAGUERT - MRI Trnscrd Date/Time/By: 02/05/2019 (0854) : By: [email or web address] Orig Marija nt D/T: S: 02/05/2019 (0858) PAGE 1 Signed Report [id number] 08:11:00* Test Item Value Reference Range Interpretation Comments GLUBED (test code = GLUBED) 217 mg/dL 74-106 H Performed by certified lay out machine operator at [facility] [id number] 20:49:00* Test Item Value Reference Range Interpretation Comments GLUBED (test code = GLUBED) 194 mg/dL 74-106 H Performed by certified lay out machine operator at [facility] PROCALCITONIN (PCT)2019-02-04 17:34:00* Test Item Value Reference Range Interpretation Comments PROCALCITONIN (PCT) (test code = PROCAL) 1.78 ng/ml Concentration Interpretation (ng/mL) <0.51 Sepsis is not likely. Local bacterial infection is possible. (LOW RISK for progression to Sepsis) 0.51 - 2.00 Sepsis is possible, but other conditions are known to elevate PCT as well. (MODERATE RISK for progression to Sepsis) > 2.00 Sepsis is likely, unless other causes are known. (HIGH RISK for progression to Severe Sepsis or Septic Shock) 10.00 High likelihood of Severe Sepsis or Septic or higher Shock. *Increased PCT levels may not always be related to systemic bacterial infection.*Low PCT levels do not automatically exclude the presence of bacterial infection.*All results should be interpreted taking into account the patients history. - XR FOOT 2 VIEWS [id number] 17:01:00 FAX: Marilu Lew [phone] [place]: St: ADM FAX: Alda Valadez MD [phone] FAX: Vimal Barker MD [phone] Name: LAURYN COLLINS [facility] : 1960 Age/S: 58/F [address] [facility] Unit #: [id number] Loc: [place] [address] Phys: Alda Thompson MD Acct: [id number] Dis Date: Status: ADM IN ONE #: [phone] Exam Date: 02/04/2019 1600 FAX #: [phone] Reason: ULCER EXAMS: CPT CODE: [id number] [place]R FO[place] [address] [place] [address] CLINICAL HISTO RY: ULCER TECHNIQUE: AP and lateral views of the right foot COMPARISON: Right foot radiographs May 20, 2013 FINDIN GS: No acute fracture or dislocation. Bony trabecular pattern is unremarkable. No cortical destruction or periosteal reaction. Joint spaces are preserved. Prominent plantar enthesophyte is redemonstr ated. Soft tissues of the visualized lower extremity are edematous . No soft tissue gas or radiopaque foreign body is seen. IMPRESSION: Soft tissue edema in the visualized right l ower extremity but no radiographically evident acute bony abnormality. T here is concern for osteolytic myelitis then a contrast-enhanced MRI of the foot can provide further evaluation. Degenerative changes of the right foot. 19 at 1701 Reported and signed by: Morsi Hagen MD CC: Marilu Rosario MD; Alda Thompson MD; Vimal Lara Technologist: RT JUAN(R) Trnscrd Date/Time/By: (1700) : By: [email or web address] Orig Print D/T: S: 02/04/2019 (5677) PAGE 1 Signed Report [id number] 16:10:00* Test Item Value Reference Range Interpretation Comments GLUBED (test code = GLUBED) 87 mg/dL 74-106 N Performed by certified lay out machine operator at [facility] [id number] 12:18:00* Test Item Value Reference Range Interpretation Comments GLUBED (test code = GLUBED) 247 mg/dL 74-106 H Performed by certified lay out machine operator at [facility] [id number] 11:00:00* Test Item Value Reference Range Interpretation Comments GLUBED (test code = GLUBED) 211 mg/dL 74-106 H Performed by certified lay out machine operator at [facility] BASIC METABOLIC [id number] 03:07:00* Test Item Value Reference Range Interpretation Comments SODIUM (test code = NA) 144 mmol/L 136-145 N POTASSIUM (test code = K) 4.1 mmol/L 3.5-5.1 N CHLORIDE (test code = CL) 112.0 mmol/L 98-107 H CARBON DIOXIDE (test code = CO2) 24.0 mmol/L 21-32 N ANION GAP (test code = GAP) 12.1 10-20 N GLUCOSE (test code = GLU) 200 mg/dL 74-106 H BLOOD UREA NITROGEN (test code = BUN) 17 mg/dL 7-18 N GLOMERULAR FILTRATION RATE (test code = GFR) 57 mL/min >=60 Estimated GFR by using Modified MDRD formula.Chronic kidney disease is defined as either kidney damageor GFR <60 mL/min/1.73 m2 for >3 months. CREATININE (test code = CREAT) 1.00 mg/dL 0.55-1.02 N Note change in reference range due to change in reagent. BUN/CREATININE RATIO (test code = BUN/CREA) 16.2 10-20 N CALCIUM (test code = CA) 8.6 mg/dL 8.5-10.1 N [id number] 20:41:00* Test Item Value Reference Range Interpretation Comments GLUBED (test code = GLUBED) 308 mg/dL 74-106 H Performed by certified lay out machine operator at [facility] [id number] 16:09:00* Test Item Value Reference Range Interpretation Comments GLUBED (test code = GLUBED) 137 mg/dL 74-106 H Performed by certified lay out machine operator at [facility] [id number] 12:43:00* Test Item Value Reference Range Interpretation Comments GLUBED (test code = GLUBED) 129 mg/dL 74-106 H Performed by certified lay out machine operator at [facility] [id number] 08:46:00* Test Item Value Reference Range Interpretation Comments GLUBED (test code = GLUBED) 179 mg/dL 74-106 H Performed by certified lay out machine operator at [facility] [id number] 04:09:00* Test Item Value Reference Range Interpretation Comments GLYCOSYLATED HEMOGLOBIN (HA1C) (test code = GLYHGB) 8.9 % HbA1 4. 8-6.0 H ESTIMATED AVERAGE GLUCOSE (test code = EAG) 209 MG/DL BASIC METABOLIC [id number] 04:09:00* Test Item Value Reference Range Interpretation Comments SODIUM (test code = NA) 141 mmol/L 136-145 RESU LT VERIFIED BY REPEAT ANALYSIS POTASSIUM (test code = K) 3.6 mmol/L 3.5-5.1 N CHLORIDE (test code = CL) 109.0 mmol/L 98-107 H CARBON DIOXIDE (test code = CO2) 23.0 mmol/L 21-32 N ANION GAP (test code = GAP) 12.6 10-20 N GLUCOSE (test code = GLU) 207 mg/dL 74-106 H BLOOD UREA NITROGEN (test code = BUN) 19 mg/dL 7-18 H GLOMERULAR FILTRATION RATE (test code = GFR) 57 mL/min >=60 Estimated GFR by using Modified MDRD formula.Chronic kidney disease is defined as either kidney damageor GFR <60 mL/min/1.73 m2 for >3 months. CREATININE (test code = CREAT) 1.00 mg/dL 0.55-1.02 N Note change in reference range due to change in reagent. BUN/CREATININE RATIO (test code = BUN/CREA) 18.4 10-20 N CALCIUM (test code = CA) 8.5 mg/dL 8.5-10.1 N CBC W/AUTO [id number] 03:27:00* Test Item Value Reference Range Interpretation Comments WHITE BLOOD CELL (test code = WBC) 8.2 K/mm3 4.5-12.5 N RED BLOOD CELL (test code = RBC) 3.71 mill/mm3 3.7-5.2 N HEMOGLOBIN (test code = HGB) 10.2 gram/dL 11.5-15.5 L HEMATOCRIT (test code = HCT) 32.6 % 36.0-46.0 L MEAN CELL VOLUME (test code = MCV) 87.9 fL 80-98 N MEAN CELL HGB (test code = MCH) 27.5 picogram 27.0-33.0 N MEAN CELL HGB CONCETRATION (test code = MCHC) 31.3 gram/dL 33.0-36. 0 L RED CELL DISTRIBUTION WIDTH (test code = RDW) 14.8 % 11.6-16. 2 N RED CELL DISTRIBUTION WIDTH SD (test code = RDW-SD) 47.9 fL 37 .0-51.0 N PLATELET COUNT (test code = PLT) 197 K/mm3 150-450 RESULT VERIFIED BY REPEAT ANALYSIS MEAN PLATELET VOLUME (test code = MPV) 8.9 fL 6.7-11.0 N NEUTROPHIL % (test code = NT%) 80.4 % 39.0-69.0 H IMMATURE GRANULOCYTE % (test code = IG%) 0.6 % 0.0-5.0 N LYMPHOCYTE % (test code = LY%) 13.0 % 25.0-55.0 L MONOCYTE % (test code = MO%) 5.0 % 0.0-10.0 N EOSINOPHIL % (test code = EO%) 0.6 % 0.0-5.0 N BASOPHIL % (test code = BA%) 0.4 % 0.0-1.0 N NUCLEATED RBC % (test code = NRBC%) 0.0 % 0-0 N NEUTROPHIL # (test code = NT#) 6.61 K/mm3 1.8-7.7 N IMMATURE GRANULOCYTE # (test code = IG#) 0.05 x10 3/uL 0-0.03 H LYMPHOCYTE # (test code = LY#) 1.07 K/mm3 1.0-5.0 N MONOCYTE # (test code = MO#) 0.41 K/mm3 0-0.8 N EOSINOPHIL # (test code = EO#) 0.05 K/mm3 0.0-0.5 N BASOPHIL # (test code = BA#) 0.03 K/mm3 0.0-0.2 N NUCLEATED RBC # (test code = NRBC#) 0.00 K/mm3 0.0-0.1 N MANUAL DIFF REQUIRED (test code = MDIFF) NO [id number] 22:51:00* Test Item Value Reference Range Interpretation Comments TROPONIN-I (test code = TROPI) <0.015 ng/mL 0-0.045 N COMMENTS TO INJECTION MOLDING ENGINEER: COLLECT 3 HOURS AFTER PREVIOUS [id number] 21:22:00* Test Item Value Reference Range Interpretation Comments TROPONIN-I (test code = TROPI) <0.015 ng/mL 0-0.045 N COMMENTS TO INJECTION MOLDING ENGINEER: COLLECT 3 HOURS AFTER PREVIOUS [id number] 20:26:00* Test Item Value Reference Range Interpretation Comments GLUBED (test code = GLUBED) 187 mg/dL 74-106 H Performed by certified lay out machine operator at [facility] [id number] 17:47:00* Test Item Value Reference Range Interpretation Comments GLUBED (test code = GLUBED) 154 mg/dL 74-106 H Performed by certified lay out machine operator at [facility] URINALYSIS [id number] 12:49:00* Test Item Value Reference Range Interpretation Comments UA COLOR (test code = COLU) Light-Yellow YELLOW UA APPEARANCE (test code = APPU) CLEAR CLEAR UA GLUCOSE DIPSTICK (test code = DGLUU) >1000 (4+) mg/dL NEGATIVE UA BILIRUBIN DIPSTICK (test code = BILU) NEGATIVE mg/dL NEGATIVE UA KETONE DIPSTICK (test code = KETU) TRACE mg/dL NEGATIVE A UA SPECIFIC GRAVITY (test code = SGU) >1.050 1.001-1.035 UA BLOOD DIPSTICK (test code = RUDOLPH) 0.1 mg/dL (1+) mg/dL NEGATIVE A UA PH DIPSTICK (test code = SEBASTIAN) 5.5 5.0-8.0 UA PROTEIN DIPSTICK (test code = PROU) NEGATIVE mg/dL NEGATIVE UA UROBILINIOGEN DIPSTICK (test code = URO) Normal mg/dL NEGATIVE UA NITRITE DIPSTICK (test code = RAMSES) NEGATIVE NEGATIVE UA LEUKOCYTE ESTERASE W REFLEX (test code = LEUUR) NEGATIVE Gricel/uL NEGATIVE UA WBC (test code = WBCU) 0-5 per HPF 0-5 UA RBC (test code = RBCU) 11-20 #/HPF 0-5 A UA EPITHELIAL CELLS (test code = EPIU) FEW per HPF FEW UA BACTERIA (test code = BACU) FEW #/HPF NONE A UA MUCUS (test code = MUCU) FEW #/LPF FEW Urine Source? Clean Catch- CT ABD PELVIS [id number] 10:46:00 Name: LAURYN COLLINS [facility] : 1960 Age/S: 58 / F [address] [facility] at [facility] Unit #: [id number] Loc: [place] [address] Phys: Chino Wilkerson MD Acct: [id number] Di s Date: Status: REG ER PHONE #: Exam Date: 02/02/2019 1018 FAX #: [phone] Reason: RLQ ttp EXAMS: CPT CODE: [id number] CT ABD PELVIS W/CONT 88338 HISTORY: RLQ tenderness TECHNIQUE: Immediate and delayed [address] images were obtai afia through the abdomen and pelvis after IV administration of 100 mL of Isovue-370 contrast. Sagittal and coronal reformatted images were gene rated. Automated exposure control for dose reduction. COMPARISON: 12/13/17 FINDINGS: Lung bases are clear. Normal hear t size. Cholecystectomy. Pneumobilia. Hepatomegaly with diffuse fa tty infiltration. Pancreas, spleen, adrenal glands, and kidn eys are unremarkable. Limited evaluation of the GI tract without o ral contrast. Surgical clips about the gastroesophageal junction. Small maria ines wel and colon are unremarkable. Appendix is not visualized; no right lower quadrant inflammatory changes. No free air or free fluid. N o lymphadenopathy. 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 Urinary bladder is unremarkable. Hysterectomy. Pelvic phleboliths. No pelvic free fluid. Mild lumbar spondylosis and levoscoliosis. Serpiginous densities within the bilateral superior fem oral heads, suspect sequela of avascular necrosis. Mild bilateral hip dege nerative arthrosis. IMPRESSION: No ac mac intra-abdominal process. No significant interval change. at 1044 Reported and signed by: Susan Baron D.O. PAGE 1 Signed Report (CONTINUED) Name: CRICKET COLLINS [facility] : 1960 Age/S: [age] / F [address] [facility] Unit #: [id number] Loc: [place] [address] Phys: Alma Wilkerson MD Acct: [id number] Dis Date: Status: REG ER PHONE #: [phone] Exam Date: 02/02/2019 1015 FAX #: [phone] Reason: RLQ ttp EXAMS: CPT CODE: [id number] CT ABD PELVIS W/CONT 67937 <Continued> CC: Alma Wilkerson MD; Vimal Lara Technologist:Luann Nova RT(R),CT CTDI: DLP: Trnscb Date/Time: 02/02/2019 (1046) [email or web address] Orig Print D/T: S: 02/02/2019 (2236) PAGE 2 Signed Report B-TYPE NATRIURETIC [id number] 10:12:00* Test Item Value Reference Range Interpretation Comments B-TYPE NATRIURETIC PEPTIDE (test code = BNP) 50.72 pgram/mL 0-100 N PROCALCITONIN (PCT)2019-02-02 09:57:00* Test Item Value Reference Range Interpretation Comments PROCALCITONIN (PCT) (test code = PROCAL) 1.35 ng/ml Concentration Interpretation (ng/mL) <0.51 Sepsis is not likely. Local bacterial infection is possible. (LOW RISK for progression to Sepsis) 0.51 - 2.00 Sepsis is possible, but other conditions are known to elevate PCT as well. (MODERATE RISK for progression to Sepsis) > 2.00 Sepsis is likely, unless other causes are known. (HIGH RISK for progression to Severe Sepsis or Septic Shock) 10.00 High likelihood of Severe Sepsis or Septic or higher Shock. *Increased PCT levels may not always be related to systemic bacterial infection.*Low PCT levels do not automatically exclude the presence of bacterial infection.*All results should be interpreted taking into account the patients history. BASIC METABOLIC [id number] 09:56:00* Test Item Value Reference Range Interpretation Comments SODIUM (test code = NA) 135 mmol/L 136-145 L POTASSIUM (test code = K) 3.9 mmol/L 3.5-5.1 N CHLORIDE (test code = CL) 101.0 mmol/L 98-107 N CARBON DIOXIDE (test code = CO2) 25.0 mmol/L 21-32 N ANION GAP (test code = GAP) 12.9 10-20 N GLUCOSE (test code = GLU) 223 mg/dL 74-106 H BLOOD UREA NITROGEN (test code = BUN) 15 mg/dL 7-18 N GLOMERULAR FILTRATION RATE (test code = GFR) 51 mL/min >=60 Estimated GFR by using Modified MDRD formula.Chronic kidney disease is defined as either kidney damageor GFR <60 mL/min/1.73 m2 for >3 months. CREATININE (test code = CREAT) 1.10 mg/dL 0.55-1.02 H Note change in reference range due to change in reagent. BUN/CREATININE RATIO (test code = BUN/CREA) 13.3 10-20 N CALCIUM (test code = CA) 8.9 mg/dL 8.5-10.1 N HEPATIC FUNCTION [id number] 09:56:00* Test Item Value Reference Range Interpretation Comments TOTAL PROTEIN (test code = PROT) 7.6 gram/dL 6.4-8.2 N ALBUMIN (test code = ALB) 3.5 g/dL 3.4-5.0 N GLOBULIN (test code = GLOB) 4.1 gram/dL 2.7-4.2 N ALBUMIN/GLOBULIN RATIO (test code = A/G) 0.9 0.75-1.50 N BILIRUBIN TOTAL (test code = BILT) 0.50 mg/dL 0.0-1.0 N BILIRUBIN DIRECT (test code = BILD) 0.17 mg/dL 0.0-0.20 N SGOT/AST (test code = AST) 10 IUnit/L 15-37 L SGPT/ALT (test code = ALT) 19 IUnit/L 12-78 N ALKALINE PHOSPHATASE TOTAL (test code = ALKP) 104 IUnit/L 45-117 N Note change in reference range due to change in reagent. [id number] 09:56:00* Test Item Value Reference Range Interpretation Comments LIPASE (test code = LIP) 146 U/L 73.0-393.0 N [id number] 09:56:00* Test Item Value Reference Range Interpretation Comments TROPONIN-I (test code = TROPI) <0.015 ng/mL 0-0.045 N LACTIC [id number] 09:56:00* Test Item Value Reference Range Interpretation Comments LACTIC ACID (test code = LACT) 1.7 mmol/L 0.4-1.9 N - XR CHEST 1 [id number] 09:39:00 FAX: Alma Campos [phone] [place]: St: [facility] FAX: Vimal Barker MD [phone] Name: LAURYN COLLINS [facility] : 1960 Age/S: 58/F [address] Unit #: [id number] Loc: [place] [address] Phys: Alma Wilkerson MD Acct: [id number] Dis Date: Status: REG ER PHONE #: [phone] Exam Date: 02/02/2019929 FAX #: [phone] Reason: CODE SEPSIS EXAMS: CPT CODE: [id number] XR CHEST 1 V 57619 HISTORY: CODE SEPSIS, abdominal pain, fever TECHNIQUE: AP chest x- ray COMPARISON: 12/13/17 FINDINGS: No airspace consolidation or pleural effusion. Normal heart size. Mediastinal silhouette is unremarkable. Visualized osseous structures are grossly intact. IMPRESSION: No radiographic evidence of acute cardiopulmonary process. at 0939 Reported and signed by: Susan Baron D.O. CC: Alma Wilkerson MD; Vimal Lara Technologist: CALIXTO CHOUDHARY(R) Trnscrd Date/Time/By: 02/02/2019 ([id number]) : By: [email or web address] Orig Print D/T: S: 02/02/2019 ([id number]) PAGE 1 Signed Report CBC W/AUTO [id number] 09:37:00* Test Item Value Reference Range Interpretation Comments WHITE BLOOD CELL (test code = WBC) 14.0 K/mm3 4.5-12.5 H RED BLOOD CELL (test code = RBC) 4.21 mill/mm3 3.7-5.2 N HEMOGLOBIN (test code = HGB) 11.6 gram/dL 11.5-15.5 N HEMATOCRIT (test code = HCT) 36.9 % 36.0-46.0 N MEAN CELL VOLUME (test code = MCV) 87.6 fL 80-98 N MEAN CELL HGB (test code = MCH) 27.6 picogram 27.0-33.0 N MEAN CELL HGB CONCETRATION (test code = MCHC) 31.4 gram/dL 33.0-36. 0 L RED CELL DISTRIBUTION WIDTH (test code = RDW) 14.7 % 11.6-16. 2 N RED CELL DISTRIBUTION WIDTH SD (test code = RDW-SD) 46.6 fL 37 .0-51.0 N PLATELET COUNT (test code = PLT) 265 K/mm3 150-450 N MEAN PLATELET VOLUME (test code = MPV) 8.7 fL 6.7-11.0 N NEUTROPHIL % (test code = NT%) 90.2 % 39.0-69.0 H IMMATURE GRANULOCYTE % (test code = IG%) 1.1 % 0.0-5.0 N LYMPHOCYTE % (test code = LY%) 5.2 % 25.0-55.0 L MONOCYTE % (test code = MO%) 3.1 % 0.0-10.0 N EOSINOPHIL % (test code = EO%) 0.0 % 0.0-5.0 N BASOPHIL % (test code = BA%) 0.4 % 0.0-1.0 N NUCLEATED RBC % (test code = NRBC%) 0.0 % 0-0 N NEUTROPHIL # (test code = NT#) 12.61 K/mm3 1.8-7.7 H IMMATURE GRANULOCYTE # (test code = IG#) 0.16 x10 3/uL 0-0.03 H LYMPHOCYTE # (test code = LY#) 0.73 K/mm3 1.0-5.0 L MONOCYTE # (test code = MO#) 0.44 K/mm3 0-0.8 N EOSINOPHIL # (test code = EO#) 0.00 K/mm3 0.0-0.5 N BASOPHIL # (test code = BA#) 0.05 K/mm3 0.0-0.2 N NUCLEATED RBC # (test code = NRBC#) 0.00 K/mm3 0.0-0.1 N BASIC METABOLIC [id number] 09:37:00* Test Item Value Reference Range Interpretation Comments SODIUM (test code = NA) 135 mmol/L 136-145 L POTASSIUM (test code = K) 3.9 mmol/L 3.5-5.1 N CHLORIDE (test code = CL) 101.0 mmol/L 98-107 N CARBON DIOXIDE (test code = CO2) mmol/L 21-32 ANION GAP (test code = GAP) 10-20 GLUCOSE (test code = GLU) mg/dL 74-106 BLOOD UREA NITROGEN (test code = BUN) mg/dL 7-18 GLOMERULAR FILTRATION RATE (test code = GFR) mL/min >=60 CREATININE (test code = CREAT) mg/dL 0.55-1.02 BUN/CREATININE RATIO (test code = BUN/CREA) 10-20 CALCIUM (test code = CA) mg/dL 8.5-10.1 HEPATIC FUNCTION [id number] 09:37:00* Test Item Value Reference Range Interpretation Comments TOTAL PROTEIN (test code = PROT) gram/dL 6.4-8.2 ALBUMIN (test code = ALB) g/dL 3.4-5.0 GLOBULIN (test code = GLOB) gram/dL 2.7-4.2 ALBUMIN/GLOBULIN RATIO (test code = A/G) 0.75-1.50 BILIRUBIN TOTAL (test code = BILT) mg/dL 0.0-1.0 BILIRUBIN DIRECT (test code = BILD) mg/dL 0.0-0.20 SGOT/AST (test code = AST) IUnit/L 15-37 SGPT/ALT (test code = ALT) IUnit/L 12-78 ALKALINE PHOSPHATASE TOTAL (test code = ALKP) IUnit/L 45-117 [id number] 09:37:00* Test Item Value Reference Range Interpretation Comments LIPASE (test code = LIP) U/L 73.0-393.0 [id number] 09:37:00* Test Item Value Reference Range Interpretation Comments TROPONIN-I (test code = TROPI) ng/mL 0-0.045 CBC W/AUTO [id number] 09:29:00* Test Item Value Reference Range Interpretation Comments WHITE BLOOD CELL (test code = WBC) K/mm3 4.5-12.5 RED BLOOD CELL (test code = RBC) mill/mm3 3.7-5.2 HEMOGLOBIN (test code = HGB) 11.6 gram/dL 11.5-15.5 N HEMATOCRIT (test code = HCT) 36.9 % 36.0-46.0 N MEAN CELL VOLUME (test code = MCV) fL 80-98 MEAN CELL HGB (test code = MCH) picogram 27.0-33.0 MEAN CELL HGB CONCETRATION (test code = MCHC) gram/dL 33.0-36. 0 RED CELL DISTRIBUTION WIDTH (test code = RDW) % 11.6-16. 2 RED CELL DISTRIBUTION WIDTH SD (test code = RDW-SD) fL 37 .0-51.0 PLATELET COUNT (test code = PLT) K/mm3 150-450 MEAN PLATELET VOLUME (test code = MPV) fL 6.7-11.0 NEUTROPHIL % (test code = NT%) % 39.0-69.0 IMMATURE GRANULOCYTE % (test code = IG%) % 0.0-5.0 LYMPHOCYTE % (test code = LY%) % 25.0-55.0 MONOCYTE % (test code = MO%) % 0.0-10.0 EOSINOPHIL % (test code = EO%) % 0.0-5.0 BASOPHIL % (test code = BA%) % 0.0-1.0 NEUTROPHIL # (test code = NT#) K/mm3 1.8-7.7 LYMPHOCYTE # (test code = LY#) K/mm3 1.0-5.0 MONOCYTE # (test code = MO#) K/mm3 0-0.8 EOSINOPHIL # (test code = EO#) K/mm3 0.0-0.5 BASOPHIL # (test code = BA#) K/mm3 0.0-0.2 Positive Retinal Eye Exam (Diabetic)2019-01-23 05:00:00* Test Item Value Reference Range Interpretation Comments Positive Diabetic Eye Screening (test code = Positive Diabetic Eye Screening) [id number] A [facility][] LIPID PANEL WITH REFLEX TO DIRECT LDL 2019-01-08 16:20:01* Test Item Value Reference Range Interpretation Comments Chol; Above High Threshold (test code = 2093-3) 243 mg/dl <=199 Trig; Above High Threshold (test code = 2571-8) 507 mg/dl <=149 HDL Cholesterol; Below Low Threshold (test code = 2085-9) 59 mg/dl >=61 CHD Risk (test code = 40291-6) 4.12 3.90-5.80 LDL (test code = 32704-3) See Note <=99 LD L cholesterol cannot be calculated due to very high triglycerides (>400mg/dL). Recommend Direct LDL if clinically indicated. VLDL (test code = VLDL) See Note VLDL - Cholesterol level cannot be accurately calculated due to very hightriglycerides (>400 mg/dL). [facility]] HEPATITIS C [id number] 16:20:01* Test Item Value Reference Range Interpretation Comments Hepatitis C Antibody (test code = 08328-1) Negative [facility]] DIRECT [id number] 16:20:01* Test Item Value Reference Range Interpretation Comments LDL Cholesterol Direct; Above High Threshold (test code = 18 262-6) 133 mg/dl <=99 [facility][H] MICROALBUMIN, RANDOM URINE (W/CREATININE) 2019-01-08 16:20:01* Test Item Value Reference Range Interpretation Comments Urine Microalbumin (test code = Urine Microalbumin) 28.4 mg/L No established reference range. U Creatinine (test code = 2161-8) 73.60 mg/dl No established reference range. Urine Microalbuming Creatinine Ratio; Ab ove High Threshold (test code = 65924-0) 38.6 mg/g <=30.0 [facility][O] Hemoglobin A1c (in office)2018-12-13 16:16:00 * Test Item Value Reference Range Interpretation Comments HEMOGLOBIN A1c (test code = 4548-4) 8.9 [facility]iciansGl[facility] ([facility] In Office)2018-12-13 16:15:00* Test Item Value Reference Range Interpretation Comments Glucose POC Lifescan (test code = Glucose POC Lifescan) 146 [facility]/PELVIS [id number] 12:32:00 [place] [address] Patient Name: LAURYN COLLINS MR #: [id number] : 1960 Age/Sex: 58/F Req #: [id number] Adm Physician: Ordered by: ROHAN TURNER MD Report #: [id number] Location: ER Room/Bed: Procedure: CT /CT ABDOMEN/PELVIS W Exam Date: 11/04/18 Exam Time: 1210 REPORT STATUS: Signed EXAM: CT Abdomen and Pelvis WITH contrast INDICATION: Upper abdominal pain. COMPARISON: None. TECHNIQUE: Abdomen and pelvis were scanned utilizing a mu ltidetector helical scanner from the lung base to the pubic symphysis after ad ministration of IV contrast. Coronal and sagittal reformations were obtained. Routine protocol was performed. Scan was performed when during portal venous p hase. IV CONTRAST: 100 cc of Isovue-370. ORAL CONTRAST: Water COMPLICATIONS: None RADIATION DOSE: Total DLP: 791 .4 mGy*cm Dose modulation, iterative reconstruction, and/or weight bas ed adjustment of the mA/kV was utilized to reduce the radiation dose to as low as reasonably achievable. FINDINGS: LINES and TUBES: None. LOWER THORAX: Scattered coronary atherosclerosis. HEPATOBILIARY: Hepatic steat osis with hepatomegaly. Hypodensity near the falciform ligament likely represe nts focal fatty infiltration. Indeterminant 1.1 cm hypodense lesion in the rig ht hepatic lobe inferiorly on series 2, image 42. Status post cholecystectomy. There is left-sided pneumobilia, which may reflect prior intervention. No rommel dence of bowel or ductal dilatation. SPLEEN: No splenomegaly. PANCREA S: No focal masses or ductal dilatation. ADRENALS: No adrenal nodules KIDNEYS/URETERS: Kidneys enhance symmetrically. No evidence of hydronephrosis , solid mass, or stone. Mild bilateral perinephric stranding is nonspecific. GI TRACT: No evidence of wall thickening or distension. Appendix is surgical ly absent per clinical history. Postsurgical changes in the proximal stomach. PELVIC ORGANS/BLADDER: Status post hysterectomy. LYMPH NODES: No lymph adenopathy. VESSELS: There are moderate atherosclerotic calcifications in t he aorta and branch vessels. PERITONEUM / RETROPERITONEUM: No free air o r fluid. BONES AND SOFT TISSUES: No acute osseous abnormality. No suspiciou s lytic or blastic lesions. CONCLUSION: Hepatic steatosis with hepatom egaly. Indeterminant 1.1 cm hypodensity in the right hepatic lobe. Follow- up liver protocol CT or MRI is suggested for further evaluation. Status p ost cholecystectomy. Left-sided pneumobilia is nonspecific, and could reflect prior intervention. Signed by: Dr. Aleksandr Christensen MD on 11/04/2018 12:41 PM Dictated By: ALEKSANDR CHRISTENSEN MD [id number] COPY TO: ELLIOT TURNER MD Amylase [id number] 10:32:00* Test Item Value Reference Range Interpretation Comments Amylase Level (test code = 1798-8) 37 25-125 [facility] 10:32:00* Test Item Value Reference Range Interpretation Comments Lipase (test code = 3040-3) 70 -78 [facility] HospitalAmylase [id number] 10:32:00* Test Item Value Reference Range Interpretation Comments Amylase Level (test code = 1798-8) 37 25-125 [facility] HospitalLipase2019-05-20 10:32:00* Test Item Value Reference Range Interpretation Comments Lipase (test code = 3040-3) 70 78 [facility] HospitalAmylase Isqxu0296-81-09 10:32:00* Test Item Value Reference Range Interpretation Comments Amylase Level (test code = 1798-8) 37 25-125 [facility] HospitalLipase2019-05-20 10:32:00* Test Item Value Reference Range Interpretation Comments Lipase (test code = 3040-3) 70 78 [facility] HospitalCreatine Kinase [id number] 10:24:00* Test Item Value Reference Range Interpretation Comments Creatine Kinase MB (test code = 78612-1) 0.90 0-5.0 [facility] [id number] 10:24:00* Test Item Value Reference Range Interpretation Comments Troponin I (test code = ITL5918) 0.007 0-0.300 [facility] HospitalCreatine Kinase [id number] 10:24:00* Test Item Value Reference Range Interpretation Comments Creatine Kinase MB (test code = 96352-3) 0.90 0-5.0 [facility] [id number] 10:24:00* Test Item Value Reference Range Interpretation Comments Troponin I (test code = WPN9541) 0.007 0-0.300 [facility] HospitalCreatine Kinase [id number] 10:24:00* Test Item Value Reference Range Interpretation Comments Creatine Kinase MB (test code = 38431-0) 0.90 0-5.0 [facility] HospitalTroponin [id number] 10:24:00* Test Item Value Reference Range Interpretation Comments Troponin I (test code = NSC9996) 0.007 0-0.300 [facility] HospitalCreatine [id number] 10:17:00* Test Item Value Reference Range Interpretation Comments Creatine Kinase (test code = 2157-6) 54 29-168 [facility] Hqhnyx3512-66-18 10:17:00* Test Item Value Reference Range Interpretation Comments Creatine Kinase (test code = 2157-6) 54 29-168 [facility] HospitalCreatine Xpibit4739-60-56 10:17:00* Test Item Value Reference Range Interpretation Comments Creatine Kinase (test code = 2157-6) 54 29-168 [facility] HospitalProthrombin Jems5571-16-74 09:56:00* Test Item Value Reference Range Interpretation Comments Prothrombin Time (test code = 5902-2) 11.6 11.9-14.5 L [facility] HospitalProthromb Time International Ratio 2018-11-04 09:56:00* Test Item Value Reference Range Interpretation Comments Prothromb Time International Ratio (test code = 6301-6) 0.81 Oral Anticoagulant Therapy INR Values:1. Low Intensity Therapy 1.5 - 2.02 . Moderate Intensity Therapy 2.0 - 3.03. High Intensity Therapy(1) 2.5 - 3. 54. High Intensity Therapy(2) 3.0 - 4.05. Panic Value INR > 5.0 [facility] HospitalActivated Partial Thromboplast Time 2018-11-04 09:56:00* Test Item Value Reference Range Interpretation Comments Activated Partial Thromboplast Time (test code = 36799-2) 30.7 23.8-35.5 [facility] Qsflr3587-58-88 09:56:00* Test Item Value Reference Range Interpretation Comments Sodium Level (test code = 2951-2) 137 136-145 [facility] HospitalPotassium Smwfv9508-96-93 09:56:00* Test Item Value Reference Range Interpretation Comments Potassium Level (test code = 2823-3) 4.0 3.5-5.1 [facility] HospitalChloride Uhays9384-62-30 09:56:00* Test Item Value Reference Range Interpretation Comments Chloride Level (test code = 2075-0) 106 98-107 [facility] HospitalCarbon Dioxide Aomch5640-04-17 09:56:00* Test Item Value Reference Range Interpretation Comments Carbon Dioxide Level (test code = 2028-9) 21 22-29 L [facility] HospitalAnion [id number] 09:56:00* Test Item Value Reference Range Interpretation Comments Anion Gap (test code = 77025-9) 14.0 8-16 [facility] HospitalBlood Urea Bshfnovn7164-83-09 09:56:00* Test Item Value Reference Range Interpretation Comments Blood Urea Nitrogen (test code = 3094-0) 15 7-26 [facility] HospitalCreatinine2019-05-20 09:56:00* Test Item Value Reference Range Interpretation Comments Creatinine (test code = 2160-0) 0.83 0.57-1.11 [facility] HospitalBUN/Creatinine Vopaf6809-43-90 09:56:00* Test Item Value Reference Range Interpretation Comments BUN/Creatinine Ratio (test code = 3097-3) 18 6-25 [facility] HospitalEstimat Glomerular Filtration Rate 2018-11-04 09:56:00* Test Item Value Reference Range Interpretation Comments Estimat Glomerular Filtration Rate (test code = 751582399) > 60 >60 Ranges were taken from the National Kidney Disease Education Program and the [facility] literature.Reference ranges:60 or greater: Gtubub82-39 ( for 3 consecutive months): Chronic kidney disease 15 or less: Kidney failureHouston [facility] Clear Lake HospitalGlucose Cpmiu7214-30-85 09:56:00* Test Item Value Reference Range Interpretation Comments Glucose Level (test code = WZX7132) 208 74-118 H [facility] HospitalCalcium Uebvv1110-54-83 09:56:00* Test Item Value Reference Range Interpretation Comments Calcium Level (test code = 10166-2) 10.0 8.4-10.2 [facility] HospitalTotal Qlmphpukz5643-66-89 09:56:00* Test Item Value Reference Range Interpretation Comments Total Bilirubin (test code = 1975-2) 0.2 0.2-1.2 [facility] HospitalAspartate Amino Transf (AST/SGOT) 2018-11-04 09:56:00* Test Item Value Reference Range Interpretation Comments Aspartate Amino Transf (AST/SGOT) (test code = Aspartate Amino Transf (AST/SGOT)) 19 5-34 [facility] HospitalAlanine Aminotransferase (ALT/SGPT) 2018-11-04 09:56:00* Test Item Value Reference Range Interpretation Comments Alanine Aminotransferase (ALT/SGPT) (test code = 1742-6) 17 0-55 [facility] HospitalTotal Ihetugw7913-88-03 09:56:00* Test Item Value Reference Range Interpretation Comments Total Protein (test code = 2885-2) 7.9 6.5-8.1 [facility] HospitalAlbumin2019-05-20 09:56:00* Test Item Value Reference Range Interpretation Comments Albumin (test code = 1751-7) 3.8 3.5-5.0 [facility] HospitalGlobulin2019-05-20 09:56:00* Test Item Value Reference Range Interpretation Comments Globulin (test code = 37257-8) 4.1 2.3-3.5 H [facility] HospitalAlbumin/Globulin Pigex3196-74-70 09:56:00 * Test Item Value Reference Range Interpretation Comments Albumin/Globulin Ratio (test code = 1759-0) 0.9 0.8-2.0 [facility] HospitalAlkaline Hlcvzlevhnm5157-61-24 09:56:00* Test Item Value Reference Range Interpretation Comments Alkaline Phosphatase (test code = 6768-6) 115 40-150 [facility] HospitalProthrombin Ccir7335-22-73 09:56:00* Test Item Value Reference Range Interpretation Comments Prothrombin Time (test code = 5902-2) 11.6 11.9-14.5 L [facility] HospitalProthromb Time International Ratio 2018-11-04 09:56:00* Test Item Value Reference Range Interpretation Comments Prothromb Time International Ratio (test code = 6301-6) 0.81 Oral Anticoagulant Therapy INR Values:1. Low Intensity Therapy 1.5 - 2.02 . Moderate Intensity Therapy 2.0 - 3.03. High Intensity Therapy(1) 2.5 - 3. 54. High Intensity Therapy(2) 3.0 - 4.05. Panic Value INR > 5.0 [facility] HospitalActivated Partial Thromboplast Time 2018-11-04 09:56:00* Test Item Value Reference Range Interpretation Comments Activated Partial Thromboplast Time (test code = 76252-3) 30.7 23.8-35.5 [facility] Bojqx9776-96-96 09:56:00* Test Item Value Reference Range Interpretation Comments Sodium Level (test code = 2951-2) 137 136-145 [facility] HospitalPotassium Rdskm5925-03-89 09:56:00* Test Item Value Reference Range Interpretation Comments Potassium Level (test code = 2823-3) 4.0 3.5-5.1 [facility] HospitalChloride Doidt9848-49-51 09:56:00* Test Item Value Reference Range Interpretation Comments Chloride Level (test code = 2075-0) 106 98-107 [facility] HospitalCarbon Dioxide Qrald8970-67-51 09:56:00* Test Item Value Reference Range Interpretation Comments Carbon Dioxide Level (test code = 2028-9) 21 22-29 L [facility] HospitalAnion Qqa6984-62-49 09:56:00* Test Item Value Reference Range Interpretation Comments Anion Gap (test code = 14683-1) 14.0 8-16 [facility] HospitalBlood Urea Pxgjkarn5314-54-36 09:56:00* Test Item Value Reference Range Interpretation Comments Blood Urea Nitrogen (test code = 3094-0) 15 7-26 [facility] HospitalCreatinine2019-05-20 09:56:00* Test Item Value Reference Range Interpretation Comments Creatinine (test code = 2160-0) 0.83 0.57-1.11 [facility] HospitalBUN/Creatinine Tbmbj6453-44-63 09:56:00* Test Item Value Reference Range Interpretation Comments BUN/Creatinine Ratio (test code = 3097-3) 18 6-25 [facility] HospitalEstimat Glomerular Filtration Rate 2018-11-04 09:56:00* Test Item Value Reference Range Interpretation Comments Estimat Glomerular Filtration Rate (test code = 570076961) > 60 >60 Ranges were taken from the National Kidney Disease Education Program and the [facility] Foundation literature.Reference ranges:60 or greater: Kugbnv92-89 ( for 3 consecutive months): Chronic kidney disease 15 or less: Kidney failureHouston Methodist Clear Lake HospitalGlucose Roddz2644-33-29 09:56:00* Test Item Value Reference Range Interpretation Comments Glucose Level (test code = MWG1057) 208 74-118 H [facility] HospitalCalcium Pcdoe5402-94-50 09:56:00* Test Item Value Reference Range Interpretation Comments Calcium Level (test code = 95582-3) 10.0 8.4-10.2 [facility] HospitalTotal Lnpvbtggx4795-37-32 09:56:00* Test Item Value Reference Range Interpretation Comments Total Bilirubin (test code = 1975-2) 0.2 0.2-1.2 [facility] HospitalAspartate Amino Transf (AST/SGOT) 2018-11-04 09:56:00* Test Item Value Reference Range Interpretation Comments Aspartate Amino Transf (AST/SGOT) (test code = Aspartate Amino Transf (AST/SGOT)) 19 5-34 [facility] HospitalAlanine Aminotransferase (ALT/SGPT) 2018-11-04 09:56:00* Test Item Value Reference Range Interpretation Comments Alanine Aminotransferase (ALT/SGPT) (test code = 1742-6) 17 0-55 [facility] HospitalTotal Fcrmtqo5039-16-47 09:56:00* Test Item Value Reference Range Interpretation Comments Total Protein (test code = 2885-2) 7.9 6.5-8.1 [facility] HospitalAlbumin2019-05-20 09:56:00* Test Item Value Reference Range Interpretation Comments Albumin (test code = 1751-7) 3.8 3.5-5.0 [facility] HospitalGlobulin2019-05-20 09:56:00* Test Item Value Reference Range Interpretation Comments Globulin (test code = 74142-6) 4.1 2.3-3.5 H [facility] HospitalAlbumin/Globulin Mijyb7833-27-12 09:56:00 * Test Item Value Reference Range Interpretation Comments Albumin/Globulin Ratio (test code = 1759-0) 0.9 0.8-2.0 [facility] HospitalAlkaline Pgagyovmrnh1596-62-92 09:56:00* Test Item Value Reference Range Interpretation Comments Alkaline Phosphatase (test code = 6768-6) 115 40-150 [facility] HospitalProthrombin Dqhs8149-04-43 09:56:00* Test Item Value Reference Range Interpretation Comments Prothrombin Time (test code = 5902-2) 11.6 11.9-14.5 L [facility] HospitalProthromb Time International Ratio 2018-11-04 09:56:00* Test Item Value Reference Range Interpretation Comments Prothromb Time International Ratio (test code = 6301-6) 0.81 Oral Anticoagulant Therapy INR Values:1. Low Intensity Therapy 1.5 - 2.02 . Moderate Intensity Therapy 2.0 - 3.03. High Intensity Therapy(1) 2.5 - 3. 54. High Intensity Therapy(2) 3.0 - 4.05. Panic Value INR > 5.0 [facility] HospitalActivated Partial Thromboplast Time 2018-11-04 09:56:00* Test Item Value Reference Range Interpretation Comments Activated Partial Thromboplast Time (test code = 94961-6) 30.7 23.8-35.5 [facility] HospitalWhite Blood Ghbcu2030-71-93 09:39:00* Test Item Value Reference Range Interpretation Comments White Blood Count (test code = 6690-2) 7.64 4.8-10.8 [facility] HospitalRed Blood Axdqa3544-17-33 09:39:00* Test Item Value Reference Range Interpretation Comments Red Blood Count (test code = 789-8) 4.39 3.6-5.1 [facility] HospitalHemoglobin2019-05-20 09:39:00* Test Item Value Reference Range Interpretation Comments Hemoglobin (test code = 26579-7) 12.5 12.0-16.0 [facility] HospitalHematocrit2019-05-20 09:39:00* Test Item Value Reference Range Interpretation Comments Hematocrit (test code = 4544-3) 38.2 34.2-44.1 [facility] HospitalMean Corpuscular Laufmy2936-19-56 09:39:00* Test Item Value Reference Range Interpretation Comments Mean Corpuscular Volume (test code = 787-2) 87.0 81-99 [facility] HospitalMean Corpuscular Sozmepymyn9851-89-49 09:39:00* Test Item Value Reference Range Interpretation Comments Mean Corpuscular Hemoglobin (test code = 785-6) 28.5 28-32 [facility] Corpuscular Hemoglobin Concent 2018-11-04 09:39:00* Test Item Value Reference Range Interpretation Comments Mean Corpuscular Hemoglobin Concent (test code = 786-4) 32.7 31-35 [facility] HospitalRed Cell Distribution Fumfp6875-74-35 09:39:00* Test Item Value Reference Range Interpretation Comments Red Cell Distribution Width (test code = 35216-1) 12.5 11.7 -14.4 [facility] HospitalPlatelet Vwsgk9853-57-56 09:39:00* Test Item Value Reference Range Interpretation Comments Platelet Count (test code = 777-3) 383 140-360 H [facility] HospitalNeutrophils (%) (Auto)2018-11-04 09:39:00 * Test Item Value Reference Range Interpretation Comments Neutrophils (%) (Auto) (test code = 32703-5) 62.5 38.7-80.0 [facility] HospitalLymphocytes (%) (Auto)2018-11-04 09:39:00 * Test Item Value Reference Range Interpretation Comments Lymphocytes (%) (Auto) (test code = 736-9) 28.4 18.0-39.1 [facility] HospitalMonocytes (%) (Auto)2018-11-04 09:39:00* Test Item Value Reference Range Interpretation Comments Monocytes (%) (Auto) (test code = 5905-5) 4.7 4.4-11.3 [facility] HospitalEosinophils (%) (Auto)2018-11-04 09:39:00 * Test Item Value Reference Range Interpretation Comments Eosinophils (%) (Auto) (test code = 713-8) 3.0 0.0-6.0 [facility] HospitalBasophils (%) (Auto)2018-11-04 09:39:00* Test Item Value Reference Range Interpretation Comments Basophils (%) (Auto) (test code = 706-2) 0.5 0.0-1.0 [facility] %2018-11-04 09:39:00* Test Item Value Reference Range Interpretation Comments IM GRANULOCYTES % (test code = IM GRANULOCYTES %) 0.9 0.0- 1.0 [facility] HospitalNeutrophils # (Auto)2018-11-04 09:39:00* Test Item Value Reference Range Interpretation Comments Neutrophils # (Auto) (test code = 751-8) 4.8 2.1-6.9 [facility] HospitalLymphocytes # (Auto)2018-11-04 09:39:00* Test Item Value Reference Range Interpretation Comments Lymphocytes # (Auto) (test code = 69859-6) 2.2 1.0-3.2 [facility]Monocytes # (Auto)2018-11-04 09:39:00* Test Item Value Reference Range Interpretation Comments Monocytes # (Auto) (test code = 742-7) 0.4 0.2-0.8 [facility]Eosinophils # (Auto)2018-11-04 09:39:00* Test Item Value Reference Range Interpretation Comments Eosinophils # (Auto) (test code = 711-2) 0.2 0.0-0.4 [facility]Basophils # (Auto)2018-11-04 09:39:00* Test Item Value Reference Range Interpretation Comments Basophils # (Auto) (test code = 704-7) 0.0 0.0-0.1 [facility] HospitalAbsolute Immature Granulocyte (auto 2018-11-04 09:39:00* Test Item Value Reference Range Interpretation Comments Absolute Immature Granulocyte (auto (fidel t code = Absolute Immature Granulocyte (auto) 0.07 0-0.1 [facility] [id number] 09:37:00* Test Item Value Reference Range Interpretation Comments Urine WBC (test code = 5821-4) 0-5 0-5 [facility] [id number] 09:37:00* Test Item Value Reference Range Interpretation Comments Urine RBC (test code = 08801-9) 0-5 0-5 [facility] Qhpmkqrq7278-67-88 09:37:00* Test Item Value Reference Range Interpretation Comments Urine Bacteria (test code = 82810-9) FEW NONE [facility] Epithelial [id number] 09:37:00 * Test Item Value Reference Range Interpretation Comments Urine Epithelial Cells (test code = 19555-2) RARE NONE [facility] [id number] 09:37:00* Test Item Value Reference Range Interpretation Comments Urine WBC (test code = 5821-4) 0-5 0-5 [facility] [id number] 09:37:00* Test Item Value Reference Range Interpretation Comments Urine RBC (test code = 02526-0) 0-5 0-5 [facility] Bnmbyihx3537-33-83 09:37:00* Test Item Value Reference Range Interpretation Comments Urine Bacteria (test code = 75437-7) FEW NONE [facility] Epithelial [id number] 09:37:00 * Test Item Value Reference Range Interpretation Comments Urine Epithelial Cells (test code = 50173-8) RARE NONE [facility] [id number] 09:37:00* Test Item Value Reference Range Interpretation Comments Urine WBC (test code = 5821-4) 0-5 0-5 [facility] [id number] 09:37:00* Test Item Value Reference Range Interpretation Comments Urine RBC (test code = 99619-3) 0-5 0-5 [facility] Stfqrrmx9055-61-16 09:37:00* Test Item Value Reference Range Interpretation Comments Urine Bacteria (test code = 90560-0) FEW NONE [facility] Epithelial Tibdu6802-95-71 09:37:00 * Test Item Value Reference Range Interpretation Comments Urine Epithelial Cells (test code = 36635-9) RARE NONE [facility] Kyxdz6306-70-10 09:28:00* Test Item Value Reference Range Interpretation Comments Urine Color (test code = 5778-6) YELLOW YELLOW [facility] Ugufjkm0024-28-73 09:28:00* Test Item Value Reference Range Interpretation Comments Urine Clarity (test code = 82596-8) CLEAR CLEAR [facility] Specific Dayypny1727-95-75 09:28:00 * Test Item Value Reference Range Interpretation Comments Urine Specific [place] (test code = 5811-5) 1.025 1.010-1.02 5 [facility] [id number] 09:28:00* Test Item Value Reference Range Interpretation Comments Urine pH (test code = 60765-8) 5 5-7 [facility] Leukocyte Ronvyfpk0364-21-89 09:28:00* Test Item Value Reference Range Interpretation Comments Urine Leukocyte Esterase (test code = 5799-2) NEGATIVE NEGATIVE [facility] Hvqcsrr2438-21-73 09:28:00* Test Item Value Reference Range Interpretation Comments Urine Nitrite (test code = 07418-6) NEGATIVE NEGATIVE [facility] Xomprcv6276-10-75 09:28:00* Test Item Value Reference Range Interpretation Comments Urine Protein (test code = 5804-0) 1+ NEGATIVE H [facility] Glucose (UA)2018-11-04 09:28:00* Test Item Value Reference Range Interpretation Comments Urine Glucose (UA) (test code = 2349-9) 2+ NEGATIVE H [facility] Oknayxm6372-89-59 09:28:00* Test Item Value Reference Range Interpretation Comments Urine Ketones (test code = 25500-2) NEGATIVE NEGATIVE [facility] Jntgylmdmpfo0704-89-87 09:28:00* Test Item Value Reference Range Interpretation Comments Urine Urobilinogen (test code = 99744-9) 0.2 0.2-1 [facility] Uvkjfemqz6842-70-63 09:28:00* Test Item Value Reference Range Interpretation Comments Urine Bilirubin (test code = 1978-6) NEGATIVE NEGATIVE [facility] Gehsg0672-12-10 09:28:00* Test Item Value Reference Range Interpretation Comments Urine Blood (test code = 97417-9) NEGATIVE NEGATIVE [facility] Pljhb0931-24-17 09:28:00* Test Item Value Reference Range Interpretation Comments Urine Color (test code = 5778-6) YELLOW YELLOW [facility] Wulwtpq3092-82-28 09:28:00* Test Item Value Reference Range Interpretation Comments Urine Clarity (test code = 44435-7) CLEAR CLEAR [facility] Specific Hawhbcs0309-02-40 09:28:00 * Test Item Value Reference Range Interpretation Comments Urine Specific [place] (test code = 5811-5) 1.025 1.010-1.02 5 [facility] [id number] 09:28:00* Test Item Value Reference Range Interpretation Comments Urine pH (test code = 61503-8) 5 5-7 [facility] Leukocyte Mqoltcxc5739-90-97 09:28:00* Test Item Value Reference Range Interpretation Comments Urine Leukocyte Esterase (test code = 5799-2) NEGATIVE NEGATIVE [facility] Npgpoak2627-57-59 09:28:00* Test Item Value Reference Range Interpretation Comments Urine Nitrite (test code = 00759-1) NEGATIVE NEGATIVE [facility] Rnfeusz4454-67-97 09:28:00* Test Item Value Reference Range Interpretation Comments Urine Protein (test code = 5804-0) 1+ NEGATIVE H [facility] Glucose (UA)2018-11-04 09:28:00* Test Item Value Reference Range Interpretation Comments Urine Glucose (UA) (test code = 2349-9) 2+ NEGATIVE H [facility] Mcjpsqy1040-26-49 09:28:00* Test Item Value Reference Range Interpretation Comments Urine Ketones (test code = 11608-9) NEGATIVE NEGATIVE [facility] Arnbptrxtqsz2844-82-86 09:28:00* Test Item Value Reference Range Interpretation Comments Urine Urobilinogen (test code = 78783-1) 0.2 0.2-1 [facility] Dxslwdugr4714-20-07 09:28:00* Test Item Value Reference Range Interpretation Comments Urine Bilirubin (test code = 1978-6) NEGATIVE NEGATIVE [facility] [id number] 09:28:00* Test Item Value Reference Range Interpretation Comments Urine Blood (test code = 15587-7) NEGATIVE NEGATIVE [facility] Wlvqf8012-61-28 09:28:00* Test Item Value Reference Range Interpretation Comments Urine Color (test code = 5778-6) YELLOW YELLOW [facility] Kjxggzp0007-80-55 09:28:00* Test Item Value Reference Range Interpretation Comments Urine Clarity (test code = 95201-7) CLEAR CLEAR [facility] Specific Ynezwxm8213-43-36 09:28:00 * Test Item Value Reference Range Interpretation Comments Urine Specific [place] (test code = 5811-5) 1.025 1.010-1.02 5 [facility] [id number] 09:28:00* Test Item Value Reference Range Interpretation Comments Urine pH (test code = 77040-3) 5 5-7 [facility] Leukocyte Xiejcpvz6341-55-79 09:28:00* Test Item Value Reference Range Interpretation Comments Urine Leukocyte Esterase (test code = 5799-2) NEGATIVE NEGATIVE [facility] Bvgxctf8674-84-03 09:28:00* Test Item Value Reference Range Interpretation Comments Urine Nitrite (test code = 73379-8) NEGATIVE NEGATIVE [facility] Vfxsdmf0482-82-80 09:28:00* Test Item Value Reference Range Interpretation Comments Urine Protein (test code = 5804-0) 1+ NEGATIVE H [facility] Glucose (UA)2018-11-04 09:28:00* Test Item Value Reference Range Interpretation Comments Urine Glucose (UA) (test code = 2349-9) 2+ NEGATIVE H [facility] Ckcqyhu2941-53-59 09:28:00* Test Item Value Reference Range Interpretation Comments Urine Ketones (test code = 27251-4) NEGATIVE NEGATIVE [facility] Laugttrohzof5874-90-63 09:28:00* Test Item Value Reference Range Interpretation Comments Urine Urobilinogen (test code = 01600-7) 0.2 0.2-1 [facility] Ehhyrcavh2169-45-96 09:28:00* Test Item Value Reference Range Interpretation Comments Urine Bilirubin (test code = 1978-6) NEGATIVE NEGATIVE [facility] Hvirz1504-95-70 09:28:00* Test Item Value Reference Range Interpretation Comments Urine Blood (test code = 73458-3) NEGATIVE NEGATIVE [facility]Gl[facility] ([facility]) 2018-10-09 15:10:00* Test Item Value Reference Range Interpretation Comments Glucose POC Lifescan (test code = Glucose POC Lifescan) 195 A [facility][O] Drug Screen Urine (in Office)2018-10-01 16:36:00* Test Item Value Reference Range Interpretation Comments Marijuana (THC) (test code = Marijuana (THC)) negative N Cocaine (ISAAC) (test code = Cocaine (ISAAC)) nagative N Amphetamine (AMP) (test code = Amphetamine (AMP)) negative N Methamphetamine (MET) (test code = Methamphetamine (MET)) negative N Morphine (MOP/ESJ3346) (test code = Morphine (MOP/UMS9108)) negativ e N Morphine 2000 (OPI) (test code = Morphine 2000 (OPI)) negative N Methylenedioxymethamphetamine (MDMA) (te st code = Methylenedioxymethamphetamine (MDMA)) negativa N Barbiturates (BAR) (test code = Barbiturates (BAR)) negative N Benzodiazepines (BZO) (test code = Benzodiazepines (BZO)) negative N Methadone (MTD) (test code = Methadone (MTD)) negative N Oxycodone (OXY) (test code = Oxycodone (OXY)) negative N Phencyclidine (PCP) (test code = Phencyclidine (PCP)) negative N Tri-cyclic Antidepressant (TCA) (test code = Tri-cycli c Antidepressant (TCA)) negative N [facility][Q] DRUG ABUSE PANEL [id number] 00:00:00* Test Item Value Reference Range Interpretation Comments Fluoroquin Resist 1 (test code = Fluoroquin Resist 1) See Below * These results are for medical treatment only. * * Analysis was performed as non- forensic testing. * AMPHETAMINES (1000 ng/mL SCREEN) (test code = AMPHETAM COLTON (1000 ng/mL SCREEN)) NEGATIVE N BARBITUATES (test code = BARBITUATES) NEGATIVE N BENZODIAZEPINES (test code = BENZODIAZEPINES) NEGATIVE N COCAINE METABOLITES (test code = COCAINE METABOLITES) NEGATIVE N MARIJUANA METABOLITES (50 ng/mL SCREEN) (test code = MARIJUANA METABOLITES (50 ng/mL SCREEN)) NEGATIVE N METHADONE (test code = METHADONE) NEGATIVE N OPIATES (test code = OPIATES) NEGATIVE CONFIRMED N MORPHINE (test code = MORPHINE) NEGATIVE CONFIRMED N CODEINE (test code = CODEINE) NEGATIVE CONFIRMED N HYDROMORPHONE (test code = HYDROMORPHONE) NEGATIVE CONFIRMED N HYDROCODONE (test code = HYDROCODONE) NEGATIVE CONFIRMED N PHENCYCLIDINE (test code = PHENCYCLIDINE) NEGATIVE N PROPOXYPHENE (test code = PROPOXYPHENE) NEGATIVE N See Comment (test code = See Comment) See Comment THE SUBMITTED URINE SPECIMEN WAS TESTED AT THE LISTED CUTOFF LEVELS AND CONFIRMED BY A SECOND INDEPENDENT CHEMICAL METHOD. DRUG CLASS INITIAL CUTOFF LEVEL AMPHETAMINES 1000 ng/mL BARBITURATES 300 ng/mL BENZODIAZEPINES 300 ng/mL COCAINE METABOLITES 300 ng/mL MARIJUANA METABOLITES 50 ng/mL METHADONE 300 ng/mL OPIATES 300 ng/mL PHENCYCLIDINE 25 ng/mL PROPOXYPHENE 300 ng/mL [facility]icians[facility] Ex[facility] (Diabetic)2018-09-21 05:00:00* Test Item Value Reference Range Interpretation Comments Negative Diabetic Eye Screening (test code = Negative Diabetic Eye Screening) [id number] [facility]Gl[facility] ([facility])2018-09-12 15:58:00* Test Item Value Reference Range Interpretation Comments Glucose POC Lifescan (test code = Glucose POC Lifescan) 150 [facility][O] Hemoglobin A1c (in office)2018-09-12 15:57:00 * Test Item Value Reference Range Interpretation Comments HEMOGLOBIN A1c (test code = 4548-4) 8.2 [facility][O] Drug Screen Urine (in Office)2018-08-27 16:49:00* Test Item Value Reference Range Interpretation Comments Marijuana (THC) (test code = Marijuana (THC)) negative N Cocaine (ISAAC) (test code = Cocaine (ISAAC)) negative N Amphetamine (AMP) (test code = Amphetamine (AMP)) negative N Methamphetamine (MET) (test code = Methamphetamine (MET)) negative N Morphine (MOP/WSV7547) (test code = Morphine (MOP/KQP6330)) negativ e N Morphine 2000 (OPI) (test code = Morphine 2000 (OPI)) negative N Methylenedioxymethamphetamine (MDMA) (te st code = Methylenedioxymethamphetamine (MDMA)) negative N Barbiturates (BAR) (test code = Barbiturates (BAR)) negative N Benzodiazepines (BZO) (test code = Benzodiazepines (BZO)) negative N Methadone (MTD) (test code = Methadone (MTD)) negative N Oxycodone (OXY) (test code = Oxycodone (OXY)) negative N Phencyclidine (PCP) (test code = Phencyclidine (PCP)) negative N Tri-cyclic Antidepressant (TCA) (test code = Tri-cycli c Antidepressant (TCA)) negative N [facility][Q] DRUG ABUSE PANEL [id number] 00:00:00* Test Item Value Reference Range Interpretation Comments Fluoroquin Resist 1 (test code = Fluoroquin Resist 1) See Below * These results are for medical treatment only. * * Analysis was performed as non- forensic testing. * AMPHETAMINES (1000 ng/mL SCREEN) (test code = AMPHETAM COLTON (1000 ng/mL SCREEN)) NEGATIVE N BARBITUATES (test code = BARBITUATES) NEGATIVE N BENZODIAZEPINES (test code = BENZODIAZEPINES) NEGATIVE N COCAINE METABOLITES (test code = COCAINE METABOLITES) NEGATIVE N MARIJUANA METABOLITES (50 ng/mL SCREEN) (test code = MARIJUANA METABOLITES (50 ng/mL SCREEN)) NEGATIVE N METHADONE (test code = METHADONE) NEGATIVE N OPIATES (test code = OPIATES) POSITIVE A MORPHINE (test code = MORPHINE) NEGATIVE CONFIRMED N CODEINE (test code = CODEINE) NEGATIVE CONFIRMED N HYDROMORPHONE (test code = HYDROMORPHONE) NEGATIVE CONFIRMED N HYDROCODONE (test code = HYDROCODONE) POSITIVE A PHENCYCLIDINE (test code = PHENCYCLIDINE) NEGATIVE N PROPOXYPHENE (test code = PROPOXYPHENE) NEGATIVE N See Comment (test code = See Comment) See Comment THE SUBMITTED URINE SPECIMEN WAS TESTED AT THE LISTED CUTOFF LEVELS AND CONFIRMED BY A SECOND INDEPENDENT CHEMICAL METHOD. DRUG CLASS INITIAL CUTOFF LEVEL AMPHETAMINES 1000 ng/mL BARBITURATES 300 ng/mL BENZODIAZEPINES 300 ng/mL COCAINE METABOLITES 300 ng/mL MARIJUANA METABOLITES 50 ng/mL METHADONE 300 ng/mL OPIATES 300 ng/mL PHENCYCLIDINE 25 ng/mL PROPOXYPHENE 300 ng/mL [facility][Q] Clostridium difficile Toxin/GDH with reflex to [id number] 15:39:00* Test Item Value Reference Range Interpretation Comments Clostridium Difficile Toxin/GDH w/Refl t o PCR (test code = Clostridium Difficile Toxin/GDH w/Refl to PCR) See Comment CLOSTR IDIUM DIFFICILE TOXIN/GDH W/REFL TO PCR MICRO NUMBER: [id number] TEST STATUS: FINAL SPECIMEN SOURCE: STOOL SPECIMEN QUALITY: ADEQUATE GDH ANTIGEN: Not Detected TOXIN A AND B: Not Detected COMMENT: No toxigenic C. difficile detected For additional information, please refer to http://education.[employer]/faq/NTE050 (This link is being provided for informational/educational purposes only.) [facility]] CMP W/[id number] 16:28:00* Test Item Value Reference Range Interpretation Comments GLUCOSE; Normal (test code = 1547-9) 133 mg/dl 65-139 N Non-fasting reference interval UREA NITROGEN (BUN) (test code = UREA NITROGEN (BUN)) 18 mg/dl 7-25 N CREATININE (test code = CREATININE) 0.66 mg/dl 0.50-0.99 N For patients >49 years of age, the reference limitfor Creatinine is approximately 13% higher for peopleidentified as -Jordanian. eGFR NON- (test code = eGFR NON-CATY N THAI) 96 {ML/MIN/1.7} > OR = 60 N eGFR (test code = eGFR ) 11 1 {ML/MIN/1.7} > OR = 60 N BUN/CREATININE RATIO (test code = BUN/CREATININE RATIO) NOT APPLICA BLE 6-22 SODIUM (test code = SODIUM) 136 mmol/L 135-146 N POTASSIUM (test code = POTASSIUM) 3.9 mmol/L 3.5-5.3 N CHLORIDE (test code = CHLORIDE) 102 mmol/L 98-110 N CARBON DIOXIDE (test code = CARBON DIOXIDE) 21 mmol/L 20-32 N CALCIUM (test code = CALCIUM) 9.8 mg/dl 8.6-10.4 N PROTEIN, TOTAL (test code = PROTEIN, TOTAL) 7.7 g/dl 6.1-8.1 N ALBUMIN (test code = ALBUMIN) 4.7 g/dl 3.6-5.1 N GLOBULIN (test code = GLOBULIN) 3.0 {G/DL CALC} 1.9-3.7 N ALBUMIN/GLOBULIN RATIO (test code = ALBUMIN/GLOBULIN RATIO) 1.6 {CALC} 1.0-2.5 N BILIRUBIN, TOTAL; Normal (test code = 39327-5) 0.3 mg/dl 0.2-1.2 N ALKALINE PHSPHATASE (test code = ALKALINE PHSPHATASE) 82 u/l 33-130 N AST; Normal (test code = 1916-6) 16 u/l 10-35 N ALT; Normal (test code = 1742-6) 19 u/l 6-29 N [facility]] CBC (INCLUDES DIFF/PLT)2018-05-29 16:28:00* Test Item Value Reference Range Interpretation Comments WHITE BLOOD CELL COUNT (test code = WHITE BLOOD CELL COUNT) 7.2 {Thousand/u} 3.8-10.8 N RED BLOOD CELL COUNT (test code = RED BLOOD CELL COUNT) 4.75 {Million/uL} 3.80-5.10 N HEMAGLOBIN; Normal (test code = 60147-9) 13.4 g/dl 11.7-15.5 N HEMATOCRIT; Normal (test code = 4544-3) 39.6 % 35.0-45.0 N MCV; Normal (test code = 787-2) 83.4 fL 80.0-100.0 N MCHC; Normal (test code = 71462-2) 33.8 g/dl 32.0-36.0 N RDW; Normal (test code = 788-0) 14.2 % 11.0-15.0 N PLATELET COUNT; Normal (test code = 777-3) 398 {Thousand/u} 140-400 N MPV; Normal (test code = 86477-6) 8.3 fL 7.5-12.5 N ABSOLUTE NEUTROPHILS (test code = ABSOLUTE NEUTROPHILS) 3794 {cells/uL} 2088-7529 N ABSOLUTE LYMPHOCYTES (test code = ABSOLUTE LYMPHOCYTES) 2894 {cells/uL} 850-3900 N ABSOLUTE MONOCYTES (test code = ABSOLUTE MONOCYTES) 374 {cells/uL} 200-950 N ABSOLUTE EOSINOPHILS (test code = ABSOLUTE EOSINOPHILS) 94 {cells/u L} 15-500 N ABSOLUTE BASOPHILS (test code = ABSOLUTE BASOPHILS) 43 {cells/uL} 0 -200 N NEUTROPHILS (test code = NEUTROPHILS) 52.7 % N LYMPHOCYTES (test code = LYMPHOCYTES) 40.2 % N MONOCYTES; Normal (test code = 40292-0) 5.2 % N EOSINOPHILS; Normal (test code = 25635-7) 1.3 % N BASOPHILS; Normal (test code = 40469-8) 0.6 % N [facility]] [id number] 16:28:00* Test Item Value Reference Range Interpretation Comments AMYLASE (test code = AMYLASE) 27 u/l 21-101 N [facility]] [id number] 16:28:00* Test Item Value Reference Range Interpretation Comments LIPASE (test code = LIPASE) 38 u/l 7-60 [facility] [id number] 16:07:00EXAM: CT ABDOMEN AND PELVIS WITHOUT CONTRASTDATE: 05/29/2018 16:07 CSTINDICATION: - R10.9 Unspecified abdominal painADDITIONAL INFORMATION: None.COMPARISON: None.TECHNIQUE: Volumetric CT acquisition of the abdomen and pelvis withoutintravenous contrast. Axial, coronal and sagittal reconstructions. IV contrast: None Oral contrast: None. DLP: 1092mGy/cmFINDINGS: Lines and tubes: None.Lower thorax: Lung bases are clear. No pleural or pericardial effusions areseen.Liver: Pneumobilia is identified predominantly in the left lobe most likelysecondary to postsurgical changes. Focal fatty change noted in the falciformligament region. Liver is enlarged measuring 20 cm in length. Liver givesdensity measurements of 44-46, this may indicate changes of hepatic steatosis.Correlate with LFTs.A 1.5 cm ill-defined area of hypoattenuation is noted in segment 6 image 40 ofCT 602B. This may represent focal fatty change. Correlate withcontrast-enhanced CT abdomen pelvis for further evaluation.Biliary tree: No intra- or extrahepatic biliary ductal dilation.Gallbladder: Status post cholecystectomyPancreas: Normal.Spleen: Normal.Adrenals: Normal.Kidneys and ureters: Bilateral perinephric fat stranding greater on the right.No hydronephrosis or hydroureter. No radiopaque calculiBladder: Normal.Reproductive organs: Surgically absentGastrointestinal tract:The stomach shows postsurgical changes at the GEjunction. Correlate with prior surgical history.. Single diverticulumidentified in the region of sigmoid colon with no evidence of acutediverticulitis. The small intestine and colon are of normal course and caliberwith no constricting or obstructing lesions, masses, or guillen rroundinginflammatory changes. No rectal or perirectal abnormalities are seen.Ap pendix: NonvisualizedPeritoneum and retroperitoneum: Multiple small subcentimete r fatty nodes in thepara-aortic and iliac chains. Small shotty nodes are also pr esent in themesentery. No fluid collection.Lymph nodes: No abdominal or pelvic lymphadenopathy is seen.Vasculature: Focal dense calcifications identified at th e origin of thebilateral renal arteries. Minimal atheromatous calcifications frandy ntified withinthe infrarenal abdominal aorta and proximal iliac arteries. No ane urysmaldilation.Bones: Bilateral subchondral sclerosis in the femoral heads, may indicatechanges of avascular necrosis. Correlate with plain films. Hyper attenu atingmaterial noted at the intervertebral disc at T10-T11, may indicate changes ofdiscoplasty or intervertebral disc calcification.Soft tissues/abdominal wall: Normal. No hernias, masses, or fluid collectionsare seen.IMPRESSION: 1. Hepatome bob with mildly decreased liver attenuation may indicate changes ofhepatic stea tosis. Correlate with LFTs. Ill-defined hypoattenuating focussegment 6 liver, co rrelate with contrast-enhanced liver protocol CT for furtherevaluation. This may represent focal fatty change.2. Status post cholecystectomy with pneumobilia pr obably secondary to priorintervention.3. Bilateral perinephric fat stranding lef t greater than right. Nohydronephrosis or hydroureter, no radiopaque calculi. Co rrelate withurinalysis.4. Postoperative changes at GE junction. Correlate with s urgical history.5. Subchondral sclerosis bilateral femoral heads,? Avascular nec rosis.6. Single sigmoid diverticulum, no evidence of acute diverticulitis.--Read by: Sofía Whitlock MDDictated Date/time: 05/30/18 08:21Electroni danilo Signed by: Sofía Whitlock 05/30/1808:50FINAL R [facility] Tib Fib wo contrast [id number] 07:47:00EXAM: Tib Fib wo contrast MRIDATE: 04/29/2018 at 0758 hours.INDICATION: L03.116 Cellulitis of left lower limb.COMPARISON: None available.TECHNIQUE: Multiplanar, multisequence, MRI of left tibia/fibula without theadministration of intravenous contrast.IV contrast: None.FINDINGS:A superficial skin marker is placed at the anterior aspect of the distal leg tomark the area of concern (image 19, series 2).BONES:No fracture.No confluent loss of T1 signal is identified to suggest acute osteomyelitis.No bone marrow edema is appreciated.MUSCLES:Generalized muscle atrophy is most notable within the posterior compartment. Nomuscular edema or fluid collection is identified (image 12, series 3).TENDONS:No focal tendon signal abnormality, or evidence for tenosynovitis.SOFT TISSUES:There is diffuse soft tissue edema which is most notable along the anterior andposterolateral aspect of the distal leg. Superficial soft tissue thickening ismost notable anteriorly. No organized/drainable soft tissue collections areidentified.No abnormality of the visible neurovascular structures.IMPRESSION:1. Soft tissue cellulitis along the distal half of the LEFT leg. Noorganized/drainable soft tissue collections are identified.2. There is no MRI evidence for acute osteomyelitis.--Read by: Dora Carrero MDDictated Date/time: 04/29/18 10:02Electronically Maty d by: Dora Carrero MD 04/29/1810:11FINAL REPORT [facility] Rnhzofw9635-71-26 07:50:00* Test Item Value Reference Range Interpretation Comments Bedside Glucose (test code = 24994-8) 91 70-120 Meter ID: [id number] [facility] Glucose 2018-03-27 07:50:00* Test Item Value Reference Range Interpretation Comments Bedside Glucose (test code = 20602-2) 91 70-120 Meter ID: [id number] Methodist Clear [facility] HospitalDifferential Total Cells Bfewjpd5278-44-09 11:46:00* Test Item Value Reference Range Interpretation Comments Differential Total Cells Counted (test code = Wesley carlin Total Cells Counted) 100 [facility] HospitalNeutrophils % (Manual)2018-03-26 11:46:00 * Test Item Value Reference Range Interpretation Comments Neutrophils % (Manual) (test code = 06403-6) 66 40-74 [facility] HospitalBand Neutrophils %2018-03-26 11:46:00* Test Item Value Reference Range Interpretation Comments Band Neutrophils % (test code = 764-1) 1 [facility] HospitalLymphocytes % (Manual)2018-03-26 11:46:00 * Test Item Value Reference Range Interpretation Comments Lymphocytes % (Manual) (test code = 737-7) 26 19-48 [facility] HospitalMonocytes % (Manual)2018-03-26 11:46:00* Test Item Value Reference Range Interpretation Comments Monocytes % (Manual) (test code = 744-3) 3 3.4-9.0 L [facility] HospitalEosinophils % (Manual)2018-03-26 11:46:00 * Test Item Value Reference Range Interpretation Comments Eosinophils % (Manual) (test code = 714-6) 3 0-7 [facility] HospitalMetamyelocytes %2018-03-26 11:46:00* Test Item Value Reference Range Interpretation Comments Metamyelocytes % (test code = 740-1) 1 0-0 H [facility] HospitalPlatelet Plfhivob3387-45-29 11:46:00* Test Item Value Reference Range Interpretation Comments Platelet Estimate (test code = 43565-2) ADEQUATE [facility] HospitalPlatelet Morphology Vaahrco6585-04-79 11:46:00* Test Item Value Reference Range Interpretation Comments Platelet Morphology Comment (test code = 65054-6) FEW LARGE [facility] HospitalHypochromasia2018-10-09 11:46:00* Test Item Value Reference Range Interpretation Comments Hypochromasia (test code = 728-6) MODERATE [facility] HospitalRed Cell Morphology Ekejzoc7264-81-33 11:46:00* Test Item Value Reference Range Interpretation Comments Red Cell Morphology Comment (test code = 6742-1) ABNORMAL [facility] HospitalDifferential Total Cells Counted 2018-03-26 11:46:00* Test Item Value Reference Range Interpretation Comments Differential Total Cells Counted (test code = Differglynn tial Total Cells Counted) 100 [facility] HospitalNeutrophils % (Manual)2018-03-26 11:46:00 * Test Item Value Reference Range Interpretation Comments Neutrophils % (Manual) (test code = 82823-3) 66 40-74 [facility] HospitalBand Neutrophils %2018-03-26 11:46:00* Test Item Value Reference Range Interpretation Comments Band Neutrophils % (test code = 764-1) 1 [facility] HospitalLymphocytes % (Manual)2018-03-26 11:46:00 * Test Item Value Reference Range Interpretation Comments Lymphocytes % (Manual) (test code = 737-7) 26 19-48 [facility] HospitalMonocytes % (Manual)2018-03-26 11:46:00* Test Item Value Reference Range Interpretation Comments Monocytes % (Manual) (test code = 744-3) 3 3.4-9.0 L [facility] HospitalEosinophils % (Manual)2018-03-26 11:46:00 * Test Item Value Reference Range Interpretation Comments Eosinophils % (Manual) (test code = 714-6) 3 0-7 [facility] HospitalMetamyelocytes %2018-03-26 11:46:00* Test Item Value Reference Range Interpretation Comments Metamyelocytes % (test code = 740-1) 1 0-0 H [facility] HospitalPlatelet Dzjvgfyy1705-96-53 11:46:00* Test Item Value Reference Range Interpretation Comments Platelet Estimate (test code = 41926-0) ADEQUATE [facility] HospitalPlatelet Morphology Nzsvpst0807-37-21 11:46:00* Test Item Value Reference Range Interpretation Comments Platelet Morphology Comment (test code = 88754-9) FEW LARGE [facility] HospitalHypochromasia2018-10-09 11:46:00* Test Item Value Reference Range Interpretation Comments Hypochromasia (test code = 728-6) MODERATE [facility] HospitalRed Cell Morphology Igtwywy8384-28-28 11:46:00* Test Item Value Reference Range Interpretation Comments Red Cell Morphology Comment (test code = 6742-1) ABNORMAL [facility] HospitalCarbon Dioxide Dzbao0416-53-23 08:44:00* Test Item Value Reference Range Interpretation Comments Carbon Dioxide Level (test code = 2028-9) 19 22-29 L [facility] HospitalAnion Wgf6034-11-23 08:44:00* Test Item Value Reference Range Interpretation Comments Anion Gap (test code = 02987-4) 21.5 8-16 H [facility] HospitalWhite Blood Uvtkc2495-47-15 07:49:00* Test Item Value Reference Range Interpretation Comments White Blood Count (test code = 6690-2) 5.95 4.8-10.8 [facility] HospitalRed Blood Uooya4308-55-31 07:49:00* Test Item Value Reference Range Interpretation Comments Red Blood Count (test code = 789-8) 3.24 3.6-5.1 L [facility] HospitalHemoglobin2018-10-09 07:49:00* Test Item Value Reference Range Interpretation Comments Hemoglobin (test code = 36844-4) 9.2 12.0-16.0 L [facility] HospitalHematocrit2018-10-09 07:49:00* Test Item Value Reference Range Interpretation Comments Hematocrit (test code = 4544-3) 28.6 34.2-44.1 L [facility] HospitalMean Corpuscular Vinfqu6504-40-07 07:49:00* Test Item Value Reference Range Interpretation Comments Mean Corpuscular Volume (test code = 787-2) 88.3 81-99 [facility] HospitalMean Corpuscular Cqaumffcss6534-71-98 07:49:00* Test Item Value Reference Range Interpretation Comments Mean Corpuscular Hemoglobin (test code = 785-6) 28.4 28-32 [facility] HospitalMean Corpuscular Hemoglobin Concent 2018-03-26 07:49:00* Test Item Value Reference Range Interpretation Comments Mean Corpuscular Hemoglobin Concent (test code = 786-4) 32.2 31-35 [facility] HospitalRed Cell Distribution Dkour8118-09-13 07:49:00* Test Item Value Reference Range Interpretation Comments Red Cell Distribution Width (test code = 45993-5) 12.8 11.7 -14.4 [facility] HospitalPlatelet Krtzw3819-89-39 07:49:00* Test Item Value Reference Range Interpretation Comments Platelet Count (test code = 777-3) 335 140-360 [facility] HospitalNeutrophils (%) (Auto)2018-03-26 07:49:00 * Test Item Value Reference Range Interpretation Comments Neutrophils (%) (Auto) (test code = 42331-2) 53.3 38.7-80.0 [facility] HospitalLymphocytes (%) (Auto)2018-03-26 07:49:00 * Test Item Value Reference Range Interpretation Comments Lymphocytes (%) (Auto) (test code = 736-9) 30.9 18.0-39.1 [facility] HospitalMonocytes (%) (Auto)2018-03-26 07:49:00* Test Item Value Reference Range Interpretation Comments Monocytes (%) (Auto) (test code = 5905-5) 6.6 4.4-11.3 [facility] HospitalEosinophils (%) (Auto)2018-03-26 07:49:00 * Test Item Value Reference Range Interpretation Comments Eosinophils (%) (Auto) (test code = 713-8) 1.8 0.0-6.0 [facility] HospitalBasophils (%) (Auto)2018-03-26 07:49:00* Test Item Value Reference Range Interpretation Comments Basophils (%) (Auto) (test code = 706-2) 0.5 0.0-1.0 [facility] HospitalIM GRANULOCYTES %2018-03-26 07:49:00* Test Item Value Reference Range Interpretation Comments IM GRANULOCYTES % (test code = IM GRANULOCYTES %) 6.9 0.0- 1.0 H [facility] HospitalNeutrophils # (Auto)2018-03-26 07:49:00* Test Item Value Reference Range Interpretation Comments Neutrophils # (Auto) (test code = 751-8) 3.2 2.1-6.9 [facility] HospitalLymphocytes # (Auto)2018-03-26 07:49:00* Test Item Value Reference Range Interpretation Comments Lymphocytes # (Auto) (test code = 42040-1) 1.8 1.0-3.2 [facility] HospitalMonocytes # (Auto)2018-03-26 07:49:00* Test Item Value Reference Range Interpretation Comments Monocytes # (Auto) (test code = 742-7) 0.4 0.2-0.8 [facility] HospitalEosinophils # (Auto)2018-03-26 07:49:00* Test Item Value Reference Range Interpretation Comments Eosinophils # (Auto) (test code = 711-2) 0.1 0.0-0.4 [facility] HospitalBasophils # (Auto)2018-03-26 07:49:00* Test Item Value Reference Range Interpretation Comments Basophils # (Auto) (test code = 704-7) 0.0 0.0-0.1 [facility] HospitalAbsolute Immature Granulocyte (auto 2018-03-26 07:49:00* Test Item Value Reference Range Interpretation Comments Absolute Immature Granulocyte (auto (fidel t code = Absolute Immature Granulocyte (auto) 0.41 0-0.1 [facility] Ghgtu8545-05-98 06:50:00* Test Item Value Reference Range Interpretation Comments Sodium Level (test code = 2951-2) 140 136-145 [facility] HospitalPotassium Ggbul3185-11-82 06:50:00* Test Item Value Reference Range Interpretation Comments Potassium Level (test code = 2823-3) 3.5 3.5-5.1 [facility] HospitalChloride Ntgdu4513-32-91 06:50:00* Test Item Value Reference Range Interpretation Comments Chloride Level (test code = 2075-0) 103 98-107 [facility] HospitalBlood Urea Pqbjosqs2939-10-40 06:50:00* Test Item Value Reference Range Interpretation Comments Blood Urea Nitrogen (test code = 3094-0) 8 7-26 [facility] HospitalCreatinine2018-10-09 06:50:00* Test Item Value Reference Range Interpretation Comments Creatinine (test code = 2160-0) 0.69 0.57-1.11 [facility] HospitalBUN/Creatinine Mdfkf9205-35-93 06:50:00* Test Item Value Reference Range Interpretation Comments BUN/Creatinine Ratio (test code = 3097-3) 12 6-25 [facility] HospitalEstimat Glomerular Filtration Rate 2018-03-26 06:50:00* Test Item Value Reference Range Interpretation Comments Estimat Glomerular Filtration Rate (test code = 106754235) 60- >60 Ranges were taken from the National Kidney Disease Education Program and the [facility] [employer] literature.Reference ranges:60 or greater: Nigtfu41-95 ( for 3 consecutive months): Chronic kidney disease 15 or less: Kidney failureHouston Methodist Clear Lake HospitalGlucose Ovjim2091-47-37 06:50:00* Test Item Value Reference Range Interpretation Comments Glucose Level (test code = JRR6289) 111 74-118 [facility] HospitalCalcium Jhtmv1634-94-83 06:50:00* Test Item Value Reference Range Interpretation Comments Calcium Level (test code = 60948-4) 7.5 8.4-10.2 L [facility] HospitalVancomycin Level Xmzppc4029-91-11 09:25:00* Test Item Value Reference Range Interpretation Comments Vancomycin Level Trough (test code = 4092-3) 5.6 5.0-10.0 [facility] HospitalVancomycin Level Ouslqn2186-01-65 09:25:00* Test Item Value Reference Range Interpretation Comments Vancomycin Level Trough (test code = 4092-3) 5.6 5.0-10.0 [facility] HospitalBlood Tmrwdgz7510-52-13 20:38:00* Test Item Value Reference Range Interpretation Comments Blood Culture (test code = 25792479) NO GROWTH AFTER 5 DAYS, FINAL REPORT [facility] HospitalBlood Pueyeik1024-42-04 20:38:00* Test Item Value Reference Range Interpretation Comments Blood Culture (test code = 68366517) NO GROWTH AFTER 5 DAYS, FINAL REPORT [facility] HospitalUrine Mrieq5311-35-18 00:52:00* Test Item Value Reference Range Interpretation Comments Urine Color (test code = 5778-6) YELLOW YELLOW [facility] HospitalUrine Gfqztsj5259-11-18 00:52:00* Test Item Value Reference Range Interpretation Comments Urine Clarity (test code = 26558-4) CLEAR CLEAR [facility] HospitalUrine Specific Kwtgvnk6597-89-48 00:52:00 * Test Item Value Reference Range Interpretation Comments Urine Specific [place] (test code = 5811-5) 1.005 1.010-1.02 5 L [facility] HospitalUrine pD1364-10-59 00:52:00* Test Item Value Reference Range Interpretation Comments Urine pH (test code = 41822-1) 6 5-7 [facility] HospitalUrine Leukocyte Nfmgenuh4239-80-88 00:52:00* Test Item Value Reference Range Interpretation Comments Urine Leukocyte Esterase (test code = 5799-2) NEGATIVE NEGATIVE [facility] HospitalUrine Xvtjcwk6515-62-61 00:52:00* Test Item Value Reference Range Interpretation Comments Urine Nitrite (test code = 07323-2) NEGATIVE NEGATIVE [facility] HospitalUrine Sktybya8905-40-00 00:52:00* Test Item Value Reference Range Interpretation Comments Urine Protein (test code = 5804-0) NEGATIVE NEGATIVE [facility] HospitalUrine Glucose (UA)2018-03-19 00:52:00* Test Item Value Reference Range Interpretation Comments Urine Glucose (UA) (test code = 2349-9) 3+ NEGATIVE H [facility] Qkxmfcx9956-75-67 00:52:00* Test Item Value Reference Range Interpretation Comments Urine Ketones (test code = 25019-1) NEGATIVE NEGATIVE [facility] Urqoqtsxnchl9947-99-49 00:52:00* Test Item Value Reference Range Interpretation Comments Urine Urobilinogen (test code = 04706-2) 0.2 0.2-1 [facility] Llglwtgkb9738-34-81 00:52:00* Test Item Value Reference Range Interpretation Comments Urine Bilirubin (test code = 1978-6) NEGATIVE NEGATIVE [facility] HospitalUrine Ezkgt5700-36-17 00:52:00* Test Item Value Reference Range Interpretation Comments Urine Blood (test code = 80843-2) NEGATIVE NEGATIVE [facility] HospitalUrine GWB9234-31-46 00:52:00* Test Item Value Reference Range Interpretation Comments Urine WBC (test code = 5821-4) 0-5 0-5 [facility] HospitalUrine STV0999-29-94 00:52:00* Test Item Value Reference Range Interpretation Comments Urine RBC (test code = 26548-8) 0-5 0-5 [facility] HospitalUrine Oyypqpwu8076-13-37 00:52:00* Test Item Value Reference Range Interpretation Comments Urine Bacteria (test code = 47640-9) NONE NONE [facility] HospitalUrine Epithelial Griwt0240-64-80 00:52:00 * Test Item Value Reference Range Interpretation Comments Urine Epithelial Cells (test code = 83101-6) FEW NONE [facility] HospitalUrine Renal Epithelial Kxijv9770-37-41 00:52:00* Test Item Value Reference Range Interpretation Comments Urine Renal Epithelial Cells (test code = 82822-0) FEW NON E H [facility] HospitalUrine Txjvt6434-63-93 00:52:00* Test Item Value Reference Range Interpretation Comments Urine Mucus (test code = 8247-9) FEW RARE H [facility] HospitalUrine Renal Epithelial Yomwu4586-33-22 00:52:00* Test Item Value Reference Range Interpretation Comments Urine Renal Epithelial Cells (test code = 21497-3) FEW NON E H [facility] HospitalUrine Hebfq2872-20-31 00:52:00* Test Item Value Reference Range Interpretation Comments Urine Mucus (test code = 8247-9) FEW RARE H [facility] HospitalCreatine Kinase MK7719-57-87 21:07:00* Test Item Value Reference Range Interpretation Comments Creatine Kinase MB (test code = 00093-4) 0.70 0-5.0 [facility] HospitalTroponin F7485-07-81 21:07:00* Test Item Value Reference Range Interpretation Comments Troponin I (test code = YQX4215) -0.001 0-0.300 [facility] HospitalTotal Qcljemmhi7645-56-50 20:57:00* Test Item Value Reference Range Interpretation Comments Total Bilirubin (test code = 1975-2) 0.4 0.2-1.2 [facility] HospitalAspartate Amino Transf (AST/SGOT) 2018-03-18 20:57:00* Test Item Value Reference Range Interpretation Comments Aspartate Amino Transf (AST/SGOT) (test code = Aspartate Amino Transf (AST/SGOT)) 13 5-34 [facility] HospitalAlanine Aminotransferase (ALT/SGPT) 2018-03-18 20:57:00* Test Item Value Reference Range Interpretation Comments Alanine Aminotransferase (ALT/SGPT) (test code = 1742-6) 19 0-55 [facility] HospitalTotal Sqnnjbp9403-10-48 20:57:00* Test Item Value Reference Range Interpretation Comments Total Protein (test code = 2885-2) 7.4 6.5-8.1 [facility] HospitalAlbumin2018-10-01 20:57:00* Test Item Value Reference Range Interpretation Comments Albumin (test code = 1751-7) 3.6 3.5-5.0 [facility] HospitalGlobulin2018-10-01 20:57:00* Test Item Value Reference Range Interpretation Comments Globulin (test code = 63899-3) 3.8 2.3-3.5 H [facility] HospitalAlbumin/Globulin Vdhzt4692-00-85 20:57:00 * Test Item Value Reference Range Interpretation Comments Albumin/Globulin Ratio (test code = 1759-0) 0.9 0.8-2.0 [facility] HospitalAlkaline Aedqfrxonbs6773-36-47 20:57:00* Test Item Value Reference Range Interpretation Comments Alkaline Phosphatase (test code = 6768-6) 66 40-150 [facility] HospitalCreatine Vbarkc0648-78-17 20:57:00* Test Item Value Reference Range Interpretation Comments Creatine Kinase (test code = 2157-6) 150 29-168 [facility] HospitalLactic Acid Xbtnt9471-75-93 20:52:00* Test Item Value Reference Range Interpretation Comments Lactic Acid Level (test code = Lactic Acid Level) 25.1 4.5- 19.8 HH Results called to DORIAN SORTO at 2050 on 03/18/18 by GRICELDA RAM. RB [place].[facility] HospitalLactic Acid Ouabw7910-89-83 20:52:00* Test Item Value Reference Range Interpretation Comments Lactic Acid Level (test code = Lactic Acid Level) 25.1 4.5- 19.8 HH Results called to DORIAN SORTO at 2050 on 03/18/18 by GRICELDA RAM. [place].[facility] HospitalCHEST 2 OIUYL7178-68-18 19:58:00 [facility] [address] [address] Patient Name: LAURYN COLLINS MR #: [id number] : 1 Age/Sex: 57/F Req #: [id number] Adm Physician: Ordered by: DELIA GOMEZ MD Report #: [id number] Location: ER Room/ Bed: Procedure: [id number] DX/CHEST 2 VIEWS Exam Date : 03/18/18 Exam Time: 1939 REPORT STATUS: Maty d Frontal and lateral views of the chest. HISTORY: Fever COMPARISON: None available. DISCUSSION: Soft tissue attenuation partially limit s sensitivity of the exam. Lungs: The lungs are well inflated. No evidence of a consolidative pneumonia or pulmonary alveolar edema. Pleura: No pleural effusion or pneumothorax. Heart and mediastinum: The car diomediastinal silhouette appears unremarkable. Bones: Mild multilevel degenerative changes of the thoracic spine and accentuation of the thoracic ky phosis. IMPRESSION: 1. No acute radiographic abnormality. 2. Spec ifically, no pneumonia. Signed by: Dr. Dimas Crenshaw D.O., M.M.M. on 03/18/20 7:59 PM Dictated By: DIMAS CRENSHAW DO 56 Transcribed By: THEA on 03/18/181958 COPY TO : DELIA GOMEZ MD Influenza Virus Types A,B Xwlgwub5816-78-63 17:56:00* Test Item Value Reference Range Interpretation Comments Influenza Virus Types A,B Antigen (test code = 73455-4) [facility]IVE [facility]IVE [facility]igen 2018-03-18 17:56:00* Test Item Value Reference Range Interpretation Comments Influenza Virus Types A,B Antigen (test code = 14594-9) NEGATIVE NEGATIVE [facility][O] Hemoglobin A1c (in office)2018-02-08 15:01:00* Test Item Value Reference Range Interpretation Comments HEMOGLOBIN A1c (test code = 4548-4) 8.0 [facility] PhysiciansGlucose ([facility] In [facility])2018-02-08 15:01:00* Test Item Value Reference Range Interpretation Comments Glucose POC Lifescan (test code = Glucose POC Lifescan) 93 [facility] PhysiciansXRAY Hip 1 view [id number] 11:56:00EXAM: XR LEFT HIP 1 VIEWDATE: 02/06/2018 11:56 AM CDTINDICATION: - M25.552 Pain in left hipCOMPARISON: None.TECHNIQUE: 1 view of the hip including the pelvi sFINDINGS: No acute fracture or malalignment is identified. Hip jointspace s are preserved.Soft tissue calcifications project over the left hip.IMPRESSION: 1. No acute fracture or malalignment.2. No significant degenerative change of the left hip.--This report was dictated by a Automobile Designer/Fellow. I have personallyreviewed the images aswell as the Resident's interpretation and agree with the findings.Read by: Bertha Price MD Resident: Bertha MoralesDDictated Date/time: 02/06/18 13:24Electronically Signed by: Calixto Isbell MD 02/08/1812:14FINAL REPORTUnSpanish [facility]ork [facility] PhysiciansXRAY Ribs unilateral [id number] 11:56:00EXAM: XR LEFT RIB 2 VIEWS DATE: 02/06/2018 11:56 AM CDTINDICATION: - R07.81 PleurodyniaCOMPARISON: Chest radiographs 11/17/2015TECHNIQUE: Frontal and obli que views of the ribsFINDINGS: No displaced rib fracture or other acute bony ab normality isidentified. The lungs are clear without pneumothorax. The heart si ze is within normallimits. Cholecystectomy clips are present.IMPRESSION: No disp laced left rib fractures.--This report was dictated by a Automobile Designer/Fell ow. I have personallyreviewed the images aswell as the Resident's interpretatio n and agree with the findings.Read by: Bertha Price MD Res ident: Bertha PricegMDDictated Date/time: 02/06/18 13:26Electronically S igned by: Calixto Isbell MD 02/08/1812:19FINAL REPORT [facility] PhysiciansCT BRAIN CF2670-95-80 11:01:[address] [address] Patient Name: LAURYN COLLINS MR #: [id number] : 1960 Age/Sex: 57/F Req #: [id number] Adm Physician: Ordered by: ROHAN TURNER MD Report #: [id number] Location: ER Room/Bed: Procedure: [id number] CT/CT BRAIN WO Exam Date: Exam Time: 08 REPORT STATUS: Signed History:Syncopal episodes Comparison studies:None Technique: Axial jonnathan ges were obtained from the skull base to the vertex. Coronal and sagittal imag es reconstructed from the axial data. Intravenous contrast: None Findings : Scalp/skull: No abnormalities. Extra-axial spaces: No masses. No fluid collections. Brain sulci: Age-appropriate. Ventricles: Age-appr opriate. No hydrocephalus. Parenchyma: Few small hypodensities in the guillen pratentorial white matter are small vessel ischemic changes. Chronic lacunar i nfarct at the right putamen. No masses, hemorrhage, acute or chronic cortical vascular insults. Sellar/suprasellar region: No abnormalities. Craniocerv ical junction: Patent foramen magnum. No Chiari one malformation. Incident al findings: Atherosclerotic calcifications in the carotid siphons and vertebr al arteries . Impression: No acute abnormalities. Chronic finding s: 1. Mild supratentorial white matter small vessel ischemic changes. Si gned by: DR Pedro Metzger M.D. on 12/01/2017 11:04 AM Dictated By: PEDRO VALENCIA MD 1104 COPY TO: ELLIOT TURNER MD Urine [id number] 08:28:00* Test Item Value Reference Range Interpretation Comments Urine WBC (test code = 5821-4) 11-20 0-5 H [facility] HospitalUrine ZAE8918-71-01 08:28:00* Test Item Value Reference Range Interpretation Comments Urine RBC (test code = 24105-2) 0-5 0-5 [facility] HospitalUrine Qrmkllza0502-32-63 08:28:00* Test Item Value Reference Range Interpretation Comments Urine Bacteria (test code = 59495-7) FEW NONE [facility] HospitalU[facility] Epithelial [id number] 08:28:00 * Test Item Value Reference Range Interpretation Comments Urine Epithelial Cells (test code = 27942-2) MODERATE NONE [facility] HospitalUrine Renal Epithelial Omyrl3611-23-09 08:28:00* Test Item Value Reference Range Interpretation Comments Urine Renal Epithelial Cells (test code = 87433-8) RARE NON E H [facility] HospitalUrine [id number] 08:28:00* Test Item Value Reference Range Interpretation Comments Urine Mucus (test code = 8247-9) FEW RARE H [facility] HospitalCreatine Kinase [id number] 08:11:00* Test Item Value Reference Range Interpretation Comments Creatine Kinase MB (test code = 17952-6) 1.00 0-5.0 [facility] HospitalTroponin [id number] 08:11:00* Test Item Value Reference Range Interpretation Comments Troponin I (test code = ALH9918) -0.001 0-0.300 [facility] Zehnx7247-44-15 08:09:00* Test Item Value Reference Range Interpretation Comments Sodium Level (test code = 2951-2) 141 136-145 [facility] HospitalPotassium Loibj3369-30-21 08:09:00* Test Item Value Reference Range Interpretation Comments Potassium Level (test code = 2823-3) 4.5 3.5-5.1 [facility] HospitalChloride Uplwb9601-05-75 08:09:00* Test Item Value Reference Range Interpretation Comments Chloride Level (test code = 2075-0) 105 98-107 [facility] HospitalCarbon Dioxide Yljod2045-37-31 08:09:00* Test Item Value Reference Range Interpretation Comments Carbon Dioxide Level (test code = 2028-9) 28 22-29 [facility] HospitalAnion Wth7496-61-53 08:09:00* Test Item Value Reference Range Interpretation Comments Anion Gap (test code = 05450-5) 12.5 8-16 [facility] HospitalBlood Urea Oblctfpj1839-84-05 08:09:00* Test Item Value Reference Range Interpretation Comments Blood Urea Nitrogen (test code = 3094-0) 16 7-26 [facility] HospitalCreatinine2018-06-16 08:09:00* Test Item Value Reference Range Interpretation Comments Creatinine (test code = 2160-0) 0.77 0.57-1.11 [facility] HospitalBUN/Creatinine Dzhlp9524-57-55 08:09:00* Test Item Value Reference Range Interpretation Comments BUN/Creatinine Ratio (test code = 3097-3) 21 6-25 [facility] HospitalEstimat Glomerular Filtration Rate 2017-12-01 08:09:00* Test Item Value Reference Range Interpretation Comments Estimat Glomerular Filtration Rate (test code = 05926-2) 60- >60 Ranges were taken from the National Kidney Disease Education Program and the [facility] literature.Reference ranges:60 or greater: Mvqlcy53-66 ( for 3 consecutive months): Chronic kidney disease 15 or less: Kidney failureHouston [facility] HospitalGlucose Kngqr1840-72-77 08:09:00* Test Item Value Reference Range Interpretation Comments Glucose Level (test code = OOH1934) 178 74-118 H [facility] HospitalCalcium Aijav8314-87-51 08:09:00* Test Item Value Reference Range Interpretation Comments Calcium Level (test code = 09253-3) 10.0 8.4-10.2 [facility] HospitalTotal Caqbqzgfs1205-11-16 08:09:00* Test Item Value Reference Range Interpretation Comments Total Bilirubin (test code = 1975-2) 0.3 0.2-1.2 [facility] HospitalAspartate Amino Transf (AST/SGOT) 2017-12-01 08:09:00* Test Item Value Reference Range Interpretation Comments Aspartate Amino Transf (AST/SGOT) (test code = Aspartate Amino Transf (AST/SGOT)) 11 5-34 [facility] HospitalAlanine Aminotransferase (ALT/SGPT) 2017-12-01 08:09:00* Test Item Value Reference Range Interpretation Comments Alanine Aminotransferase (ALT/SGPT) (test code = 1742-6) 23 0-55 [facility] HospitalTotal Qncxdsp8814-39-38 08:09:00* Test Item Value Reference Range Interpretation Comments Total Protein (test code = 2885-2) 7.5 6.5-8.1 [facility] HospitalAlbumin2018-06-16 08:09:00* Test Item Value Reference Range Interpretation Comments Albumin (test code = 1751-7) 3.7 3.5-5.0 [facility] HospitalGlobulin2018-06-16 08:09:00* Test Item Value Reference Range Interpretation Comments Globulin (test code = 12296-9) 3.8 2.3-3.5 H [facility] HospitalAlbumin/Globulin Qbkvc2197-48-47 08:09:00 * Test Item Value Reference Range Interpretation Comments Albumin/Globulin Ratio (test code = 1759-0) 1.0 0.8-2.0 [facility] HospitalAlkaline Vapgawolzku2938-04-78 08:09:00* Test Item Value Reference Range Interpretation Comments Alkaline Phosphatase (test code = 6768-6) 90 40-150 [facility] HospitalCreatine Rbbwye7759-49-63 08:09:00* Test Item Value Reference Range Interpretation Comments Creatine Kinase (test code = 2157-6) 63 29-168 [facility] HospitalUrine Cggle4096-79-13 08:08:00* Test Item Value Reference Range Interpretation Comments Urine Color (test code = 5778-6) YELLOW YELLOW [facility] HospitalUrine Zksbvpr2645-02-08 08:08:00* Test Item Value Reference Range Interpretation Comments Urine Clarity (test code = 81191-3) HAZY CLEAR [facility] HospitalUrine Specific Qjqfipz5855-24-71 08:08:00 * Test Item Value Reference Range Interpretation Comments Urine Specific [place] (test code = 5811-5) 1.015 1.010-1.02 5 [facility] HospitalUrine [id number] 08:08:00* Test Item Value Reference Range Interpretation Comments Urine pH (test code = 02713-6) 6 5-7 [facility] HospitalUrine Leukocyte Qzjpnhoi2207-66-25 08:08:00* Test Item Value Reference Range Interpretation Comments Urine Leukocyte Esterase (test code = 5799-2) 1+ NEGATIVE H [facility] HospitalUrine Mekensl1900-97-95 08:08:00* Test Item Value Reference Range Interpretation Comments Urine Nitrite (test code = 87607-1) NEGATIVE NEGATIVE [facility] HospitalUrine Twebllk4230-96-13 08:08:00* Test Item Value Reference Range Interpretation Comments Urine Protein (test code = 5804-0) NEGATIVE NEGATIVE [facility] HospitalUrine Glucose (UA)2017-12-01 08:08:00* Test Item Value Reference Range Interpretation Comments Urine Glucose (UA) (test code = 2349-9) 2+ NEGATIVE H [facility] HospitalUrine Tfiogvn7206-53-75 08:08:00* Test Item Value Reference Range Interpretation Comments Urine Ketones (test code = 27420-8) NEGATIVE NEGATIVE [facility] HospitalUrine Gvzfiafsljae8998-35-88 08:08:00* Test Item Value Reference Range Interpretation Comments Urine Urobilinogen (test code = 62086-6) 0.2 0.2-1 [facility] HospitalUrine Uggcqxldd8854-02-29 08:08:00* Test Item Value Reference Range Interpretation Comments Urine Bilirubin (test code = 1978-6) NEGATIVE NEGATIVE [facility] HospitalUrine Sodkf2993-91-12 08:08:00* Test Item Value Reference Range Interpretation Comments Urine Blood (test code = 45937-2) NEGATIVE NEGATIVE [facility] HospitalWhite Blood Pwtqz3555-40-21 07:52:00* Test Item Value Reference Range Interpretation Comments White Blood Count (test code = 6690-2) 6.60 4.8-10.8 [facility] HospitalRed Blood Kzpjd3307-79-26 07:52:00* Test Item Value Reference Range Interpretation Comments Red Blood Count (test code = 789-8) 4.58 3.6-5.1 [facility] HospitalHemoglobin2018-06-16 07:52:00* Test Item Value Reference Range Interpretation Comments Hemoglobin (test code = 42176-5) 13.3 12.0-16.0 [facility] HospitalHematocrit2018-06-16 07:52:00* Test Item Value Reference Range Interpretation Comments Hematocrit (test code = 4544-3) 40.8 34.2-44.1 [facility] HospitalMean Corpuscular Qiuois5743-34-61 07:52:00* Test Item Value Reference Range Interpretation Comments Mean Corpuscular Volume (test code = 787-2) 89.1 81-99 [facility] HospitalMean Corpuscular Rntscwhelt7795-11-89 07:52:00* Test Item Value Reference Range Interpretation Comments Mean Corpuscular Hemoglobin (test code = 785-6) 29.0 28-32 [facility] HospitalMean Corpuscular Hemoglobin Concent 2017-12-01 07:52:00* Test Item Value Reference Range Interpretation Comments Mean Corpuscular Hemoglobin Concent (test code = 786-4) 32.6 31-35 [facility] HospitalRed Cell Distribution Zpvzy7708-49-11 07:52:00* Test Item Value Reference Range Interpretation Comments Red Cell Distribution Width (test code = 20779-4) 13.2 11.7 -14.4 [facility] HospitalPlatelet Ysxhq8443-14-74 07:52:00* Test Item Value Reference Range Interpretation Comments Platelet Count (test code = 777-3) 288 140-360 [facility] HospitalNeutrophils (%) (Auto)2017-12-01 07:52:00 * Test Item Value Reference Range Interpretation Comments Neutrophils (%) (Auto) (test code = 06850-5) 50.0 38.7-80.0 [facility] HospitalLymphocytes (%) (Auto)2017-12-01 07:52:00 * Test Item Value Reference Range Interpretation Comments Lymphocytes (%) (Auto) (test code = 736-9) 40.3 18.0-39.1 H [facility] HospitalMonocytes (%) (Auto)2017-12-01 07:52:00* Test Item Value Reference Range Interpretation Comments Monocytes (%) (Auto) (test code = 5905-5) 5.6 4.4-11.3 [facility] HospitalEosinophils (%) (Auto)2017-12-01 07:52:00 * Test Item Value Reference Range Interpretation Comments Eosinophils (%) (Auto) (test code = 713-8) 2.7 0.0-6.0 [facility] HospitalBasophils (%) (Auto)2017-12-01 07:52:00* Test Item Value Reference Range Interpretation Comments Basophils (%) (Auto) (test code = 706-2) 0.6 0.0-1.0 [facility] HospitalIM GRANULOCYTES %2017-12-01 07:52:00* Test Item Value Reference Range Interpretation Comments IM GRANULOCYTES % (test code = IM GRANULOCYTES %) 0.8 0.0- 1.0 [facility] HospitalNeutrophils # (Auto)2017-12-01 07:52:00* Test Item Value Reference Range Interpretation Comments Neutrophils # (Auto) (test code = 751-8) 3.3 2.1-6.9 [facility] HospitalLymphocytes # (Auto)2017-12-01 07:52:00* Test Item Value Reference Range Interpretation Comments Lymphocytes # (Auto) (test code = 62282-5) 2.7 1.0-3.2 [facility] HospitalMonocytes # (Auto)2017-12-01 07:52:00* Test Item Value Reference Range Interpretation Comments Monocytes # (Auto) (test code = 742-7) 0.4 0.2-0.8 [facility] HospitalEosinophils # (Auto)2017-12-01 07:52:00* Test Item Value Reference Range Interpretation Comments Eosinophils # (Auto) (test code = 711-2) 0.2 0.0-0.4 [facility] HospitalBasophils # (Auto)2017-12-01 07:52:00* Test Item Value Reference Range Interpretation Comments Basophils # (Auto) (test code = 704-7) 0.0 0.0-0.1 [facility] HospitalAbsolute Immature Granulocyte (auto 2017-12-01 07:52:00* Test Item Value Reference Range Interpretation Comments Absolute Immature Granulocyte (auto (fidel t code = Absolute Immature Granulocyte (auto) 0.05 0-0.1 [facility] HospitalTobacco Use Udcptgzgg1359-83-54 16:00:00 * Test Item Value Reference Range Interpretation Comments Completed (test code = Completed) DONE [facility]] CBC (INCLUDES DIFF/PLT)2017-09-21 12:46:00* Test Item Value Reference Range Interpretation Comments WBC (test code = 6690-2) 6.0 {K/CMM} 3.7-10.4 RBC (test code = 789-8) 4.64 {M/CMM} 4.20-5.40 Hgb (test code = 718-7) 13.6 g/dl 12.0-16.0 Hct (test code = 83853-4) 40.6 % 36.0-48.0 MCV (test code = 787-2) 87.5 fL 80.0-98.0 MCH (test code = 785-6) 29.3 pg 27.0-31.0 MCHC (test code = 786-4) 33.5 g/dl 32.0-36.0 RDW (test code = 788-0) 13.8 % 11.5-14.5 Platelet (test code = 31530-9) 298 {K/CMM} 133-450 Mean Platelet Volume; Below Low Threshold (test code = 88433-8) 6.3 fL 7.4-10.4 [facility]] Xutwejbasgyo4744-39-45 12:46:00* Test Item Value Reference Range Interpretation Comments Segmented Neutrophils (test code = 90946-9) 62.8 % 45.0-75.0 Monocytes (test code = 25961-5) 4.1 % 2.0-12.0 Lymphocytes (test code = 64114-3) 31.1 % 20.0-40.0 Eosinophils (test code = 26489-0) 1.5 % 0.0-4.0 Basophils (test code = 706-2) 0.5 % 0.0-1.0 Segs-Bands # (test code = 92788-4) 3.7 {K/CMM} 1.5-8.1 Lymphocytes # (test code = 05082-2) 1.9 {K/CMM} 1.0-5.5 Monocytes # (test code = 57089-9) 0.2 {K/CMM} 0.0-0.8 Eosinophils # (test code = 19339-6) 0.1 {K/CMM} 0.0-0.5 [facility]] BASIC METABOLIC PANEL W/AFDA2894-98-55 12:46:00* Test Item Value Reference Range Interpretation Comments Glucose Lvl; Above High Threshold (test code = 2345-7) 165 mg/dl 70-99 Adult reference range values reflect the clinical guidelinesof the [place] [employer]. Blood Urea Nitrogen (test code = 3094-0) 11 mg/dl 7-22 Creatinine Lvl (test code = 2160-0) 0.80 mg/dl 0.50-1.40 Sodium Level (test code = 2951-2) 143 {mEq/l} 135-145 Potassium Level (test code = 2823-3) 4.5 {mEq/l} 3.5-5.1 Chloride Level; Above High Threshold (test code = 2075-0) 111 {mEq/ l} 95-109 Carbon Dioxide (test code = 2028-02) 24 {mEq/l} 24-32 AGAP (test code = 65917-7) 12.5 {mEq/l} 10.0-20.0 Calcium Level Total (test code = 56707-0) 10.1 mg/dl 8.5-10.5 eGFR (test code = 96364-5) 81 {ML/MIN/1.7} The eGFR is calculated using the CKD-EPI formula. In most young, healthyindividuals the eGFR will be >90 mL/min/1.73m2. The eGFR declines with age. AneGFR of 60-89 may be normal in some populations, particularly the elderly, forwhom the CKD-EPI formula has not been extensively validated. Use of the eGFR isnot recommended in the following populations:Individuals with unstable creatinine concentrations, including patients and those with serious co-morbid conditions.Patients with extremes in muscle mass or diet.The data above are obtained from the National Kidney Disease Education Program(NKDEP) which additionally recommends that when the eGFR is used in patientswith extremes of body mass index for purposes of drug dosing, the eGFR shouldbe multiplied by the estimated BMI. [facility] PhysiciansNegative Retinal Eye Exam (Diabetic)2017-09-21 05:00:00* Test Item Value Reference Range Interpretation Comments Negative Diabetic Eye Screening (test code = Negative Diabetic Eye Screening) [id number] [facility]] CMP W/EIGO0669-59-54 11:01:01* Test Item Value Reference Range Interpretation Comments Sodium Level (test code = 2951-2) 142 {mEq/l} 135-145 Potassium Level (test code = 2823-3) 4.0 {mEq/l} 3.5-5.1 Chloride Level (test code = 2074-0) 105 {mEq/l} 95-109 Carbon Dioxide (test code = 2027-) 29 {mEq/l} 24-32 AGAP (test code = 82136-5) 12.0 {mEq/l} 10.0-20.0 Glucose Lvl; Above High Threshold (test code = 2345-7) 112 mg/dl 70-99 Adult reference range values reflect the clinical guidelinesof the [place] [employer]. Creatinine Lvl (test code = 2160-0) 0.80 mg/dl 0.50-1.40 Blood Urea Nitrogen (test code = 3094-0) 14 mg/dl 7-22 BUN/Creatinine Ratio (test code = 3097-3) 18 6-25 Total Protein (test code = 2885-2) 7.9 g/dl 6.4-8.4 Albumin Lvl (test code = 1751-7) 3.9 g/dl 3.5-5.0 Globulin (test code = 54489-3) 4.0 g/dl 2.7-4.2 A/G Ratio (test code = 1759-0) 1.0 0.7-1.6 Calcium Level Total (test code = 18567-9) 9.3 mg/dl 8.5-10.5 ALT (test code = 1743-4) 21 u/l 0-65 AST (test code = 54980-6) 13 u/l 0-37 Bili Total (test code = 1975-2) 0.2 mg/dl 0.2-1.3 Alk Phos (test code = 1783-0) 103 u/l 39-136 eGFR (test code = 18561-6) 81 {ML/MIN/1.7} The eGFR is calculated using the CKD-EPI formula. In most young, healthyindividuals the eGFR will be >90 mL/min/1.73m2. The eGFR declines with age. AneGFR of 60-89 may be normal in some populations, particularly the elderly, forwhom the CKD-EPI formula has not been extensively validated. Use of the eGFR isnot recommended in the following populations:Individuals with unstable creatinine concentrations, including patients and those with serious co-morbid conditions.Patients with extremes in muscle mass or diet.The data above are obtained from the National Kidney Disease Education Program(NKDEP) which additionally recommends that when the eGFR is used in patientswith extremes of body mass index for purposes of drug dosing, the eGFR shouldbe multiplied by the estimated BMI. [facility]] LIPID [id number] 11:01:01* Test Item Value Reference Range Interpretation Comments LDL (test code = 96327-7) 65 mg/dl <=99 Chol (test code = 2093-3) 179 mg/dl <=199 Trig; Above High Threshold (test code = 2571-8) 181 mg/dl <=149 HDL Cholesterol (test code = 2085-9) 78 mg/dl >=61 CHD Risk; Below Low Threshold (test code = 24411-5) 2.29 3. 90-5.80 VLDL (test code = VLDL) 36 [facility]] MICROALBUMIN, RANDOM URINE (W/CREATININE) 2017-09-10 11:01:01* Test Item Value Reference Range Interpretation Comments Urine Microalbumin (test code = Urine Microalbumin) 6.0 mg/L U Creatinine (test code = 2161-8) 17.60 mg/dl No established reference ranges. Urine Microalbuming Creatinine Ratio; Ab ove High Threshold (test code = 53378-9) 34.1 {MCG/MG CRE} <=30.0 [facility]iciansGlucose ([facility] Care In Office)2017-08-31 15:09:00* Test Item Value Reference Range Interpretation Comments Glucose POC Lifescan (test code = Glucose POC Lifescan) 358 [facility][O] Hemoglobin A1c (in office)2017-08-31 15:09:00 * Test Item Value Reference Range Interpretation Comments HEMOGLOBIN A1c (test code = 4548-4) 7.5 [facility]
[2020-03-23 05:50] LABS: BASOPHILS % 0.2 % (0.0-1.0); HEMATOCRIT 32.5 % (34.2-44.1); HEMOGLOBIN 10.7 g/dL (12.0-16.0); LYMPHOCYTES # (AUTO) 1.3 (1.0-3.2); LYMPHOCYTES % 7.3 % (18.0-39.1); MEAN CORPUSCULAR HEMOGLOBIN 28.2 pg (28-32); MEAN CORPUSCULAR HGB CONC 32.9 g/dL (31-35); MEAN CORPUSCULAR VOLUME 85.5 fL (81-99); MONOCYTES # (AUTO) 0.6 (0.2-0.8); NEUTROPHILS % 88.6 % (38.7-80.0); PLATELET COUNT 252 x10e3/uL (140-360); RED CELL DISTRIBUTION WIDTH 13.9 % (11.7-14.4)
[2020-03-23 06:14] LABS: CREATINE KINASE MB 1.4 ng/mL (0-5.0)
[2020-03-23 06:17] LABS: ALBUMIN 3.5 g/dL (3.5-5.0); ALBUMIN/GLOBULIN RATIO 0.9 (0.8-2.0); ANION GAP 15.6 mmol/L (8-16); CALCIUM 9.5 mg/dL (8.4-10.2); CREATININE, SERUM 1.54 mg/dL (0.57-1.11); POTASSIUM 3.6 mmol/L (3.5-5.1)
[2020-03-23 06:27] LABS: B-TYPE NATRIURETIC PEPTIDE2 101.4 pg/mL (0-100)
[2020-03-23 06:56] LABS: BILIRUBIN,URINE NEGATIVE (NEGATIVE); CLARITY,URINE CLEAR (CLEAR); COLOR,URINE YELLOW (YELLOW); KETONES,URINE NEGATIVE (NEGATIVE); LEUKOCYTE ESTERASE ,URINE NEGATIVE (NEGATIVE); NITRITE,URINE NEGATIVE (NEGATIVE); PROTEIN,URINE DIPSTICK NEGATIVE (NEGATIVE); URINE UROBILINOGEN 0.2 mg/dL (0.2 - 1)
[2020-03-23 07:14] LABS: BACTERIA,URINE FEW /HPF; EPITHELIAL CELLS,URINE FEW /LPF; RBC,URINE 0-5 /HPF (0-5); TRANSITIONAL EPI CELLS,URINE MODERATE
--- NOTE | 2020-03-23 08:51 | Diagnostic Imaging Report ---
EXAM: CT Abdomen and Pelvis WITH intravenous contrast INDICATION: Right flank pain COMPARISON: CT abdomen and pelvis of 11/04/2018 TECHNIQUE: Abdomen and pelvis were scanned utilizing a multidetector helical scanner from the lung base to the pubic symphysis after administration of IV contrast. Coronal and sagittal reformations were obtained. Routine protocol was performed. Scan was performed during portal venous phase. IV CONTRAST: 100mL of Isovue 370 ORAL CONTRAST: None RADIATION DOSE: Total DLP: 731 mGy*cm Dose modulation, iterative reconstruction, and/or weight based adjustment of the mA/kV was utilized to reduce the radiation dose to as low as reasonably achievable. FINDINGS: LOWER THORAX: Normal. HEPATOBILIARY: Diffuse hepatic steatosis. No focal liver lesion. No biliary ductal dilation. Small amount of common bile duct and left intrahepatic pneumobilia, unchanged from 11/04/2018. Status post cholecystectomy. SPLEEN: No splenomegaly. PANCREAS: No focal masses or ductal dilatation. ADRENALS: No adrenal nodules. KIDNEYS/URETERS: No hydronephrosis, stones, or solid mass lesions. PELVIC ORGANS/BLADDER: Unremarkable. PERITONEUM / RETROPERITONEUM: No free air or fluid. LYMPH NODES: No lymphadenopathy. VESSELS: Mild scattered atherosclerotic calcifications of the nonaneurysmal abdominal aorta and major branches. GI TRACT: No abnormal bowel thickening. No bowel obstruction. BONES AND SOFT TISSUES: No acute osseous injury. No suspicious lytic or blastic lesions. IMPRESSION: No acute findings in the abdomen or pelvis. Diffuse hepatic steatosis. Unchanged common bile duct and left intrahepatic ductal pneumobilia. Signed by: Ting Ge MD on 03/23/2020 8:48 AM
--- NOTE | 2020-03-23 08:52 | Diagnostic Imaging Report ---
EXAMINATION: CHEST SINGLE (PORTABLE) INDICATION: Shortness of breath, right hip pain COMPARISON: CT abdomen and pelvis of the same day, chest radiograph 12/24/2019 FINDINGS: LINES/TUBES:EKG leads overlie the chest. LUNGS:The lungs are well-inflated. No focal consolidation or pulmonary edema. PLEURA:No pleural effusion or pneumothorax. MEDIASTINUM:The cardiomediastinal silhouette appears normal in size and shape. BONES/SOFT TISSUES:No acute osseous injury. ABDOMEN:No free air under the diaphragm. IMPRESSION: No focal pneumonia or pulmonary edema. Signed by: Ting Ge MD on 03/23/2020 8:49 AM
[2020-03-23] MEDS ORDERED: IOPAMIDOL 370 MG/ML 200 ML INFUS..BTL INJ ONE ×2 (09:07→09:08)
[2020-03-23] MEDS ORDERED: SODIUM CHLORIDE 0.9% 50ML 50 ML ONE ×2 (09:07→09:08)
[2020-03-23] MEDS ORDERED: MORPHINE SULFATE INJ 4 MG/ML INJ 1ML IV PRN (09:15)
--- OUTSIDE RECORDS SUMMARY | 2020-03-23 09:27 | XMS REPORT | Continuity of Care Document ---
Author Author [employer] [place] Address Unknown Phone Unavailable Care Team Providers Care Etl Analyst Developer Name Role Phone [facility] Information Exchange Unavailable Un available Problems Problem Status Onset Date Classification Date Reported Comments Source Back Pain Active 10/23/2013 [facility] Essential Hypertension Active 10/23/2013 [facility] Hypothyroidism Active 10/23/2013 [facility] Morbid Obesity Active 10/23/2013 [facility] Type 2 Diabetes Mellitus - Uncomplicated, Uncontrolled Active 10/23/2013 [facility] Uncontrolled Type 2 Diabetes With Foot Ulcer Active 10/23/2013 [facility] Hypertension Active 09/23/2013 [facility] Hyperlipidemia Active 10/23/2013 [facility] Abdominal Pain Active 10/23/2013 [facility] Change In The Stool Active 10/23/2013 [facility] Anemia Active 10/23/2013 [facility] Medications Medication Details Route Status Patient Instructions Ordering Provider Order Date Source Hydrocodone-Acetaminophen 7.5-325 MG Oral Tablet ; Start Date: 08/08/2013 (Active) Active 08/08/2013 [facility] Diazepam 10 MG Oral Tablet ; S tart Date: 08/08/2013 (Active) Active 08/08/2013 [facility] Pravastatin Sodium 40 MG Oral Tablet ; Start Date: 06/17/2013; End Date: (Active) Active 06/17/2013 [facility] Lisinopril 20 MG Oral Tablet ; Start Date: 06/12/2013; End Date: (Active) Active 06/12/2013 [facility] MetFORMIN HCl 500 MG Oral Tablet ; Start Date: 06/12/2013; End Date: (Active) Active 06/12/2013 [facility] Levothyroxine Sodium 50 MCG Oral Tablet ; Start Date: ; End Date: (Active) Inactive [facility] Levothyroxine Sodium 75 MCG Oral Tablet ; Start Date: ; End Date: (Active) Inactive [facility] Aspirin 81 MG Oral Tablet (Ac tive) Active [facility] Cleocin 300 MG Oral Capsule ( Active) [facility] Diazepam 10 MG Oral Tablet (A ctive) Active [facility] Gabapentin 300 MG Oral Capsule (Active) Active [facility] Hydrocodone-Acetaminophen 7.5-325 MG Oral Tablet (Active) Active [facility] HumuLIN R 100 UNIT/ML Injection Solution (Active) Active [facility] Meloxicam 7.5 MG Oral Tablet (Active) Active [facility] Keflex TABS (Active) Active [facility] Pantoprazole Sodium 40 MG Oral Tablet Delayed Release (Active) Active [facility] Dicyclomine HCl 20 MG Oral Tablet (Active) Active [facility] Iron TABS (Active) Active [facility] Allergies, Adverse Reactions, Alerts Substance Category Reaction Severity Reaction type Status Date Reported Comments Source Morphine Derivatives drug kiersten rgy drug aller gy Active [facility] Peanuts food allergy food allergy Active [facility] Immunizations No Data Provided for This [...] ADM Date DC Date Status Source AUDIT [id number] 06/16/2013 06/16/2013 [facility] AUDIT [id number] 06/17/2013 06/17/2013 [facility] AUDIT [id number] 07/14/2013 07/14/2013 [facility] Claudio MEDINA tegan: DEANN MERRITT, Status: Pen, Time: 3:15 PM [id number] 07/14/19 14 06/17/2013 [facility] AUDIT [id number] 08/12/2013 08/12/2013 [facility] Claudio MEDINA tegan: DEANN MERRITT, Status: Pen, Time: 3:00 PM [id number] 08/26/19 14 08/12/2013 [facility] AUDIT [id number] 08/25/2013 08/25/2013 [facility] AUDIT [id number] 08/26/2013 08/26/2013 [facility] AUDIT [id number] 09/04/2013 09/04/2013 [facility] AUDIT [id number] 09/23/2013 09/23/2013 [facility] Claudio MEDINA tegan: DEANN MERRITT, Status: Pen, Time: 2:45 PM [id number] 09/30/19 14 09/23/2013 [facility] AUDIT [id number] 10/23/2013 10/23/2013 [facility] Claudio MEDINA tegan: DEANN MERRITT, Status: Pen, Time: 3:45 PM [id number] 11/15/19 14 10/23/2013 [facility] Procedures No Data Provided for This Section Assessment and Plan No Data Provided for This Section Plan of Care Plan of Care Date Source CT Abdomen/Pelvis w/wo contrast [id number] 08/25/2013 [facility] 10/23/[address] [facility] [address] Abdomen/Pelvis w/wo contrast [id number] [facility]] CBC (INCLUDES DIFF/PLT) 09/23/2013 Routine 09/23/[address] [facility] [address] Abdomen/Pelvis w/wo contrast [id number] 08/25/2013 [facility] 09/04/[address] [facility] [address] Abdomen/Pelvis w/wo contrast [id number] 08/25/2013 [facility] 08/26/2013 [facility] Endocrinology Referral 07/14/2013 Routine 07/14/2013 [facility] Social History Social History Date Source Marital History - Currently (Active) Never A Smoker (Active) 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) Marital History - Currently (Active) Being A Social Drinker (Active) Never A Smoker (Active) 10/23/2013 [facility] Family History Value Date S ource Paternal history of Acute Myocardial Inf arction (V17.3); (Active) Maternal history of Congenital Heart Disease (Active) Maternal history of Lung Cancer (V16.1); (Active) Maternal history of Hypertension (V17.49); (Active) Maternal history of Lung Cancer (V16.1); (Active) 10/23/2013 [facility] Paternal history of Acute Myocardial Inf arction (V17.3); (Active) Maternal history of Congenital Heart Disease (Active) Maternal history of Lung Cancer (V16.1); (Active) Maternal history of Hypertension (V17.49); (Active) Maternal history of Lung Cancer (V16.1); (Active) 09/23/2013 [facility] Paternal history of Acute Myocardial Inf arction (V17.3); (Active) Maternal history of Congenital Heart Disease (Active) Maternal history of Lung Cancer (V16.1); (Active) Maternal history of Hypertension (V17.49); (Active) Maternal history of Lung Cancer (V16.1); (Active) 09/04/2013 [facility] Paternal history of Acute Myocardial Inf [...] history of Lung Cancer (V16.1); (Active) 08/25/2013 [facility] Paternal history of Acute Myocardial Inf arction (V17.3); (Active) Maternal history of Congenital Heart Disease (Active) Maternal history of Lung Cancer (V16.1); (Active) Maternal history of Hypertension (V17.49); (Active) Maternal history of Lung Cancer (V16.1); (Active) 08/12/2013 [facility] Paternal history of Acute Myocardial Inf arction (V17.3); (Active) Maternal history of Congenital Heart Disease (Active) Maternal history of Lung Cancer (V16.1); (Active) Maternal history of Hypertension (V17.49); (Active) Maternal history of Lung Cancer (V16.1); (Active) 07/14/2013 [facility] Paternal history of Acute Myocardial Inf arction (V17.3); (Active) Maternal history of Congenital Heart Disease (Active) Maternal history of Lung Cancer (V16.1); (Active) 06/17/2013 [facility] Paternal history of Acute Myocardial Inf arction (V17.3); (Active) Maternal history of Congenital Heart Disease (Active) Maternal history of Lung Cancer (V16.1); (Active) 06/16/2013 [facility] Advance Directives Order Name Results Value Date Source Advance Directives Advance Dir ectives No Advance Directives available. 10/23/2013 [facility] Advance Directives Advance Dir ectives No Advance Directives available. 09/23/2013 [facility] Advance Directives Advance Dir ectives No Advance Directives available. 09/04/2013 [facility] Advance Directives Advance Dir ectives No Advance Directives available. 08/26/2013 [facility] Advance Directives Advance Dir ectives No Advance Directives available. 08/25/2013 [facility] Advance Directives Advance Dir ectives No Advance Directives available. 08/12/2013 [facility] Advance Directives Advance Dir ectives No Advance Directives available. 07/14/2013 [facility] Advance Directives Advance Dir ectives No Advance Directives available. 06/17/2013 [facility] Advance Directives Advance Dir ectives No Advance Directives available. 06/16/2013 [facility] Functional Status No Data Provided for This Section
--- OUTSIDE RECORDS SUMMARY | 2020-03-23 09:29 | XMS REPORT | Continuity of Care Document ---
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 11:49:00 227.2 [lb_av] [facility] Body mass index (BMI) [Ratio] 2019-08-01 11:49:00 34.55 kg/m2 [facility] Body temperature 2019-08-01 11:49:00 98.9 [degF] Method: [facility] Heart Rate 2019-08-01 11:49:00 83 /min [facility] Respiratory rate 2019-08-01 11:49:00 16 /min [facility] Systolic blood pressure 2019-07-30 15:59:00 157 mm[Hg] Loca tion: ANNE; Position: Sitting [facility] Diastolic blood pressure 2019-07-30 15:59:00 85 mm[Hg] Loc ation: ANNE; Position: Sitting [facility] Body height 2019-07-30 15:59:00 68 [in_us] [facility] Weight 2019-07-30 15:59:00 228 [lb_av] [facility] Body mass index (BMI) [Ratio] 2019-07-30 15:59:00 34.67 kg/m2 [facility] Heart Rate 2019-07-30 15:59:00 80 /min [facility] ty [facility] BP Systolic 2019-04-08 16:48:00 147 mm[Hg] Location: AMBERE; Positi on: Sitting [facility] BP Diastolic 2019-04-08 16:48:00 79 mm[Hg] Location: ANNE; Positi on: Sitting [facility] Heart Rate 2019-04-08 16:48:00 80 /min [facility] BP Systolic 2019-04-08 16:46:00 145 mm[Hg] Location: AMBERE; Positi on: Sitting [facility] BP Diastolic 2019-04-08 16:46:00 77 mm[Hg] Location: ANNE; Positi on: Sitting [facility] Heart Rate 2019-04-08 16:46:00 77 /min [facility] Height 2019-04-08 16:46:00 68 [in_us] [facility] Weight 2019-04-08 16:46:00 243.6 [lb_av] [facility] Body Mass Index Calculated 2019-04-08 16:46:00 37.04 kg/m2 [facility] Temperature 2019-04-08 16:46:00 98.8 [degF] Method: Oral [facility] Respiration Rate 2019-04-08 16:46:00 16 /min [facility] BP Systolic 2019-03-13 15:43:00 133 mm[Hg] Location: ANNE; Positi on: Sitting [facility] BP Diastolic 2019-03-13 15:43:00 75 mm[Hg] Location: ANNE; Positi on: Sitting [facility] Height 2019-03-13 15:43:00 68 [in_us] [facility] [place] [facility] Weight 2019-03-13 15:43:00 252.4 [lb_av] [facility] Index Calculated 2019-03-13 15:43:00 38.38 kg/m2 [facility] Heart Rate 2019-03-13 15:43:00 80 /min [facility] BP Systolic 2019-03-12 15:47:00 128 mm[Hg] Location: ANNE; Positi on: Sitting [facility] BP Diastolic 2019-03-12 15:47:00 73 mm[Hg] Location: ANNE; Positi on: Sitting [facility] Height 2019-03-12 15:47:00 68 [in_us] [facility] Weight 2019-03-12 15:47:00 251.1 [lb_av] [facility] Body Mass Index Calculated 2019-03-12 15:47:00 38.18 kg/m2 [facility] Heart Rate 2019-03-12 15:47:00 76 /min [facility] Temperature 2019-03-12 15:47:00 98.8 [degF] Method: Oral [facility] Respiration Rate 2019-03-12 15:47:00 16 /min [facility] BP Systolic 2019-02-28 11:13:00 138 mm[Hg] Location: ANNE; Positi on: Sitting [facility] BP Diastolic 2019-02-28 11:13:00 80 mm[Hg] Location: DONAVON [facility] on: Sitting [facility] [place] [facility] Height 2019-02-28 11:13:00 68 [in_us] [facility] [place] [facility] Weight 2019-02-28 11:13:00 236.1 [lb_av] [facility] Body Mass Index Calculated 2019-02-28 11:13:00 35.9 kg/m2 [facility] Heart Rate 2019-02-28 11:13:00 85 /min [facility] [place] [facility] Temperature 2019-02-28 11:13:00 99 [degF] Method: Oral [facility] Respiration Rate 2019-02-28 11:13:00 16 /min [facility] O2 SAT 2019-02-28 11:13:00 98 % Source: RA [facility] BP Systolic 2019-02-27 15:59:00 147 mm[Hg] Location: DONAVON [facility] on: Sitting [facility] BP Diastolic 2019-02-27 15:59:00 83 mm[Hg] Location: DONAVON [facility] on: Sitting [facility] [place] [facility] Height 2019-02-27 15:59:00 68 [in_us] [facility] Weight 2019-02-27 15:59:00 238 [lb_av] [facility] Body Mass Index Calculated 2019-02-27 15:59:00 36.19 kg/m2 [facility] Heart Rate 2019-02-27 15:59:00 91 /min [facility] BP Systolic 2019-02-06 15:46:00 120 mm[Hg] Location: DONAVON Pos[facility] on: Sitting [facility] BP Diastolic 2019-02-06 15:46:00 79 mm[Hg] Location: ANNE; Positi on: Sitting [facility] Height 2019-02-06 15:46:00 68 [in_us] [facility] [place] [facility] Weight 2019-02-06 15:46:00 241.8 [lb_av] [facility] Body [facility] Index Calculated 2019-02-06 15:46:00 36.77 kg/m2 [facility] Heart Rate 2019-02-06 15:46:00 90 /min [facility] Temperature 2019-02-06 15:46:00 98.3 [degF] Method: Oral [facility] Respiration Rate 2019-02-06 15:46:00 16 /min [facility] BP Systolic 2019-01-29 15:54:00 149 mm[Hg] Location: LUE; Positi on: Sitting [facility] BP Diastolic 2019-01-29 15:54:00 81 mm[Hg] Location: LUE; Positi on: Sitting [facility] Heart Rate 2019-01-29 15:54:00 76 /min [facility] BP Systolic 2019-01-29 15:51:00 144 mm[Hg] Location: LUE; Positi on: Sitting [facility] BP Diastolic 2019-01-29 15:51:00 78 mm[Hg] Location: LUE; Positi on: Sitting [facility] Height 2019-01-29 15:51:00 68 [in_us] [facility] Weight 2019-01-29 15:51:00 252.9 [lb_av] [facility] Body Mass Index Calculated 2019-01-29 15:51:00 38.45 kg/m2 [facility] Heart Rate 2019-01-29 15:51:00 78 /min [facility] Temperature 2019-01-29 15:51:00 99.1 [degF] Method: Oral [facility] Respiration Rate 2019-01-29 15:51:00 16 /min [facility] BP Systolic 2019-01-21 15:52:00 146 mm[Hg] Location: LUE; Positi on: Sitting [facility] BP Diastolic 2019-01-21 15:52:00 79 mm[Hg] Location: LUE; Positi on: Sitting [facility] Heart Rate 2019-01-21 15:52:00 83 /min Location: L Radial; [facility] BP Systolic 2019-01-21 15:50:00 145 mm[Hg] Location: LUE; Positi on: Sitting [facility] BP Diastolic 2019-01-21 15:50:00 76 mm[Hg] Location: LUE; Positi on: Sitting [facility] Height 2019-01-21 15:50:00 68 [in_us] [facility] Weight 2019-01-21 15:50:00 248 [lb_av] [facility] Body Mass Index Calculated 2019-01-21 15:50:00 37.71 kg/m2 [facility] Heart Rate 2019-01-21 15:50:00 90 /min Location: L Radial; [facility] BP Systolic 2018-12-18 16:38:00 140 mm[Hg] Location: LUE; Positi on: Sitting [facility] BP Diastolic 2018-12-18 16:38:00 76 mm[Hg] Location: LUE; Positi on: Sitting [facility] Heart Rate 2018-12-18 16:38:00 76 /min [facility] BP Systolic 2018-12-18 16:32:00 143 mm[Hg] Location: LUE; Positi on: Sitting [facility] BP Diastolic 2018-12-18 16:32:00 80 mm[Hg] Location: LUE; Positi on: Sitting [facility] Heart Rate 2018-12-18 16:32:00 76 /min [facility] Height 2018-12-18 16:32:00 68 [in_us] [facility] Weight 2018-12-18 16:32:00 251.1 [lb_av] [facility] Body Mass Index Calculated 2018-12-18 16:32:00 38.18 kg/m2 [facility] Temperature 2018-12-18 16:32:00 98.2 [degF] Method: Oral [facility] Respiration Rate 2018-12-18 16:32:00 16 /min [facility] BP Systolic 2018-12-13 16:14:00 149 mm[Hg] Location: AMBERE; Positi on: Sitting [facility] BP Diastolic 2018-12-13 16:14:00 83 mm[Hg] Location: LUE; Positi on: Sitting [facility] Height 2018-12-13 16:14:00 68 [in_us] [facility] Weight 2018-12-13 16:14:00 254 [lb_av] [facility] Body Mass Index Calculated 2018-12-13 16:14:00 38.62 kg/m2 [facility] Heart Rate 2018-12-13 16:14:00 81 /min [facility] BP Systolic 2018-11-18 16:29:00 141 mm[Hg] Location: LUE; Positi on: Sitting [facility] BP Diastolic 2018-11-18 16:29:00 79 mm[Hg] Location: LUE; Positi on: Sitting [facility] Heart Rate 2018-11-18 16:29:00 89 /min [facility] BP Systolic 2018-11-18 16:25:00 146 mm[Hg] Location: LUE; Positi on: Sitting [facility] BP Diastolic 2018-11-18 16:25:00 82 mm[Hg] Location: LUE; Positi on: Sitting [facility] Heart Rate 2018-11-18 16:25:00 93 /min [facility] Height 2018-11-18 16:25:00 68 [in_us] [facility] Weight 2018-11-18 16:25:00 249 [lb_av] [facility] Body Mass Index Calculated 2018-11-18 16:25:00 37.86 kg/m2 [facility] Temperature 2018-11-18 16:25:00 98.6 [degF] Method: Oral [facility] Respiration Rate 2018-11-18 16:25:00 16 /min [facility] BP Systolic 2018-11-12 15:50:00 170 mm[Hg] Location: LUE; Positi on: Sitting [facility] BP Diastolic 2018-11-12 15:50:00 91 mm[Hg] Location: LUE; Positi on: Sitting [facility] Heart Rate 2018-11-12 15:50:00 80 /min Location: L Radial; [facility] BP Systolic 2018-11-12 15:47:00 169 mm[Hg] Location: LUE; Positi on: Sitting [facility] BP Diastolic 2018-11-12 15:47:00 81 mm[Hg] Location: LUE; Positi on: Sitting [facility] Heart Rate 2018-11-12 15:47:00 88 /min Location: L Radial; [facility] Height 2018-11-12 15:47:00 68 [in_us] [facility] Weight 2018-11-12 15:47:00 248 [lb_av] [facility] Body Mass Index Calculated 2018-11-12 15:47:00 37.71 kg/m2 [facility] BP Systolic 2018-11-07 16:17:00 163 mm[Hg] Location: LUE; Positi on: Sitting [facility] BP Diastolic 2018-11-07 16:17:00 81 mm[Hg] Location: LUE; Positi on: Sitting [facility] Heart Rate 2018-11-07 16:17:00 80 /min [facility] Height 2018-11-07 16:17:00 68 [in_us] [facility] Weight 2018-11-07 16:17:00 246 [lb_av] [facility] Body Mass Index Calculated 2018-11-07 16:17:00 37.4 kg/m2 [facility] BP Systolic 2018-10-09 13:37:00 166 mm[Hg] Location: LUE; Positi on: Sitting [facility] BP Diastolic 2018-10-09 13:37:00 86 mm[Hg] Location: LUE; Positi on: Sitting [facility] Height 2018-10-09 13:37:00 68 [in_us] [facility] Weight 2018-10-09 13:37:00 249 [lb_av] [facility] Body Mass Index Calculated 2018-10-09 13:37:00 37.86 kg/m2 [facility] Heart Rate 2018-10-09 13:37:00 82 /min [facility] BP Systolic 2018-10-01 15:59:00 149 mm[Hg] Location: LUE; Positi on: Sitting [facility] BP Diastolic 2018-10-01 15:59:00 84 mm[Hg] Location: LUE; Positi on: Sitting [facility] Heart Rate 2018-10-01 15:59:00 80 /min [facility] Height 2018-10-01 15:59:00 68 [in_us] [facility] Weight 2018-10-01 15:59:00 249 [lb_av] [facility] Body Mass Index Calculated 2018-10-01 15:59:00 37.86 kg/m2 [facility] BP Systolic 2018-09-19 15:45:00 160 mm[Hg] Location: LUE; Positi on: Sitting [facility] BP Diastolic 2018-09-19 15:45:00 84 mm[Hg] Location: LUE; Positi on: Sitting [facility] Height 2018-09-19 15:45:00 68 [in_us] [facility] Weight 2018-09-19 15:45:00 250.125 [lb_av] [facility] Body Mass Index Calculated 2018-09-19 15:45:00 38.03 kg/m2 [facility] Temperature 2018-09-19 15:45:00 98.9 [degF] Method: Brachial [facility] Heart Rate 2018-09-19 15:45:00 87 /min Location: L Radial; [facility] BP Systolic 2018-09-12 16:52:00 174 mm[Hg] Location: AMBERE; Positi on: Sitting [facility] BP Diastolic 2018-09-12 16:52:00 93 mm[Hg] Location: LUE; Positi on: Sitting [facility] Heart Rate 2018-09-12 16:52:00 80 /min [facility] BP Systolic 2018-09-12 15:56:00 174 mm[Hg] Location: AMBERE; Positi on: Sitting [facility] BP Diastolic 2018-09-12 15:56:00 83 mm[Hg] Location: LUE; Positi on: Sitting [facility] Heart Rate 2018-09-12 15:56:00 86 /min [facility] Height 2018-09-12 15:56:00 68 [in_us] [facility] Weight 2018-09-12 15:56:00 250.0 [lb_av] [facility] Body Mass Index Calculated 2018-09-12 15:56:00 38.01 kg/m2 [facility] BP Systolic 2018-08-27 15:28:00 159 mm[Hg] Location: LUE; Positi on: Sitting [facility] BP Diastolic 2018-08-27 15:28:00 85 mm[Hg] Location: AMBERE; Positi on: Sitting [facility] Heart Rate 2018-08-27 15:28:00 86 /min [facility] Height 2018-08-27 15:28:00 68 [in_us] [facility] Weight 2018-08-27 15:28:00 246 [lb_av] [facility] Body Mass Index Calculated 2018-08-27 15:28:00 37.4 kg/m2 [facility] BP Systolic 2018-08-22 16:14:00 163 mm[Hg] Location: LUE; Positi on: Sitting [facility] BP Diastolic 2018-08-22 16:14:00 83 mm[Hg] Location: LUE; Positi on: Sitting [facility] Heart Rate 2018-08-22 16:14:00 80 /min [facility] BP Systolic 2018-08-22 16:08:00 168 mm[Hg] Location: LUE; Positi on: Sitting [facility] BP Diastolic 2018-08-22 16:08:00 83 mm[Hg] Location: LUE; Positi on: Sitting [facility] Heart Rate 2018-08-22 16:08:00 82 /min [facility] Height 2018-08-22 16:08:00 68 [in_us] [facility] Weight 2018-08-22 16:08:00 251.3 [lb_av] [facility] Body Mass Index Calculated 2018-08-22 16:08:00 38.21 kg/m2 [facility] Temperature 2018-08-22 16:08:00 98.8 [degF] Method: Oral [facility] Respiration Rate 2018-08-22 16:08:00 16 /min [facility] BP Systolic 2018-08-01 15:17:00 152 mm[Hg] Location: LUE; Positi on: Sitting [facility] BP Diastolic 2018-08-01 15:17:00 84 mm[Hg] Location: LUE; Positi on: Sitting [facility] Height 2018-08-01 15:17:00 68 [in_us] [facility] Weight 2018-08-01 15:17:00 245 [lb_av] [facility] Body Mass Index Calculated 2018-08-01 15:17:00 37.25 kg/m2 [facility] Heart Rate 2018-08-01 15:17:00 81 /min [facility] BP Systolic 2018-07-01 13:04:00 138 mm[Hg] Location: LUE; Positi on: Sitting [facility] BP Diastolic 2018-07-01 13:04:00 77 mm[Hg] Location: LUE; [place] on: Sitting [facility] Height 2018-07-01 13:04:00 68 [in_us] [facility] Weight 2018-07-01 13:04:00 242.3 [lb_av] [facility] Body Mass Index Calculated 2018-07-01 13:04:00 36.84 kg/m2 [facility] Temperature 2018-07-01 13:04:00 99.1 [degF] Method: Oral [facility] Heart Rate 2018-07-01 13:04:00 79 /min [facility] ty [facility] BP Systolic 2018-06-26 16:45:00 139 mm[Hg] Location: DONAVON [facility] BP Diastolic 2018-06-26 16:45:00 75 mm[Hg] Location: DONAVON [facility] Height 2018-06-26 16:45:00 68 [in_us] [facility] Body Mass Index Calculated 2018-06-26 16:45:00 31.63 kg/m2 [facility] Weight 2018-06-26 16:45:00 208 [lb_av] [facility] Heart Rate 2018-06-26 16:45:00 79 /min Location: L Brachial Artery; [facility] BP Systolic 2018-06-26 16:30:00 166 mm[Hg] Location: [facility] BP Diastolic 2018-06-26 16:30:00 84 mm[Hg] Location: [facility] Heart Rate 2018-06-26 16:30:00 76 /min Location: L Brachial Artery; [facility] BP Systolic 2018-06-26 16:27:00 178 mm[Hg] Location: [facility] BP Diastolic 2018-06-26 16:27:00 81 mm[Hg] Location: ANNE; [facility] Height 2018-06-26 16:27:00 68 [in_us] [facility] Body Mass Index Calculated 2018-06-26 16:27:00 36.34 kg/m2 [facility] Weight 2018-06-26 16:27:00 239 [lb_av] [facility] Heart Rate 2018-06-26 16:27:00 79 /min Location: L Brachial Artery; [facility] Temperature 2018-06-26 16:27:00 98.5 [degF] Method: Oral [facility] Respiration Rate 2018-06-26 16:27:00 16 /min Quality: Normal U [facility] BP Systolic 2018-06-06 16:21:00 148 mm[Hg] Location: LUE; [place]: Sitting [facility] BP Diastolic 2018-06-06 16:21:00 81 mm[Hg] Location: LUE; [place]: Sitting [facility] Heart Rate 2018-06-06 16:21:00 76 /min [facility] BP Systolic 2018-06-06 16:02:00 154 mm[Hg] Location: LUE; [place]: Sitting [facility] BP Diastolic 2018-06-06 16:02:00 80 mm[Hg] Location: LUE; [place] on: Sitting [facility] Heart Rate 2018-06-06 16:02:00 76 /min [facility] Height 2018-06-06 16:02:00 68 [in_us] [facility] Weight 2018-06-06 16:02:00 239.5 [lb_av] [facility] Body Mass Index Calculated 2018-06-06 16:02:00 36.42 kg/m2 [facility] Temperature 2018-06-06 16:02:00 98.7 [degF] Method: Oral [facility] Respiration Rate 2018-06-06 16:02:00 16 /min [facility] BP Systolic 2018-05-29 13:25:00 129 mm[Hg] Location: LUE; [place]: Sitting [facility] BP Diastolic 2018-05-29 13:25:00 80 mm[Hg] Location: LUE; [place]: Sitting [facility] Heart Rate 2018-05-29 13:25:00 78 /min [facility] BP Systolic 2018-05-29 13:23:00 142 mm[Hg] Location: LUE; [place]: Sitting [facility] BP Diastolic 2018-05-29 13:23:00 83 mm[Hg] Location: LUE; [place]: Sitting [facility] Heart Rate 2018-05-29 13:23:00 81 /min [facility] Height 2018-05-29 13:23:00 68 [in_us] [facility] Weight 2018-05-29 13:23:00 229.9 [lb_av] [facility] Body Mass Index Calculated 2018-05-29 13:23:00 34.96 kg/m2 [facility] Temperature 2018-05-29 13:23:00 98.7 [degF] Method: Oral [facility] Respiration Rate 2018-05-29 13:23:00 16 /min [facility] BP Systolic 2018-05-07 15:49:00 154 mm[Hg] Location: AMBERE; [place]: Sitting [facility] BP Diastolic 2018-05-07 15:49:00 84 mm[Hg] Location: AMBERE; [place]: Sitting [facility] Heart Rate 2018-05-07 15:49:00 88 /min [facility] BP Systolic 2018-05-07 15:47:00 162 mm[Hg] Location: LUE; [place]: Sitting [facility] BP Diastolic 2018-05-07 15:47:00 85 mm[Hg] Location: LUE; [place]: Sitting [facility] Heart Rate 2018-05-07 15:47:00 87 /min [facility] Height 2018-05-07 15:47:00 68 [in_us] [facility] Weight 2018-05-07 15:47:00 244.2 [lb_av] [facility] Body Mass Index Calculated 2018-05-07 15:47:00 37.13 kg/m2 [facility] Temperature 2018-05-07 15:47:00 98.5 [degF] Method: Oral [facility] Respiration Rate 2018-05-07 15:47:00 16 /min [facility] BP Systolic 2018-04-26 14:43:00 144 mm[Hg] Location: LUE; [place]: Sitting [facility] BP Diastolic 2018-04-26 14:43:00 82 mm[Hg] Location: LUE; [place]: Sitting [facility] Height 2018-04-26 14:43:00 68 [in_us] [facility] Body Mass Index Calculated 2018-04-26 14:43:00 35.88 kg/m2 [facility] Weight 2018-04-26 14:43:00 236.0 [lb_av] [facility] Heart Rate 2018-04-26 14:43:00 90 /min Location: L Brachial Artery; [facility] Respiration Rate 2018-04-26 14:43:00 18 /min [facility] BP Systolic 2018-04-26 11:08:00 132 mm[Hg] Location: LUE; [place]: Sitting [facility] BP Diastolic 2018-04-26 11:08:00 80 mm[Hg] Location: LUE; [place]: Sitting [facility] Heart Rate 2018-04-26 11:08:00 85 /min [facility] BP Systolic 2018-04-26 11:06:00 143 mm[Hg] Location: LUE; [place]: Sitting [facility] BP Diastolic 2018-04-26 11:06:00 83 mm[Hg] Location: LUE; [place]: Sitting [facility] Heart Rate 2018-04-26 11:06:00 89 /min [facility] Height 2018-04-26 11:06:00 68 [in_us] [facility] Weight 2018-04-26 11:06:00 236.8 [lb_av] [facility] Body Mass Index Calculated 2018-04-26 11:06:00 36.01 kg/m2 [facility] Temperature 2018-04-26 11:06:00 98.3 [degF] Method: Oral [facility] Respiration Rate 2018-04-26 11:06:00 16 /min [facility] BP Systolic 2018-04-19 10:49:00 138 mm[Hg] Location: LUE; [place]: Sitting [facility] BP Diastolic 2018-04-19 10:49:00 79 mm[Hg] Location: LUE; [place]: Sitting [facility] Heart Rate 2018-04-19 10:49:00 80 /min [facility] BP Systolic 2018-04-19 10:48:00 144 mm[Hg] Location: LUE; [place]: Sitting [facility] BP Diastolic 2018-04-19 10:48:00 77 mm[Hg] Location: LUE; [place]: Sitting [facility] Heart Rate 2018-04-19 10:48:00 82 /min [facility] Height 2018-04-19 10:48:00 68 [in_us] [facility] Weight 2018-04-19 10:48:00 240 [lb_av] [facility] Body Mass Index Calculated 2018-04-19 10:48:00 36.49 kg/m2 [facility] Temperature 2018-04-19 10:48:00 98.7 [degF] [facility] Respiration Rate 2018-04-19 10:48:00 16 /min [facility] BP Systolic 2018-04-12 10:18:00 148 mm[Hg] Location: AMBERE; [place]: Sitting [facility] BP Diastolic 2018-04-12 10:18:00 78 mm[Hg] Location: AMBERE; [place]: Sitting [facility] Heart Rate 2018-04-12 10:18:00 88 /min [facility] BP Systolic 2018-04-12 10:16:00 152 mm[Hg] Location: AMBERE; [place]: Sitting [facility] BP Diastolic 2018-04-12 10:16:00 82 mm[Hg] Location: AMBERE; [place]: Sitting [facility] Heart Rate 2018-04-12 10:16:00 89 /min [facility] ty [facility] Height 2018-04-12 10:16:00 68 [in_us] [facility] Weight 2018-04-12 10:16:00 238.3 [lb_av] [facility] Body Mass Index Calculated 2018-04-12 10:16:00 36.23 kg/m2 [facility] Temperature 2018-04-12 10:16:00 98.6 [degF] Method: Oral [facility] Respiration Rate 2018-04-12 10:16:00 16 /min [facility] BP Systolic 2018-04-03 13:40:00 136 mm[Hg] Location: AMBERE; [place]: Sitting [facility] BP Diastolic 2018-04-03 13:40:00 78 mm[Hg] Location: LUE; [place]: Sitting [facility] Height 2018-04-03 13:40:00 68 [in_us] [facility] Weight 2018-04-03 13:40:00 240.3 [lb_av] [facility] Calculated 2018-04-03 13:40:00 36.54 kg/m2 [facility] Temperature 2018-04-03 13:40:00 97.7 [degF] Method: Oral [facility] Respiration Rate 2018-04-03 13:40:00 16 /min [facility] Heart Rate 2018-04-03 13:40:00 84 /min [facility] BP Systolic 2018-02-20 16:03:00 166 mm[Hg] Location: LUE; [place]: Sitting [facility] BP Diastolic 2018-02-20 16:03:00 87 mm[Hg] Location: LUE; [place]: Sitting [facility] Heart Rate 2018-02-20 16:03:00 81 /min [facility] BP Systolic 2018-02-20 15:55:00 156 mm[Hg] Location: LUE; [place]: Sitting [facility] BP Diastolic 2018-02-20 15:55:00 84 mm[Hg] Location: LUE; [place]: Sitting [facility] Heart Rate 2018-02-20 15:55:00 83 /min [facility] Height 2018-02-20 15:55:00 68 [in_us] [facility] Weight 2018-02-20 15:55:00 246.4 [lb_av] [facility] Body Mass Index Calculated 2018-02-20 15:55:00 37.47 kg/m2 [facility] Temperature 2018-02-20 15:55:00 98.6 [degF] Method: Oral [facility] Respiration Rate 2018-02-20 15:55:00 16 /min [facility] BP Systolic 2018-02-08 15:00:00 164 mm[Hg] Location: LUE; [place]: Sitting [facility] BP Diastolic 2018-02-08 15:00:00 83 mm[Hg] Location: LUE; [place] on: Sitting [facility] Height 2018-02-08 15:00:00 68 [in_us] [facility] Weight 2018-02-08 15:00:00 247.5625 [lb_av] [facility] Body Mass Index Calculated 2018-02-08 15:00:00 37.64 kg/m2 [facility] Heart Rate 2018-02-08 15:00:00 78 /min [facility] BP Systolic 2018-02-04 13:23:00 157 mm[Hg] Location: AMBERE; [place]: Sitting [facility] BP Diastolic 2018-02-04 13:23:00 84 mm[Hg] Location: AMBERE; [place]: Sitting [facility] Heart Rate 2018-02-04 13:23:00 71 /min [facility] BP Systolic 2018-02-04 13:21:00 156 mm[Hg] Location: AMBERE; [place]: Sitting [facility] BP Diastolic 2018-02-04 13:21:00 84 mm[Hg] Location: AMBERE; [place]: Sitting [facility] Height 2018-02-04 13:21:00 68 [in_us] [facility] Weight 2018-02-04 13:21:00 240.6 [lb_av] [facility] Body Mass Index Calculated 2018-02-04 13:21:00 36.58 kg/m2 [facility] Heart Rate 2018-02-04 13:21:00 71 /min [facility] Temperature 2018-02-04 13:21:00 98.6 [degF] Method: Oral [facility] Respiration Rate 2018-02-04 13:21:00 16 /min [facility] BP Systolic 2018-01-31 15:11:00 157 mm[Hg] Location: ANNE; [place]: Sitting [facility] BP Diastolic 2018-01-31 15:11:00 91 mm[Hg] Location: AMBERE; [place]: Sitting [facility] Height 2018-01-31 15:11:00 68 [in_us] [facility] Weight 2018-01-31 15:11:00 247.0625 [lb_av] [facility] Body Mass Index Calculated 2018-01-31 15:11:00 37.57 kg/m2 [facility] Heart Rate 2018-01-31 15:11:00 78 /min [facility] BP Systolic 2018-01-24 16:21:00 182 mm[Hg] Location: LUE; [place] on: [facility]itting [facility] BP Diastolic 2018-01-24 16:21:00 94 mm[Hg] Location: LUE; [place] on: Sitting [facility] Heart Rate 2018-01-24 16:21:00 84 /min [facility] BP Systolic 2018-01-24 16:13:00 181 mm[Hg] Location: LUE; [place]: [facility]itting [facility] BP Diastolic 2018-01-24 16:13:00 92 mm[Hg] Location: LUE; [place]: Sitting [facility] Heart Rate 2018-01-24 16:13:00 85 /min [facility] Height 2018-01-24 16:13:00 68 [in_us] [facility] Weight 2018-01-24 16:13:00 243.6 [lb_av] [facility] Body Mass Index Calculated 2018-01-24 16:13:00 37.04 kg/m2 [facility] Temperature 2018-01-24 16:13:00 98.2 [degF] Method: Oral [facility] Respiration Rate 2018-01-24 16:13:00 16 /min [facility] BP Systolic 2017-12-14 13:36:00 134 mm[Hg] Location: LUE; [place]: Sitting [facility] BP Diastolic 2017-12-14 13:36:00 79 mm[Hg] Location: LUE; [place]: Sitting [facility] Height 2017-12-14 13:36:00 68 [in_us] [facility] Weight 2017-12-14 13:36:00 247.5 [lb_av] [facility] Body Mass Index Calculated 2017-12-14 13:36:00 37.63 kg/m2 [facility] Temperature 2017-12-14 13:36:00 98.5 [degF] Method: Oral [facility] Heart Rate 2017-12-14 13:36:00 80 /min [facility] Respiration Rate 2017-12-14 13:36:00 16 /min [facility] BP Systolic 2017-11-21 16:31:00 126 mm[Hg] Location: LUE; [place]: Sitting [facility] BP Diastolic 2017-11-21 16:31:00 77 mm[Hg] Location: LUE; [place] on: Sitting [facility] Height 2017-11-21 16:31:00 68 [in_us] [facility] Weight 2017-11-21 16:31:00 244.8 [lb_av] [facility] Body Mass Index Calculated 2017-11-21 16:31:00 37.22 kg/m2 [facility] Temperature 2017-11-21 16:31:00 98.4 [degF] Method: Oral [facility] Heart Rate 2017-11-21 16:31:00 77 /min [facility] Respiration Rate 2017-11-21 16:31:00 16 /min [facility] BP Systolic 2017-10-24 15:51:00 129 mm[Hg] Location: LUE; [place] on: Sitting [facility] BP Diastolic 2017-10-24 15:51:00 77 mm[Hg] Location: LUE; [place] on: Sitting [facility] Height 2017-10-24 15:51:00 68 [in_us] [facility] Weight 2017-10-24 15:51:00 248.7 [lb_av] [facility] Body Mass Index Calculated 2017-10-24 15:51:00 37.81 kg/m2 [facility] Temperature 2017-10-24 15:51:00 98.4 [degF] Method: Oral [facility] Heart Rate 2017-10-24 15:51:00 79 /min [facility] Respiration Rate 2017-10-24 15:51:00 16 /min [facility] BP Systolic 2017-10-11 15:29:00 155 mm[Hg] Location: LUE; [place] on: Sitting [facility] BP Diastolic 2017-10-11 15:29:00 82 mm[Hg] Location: LUE; [place] on: Sitting [facility] Height 2017-10-11 15:29:00 68 [in_us] [facility] Weight 2017-10-11 15:29:00 247.2 [lb_av] [facility] Body Mass Index Calculated 2017-10-11 15:29:00 37.59 kg/m2 [facility] Temperature 2017-10-11 15:29:00 98.1 [degF] Method: Oral [facility] Heart Rate 2017-10-11 15:29:00 76 /min [facility] Respiration Rate 2017-10-11 15:29:00 16 /min [facility] BP Systolic 2017-09-19 16:06:00 131 mm[Hg] Location: LUE; [place] on: Sitting [facility] BP Diastolic 2017-09-19 16:06:00 82 mm[Hg] Location: LUE; [place] on: Sitting [facility] Height 2017-09-19 16:06:00 68 [in_us] [facility] Weight 2017-09-19 16:06:00 236 [lb_av] [facility] Body Mass Index Calculated 2017-09-19 16:06:00 35.88 kg/m2 [facility] Temperature 2017-09-19 16:06:00 96.7 [degF] Method: Temporal [facility] Heart Rate 2017-09-19 16:06:00 90 /min Location: L Radial; [facility] Respiration Rate 2017-09-19 16:06:00 16 /min [facility] Systolic 2017-08-31 15:08:00 142 mm[Hg] Location: LUE; [place] on: Sitting [facility] BP Diastolic 2017-08-31 15:08:00 81 mm[Hg] Location: LUE; [place] on: Sitting [facility] Height 2017-08-31 15:08:00 68 [in_us] [facility] Weight 2017-08-31 15:08:00 239 [lb_av] [facility] Body Mass Index Calculated 2017-08-31 15:08:00 36.34 kg/m2 [facility] Heart Rate 2017-08-31 15:08:00 86 /min [facility] Procedures Procedure Date / Time Performed Performing Clinician Robert saravia MA Bone Density DXA [employer] [id number] 2020-03-08 00:00:00 [facility] LAZARO Digital Mammo Screening Abdirizak [id number] 2020-03-08 00:00:00 [facility] GI Esophagus barium swallow function video [id number] 2020-03-05 00:0 0:00 [facility] GI Esophagus barium swallow function video [id number] 2020-02-24 00:0 0:00 [facility] [QL] CBC (INCLUDES DIFF/PLT) 2019-12-30 00:00:00 [facility] [QL] VITAMIN B12 2019-12-30 00:00:00 [facility] [QL] FERRITIN 2019-12-30 00:00:00 [place] [facility] EKG (In Office) 2019-10-03 00:00:00 [place] [facility] [QL] LIPID PANEL 2019-10-03 00:00:00 [facility] [QL] CBC (INCLUDES DIFF/PLT) 2019-10-03 00:00:00 [facility] [QL] CMP W/EGFR 2019-10-03 00:00:00 [facility] [QL] TSH, 3RD GENERATION W/REFLEX TO FT4 2019-10-03 00:00:00 [facility] [QL] FERRITIN 2019-10-03 00:00:00 [place] [facility] [QL] VITAMIN B12 2019-10-03 00:00:[address] [facility] [address] Brain w contrast [id number] 2019-10-03 [facility] Sp[facility] cervical wo contrast [id number] 2019-10-03 00:00:00 [facility] MRI Neck wo contrast [id number] 2019-10-03 [facility] [id number] 2019-10-03 [facility] [QH] LIPID PANEL WITH REFLEX TO DIRECT LDL 2019-08-13 00:00:00 [facility] [QLH] CMP W/EGFR 2019-08-13 00:00:00 [facility] [Q] LIPID PANEL WITH REFLEX TO DIRECT LDL 2019-08-13 00:00:00 [facility] [QL] CMP W/EGFR 2019-08-13 00:00:00 [place] [facility] Abdomen AP view [id number] 2019-07-03 00:00[facility] Colonoscopy 2019-05-07 00:00:00 [place] [facility] [QLH] HEMOGLOBIN A1c 2019-03-12 00:00:00 [facility] [H] Iron, TIBC \T\ Ferritin 2019-02-13 00:00:00 [facility] [[facility]] CBC (INCLUDES DIFF/PLT) 2019-02-13 00:00:00 [facility] [[facility]] CBC (INCLUDES DIFF/PLT) 2019-01-29 00:00:00 [facility] [Q] IRON, TIBC AND FERRITIN PANEL 2019-01-29 00:00:00 [facility] [[facility]] VITAMIN B12 2019-01-29 00:00:00 [facility] [[facility]] LIPID PANEL 2019-01-08 00:00:00 [facility] [[facility]] MICROALBUMIN, RANDOM URINE (W/CREATININE) 2019-01-08 00:00 :00 [facility] [[facility]] HEPATITIS C ANTIBODY 2019-01-08 00:00:00 U [facility] MA Digital Mammo Screening Abdirizak [id number] 2018-12-18 00:00:00 [facility] [[facility]] LIPID PANEL 2018-12-18 00:00:00 [facility] [[facility]] MICROALBUMIN, RANDOM URINE (W/CREATININE) 2018-12-18 00:00 :00 [facility] [[facility]] HEPATITIS C ANTIBODY 2018-12-18 00:00:00 U [facility] EGD (Esophagogastroduodenoscopy) 2018-11-13 00:00:00 [facility] Computed tomography of abdomen and pelvis with contrast 2018 00:00:00 ROHAN TURNER [facility] [Q] DRUG ABUSE PANEL 2018-10-01 00:00[facility] Internal Auditory Canal w/wo contrast [id number] 2018-09-19 00:00 :00 [facility] MRI Spine lumbar wo contrast [id number] 2018-09-19 00:00:00 [facility] [Q] DRUG ABUSE PANEL 2018-08-27 00:00:00 Un [facility] [O] Basic Audiometry Screen 2018-08-01 00:00:00 [facility] [[facility]] CLOSTRIDIUM DIFFICILE TOXIN A AND B, EIA 2018-05-29 00:00: [address] [facility] [address] Abdomen/Pelvis wo contrast [id number] 2018-05-29 00:00:00 [facility] [[facility]] CBC (INCLUDES DIFF/PLT) 2018-05-29 00:00:00 [facility] [[facility]] CMP W/EGFR 2018-05-29 00:00:00 [facility] [QLH] AMYLASE 2018-05-29 00:00:00 [place] [facility] [place] [facility] [QLH] LIPASE 2018-05-29 00:00:00 [place] [facility] [place] [facility] MR Tib Fib wo contrast [id number] 2018-04-19 00:00:00 [facility] XRAY Hip 1 view [id number] 2018-02-05 00:00:00 [facility] XRAY Ribs unilateral [id number] 2018-02-05 00:00:00 U [facility] US Renal with Renal vessel Doppler [id number] 2018-02-04 00:00:00 [facility] [O] Basic Audiometry Screen 2018-01-31 00:00:[address] [facility] [address] Abdomen/Pelvis wo contrast [id number] 2017-09-19 00:00:00 [facility] [N] 2D Echo complete, with Doppler [id number] 2017-08-22 00:00:00 [facility] History of Hernia Repair 2012-09-16 [facility] History of Rhinoplasty [facility] History of Cataract Surgery [facility] History of Tubal Ligation [facility] History of Appendectomy [facility] History of Cholecystectomy Unive [facility] History of Hysterectomy [facility] History of Foot Surgery [facility] Plan of Care Planned Activity Planned Date Details Comments Source Future Scheduled Test 2019-11-11 00:00:00 [QH] LIPID PANEL W ITH REFLEX TO DIRECT LDL [code = [QH] LIPID PANEL WITH REFLEX TO DIRECT LDL] [facility] Future Scheduled Test 2019-11-11 00:00:00 [QLH] CMP W/EGFR [ code = [QLH] CMP W/EGFR] [facility] Future Scheduled Test 2019-11-11 00:00:00 [QH] LIPID PANEL W ITH REFLEX TO DIRECT LDL [code = [QH] LIPID PANEL WITH REFLEX TO DIRECT LDL] [facility] Future Scheduled Test 2019-11-11 00:00:00 [QLH] CMP W/EGFR [ code = [QLH] CMP W/EGFR] [facility] Diagnostic Test Pending 2019-05-31 00:00:00 Colonoscopy [code = 737 77611] [facility] Diagnostic Test Pending 2018-12-23 00:00:00 EGD (Esophagogas troduodenoscopy) [code = EGD (Esophagogastroduodenoscopy)] [facility] Diagnostic Test Pending 2018-12-23 00:00:00 EGD (Esophagogas troduodenoscopy) [code = EGD (Esophagogastroduodenoscopy)] [facility] Diagnostic Test Pending 2018-12-06 00:00:00 EGD (Esophagogas troduodenoscopy) [code = EGD (Esophagogastroduodenoscopy)] [facility] Diagnostic Test Pending 2018-12-06 00:00:00 EGD (Esophagogas troduodenoscopy) [code = EGD (Esophagogastroduodenoscopy)] [facility] Diagnostic Test Pending 2018-08-01 00:00:00 [O] Basic Audiom etry Screen [code = [O] Basic Audiometry Screen] [facility] Diagnostic Test Pending 2018-08-01 00:00:00 [O] Basic Audiom etry Screen [code = [O] Basic Audiometry Screen] [facility] Pending 2018-01-31 00:00:00 [O] Basic Audiom etry Screen [code = [O] Basic Audiometry Screen] [facility] Test 2013-10-23 20:01:07 Plan of Care [code = 1877 6-5] [facility] Scheduled Test 2013-09-23 20:20:52 Plan of Care [code = 1877 6-5] [facility] Scheduled Test 2013-09-04 19:20:34 Plan of Care [code = 1877 6-5] [facility] Scheduled Test 2013-08-26 20:45:09 Plan of Care [code = 1877 6-5] [facility] Scheduled Test 2013-07-14 21:01:23 Plan of Care [code = 1877 6-5] [facility] Appointment 2020-06-08 16:00[facility]00 [facility] 2020-06-08 16:00:00 Tomy ZACARIAS, [facility] Future Appointment 2020-05-14 15:30:00 Tomy VERA, [facility] Future Appointment 2020-05-12 16:00:00 Tomy ZEPEDA, [facility] Future Appointment 2020-04-21 16:00:00 Tomy BALLESTEROS, [facility] Future Appointment 2020-03-25 08:30:00 [facility] Start Date/Time End Date/Time Encounter Type Admission Type Attendi [facility] Care Department Encounter ID Source 2020-03-09 14:15:00 2020-03-09 14:15:00 Appointment; VIMAL MERRITT M.D. WALTON, HAROLD, M.D. [facility] [id number] [facility] 2020-03-08 16:00:00 2020-03-08 16:00:00 Appointment; VIMAL MERRITT M.D. WALTON, HAROLD, M.D. [facility] [id number] [facility] 2020-02-24 16:00:00 2020-02-24 16:00:00 Appointment; DIMAS CORADO M.D. CATALANO, MARC, M.D. [facility], [address] [id number] [facility] 2020-01-20 16:15:00 2020-01-20 16:15:00 Appointment; DIMAS CORADO M.D. CATALANO, MARC, M.D. [facility] [id number] [facility] 2020-01-15 13:30:00 2020-01-15 13:30:00 Appointment; BRANDON ROSARIO APRN HOANG, CHRISTINA, APRN [facility] UTP [id number] [facility] 2019-12-30 13:30:00 2019-12-30 13:30:00 Appointment; BRANDON ROSARIO APRN HOANG, CHRISTINA, APRN [facility] [id number] [facility] 2019-12-16 07:45:00 2019-12-16 07:45:00 Appointment; BRANDON ROSARIO APRN HOANG, CHRISTINA, APRN [facility], [address] [id number] [facility] 2019-11-12 16:40:00 2019-11-12 16:40:00 Appointment; KATELYN GRACIA M.D. CHARITAKIS, KONSTANTINOS, M.D. [facility], [address] [id number] [facility] 2019-11-11 15:30:00 2019-11-11 15:30:00 Appointment; CHUY ISIDRO M.D. GOMEZ-RIVERA, FERNANDO, M.D. [facility] Holden rhinolaryngology [facility] [id number] [facility] 2019-11-07 11:15:2019-11-07 11:15:00 Appointment; BRANDON ROSARIO APRN HOANG, CHRISTINA, APRN [facility], [address] [id number] [facility] 2019-11-05 16:00:00 2019-11-05 16:00:00 Appointment; LESLI COLBERT M.D. NASSIF, JULIA, M.D. [facility], [address] [id number] [facility] 2019-11-05 15:30:00 2019-11-05 15:30:00 Appointment; CHUY ISIDRO M.D. GOMEZ-RIVERA, FERNANDO, M.D. [facility] [id number] [facility] 2019-10-31 13:45:00 2019-10-31 13:45:00 Appointment; BRANDON ROSARIO APRN HOANG, CHRISTINA, APRN [facility], [address] [id number] [facility] 2019-10-24 15:30:00 2019-10-24 15:30:00 Appointment; CHUY ISIDRO M.D. GOMEZ-RIVERA, FERNANDO, M.D. [facility] [id number] [facility] 2019-10-24 13:00:00 2019-10-24 13:00:00 Appointment; BRANDON ROSARIO APRN HOANG, CHRISTINA, APRN [facility], [address] [id number] [facility] 2019-10-16 14:30:00 2019-10-16 14:30:00 Appointment; BRANDON ROSARIO APRN HOANG, CHRISTINA, APRN [facility] [address] [id number] [facility] 2019-10-03 10:30:2019-10-03 10:30:00 Appointment; BRANDON ROSARIO APRN HOANG, CHRISTINA, APRN [facility], [address] [id number] [facility] 2019-08-13 17:00:2019-08-13 17:00:00 Appointment; KATELYN GRACIA M.D. CHARITAKIS, KONSTANTINOS, M.D. [facility], [facility] [id number] [facility] 2019-08-01 12:00:00 2019-08-01 12:00:00 Appointment; VIMAL MERRITT M.D. WALTON, HAROLD, M.D. [facility], [address] [id number] [facility] 2019-07-30 16:00:00 2019-07-30 16:00:00 Appointment; LESLI COLBERT M.D. NASSIF, JULIA, M.D. [facility], [address] [id number] [facility] 2019-07-28 08:10:00 2019-07-28 10:58:00 Departed Emergency Room 1 TOMMY CHAPPELL [facility] [id number] [facility] 2019-07-24 14:25:00 2019-07-24 18:29:00 Departed Emergency Room [facility] [id number] [facility] 2019-04-16 16:00:00 2019-04-16 16:00:00 Appointment; JANAY FIERRO M .D. JAVED, SABA, M.D. [facility] [id number] [facility] 2019-04-10 15:15:00 2019-04-10 15:15:00 Appointment; JANAY FIERRO M .D. JAVED, SABA, M.D. [facility] [id number] [facility] 2019-04-08 16:00:00 2019-04-08 16:00:00 Appointment; VIMAL MERRITT M.D. WALTON, HAROLD, M.D. [facility], [address] [id number] [facility] 2019-03-13 15:00:00 2019-03-13 15:00:00 Appointment; BERTHA LOU M.D. BYRD, MICHAEL, M.D. [facility], [address] [id number] [facility] 2019-03-12 16:00:00 2019-03-12 16:00:00 Appointment; VIMAL MERRITT M.D. WALTON, HAROLD, M.D. [facility] [id number] [facility] 2019-02-28 15:30:00 2019-02-28 15:30:00 Appointment; LESLI COLBERT M.D. NASSIF, JULIA, M.D. [facility], [address] [id number] [facility] 2019-02-28 11:00:00 2019-02-28 11:00:00 Appointment; VIMAL MERRITT M.D. WALTON, HAROLD, M.D. [facility], [address] [id number] [facility] 2019-02-27 15:15:00 2019-02-27 15:15:00 Appointment; JANAY FIERRO M .D. JAVED, SABA, M.D. [facility] [id number] [facility] 2019-02-06 15:30:00 2019-02-06 15:30:00 Appointment; VIMAL MERRITT M.D. WALTON, HAROLD, M.D. [facility] [id number] [facility] 2019-01-29 16:00:00 2019-01-29 16:00:00 Appointment; VIMAL MERRITT M.D. WALTON, HAROLD, M.D. [facility], [address] [id number] [facility] 2019-01-21 16:00:00 2019-01-21 16:00:00 Appointment; DIMAS CORADO M.D. CATALANO, MARC, M.D. [facility], [address] [id number] [facility] 2018-12-18 16:00:00 2018-12-18 16:00:00 Appointment; VIMAL MERRITT M.D. WALTON, HAROLD, M.D. [facility] [id number] [facility] 2018-12-13 16:00:00 2018-12-13 16:00:00 Appointment; LESLI COLBERT M.D. NASSIF, JULIA, M.D. [facility], [address] [id number] [facility] 2018-12-06 09:00:00 2018-12-06 09:00:00 Appointment; DIMAS CORADO M.D. CATALANO, MARC, M.D. [facility] [id number] [facility] 2018-11-18 16:00:00 2018-11-18 16:00:00 Appointment; VIMAL MERRITT M.D. WALTON, HAROLD, M.D. [facility], [address] [id number] [facility] 2018-11-12 16:00:00 2018-11-12 16:00:00 Appointment; DIMAS CORADO M.D. CATALANO, MARC, M.D. [facility] [address] [id number] [facility] 2018-11-07 16:00:00 2018-11-07 16:00:00 Appointment; MARCELINA RUIZ M.D. AHMED, MOUSTAFA, M.D. [facility] [id number] [facility] 2018-11-04 08:21:00 2018-11-04 14:08:00 Departed Emergency Room 1 ROHAN TURNER [facility] [id number] [facility] 2018-10-09 15:30:00 2018-10-09 15:30:00 Appointment; MARCELINA RUIZ M.D. AHMED, MOUSTAFA, M.D. [facility] [id number] [facility] 2018-10-01 15:45:00 2018-10-01 15:45:00 Appointment; MARCELINA RUIZ M.D. AHMED, MOUSTAFA, M.D. [facility] [id number] [facility] 2018-09-19 15:00:00 2018-09-19 15:00:00 Appointment; BERTHA LOU M.D. BYRD, MICHAEL, M.D. [facility] Otorhinolaryngology [facility] [id number] [facility] 2018-09-17 15:30:00 2018-09-17 15:30:00 Appointment; ANGELA BERNAL KIMBERLY [facility] Otorhinolaryngology [facility] [id number] [facility] 2018-09-12 16:00:00 2018-09-12 16:00:00 Appointment; LESLI COLBERT M.D. NASSIF, JULIA, M.D. [facility] [address] [id number] [facility] 2018-08-27 15:00:00 2018-08-27 15:00:00 Appointment; MARCELINA RUIZ M.D. AHMED, MOUSTAFA, M.D. [facility] [id number] [facility] 2018-08-22 16:00:00 2018-08-22 16:00:00 Appointment; VIMAL MERRITT M.D. WALTON, HAROLD, M.D. [facility] [id number] [facility] 2018-08-01 15:45:00 2018-08-01 15:45:00 Appointment; BERTHA LOU M.D. BYRD, MICHAEL, M.D. [facility] [id number] [facility] 2018-08-01 15:00:00 2018-08-01 15:00:00 Appointment; BERTHA LOU M.D. BYRD, MICHAEL, M.D. [facility] [address] [id number] [facility] 2018-07-01 14:00:00 2018-07-01 14:00:00 Appointment; VIMAL MERRITT M.D. WALTON, HAROLD, M.D. [facility] [id number] [facility] 2018-06-26 17:00:00 2018-06-26 17:00:00 Appointment; KATELYN GRACIA M.D. CHARITAKIS, KONSTANTINOS, M.D. [facility] [address] [id number] [facility] 2018-06-26 16:00:00 2018-06-26 16:00:00 Appointment; AMINAJONATHAN-MS, Sherrie [facility]-MS, NELL [facility] [id number] [facility] 2018-06-06 16:00:00 2018-06-06 16:00:00 Appointment; VIMAL MERRITT M.D. WALTON, HAROLD, M.D. [facility] [id number] [facility] 2018-05-29 13:30:00 2018-05-29 13:30:00 Appointment; VIMAL MERRITT M.D. WALTON, HAROLD, M.D. [facility] [id number] [facility] 2018-05-07 16:00:00 2018-05-07 16:00:00 Appointment; VIMAL MERRITT M.D. WALTON, HAROLD, M.D. [facility] [id number] [facility] 2018-05-01 16:00:00 2018-05-01 16:00:00 Appointment; VIMAL MERRITT M.D. WALTON, HAROLD M.D. [facility] [id number] [facility] 2018-04-26 14:00:00 2018-04-26 14:00:00 Appointment; CONRAD MATA M.D. KOSHELEV, MISHA, M.D. [facility] [address] [id number] [facility] 2018-04-26 12:00:00 2018-04-26 12:00:00 Appointment; VIMAL MERRITT M.D. WALTON, HAROLD, M.D. [facility] [id number] [facility] 2018-04-19 11:00:00 2018-04-19 11:00:00 Appointment; VIMAL MERRITT M.D. WALTON, HAROLD, M.D. [facility] [address] [id number] [facility] 2018-04-12 11:00:00 2018-04-12 11:00:00 Appointment; VIMAL MERRITT M.D. WALTON, HAROLD, M.D. [facility] [id number] [facility] 2018-04-03 14:30:00 2018-04-03 14:30:00 Appointment; VIMAL MERRITT M.D. WALTON, HAROLD, M.D. [facility] [address] [id number] [facility] 2018-03-21 15:16:00 2018-03-27 10:27:00 Discharged Inpatient 1 DELIA GOMEZ [facility] [id number] [facility] 2018-02-20 16:00:00 2018-02-20 16:00:00 Appointment; VIMAL MERRITT M.D. WALTON, HAROLD, M.D. [facility] [address] [id number] [facility] 2018-02-08 15:30:00 2018-02-08 15:30:00 Appointment; LESLI COLBERT M.D. NASSIF, JULIA, M.D. [facility] [address] [id number] [facility] 2018-02-04 13:15:00 2018-02-04 13:15:00 Appointment; VIMAL MERRITT M.D. WALTON, HAROLD, M.D. [facility] [address] [id number] [facility] 2018-01-31 15:15:00 2018-01-31 15:15:00 Appointment; BERTHA LOU M.D. BYRD, MICHAEL, M.D. [facility] [id number] [facility] 2018-01-24 16:00:00 2018-01-24 16:00:00 Appointment; VIMAL MERRITT M.D. WALTON, HAROLD, M.D. [facility] [id number] [facility] 2017-12-14 13:45:00 2017-12-14 13:45:00 Appointment; VIMAL MERRITT M.D. WALTON, HAROLD, M.D. [facility] [address] [id number] [facility] 2017-12-01 06:56:00 2017-12-01 13:08:00 Departed Emergency Room 1 YUEROHAN [facility] [id number] [facility] 2017-11-21 16:00:00 2017-11-21 16:00:00 Appointment; VIMAL MERRITT M.D. WALTON, HAROLD, M.D. [facility] [id number] [facility] 2017-10-24 16:00:00 2017-10-24 16:00:00 Appointment; VIMAL MERRITT M.D. WALTON, HAROLD, M.D. [facility] [address] [id number] [facility] 2017-10-11 15:30:00 2017-10-11 15:30:00 Appointment; VIMAL MERRITT M.D. WALTON, HAROLD, M.D. [facility] [address] [id number] [facility] 2017-09-19 15:30:00 2017-09-19 15:30:00 Appointment; VIMAL MERRITT M.D. WALTON, HAROLD, M.D. [facility] [id number] [facility] 2017-08-31 16:00:00 2017-08-31 16:00:00 Appointment; LESLI COLBERT M.D. NASSIF, JULIA, M.D. U[facility] UTP [id number] [facility] 2017-08-22 16:20:00 2017-08-22 16:20:00 Appointment; KATELYN GRACIA M.D. CHARITAKIS, KONSTANTINOS, M.D. [facility] UTP [id number] [facility] 2017-08-13 14:15:00 2017-08-13 14:15:00 Appointment; VIMAL MERRITT M.D. WALTON, HAROLD, M.D. [facility] UTP [id number] [facility] 2017-07-12 16:00:00 2017-07-12 16:00:00 Appointment; VIMAL MERRITT M.D. WALTON, HAROLD, M.D. [facility] UTP [id number] [facility] 2017-07-05 15:45:00 2017-07-05 15:45:00 Appointment; DIMAS CORADO M.D. CATALANO, MARC, M.D. [facility] UTP [id number] [facility] 2017-06-13 15:30:00 2017-06-13 15:30:00 Appointment; VIMAL MERRITT M.D. WALTON, HAROLD, M.D. [facility] UTP [id number] [facility] 2017-06-07 15:45:00 2017-06-07 15:45:00 Appointment; BERTHA LOU M.D. BYRD, MICHAEL, M.D. [facility] UTP [id number] [facility] 2017-05-25 16:00:00 2017-05-25 16:00:00 Appointment; LESLI COLBERT M.D. NASSIF, JULIA, M.D. UTP UTP [id number] [facility] 2017-05-08 15:45:00 2017-05-08 15:45:00 Appointment; DIMAS CORADO M.D. CATALANO, MARC, M.D. U[facility] UTP [id number] [facility] 2017-04-12 16:00:00 2017-04-12 16:00:00 Appointment; VIMAL MERRITT M.D. WALTON, HAROLD, M.D. U[facility] UTP [id number] [facility] 2017-03-12 15:30:00 2017-03-12 15:30:00 Appointment; VIMAL MERRITT M.D. WALTON, HAROLD, M.D. [facility] UTP [id number] [facility] 2017-02-06 12:00:00 2017-02-06 12:00:00 Appointment; KATELYN GRACIA M.D. CHARITAKIS, KONSTANTINOS, M.D. [facility] UTP [id number] [facility] 2017-02-06 08:00:00 2017-02-06 08:00:00 Appointment; [place]-MS, N UCLEAR [facility]-MS, NUCLEAR UTP UTP [id number] [facility] 2017-01-12 16:00:00 2017-01-12 16:00:00 Appointment; VIMAL MERRITT M.D. WALTON, HAROLD, M.D. UTP UTP [id number] [facility] 2017-01-10 16:00:00 2017-01-10 16:00:00 Appointment; VIMAL MERRITT M.D. WALTON, HAROLD, M.D. [facility] UTP [id number] [facility] 2017-01-05 15:30:00 2017-01-05 15:30:00 Appointment; LESLI COLBERT M.D. NASSIF, JULIA, M.D. UTP UTP [id number] [facility] 2016-11-30 15:15:00 2016-11-30 15:15:00 Appointment; BERTHA LOU M.D. BYRD, MICHAEL, M.D. UTP UTP [id number] [facility] 2016-10-26 14:00:00 2016-10-26 14:00:00 Appointment; [place]-MS, H OLTER [facility]-MS, HOLTER UTP UTP [id number] [facility] 2016-10-26 13:00:00 2016-10-26 13:00:00 Appointment; [place]-MS, E CHO [facility]MS, ECHO UTP UTP [id number] [facility] 2016-10-13 15:15:00 2016-10-13 15:15:00 Appointment; VIMAL MERRITT M.D. WALTON, HAROLD, M.D. UTP UTP [id number] [facility] 2016-10-05 15:30:00 2016-10-05 15:30:00 Appointment; LESLI COLBERT M.D. NASSIF, JULIA, M.D. UTP UTP [id number] [facility] 2016-09-06 15:40:00 2016-09-06 15:40:00 Appointment; KATELYN GRACIA M.D. CHARITAKIS, KONSTANTINOS, M.D. UTP UTP [id number] [facility] 2016-07-18 15:30:00 2016-07-18 15:30:00 Appointment; VIMAL MERRITT M.D. WALTON, HAROLD, M.D. UTP UTP [id number] [facility] 2016-07-06 16:00:00 2016-07-06 16:00:00 Appointment; LESLI COLBERT M.D. NASSIF, JULIA, M.D. [facility] UTP [id number] [facility] 2016-07-03 15:45:00 2016-07-03 15:45:00 Appointment; DIMAS CORADO M.D. CATALANO, MARC, M.D. UTP UTP [id number] [facility] 2016-06-01 15:15:00 2016-06-01 15:15:00 Appointment; BERTHA LOU M.D. BYRD, MICHAEL, M.D. UTP UTP [id number] [facility] 2016-05-25 15:15:00 2016-05-25 15:15:00 Appointment; BERTHA LOU M.D. BYRD, MICHAEL, M.D. UTP UTP [id number] [facility] 2016-05-22 15:45:00 2016-05-22 15:45:00 Appointment; DIMAS CORADO M.D. CATALANO, MARC, M.D. UTP UTP [id number] [facility] 2016-04-28 15:15:00 2016-04-28 15:15:00 Appointment; VIMAL MERRITT M.D. WALTON, HAROLD, M.D. UTP UTP [id number] [facility] 2016-04-17 14:00:00 2016-04-17 14:00:00 Appointment; DIMAS CORADO M.D. CATALANO, MARC, M.D. UTP UTP [id number] [facility] 2016-03-31 15:45:00 2016-03-31 15:45:00 Appointment; VIMAL MERRITT M.D. WALTON, HAROLD, M.D. UTP UTP [id number] [facility] 2016-03-15 15:30:00 2016-03-15 15:30:00 Appointment; LESLI COLBERT M.D. NASSIF, JULIA, M.D. UTP UTP [id number] [facility] 2016-02-16 15:00:00 2016-02-16 15:00:00 Appointment; KATELYN GRACIA M.D. CHARITAKIS, KONSTANTINOS, M.D. UTP UTP [id number] [facility] 2016-02-16 14:00:00 2016-02-16 14:00:00 Appointment; [place]-MS, S TRESS [facility]-MS, STRESS UTP UTP [id number] [facility] 2016-01-21 16:00:00 2016-01-21 16:00:00 Appointment; VIMAL MERRITT M.D. WALTON, HAROLD, M.D. UTP UTP [id number] [facility] 2016-01-12 16:00:00 2016-01-12 16:00:00 Appointment; KATELYN GRACIA M.D. CHARITAKIS, KONSTANTINOS, M.D. UTP UTP [id number] [facility] 2016-01-04 16:00:00 2016-01-04 16:00:00 Appointment; [place]-MS, E CHO [facility], ECHO UTP UTP [id number] [facility] 2016-01-03 15:00:00 2016-01-03 15:00:00 Appointment; [place]-MS, H OLTER [facility], HOLTER UTP UTP [id number] [facility] 2015-12-29 16:40:00 2015-12-29 16:40:00 Appointment; KATELYN GRACIA M.D. CHARITAKIS, KONSTANTINOS, M.D. UTP UTP [id number] [facility] 2015-12-10 15:00:00 2015-12-10 15:00:00 Appointment; VIMAL MERRITT M.D. WALTON, HAROLD, M.D. UTP UTP [id number] [facility] 2015-12-09 15:15:00 2015-12-09 15:15:00 Appointment; BERTHA LOU M.D. BYRD, MICHAEL, M.D. UTP UTP [id number] [facility] 2015-12-07 15:15:00 2015-12-07 15:15:00 Appointment; TALON BAKER M.D. OWENS, TERRYL, M.D. UTP UTP [id number] [facility] 2015-12-02 15:00:00 2015-12-02 15:00:00 Appointment; LESLI COLBERT M.D. NASSIF, JULIA, M.D. [facility] UTP [id number] [facility] 2015-11-25 15:15:00 2015-11-25 15:15:00 Appointment; BERTHA LOU M.D. BYRD, MICHAEL, M.D. UTP UTP [id number] [facility] 2015-11-17 13:00:00 2015-11-17 13:00:00 Appointment; BRANDON ROSARIO NP HOANG, CHRISTINA, NP UTP UTP [id number] [facility] 2015-10-08 16:00:00 2015-10-08 16:00:00 Appointment; VIMAL MERRITT M.D. WALTON, HAROLD, M.D. UTP UTP [id number] [facility] 2013-10-23 15:01:07 2013-10-23 15:01:07 Outpatient MHIE MHIE [id number] 2013-09-23 15:20:52 2013-09-23 15:20:52 Outpatient MHIE MHIE [id number] 2013-09-04 14:20:34 2013-09-04 14:20:34 Outpatient MHIE MHIE [id number] 2013-08-26 15:45:10 2013-08-26 15:45:09 Outpatient MHIE IE [id number] 2013-08-25 15:16:06 2013-08-25 15:16:06 Outpatient MHIE IE [id number] 2013-08-12 10:16:13 2013-08-12 10:16:12 Outpatient MHIE IE [id number] 2013-07-14 15:01:24 2013-07-14 15:01:23 Outpatient MHIE IE [id number] 2013-06-17 11:16:06 2013-06-17 11:16:06 Outpatient IE IE [id number] 2013-06-16 17:00:26 2013-06-16 17:00:25 Outpatient MHIE IE [id number] 2013-06-12 12:30:00 2013-06-12 12:30:00 Appointment; VIMAL MERRITT M.D. WALTON, HAROLD, M.D. [facility] 1 [id number] [facility] Results Test Description Test Time Test Comments Results Result Comments Source CHEST SINGLE (PORTABLE) 2020-03-23 08:48:00 [place] [address] Patient Name: LAURYN COLLINS MR #: [id number] : 1960 Age/Sex: 59/F Req #: [id number] Adm Physician: Ordered by: JAYDEN GARCIA DO Report #: [id number] Location: ER Room/Bed: Procedure: [id number] DX/CHEST SINGLE (PORTABLE) Exam Date: 03/23/20 Exam Time: 0740 REPORT STATUS: Signed EXAMINATION: CHEST SINGLE (PORTABLE) INDICATION: Shortness of breath, right hip pain COMPARISON: CT abdomen and pelvis of the same day, chest radiograph 12/24/2019 FINDINGS: LINES/TUBES:EKG leads overlie the chest. LUNGS:The lungs are well-inflated. No focal consolidation or pulmonary edema. PLEURA:No pleural effusion or pneumothorax. MEDIASTINUM:The cardiomediastinal silhouette appears normal in size and shape. BONES/SOFT TISSUES:No acute osseous injury. ABDOMEN:No free air under the diaphragm. IMPRESSION: No focal pneumonia or pulmonary edema. Signed by: Enrique Maravilla MD on 03/23/2020 8:49 AM Dictated By: ENRIQUE MARAVILLA MD 8 Transcribed By: THEA on 03/23/20848 COPY TO: JAYDEN GARCIA DO CT ABDOMEN/PELVIS W 2020-03-23 08:40:00 [place] [address] Patient Name: LAURYN COLLINS MR #: [id number] : 1960 Age/Sex: 59/F Req #: [id number] Adm Physician: Ordered by: JAYDEN GARCIA DO Report #: [id number] Location: ER Room/Bed: Procedure: [id number] CT/CT ABDOMEN/PELVIS W Exam Date: 03/23/20 Exam Time: 0740 REPORT STATUS: Signed EXAM: CT Abdomen and Pelvis WITH intravenous contrast INDICATION: Right flank pain COMPARISON: CT abdomen and pelvis of 11/04/2018 TECHNIQUE: Abdomen and pelvis were scanned utilizing a multidetector helical scanner from the lung base to the pubic sym physis after administration of IV contrast. Coronal and sagittal reformations were obtained. Routine protocol was performed. Scan was performed during portal venous phase. IV CONTRAST: 100mL of Isovue 370 ORAL CONTRAST: None RADIATION DOSE: Total DLP: 731 mGy*cm Dose modulation, iterative reconstruction, and/or weight based adjustment of the mA/kV was utilized to reduce the radiation dose to as low as reasonably achievable. FINDINGS: LOWER THORAX: Normal. HEPATOBILIARY: Diffuse hepatic steatosis. No focal liver lesion. No biliary ductal dilation. Small amount of common bile duct and left intrahepatic pneumobilia, unchanged from 11/04/2018. Status post cholecystectomy. SPLEEN: No splenomegaly. PANCREAS: No focal masses or ductal dilatation. ADRENALS: No adrenal nodules. KIDNEYS/URETERS: No hydronephrosis, stones, or solid mass lesions. PELVIC ORGANS/BLADDER: Unremarkable. PERITONEUM / RETROPERITONEUM: No free air or fluid. LYMPH NODES: No lymphadenopathy. VESSELS: Mild scattered atherosclerotic calcifications of the nonaneurysmal abdominal aorta and major branches. GI TRACT: No abnormal bowel thickening. No bowel obstruction. BONES AND SOFT TISSUES: No acute osseous injury. No suspicious lytic or blastic lesions. IMPRESSION: No acute findings in the abdomen or pelvis. Diffuse hepatic steatosis. Unchanged common bile duct and left intrahepatic ductal pneumobilia. Signed by: Enrique Maravilla MD on 03/23/2020 8:48 AM Dictated By: ENRIQUE MARAVILLA MD 7 Transcribed By: THEA on 03/23/20847 COPY TO: JAYDEN GARCIA DO [QL] CBC (INCLUDES DIFF/PLT) 2019-12-30 14:35:00 Test Item WHITE BLOOD CELL COUNT (test code = WHITE BLOOD CELL COUNT) 8.4 {Thousand/u} 3.8-10.8 N RED BLOOD CELL COUNT (test code = RED BLOOD CELL COUNT) 4.61 {Million/uL} 3.80-5.10 N HEMOGLOBIN; Normal (test code = 46798-3) 12.1 g/dl 11.7-15.5 N HEMATOCRIT; Normal (test code = 4544-3) 38.5 % 35.0-45.0 N MCV; Normal (test code = 787-2) 83.5 fL 80.0-100.0 N MCHC; Below Low Threshold (test code = 93206-1) 31.4 g/dl 32.0-3 6.0 RDW; Normal (test code = 788-0) 13.2 % 11.0-15.0 N PLATELET COUNT; Normal (test code = 777-3) 396 {Thousand/u} 140-400 N MPV; Normal (test code = 58771-7) 8.6 fL 7.5-12.5 N ABSOLUTE NEUTROPHILS (test code = ABSOLUTE NEUTROPHILS) 5603 {cells/uL} 1266-9137 N ABSOLUTE LYMPHOCYTES (test code = ABSOLUTE [...] % N MONOCYTES; Normal (test code = 43911-7) 4.1 % N EOSINOPHILS; Normal (test code = 54572-9) 1.8 % N BASOPHILS; Normal (test code = 54968-2) 0.7 % N COMMENT(S) (test code = COMMENT(S)) See Comment Review of peripheral smear confirmsautomated results. [facility][QL] [id number] 14:35:00* Test Item Value Reference Range Interpretation Comments FERRITIN (test code = FERRITIN) 49 ng/ml 16-288 N [facility][QL] VITAMIN [id number] 14:35:00* Test Item Value Reference Range Interpretation Comments VITAMIN B12 (test code = VITAMIN B12) 487 pg/ml 200-1100 N [facility] SINGLE (PORTABLE)2019-12-24 22:15:00 [place] [address] Patient Name: LAURYN COLLINS MR #: [id number] : 1960 Age/Sex: 59/F Req #: [id number] Adm Physician: XOCHITL LATIF MD Ordered by: BERTHA FERNÁNDEZ MD Report #: [id number] Location: MED/SURG3 Room/Bed: [facility] Procedure: [id number] DX/CHEST SINGLE (PORTABLE) Exam Date: 12/24/19 Exam [...] (test code = Glucose POC Lifescan) 118 [facility][O] Hemoglobin A1c (in office)2019-11-05 15:49:00 * Test Item Value Reference Range Interpretation Comments HEMOGLOBIN A1c (test code = 4548-4) 8.6 [facility][QL] LIPID [id number] 11:20:00* Test Item Value Reference Range Interpretation Comments CHOLESTEROL, TOTAL; Above High Threshold (test code = 2093-3) 202 m g/dl <200 HDL CHOLESTEROL; Normal (test code = 2085-9) 67 mg/dl > OR = 50 N TRIGLYCERIDES; Normal (test code = 2571-8) 136 mg/dl <150 N LDL-CHOLESTEROL; Above High Threshold (test code = 45936-3) 110 {MG/DL VASU} Reference range: <100 Desirable range <1 00 mg/dL for primary prevention; <70 mg/dL for patients with CHD or diabetic patients with > or = 2 CHD risk factors. LDL-C is now calculated using the Nicole calculation, which is a validated novel method providing better accuracy than the Friedewald equation in the estimation of LDL-C. Juan Manuel TREJO et al. ABIGAIL. 2013;310(19): 7286-1865 (http ://ModuleQ.Writer's Bloq/faq/ZUZ896) CHOL/HDLC RATIO (test code = CHOL/HDLC RATIO) 3.0 {CALC} <5.0 N NON HDL CHOLESTEROL (test code = NON HDL CHOLESTEROL) 135 {MG/DL C AL} <130 For patients with diabetes plus 1 major ASCVD risk factor, treating to a non-HDL-C goal of <100 mg/dL (LDL-C of <70 mg/dL) is considered a therapeutic option. [facility][QL] CMP W/[id number] 11:20:00* Test Item Value Reference Range Interpretation [...] is approximately 13% higher for peopleidentified as -Azerbaijani. eGFR NON- (test code = eGFR NON-CATY N SWEDISH) 76 {ML/MIN/1.7} > OR = 60 N [...] N BILIRUBIN, TOTAL; Normal (test code = 28574-7) 0.2 mg/dl 0.2-1.2 N ALKALINE PHSPHATASE (test code = ALKALINE PHSPHATASE) 68 u/l 37-153 N AST; Normal (test code = 1916-6) 15 u/l 10-35 N ALT; Normal (test code = 1742-6) 16 u/l 6-29 N [facility][] CBC (INCLUDES DIFF/PLT)2019-10-03 11:20:00* Test Item Value Reference Range Interpretation Comments WHITE BLOOD CELL COUNT (test code = WHITE BLOOD CELL COUNT) 5.9 {Thousand/u} 3.8-10.8 N RED BLOOD CELL COUNT (test code = RED BLOOD CELL COUNT) 4.52 {Million/uL} 3.80-5.10 N HEMAGLOBIN; Normal (test code = 66616-6) 12.7 g/dl 11.7-15.5 N HEMATOCRIT; Normal (test code = 4544-3) 39.3 % 35.0-45.0 N MCV; Normal (test code = 787-2) 86.9 fL 80.0-100.0 N MCHC; Normal (test code = 39536-3) 32.3 g/dl 32.0-36.0 N RDW; Normal (test code = 788-0) 12.3 % 11.0-15.0 N PLATELET COUNT; Above High Threshold (test code = 777-3) 406 {Thousand/u} 140-400 MPV; Normal (test code = 12368-4) 8.8 fL 7.5-12.5 N ABSOLUTE NEUTROPHILS (test code = ABSOLUTE NEUTROPHILS) 3682 {cells/uL} 4401-4685 N ABSOLUTE LYMPHOCYTES (test code = ABSOLUTE [...] % N MONOCYTES; Normal (test code = 14667-3) 4.7 % N EOSINOPHILS; Normal (test code = 29543-1) 2.4 % N BASOPHILS; Normal (test code = 24995-0) 0.7 % N [facility][QL] [id number] 11:20:00* Test Item Value Reference Range Interpretation Comments FERRITIN (test code = FERRITIN) 27 ng/ml 16-288 N [facility][QL] VITAMIN [id number] 11:20:00* Test Item Value Reference Range Interpretation Comments VITAMIN B12 (test code = VITAMIN B12) 257 pg/ml 200-1100 N Please Note: Although the reference range for helxdytB12 is 200-1100 pg/mL, it has been reported that between5 and 10% of patients with values between 200 and 400pg/mL may experience neuropsychiatric and hematologicabnormalities due to occult B12 deficiency; less than 1%of patients with values above 400 pg/mL will have symptoms. [facility][QL] TSH, 3RD GENERATION W/REFLEX TO [id number] 11:20:00* Test Item Value Reference Range Interpretation Comments TSH, 3RD GENERATION W/REFLEX TO FT4 (fidel t code = TSH, 3RD GENERATION W/REFLEX TO FT4) 2.63 {MIU/L} 0.40-4.50 N [facility][O] Urine Dipstick (In Office)2019-10-03 11:02:00 * Test Item Value Reference Range Interpretation Comments Glucose (test code = Glucose) 100 LEUKOCYTES (test code = LEUKOCYTES) NEGATIVE N NITRITE; Normal (test code = 19237-4) NEGATIVE N UROBILINOGEN; Normal (test code = 75150-4) NORMAL N PROTEIN; Normal (test code = 48109-3) NEGATIVE N pH (test code = pH) 5 N URINE BLOOD; Normal (test code = 73478-7) NEGATIVE N SPECIFIC GRAVITY; Normal (test code = 2965-2) 1.015 N KETONES; Normal (test code = 22747-6) NEGATIVE N BILIRUBIN; Normal (test code = 47681-7) NEGATIVE N COLOR URINE; Normal (test code = 5778-6) YELLOW N [facility][O] Hemoglobin A1c (in office)2019-10-03 10:40:00 * Test Item Value Reference Range Interpretation Comments HEMOGLOBIN A1c; Abnormal (test code = 4548-4) 8.3% A [facility][O] Hemoglobin A1c (in office)2019-07-30 16:01:00 * Test Item Value Reference Range Interpretation Comments HEMOGLOBIN A1c (test code = 4548-4) 8.7 [facility] ([facility] In [facility])2019-07-30 16:00:00* Test Item Value Reference Range Interpretation Comments Glucose POC Lifescan (test code = Glucose POC Lifescan) 179 [facility]iciansRIBS UNILAT W/[id number] 10:05:00 [place] [address] Patient Name: LAURYN COLLINS MR #: [id number] : 1960 Age/Sex: 59/F Req #: [id number] Adm Physician: Ordered by: TOMMY CHAPPELL DO Report #: [id number] Location: ER Room/Bed: Procedure: [id number] D X/RIBS UNILAT W/CXR Exam Date: 07/28/19 [...] on 07/28/19 1008 CO PY TO: TOMMY CHAPPELL DO Sodium Myafo6017-69-36 18:32:00* Test Item Value Reference Range Interpretation Comments Sodium Level (test code = 2951-2) 141 136-145 [facility] AlliancePotassium Iwiwg0447-15-43 18:32:00* Test Item Value Reference Range Interpretation Comments Potassium Level (test code = 2823-3) 4.0 3.5-5.1 [facility] AllianceChloride Uscfd7687-68-87 18:32:00* Test Item Value Reference Range Interpretation Comments Chloride Level (test code = 2075-0) 106 98-107 [facility] AllianceCarbon Dioxide Axfdc1278-71-67 18:32:00* Test Item Value Reference Range Interpretation Comments Carbon Dioxide Level (test code = 2028-9) 22 22-29 [facility] AllianceAnion Nqe5327-27-65 18:32:00* Test Item Value Reference Range Interpretation Comments Anion Gap (test code = 24001-4) 17.0 8-16 H [facility] AllianceBlood Urea Lfylhftf7566-14-18 18:32:00* Test Item Value Reference Range Interpretation Comments Blood Urea Nitrogen (test code = 3094-0) 11 7-26 [facility] AllianceCreatinine2020-02-06 18:32:00* Test Item Value Reference Range Interpretation Comments Creatinine (test code = 2160-0) 0.83 0.57-1.11 [facility] AllianceBUN/Creatinine [id number] 18:32:00* Test Item Value Reference Range Interpretation Comments BUN/Creatinine Ratio (test code = 3097-3) 13 6-25 [facility] AllianceEstimat Glomerular Filtration Rate 2019-07-24 18:32:00* Test Item Value Reference Range Interpretation Comments Estimat Glomerular Filtration Rate (test code = 859699627) > 60 >60 Ranges were taken from the National Kidney Disease Education Program and the [facility] Foundation literature.Reference ranges:60 or greater: Ltsavk18-47 ( for 3 consecutive months): Chronic kidney disease 15 or less: Kidney failureTexas Health Harris Medical Hospital AllianceGlucose Hkyxd6252-78-94 18:32:00* Test Item Value Reference Range Interpretation Comments Glucose Level (test code = BWV8858) 173 74-118 H [facility] AllianceCalcium Mwcps5730-16-69 18:32:00* Test Item Value Reference Range Interpretation Comments Calcium Level (test code = 61312-2) 9.6 8.4-10.2 [facility] AllianceTotal Tkvufjjre7665-22-78 18:32:00* Test Item Value Reference Range Interpretation Comments Total Bilirubin (test code = 1975-2) 0.3 0.2-1.2 [facility] AllianceAspartate Amino Transf (AST/SGOT) 2019-07-24 18:32:00* Test Item Value Reference Range Interpretation Comments Aspartate Amino Transf (AST/SGOT) (test code = Aspartate Amino Transf (AST/SGOT)) 14 5-34 [facility] AllianceAlanine Aminotransferase (ALT/SGPT) 2019-07-24 18:32:00* Test Item Value Reference Range Interpretation Comments Alanine Aminotransferase (ALT/SGPT) (test code = 1742-6) 20 0-55 [facility] AllianceTotal Lobxhyj4711-94-30 18:32:00* Test Item Value Reference Range Interpretation Comments Total Protein (test code = 2885-2) 7.4 6.5-8.1 [facility] AllianceAlbumin2020-02-06 18:32:00* Test Item Value Reference Range Interpretation Comments Albumin (test code = 1751-7) 3.8 3.5-5.0 [facility] AllianceGlobulin2020-02-06 18:32:00* Test Item Value Reference Range Interpretation Comments Globulin (test code = 38596-9) 3.6 2.3-3.5 H [facility] AllianceAlbumin/Globulin Qxnua7021-61-32 18:32:00 * Test Item Value Reference Range Interpretation Comments Albumin/Globulin Ratio (test code = 1759-0) 1.1 0.8-2.0 [facility] AllianceAlkaline Taxphizrsik3955-15-13 18:32:00* Test Item Value Reference Range Interpretation Comments Alkaline Phosphatase (test code = 6768-6) 72 40-150 [facility] AllianceWhite Blood Jgjoo3313-44-42 18:12:00* Test Item Value Reference Range Interpretation Comments White Blood Count (test code = 6690-2) 9.58 4.8-10.8 [facility] AllianceRed Blood Qhddc2340-84-83 18:12:00* Test Item Value Reference Range Interpretation Comments Red Blood Count (test code = 789-8) 4.48 3.6-5.1 [facility] AllianceHemoglobin2020-02-06 18:12:00* Test Item Value Reference Range Interpretation Comments Hemoglobin (test code = 19437-0) 12.8 12.0-16.0 [facility] AllianceHematocrit2020-02-06 18:12:00* Test Item Value Reference Range Interpretation Comments Hematocrit (test code = 4544-3) 39.3 34.2-44.1 [facility] AllianceMean Corpuscular Bqqgxo1108-08-79 18:12:00* Test Item Value Reference Range Interpretation Comments Mean Corpuscular Volume (test code = 787-2) 87.7 81-99 [facility] AllianceMean Corpuscular Tutvmehmnh0592-94-24 18:12:00* Test Item Value Reference Range Interpretation Comments Mean Corpuscular Hemoglobin (test code = 785-6) 28.6 28-32 [facility] AllianceMean Corpuscular Hemoglobin Concent 2019-07-24 18:12:00* Test Item Value Reference Range Interpretation Comments Mean Corpuscular Hemoglobin Concent (test code = 786-4) 32.6 31-35 [facility] AllianceRed Cell Distribution Yorhn7659-94-29 18:12:00* Test Item Value Reference Range Interpretation Comments Red Cell Distribution Width (test code = 97960-7) 13.7 11.7 -14.4 [facility] AlliancePlatelet Tewyt3983-56-72 18:12:00* Test Item Value Reference Range Interpretation Comments Platelet Count (test code = 777-3) 289 140-360 [facility] AllianceNeutrophils (%) (Auto)2019-07-24 18:12:00 * Test Item Value Reference Range Interpretation Comments Neutrophils (%) (Auto) (test code = 53047-5) 69.8 38.7-80.0 [facility] AllianceLymphocytes (%) (Auto)2019-07-24 18:12:00 * Test Item Value Reference Range Interpretation Comments Lymphocytes (%) (Auto) (test code = 736-9) 24.7 18.0-39.1 [facility] AllianceMonocytes (%) (Auto)2019-07-24 18:12:00* Test Item Value Reference Range Interpretation Comments Monocytes (%) (Auto) (test code = 5905-5) 4.2 4.4-11.3 L [facility] AllianceEosinophils (%) (Auto)2019-07-24 18:12:00 * Test Item Value Reference Range Interpretation Comments Eosinophils (%) (Auto) (test code = 713-8) 0.5 0.0-6.0 [facility] AllianceBasophils (%) (Auto)2019-07-24 18:12:00* Test Item Value Reference Range Interpretation Comments Basophils (%) (Auto) (test code = 706-2) 0.4 0.0-1.0 [facility] AllianceIM GRANULOCYTES %2019-07-24 18:12:00* Test Item Value Reference Range Interpretation Comments IM GRANULOCYTES % (test code = IM GRANULOCYTES %) 0.4 0.0- 1.0 [facility] AllianceNeutrophils # (Auto)2019-07-24 18:12:00* Test Item Value Reference Range Interpretation Comments Neutrophils # (Auto) (test code = 751-8) 6.7 2.1-6.9 [facility] AllianceLymphocytes # (Auto)2019-07-24 18:12:00* Test Item Value Reference Range Interpretation Comments Lymphocytes # (Auto) (test code = 86996-4) 2.4 1.0-3.2 [facility] AllianceMonocytes # (Auto)2019-07-24 18:12:00* Test Item Value Reference Range Interpretation Comments Monocytes # (Auto) (test code = 742-7) 0.4 0.2-0.8 [facility] AllianceEosinophils # (Auto)2019-07-24 18:12:00* Test Item Value Reference Range Interpretation Comments Eosinophils # (Auto) (test code = 711-2) 0.1 0.0-0.4 [facility] AllianceBasophils # (Auto)2019-07-24 18:12:00* Test Item Value Reference Range Interpretation Comments Basophils # (Auto) (test code = 704-7) 0.0 0.0-0.1 [facility] AllianceAbsolute Immature Granulocyte (auto 2019-07-24 18:12:00* Test Item Value Reference Range Interpretation Comments Absolute Immature Granulocyte (auto (fidel t code = Absolute Immature Granulocyte (auto) 0.04 0-0.1 [facility] AllianceWhite Blood Hxhun7975-68-88 18:12:00* Test Item Value Reference Range Interpretation Comments White Blood Count (test code = 6690-2) 9.58 4.8-10.8 [facility] AllianceRed Blood Razud4949-82-50 18:12:00* Test Item Value Reference Range Interpretation Comments Red Blood Count (test code = 789-8) 4.48 3.6-5.1 [facility] AllianceHemoglobin2020-02-06 18:12:00* Test Item Value Reference Range Interpretation Comments Hemoglobin (test code = 22749-8) 12.8 12.0-16.0 [facility] AllianceHematocrit2020-02-06 18:12:00* Test Item Value Reference Range Interpretation Comments Hematocrit (test code = 4544-3) 39.3 34.2-44.1 [facility] AllianceMean Corpuscular Gimigf1466-60-75 18:12:00* Test Item Value Reference Range Interpretation Comments Mean Corpuscular Volume (test code = 787-2) 87.7 81-99 [facility] AllianceMean Corpuscular Soluktjrio9103-49-81 18:12:00* Test Item Value Reference Range Interpretation Comments Mean Corpuscular Hemoglobin (test code = 785-6) 28.6 28-32 [facility] AllianceMean Corpuscular Hemoglobin Concent 2019-07-24 18:12:00* Test Item Value Reference Range Interpretation Comments Mean Corpuscular Hemoglobin Concent (test code = 786-4) 32.6 31-35 [facility] AllianceRed Cell Distribution Sojkb0531-97-71 18:12:00* Test Item Value Reference Range Interpretation Comments Red Cell Distribution Width (test code = 96142-1) 13.7 11.7 -14.4 [facility] AlliancePlatelet Hjeof4060-43-86 18:12:00* Test Item Value Reference Range Interpretation Comments Platelet Count (test code = 777-3) 289 140-360 [facility] AllianceNeutrophils (%) (Auto)2019-07-24 18:12:00 * Test Item Value Reference Range Interpretation Comments Neutrophils (%) (Auto) (test code = 06701-9) 69.8 38.7-80.0 [facility] AllianceLymphocytes (%) (Auto)2019-07-24 18:12:00 * Test Item Value Reference Range Interpretation Comments Lymphocytes (%) (Auto) (test code = 736-9) 24.7 18.0-39.1 [facility] AllianceMonocytes (%) (Auto)2019-07-24 18:12:00* Test Item Value Reference Range Interpretation Comments Monocytes (%) (Auto) (test code = 5905-5) 4.2 4.4-11.3 L [facility] AllianceEosinophils (%) (Auto)2019-07-24 18:12:00 * Test Item Value Reference Range Interpretation Comments Eosinophils (%) (Auto) (test code = 713-8) 0.5 0.0-6.0 [facility] AllianceBasophils (%) (Auto)2019-07-24 18:12:00* Test Item Value Reference Range Interpretation Comments Basophils (%) (Auto) (test code = 706-2) 0.4 0.0-1.0 [facility] AllianceIM GRANULOCYTES %2019-07-24 18:12:00* Test Item Value Reference Range Interpretation Comments IM GRANULOCYTES % (test code = IM GRANULOCYTES %) 0.4 0.0- 1.0 [facility] AllianceNeutrophils # (Auto)2019-07-24 18:12:00* Test Item Value Reference Range Interpretation Comments Neutrophils # (Auto) (test code = 751-8) 6.7 2.1-6.9 [facility] AllianceLymphocytes # (Auto)2019-07-24 18:12:00* Test Item Value Reference Range Interpretation Comments Lymphocytes # (Auto) (test code = 60223-5) 2.4 1.0-3.2 [facility] AllianceMonocytes # (Auto)2019-07-24 18:12:00* Test Item Value Reference Range Interpretation Comments Monocytes # (Auto) (test code = 742-7) 0.4 0.2-0.8 [facility] AllianceEosinophils # (Auto)2019-07-24 18:12:00* Test Item Value Reference Range Interpretation Comments Eosinophils # (Auto) (test code = 711-2) 0.1 0.0-0.4 [facility] AllianceBasophils # (Auto)2019-07-24 18:12:00* Test Item Value Reference Range Interpretation Comments Basophils # (Auto) (test code = 704-7) 0.0 0.0-0.1 [facility] AllianceAbsolute Immature Granulocyte (auto 2019-07-24 18:12:00* Test Item Value Reference Range Interpretation Comments Absolute Immature Granulocyte (auto (fidel t code = Absolute Immature Granulocyte (auto) 0.04 0-0.1 [facility] AlliancePositive Retinal Eye Exam (Diabetic) 2019-03-20 05:00:00* Test Item Value Reference Range Interpretation Comments Positive Diabetic Eye Screening (test code = Positive Diabetic Eye Screening) 20Mar2019 [facility]] HEMOGLOBIN M5e9299-40-03 15:05:00* Test Item Value Reference Range Interpretation Comments Hemoglobin A1c; Above High Threshold (test code = 4548-4) 9.4 % <=5.6 [facility]] CBC (INCLUDES DIFF/PLT)2019-02-13 15:59:00* Test Item Value Reference Range Interpretation Comments WBC (test code = 6690-2) 9.8 {K/CMM} 3.7-10.4 RBC (test code = 789-8) 4.39 {M/CMM} 4.20-5.40 Hgb (test code = 718-7) 12.3 g/dl 12.0-16.0 Hct (test code = 54539-5) 37.2 % 36.0-48.0 MCV (test code = 787-2) 84.8 fL 80.0-98.0 MCH (test code = 785-6) 28.0 pg 27.0-31.0 MCHC (test code = 786-4) 33.0 g/dl 32.0-36.0 RDW; Above High Threshold (test code = 788-0) 15.2 % 11.5-14. 5 Platelet (test code = 34502-5) 399 {K/CMM} 133-450 Mean Platelet Volume; Below Low Threshold (test code = 61022-8) 6.8 fL 7.4-10.4 [facility]] Tjvhjindmqiz1989-31-38 15:59:00* Test Item Value Reference Range Interpretation Comments Segmented Neutrophils (test code = 90601-7) 64.2 % 45.0-75.0 Monocytes (test code = 23922-0) 4.0 % 2.0-12.0 Lymphocytes (test code = 27500-1) 30.2 % 20.0-40.0 Eosinophils (test code = 74919-8) 1.1 % 0.0-4.0 Basophils (test code = 706-2) 0.5 % 0.0-1.0 Segs-Bands # (test code = 37678-0) 6.3 {K/CMM} 1.5-8.1 Lymphocytes # (test code = 64896-2) 2.9 {K/CMM} 1.0-5.5 Monocytes # (test code = 57223-8) 0.4 {K/CMM} 0.0-0.8 Eosinophils # (test code = 12019-7) 0.1 {K/CMM} 0.0-0.5 [facility][H] Iron, TIBC \T\ Kfhothnj8809-86-17 15:59:00* Test Item Value Reference Range Interpretation Comments Iron (test code = 2498-4) 48 ug/dL 30-160 % [place] (test code = 2502-3) 12 % 12-57 TIBC (test code = 2500-7) 403 ug/dL 228-428 UIBC (test code = UIBC) 355 ug/dL 110-370 Ferritin Lvl (test code = 2276-4) 54 ng/ml 5-204 [facility] KcondzfbjxAZJMQJ2329-75-70 11:48:00* Test Item Value Reference Range Interpretation Comments GLUBED (test code = GLUBED) 291 mg/dL 74-106 H Performed by certified draw operator at [facility] ([facility]) - MRI LOW EXT W/O CONT EK4267-01-03 08:54:00 FAX: Marilu Lew [phone] [place]: B St: ADM FAX: Vimal Barker MD [phone] Name: LAURYN COLLNIS [facility] : 1960 Age/S: 58/F [address] Unit #: [id number] Loc: [place] [address] Phys: Marilu Rosario MD Acct: [id number] Dis Date: Status: ADM IN PHONE #: [phone] Exam Date: 02/05/2019 0839 FAX #: [phone] Reason: Right foot sweeling , r/o Osteomyelitis EXAMS: CPT CODE: [id number] MRI LOW EXT W/[place] [address] HISTORY: Right foot swelling/osteomyelitis evaluation. COMPARISON: X-ray [...] Guerra M.D. CC: Marilu Rosario MD; Jeevan Merritt Technologist: JAMES MONTAGUERT - MRI Trnscrd Date/Time/By: 02/05/2019 (0854) : By: [email or web address] Orig [facility] D/T: S: 02/05/2019 (0858) PAGE 1 Signed Report [id number] 08:11:00* Test Item Value Reference Range Interpretation Comments GLUBED (test code = GLUBED) 217 mg/dL 74-106 H Performed by certified draw operator at [facility]) UNSSXP3651-55-78 20:49:00* Test Item Value Reference Range Interpretation Comments GLUBED (test code = GLUBED) 194 mg/dL 74-106 H Performed by certified draw operator at [facility]) PROCALCITONIN (PCT)2019-02-04 17:34:00* Test Item Value Reference [...] patients history. - XR FOOT 2 VIEWS [id number] 17:01:00 FAX: Marilu Lew [phone] [place]: St: ADM FAX: Alda Valadez MD [phone] FAX: Vimal Barker MD [phone] Name: LAURYN COLLINS [facility] : 1960 Age/S: 58/F [address] [facility] Unit #: [id number] Loc: [place] [address] Phys: Alda Thompson MD Acct: [id number] Dis Date: Status: ADM IN ONE #: [phone] Exam Date: 02/04/2019 1600 FAX #: [phone] Reason: ULCER EXAMS: CPT CODE: [id number] XR FO[place] [address] [place] [address] CLINICAL HISTO RY: ULCER TECHNIQUE: AP and lateral views of the right foot COMPARISON: Right foot radiographs May 20, 2013 ALKA GS: No acute fracture or dislocation. Bony [...] 19 at 1701 Reported and signed by: Moris Hagen MD CC: Marilu Rosario MD; Alda Thompson MD; Vimal Merritt Technologist: RT JUAN(R) Trnscrd Date/Time/By: (1709) : By: [email or web address] Orig Print D/T: S: 02/04/2019 (9983) PAGE 1 Signed Report [id number] 16:10:00* Test Item Value Reference Range Interpretation Comments GLUBED (test code = GLUBED) 87 mg/dL 74-106 N Performed by certified draw operator at [facility] [id number] 12:18:00* Test Item Value Reference Range Interpretation Comments GLUBED (test code = GLUBED) 247 mg/dL 74-106 H Performed by certified draw operator at [facility]) [id number] 11:00:00* Test Item Value Reference Range Interpretation Comments GLUBED (test code = GLUBED) 211 mg/dL 74-106 H Performed by certified draw operator at [facility]) BASIC METABOLIC [id number] 03:07:00* Test Item Value Reference Range Interpretation [...] code = CA) 8.6 mg/dL 8.5-10.1 N [id number] 20:41:00* Test Item Value Reference Range Interpretation Comments GLUBED (test code = GLUBED) 308 mg/dL 74-106 H Performed by certified draw operator at [facility] [id number] 16:09:00* Test Item Value Reference Range Interpretation Comments GLUBED (test code = GLUBED) 137 mg/dL 74-106 H Performed by certified draw operator at [facility]) [id number] 12:43:00* Test Item Value Reference Range Interpretation Comments GLUBED (test code = GLUBED) 129 mg/dL 74-106 H Performed by certified draw operator at [facility] [id number] 08:46:00* Test Item Value Reference Range Interpretation Comments GLUBED (test code = GLUBED) 179 mg/dL 74-106 H Performed by certified draw operator at [facility]) [id number] 04:09:00* Test Item Value Reference Range Interpretation Comments GLYCOSYLATED HEMOGLOBIN (HA1C) (test code = GLYHGB) 8.9 % HbA1 4. 8-6.0 H ESTIMATED AVERAGE GLUCOSE (test code = EAG) 209 MG/DL BASIC METABOLIC [id number] 04:09:00* Test Item Value Reference Range Interpretation [...] CA) 8.5 mg/dL 8.5-10.1 N CBC W/AUTO [id number] 03:27:00* Test Item Value Reference Range Interpretation [...] DIFF REQUIRED (test code = MDIFF) NO UPOWBADE-[id number] 22:51:00* Test Item Value Reference Range Interpretation Comments TROPONIN-I (test code = TROPI) <0.015 ng/mL 0-0.045 N COMMENTS TO SHAFT MECHANIC: COLLECT 3 HOURS AFTER PREVIOUS [id number]-[id number] 21:22:00* Test Item Value Reference Range Interpretation Comments TROPONIN-I (test code = TROPI) <0.015 ng/mL 0-0.045 N COMMENTS TO SHAFT MECHANIC: COLLECT 3 HOURS AFTER PREVIOUS [id number] 20:26:00* Test Item Value Reference Range Interpretation Comments GLUBED (test code = GLUBED) 187 mg/dL 74-106 H Performed by certified draw operator at [facility] [id number] 17:47:00* Test Item Value Reference Range Interpretation Comments GLUBED (test code = GLUBED) 154 mg/dL 74-106 H Performed by certified draw operator at [facility] URINALYSIS [id number] 12:49:00* Test Item Value Reference Range Interpretation [...] Urine Source? Clean Catch- CT ABD PELVIS W/QXQY5193-80-92 10:46:00 Name: LAURYN COLLINS [facility] : 1960 Age/S: 58 / [facility] [address] [facility] [id number] Loc: [place] [address] Phys: Chino Wilkerson MD Acct: [id number] Di s Date: Status: REG ER PHONE #: Exam Date: 02/02/2019 1015 FAX #: [phone] Reason: RLQ ttp EXAMS: CPT CODE: [id number] CT ABD PELVIS W/CONT 24176 HISTORY: RLQ tenderness TECHNIQUE: Immediate and delayed [...] intra-abdominal process. No significant interval change. at 1049 Reported and signed by: Susan Baron D.O. PAGE 1 Signed Report (CONTINUED) Name: CRICKET COLLINS [facility] : 1960 Age/S: 4 0 / F [address] [facility] Unit #: [id number] Loc: [place] [address] Phys: Alma Wilkerson MD Acct: [id number] Dis Date: Status: REG ER PHONE #: [phone] Exam Date: 02/02/2019 1015 FAX #: [phone] Reason: RLQ ttp EXAMS: CPT CODE: [id number] CT ABD PELVIS W/CONT 60015 <Continued> CC: Alma Wilkerson MD; Vimal Merritt Technologist:Luann Nova RT(R),CT CTDI: DLP: Trnscb Date/Time: 02/02/2019 (7538) [email or web address] Orig Print D/T: S: 02/02/2019 (8214) PAGE 2 Signed Report B-TYPE NATRIURETIC [id number] 10:12:00* Test Item Value Reference Range Interpretation [...] into account the patients history. BASIC METABOLIC [id number] 09:56:00* Test Item Value Reference Range Interpretation [...] CA) 8.9 mg/dL 8.5-10.1 N HEPATIC FUNCTION [id number] 09:56:00* Test Item Value Reference Range Interpretation [...] reference range due to change in reagent. [id number] 09:56:00* Test Item Value Reference Range Interpretation Comments LIPASE (test code = LIP) 146 U/L 73.0-393.0 N [id number] 09:56:00* Test Item Value Reference Range Interpretation Comments TROPONIN-I (test code = TROPI) <0.015 ng/mL 0-0.045 N LACTIC [id number] 09:56:00* Test Item Value Reference Range Interpretation Comments LACTIC ACID (test code = LACT) 1.7 mmol/L 0.4-1.9 N - XR CHEST 1 [id number] 09:39:00 FAX: Alma Campos [phone] [place]: St: [facility] FAX: Vimal Barker MD [phone] Name: LAURYN COLLINS [facility] : 1960 Age/S: 58/F [address] [facility] Unit #: [id number] Loc: [place] [address] Phys: Alma Wilkerson MD Acct: [id number] Dis Date: Status: REG ER PHONE #: [phone] Exam Date: 02/02/2019929 FAX #: [phone] Reason: CODE SEPSIS EXAMS: CPT CODE: [id number] XR CHEST 1 V 55751 HISTORY: CODE SEPSIS, abdominal pain, fever TECHNIQUE: AP chest x- ray COMPARISON: 12/13/17 FINDINGS: No airspace consolidation or pleural effusion. Normal heart size. Mediastinal silhouette is unremarkable. Visualized osseous structures are grossly intact. IMPRESSION: No radiographic evidence of acute cardiopulmonary process. at 0939 Reported and signed by: Susan Baron D.O. CC: Alma Wilkerson MD; Vimal Merritt Technologist: CALIXTO CHOUDHARY(R) Trnscrd Date/Time/By: 02/02/2019 (0939) : By: [email or web address] Orig Print D/T: S: 02/02/2019 (8852) PAGE 1 Signed Report CBC W/AUTO [id number] 09:37:00* Test Item Value Reference Range Interpretation [...] NRBC#) 0.00 K/mm3 0.0-0.1 N BASIC METABOLIC [id number] 09:37:00* Test Item Value Reference Range Interpretation [...] code = CA) mg/dL 8.5-10.1 HEPATIC FUNCTION [id number] 09:37:00* Test Item Value Reference Range Interpretation [...] TOTAL (test code = ALKP) IUnit/L 45-117 YXZIQF3712-01-02 09:37:00* Test Item Value Reference Range Interpretation Comments LIPASE (test code = LIP) U/L 73.0-393.0 [id number]-[id number] 09:37:00* Test Item Value Reference Range Interpretation Comments TROPONIN-I (test code = TROPI) ng/mL 0-0.045 CBC W/AUTO [id number] 09:29:00* Test Item Value Reference Range Interpretation [...] (test code = Positive Diabetic Eye Screening) 51Fyd2569 A [facility][] LIPID PANEL WITH REFLEX TO DIRECT LDL 2019-01-08 16:20:01* Test Item Value Reference Range Interpretation Comments Chol; Above High Threshold (test code = 2093-3) 243 mg/dl <=199 Trig; Above High Threshold (test code = 2571-8) 507 mg/dl <=149 HDL Cholesterol; Below Low Threshold (test code = 2085-9) 59 mg/dl >=61 CHD Risk (test code = 75687-6) 4.12 3.90-5.80 LDL (test code = 00156-3) See Note <=99 LD L cholesterol cannot be calculated due to very high triglycerides (>400mg/dL). Recommend Direct LDL if clinically indicated. VLDL (test code = VLDL) See Note VLDL - Cholesterol level cannot be accurately calculated due to very hightriglycerides (>400 mg/dL). [facility]] HEPATITIS C [id number] 16:20:01* Test Item Value Reference Range Interpretation Comments Hepatitis C Antibody (test code = 99300-0) Negative [facility]] DIRECT [id number] 16:20:01* Test Item Value Reference Range Interpretation Comments LDL Cholesterol Direct; Above High Threshold (test code = 18 262-6) 133 mg/dl <=99 [facility]] MICROALBUMIN, RANDOM URINE (W/CREATININE) 2019-01-08 16:20:01* Test Item Value Reference Range Interpretation Comments Urine Microalbumin (test code = Urine Microalbumin) 28.4 mg/L No established reference range. U Creatinine (test code = 2161-8) 73.60 mg/dl No established reference range. Urine Microalbuming Creatinine Ratio; Ab ove High Threshold (test code = 62018-1) 38.6 mg/g <=30.0 [facility][O] Hemoglobin A1c (in office)2018-12-13 16:16:00 * Test Item Value Reference Range Interpretation Comments HEMOGLOBIN A1c (test code = 4548-4) 8.9 [facility] ([facility] In [facility])2018-12-13 16:15:00* Test Item Value Reference Range Interpretation Comments Glucose POC Lifescan (test code = Glucose POC Lifescan) 146 [facility]/PELVIS [id number] 12:32:00 [facility] [address] [place] [address] Patient Name: LAURYN COLLINS MR #: [id number] : 1960 Age/Sex: 58/F Req #: [id number] Adm Physician: Ordered by: ROHAN TURNER MD Report #: [id number] Location: ER Room/Bed: Procedure: [id number] CT /CT ABDOMEN/PELVIS W Exam Date: 11/04/18 [...] 1241 COPY TO: ELLIOT TURNER MD Amylase Cswtx1848-28-66 10:32:00* Test Item Value Reference Range Interpretation Comments Amylase Level (test code = 1798-8) 37 25-125 [facility]2019-05-[facility] 10:32:00* Test Item Value Reference Range Interpretation Comments Lipase (test code = 3040-3) 70 [facility] AllianceAmylase Sggir6666-02-01 10:32:00* Test Item Value Reference Range Interpretation Comments Amylase Level (test code = 1798-8) 37 25-125 [facility] AllianceLipase2019-05-20 10:32:00* Test Item Value Reference Range Interpretation Comments Lipase (test code = 3040-3) 70 [facility] AllianceAmylase [id number] 10:32:00* Test Item Value Reference Range Interpretation Comments Amylase Level (test code = 1798-8) 37 25-125 [facility] AllianceLipase2019-05-20 10:32:00* Test Item Value Reference Range Interpretation Comments Lipase (test code = 3040-3) 70 [facility] AllianceCreatine Kinase [id number] 10:24:00* Test Item Value Reference Range Interpretation Comments Creatine Kinase MB (test code = 48354-7) 0.90 0-5.0 [facility] AllianceTroponin [id number] 10:24:00* Test Item Value Reference Range Interpretation Comments Troponin I (test code = HTK1354) 0.007 0-0.300 [facility] AllianceCreatine Kinase [id number] 10:24:00* Test Item Value Reference Range Interpretation Comments Creatine Kinase MB (test code = 54780-9) 0.90 0-5.0 [facility] AllianceTropon [id number] 10:24:00* Test Item Value Reference Range Interpretation Comments Troponin I (test code = JFM3785) 0.007 0-0.300 [facility] AllianceCreatine Kinase RA7828-42-00 10:24:00* Test Item Value Reference Range Interpretation Comments Creatine Kinase MB (test code = 31737-6) 0.90 0-5.0 [facility] AllianceTrTracey Ville [id number] 10:24:00* Test Item Value Reference Range Interpretation Comments Troponin I (test code = WRW2067) 0.007 0-0.300 [facility] Rubtkt9489-92-54 10:17:00* Test Item Value Reference Range Interpretation Comments Creatine Kinase (test code = 2157-6) 54 29-168 [facility] AllianceCresan [facility] Uiicwq2976-83-83 10:17:00* Test Item Value Reference Range Interpretation Comments Creatine Kinase (test code = 2157-6) 54 29-168 [facility] Vtkszo6760-92-14 10:17:00* Test Item Value Reference Range Interpretation Comments Creatine Kinase (test code = 2157-6) 54 29-168 [facility] AllianceProthrombin Rvxo1997-27-93 09:56:00* Test Item Value Reference Range Interpretation Comments Prothrombin Time (test code = 5902-2) 11.6 11.9-14.5 L [facility] AllianceProthromb Time International Ratio 2018-11-04 09:56:00* Test Item Value Reference Range Interpretation Comments Prothromb Time International Ratio (test code = 6301-6) 0.81 Oral Anticoagulant Therapy INR Values:1. Low Intensity Therapy 1.5 - 2.02 . Moderate Intensity Therapy 2.0 - 3.03. High Intensity Therapy(1) 2.5 - 3. 54. High Intensity Therapy(2) 3.0 - 4.05. Panic Value INR > 5.0 [facility] AllianceActivated Partial Thromboplast Time 2018-11-04 09:56:00* Test Item Value Reference Range Interpretation Comments Activated Partial Thromboplast Time (test code = 37558-6) 30.7 23.8-35.5 [facility] Lsrzv4274-07-16 09:56:00* Test Item Value Reference Range Interpretation Comments Sodium Level (test code = 2951-2) 137 136-145 [facility] AlliancePotassium Guswf7082-66-44 09:56:00* Test Item Value Reference Range Interpretation Comments Potassium Level (test code = 2823-3) 4.0 3.5-5.1 [facility] AllianceChloride Xtkqt2421-36-54 09:56:00* Test Item Value Reference Range Interpretation Comments Chloride Level (test code = 2075-0) 106 98-107 [facility] AllianceCarbon Dioxide Saegl9809-30-50 09:56:00* Test Item Value Reference Range Interpretation Comments Carbon Dioxide Level (test code = 2028-9) 21 22-29 L [facility] AllianceAnion Nxi1798-56-97 09:56:00* Test Item Value Reference Range Interpretation Comments Anion Gap (test code = 80162-5) 14.0 8-16 [facility] AllianceBlood Urea Zzehswbu0984-88-21 09:56:00* Test Item Value Reference Range Interpretation Comments Blood Urea Nitrogen (test code = 3094-0) 15 7-26 [facility] AllianceCreatinine2019-05-20 09:56:00* Test Item Value Reference Range Interpretation Comments Creatinine (test code = 2160-0) 0.83 0.57-1.11 [facility] AllianceBUN/Creatinine Dyxjd3764-37-43 09:56:00* Test Item Value Reference Range Interpretation Comments BUN/Creatinine Ratio (test code = 3097-3) 18 6-25 [facility] AllianceEstimat Glomerular Filtration Rate 2018-11-04 09:56:00* Test Item Value Reference Range Interpretation Comments Estimat Glomerular Filtration Rate (test code = 507599843) > 60 >60 Ranges were taken from the National Kidney Disease Education Program and the [facility] Foundation literature.Reference ranges:60 or greater: Azewye43-12 ( for 3 consecutive months): Chronic kidney disease 15 or less: Kidney failureTexas Health Harris Medical Hospital AllianceGlucose Okyur2997-53-91 09:56:00* Test Item Value Reference Range Interpretation Comments Glucose Level (test code = PCR9974) 208 74-118 H [facility] AllianceCalcium Omwot5583-65-58 09:56:00* Test Item Value Reference Range Interpretation Comments Calcium Level (test code = 88239-2) 10.0 8.4-10.2 [facility] AllianceTotal Jrnwrjpnl9622-86-71 09:56:00* Test Item Value Reference Range Interpretation Comments Total Bilirubin (test code = 1975-2) 0.2 0.2-1.2 [facility] AllianceAspartate Amino Transf (AST/SGOT) 2018-11-04 09:56:00* Test Item Value Reference Range Interpretation Comments Aspartate Amino Transf (AST/SGOT) (test code = Aspartate Amino Transf (AST/SGOT)) 19 5-34 [facility] AllianceAlanine Aminotransferase (ALT/SGPT) 2018-11-04 09:56:00* Test Item Value Reference Range Interpretation Comments Alanine Aminotransferase (ALT/SGPT) (test code = 1742-6) 17 0-55 [facility] AllianceTotal Xqhsxqc1588-16-51 09:56:00* Test Item Value Reference Range Interpretation Comments Total Protein (test code = 2885-2) 7.9 6.5-8.1 [facility] AllianceAlbumin2019-05-20 09:56:00* Test Item Value Reference Range Interpretation Comments Albumin (test code = 1751-7) 3.8 3.5-5.0 [facility] AllianceGlobulin2019-05-20 09:56:00* Test Item Value Reference Range Interpretation Comments Globulin (test code = 98335-0) 4.1 2.3-3.5 H [facility] AllianceAlbumin/Globulin Solur6068-77-23 09:56:00 * Test Item Value Reference Range Interpretation Comments Albumin/Globulin Ratio (test code = 1759-0) 0.9 0.8-2.0 [facility] AllianceAlkaline Nxzftmisrga1643-84-18 09:56:00* Test Item Value Reference Range Interpretation Comments Alkaline Phosphatase (test code = 6768-6) 115 40-150 [facility] AllianceProthrombin Pzpp4700-34-90 09:56:00* Test Item Value Reference Range Interpretation Comments Prothrombin Time (test code = 5902-2) 11.6 11.9-14.5 L [facility] AllianceProthromb Time International Ratio 2018-11-04 09:56:00* Test Item Value Reference Range Interpretation Comments Prothromb Time International Ratio (test code = 6301-6) 0.81 Oral Anticoagulant Therapy INR Values:1. Low Intensity Therapy 1.5 - 2.02 . Moderate Intensity Therapy 2.0 - 3.03. High Intensity Therapy(1) 2.5 - 3. 54. High Intensity Therapy(2) 3.0 - 4.05. Panic Value INR > 5.0 [facility] AllianceActivated Partial Thromboplast Time 2018-11-04 09:56:00* Test Item Value Reference Range Interpretation Comments Activated Partial Thromboplast Time (test code = 52341-4) 30.7 23.8-35.5 [facility] Nqhpv4386-00-03 09:56:00* Test Item Value Reference Range Interpretation Comments Sodium Level (test code = 2951-2) 137 136-145 [facility] AlliancePotassium Awzvk2958-26-75 09:56:00* Test Item Value Reference Range Interpretation Comments Potassium Level (test code = 2823-3) 4.0 3.5-5.1 [facility] AllianceChloride Rakfd2917-81-87 09:56:00* Test Item Value Reference Range Interpretation Comments Chloride Level (test code = 2075-0) 106 98-107 [facility] AllianceCarbon Dioxide Csbdr9628-70-49 09:56:00* Test Item Value Reference Range Interpretation Comments Carbon Dioxide Level (test code = 2028-9) 21 22-29 L [facility] AllianceAnion Ahv5692-05-47 09:56:00* Test Item Value Reference Range Interpretation Comments Anion Gap (test code = 79764-4) 14.0 8-16 [facility] AllianceBlood Urea Mvriswbc7238-06-16 09:56:00* Test Item Value Reference Range Interpretation Comments Blood Urea Nitrogen (test code = 3094-0) 15 7-26 [facility] AllianceCreatinine2019-05-20 09:56:00* Test Item Value Reference Range Interpretation Comments Creatinine (test code = 2160-0) 0.83 0.57-1.11 [facility] AllianceBUN/Creatinine Gvymd0354-36-72 09:56:00* Test Item Value Reference Range Interpretation Comments BUN/Creatinine Ratio (test code = 3097-3) 18 6-25 [facility] AllianceEstimat Glomerular Filtration Rate 2018-11-04 09:56:00* Test Item Value Reference Range Interpretation Comments Estimat Glomerular Filtration Rate (test code = 477018442) > 60 >60 Ranges were taken from the National Kidney Disease Education Program and the [facility] Foundation literature.Reference ranges:60 or greater: Wdopuf32-49 ( for 3 consecutive months): Chronic kidney disease 15 or less: Kidney failureTexas Health Harris Medical Hospital AllianceGlucose Szisg9125-14-54 09:56:00* Test Item Value Reference Range Interpretation Comments Glucose Level (test code = KPG0099) 208 74-118 H [facility] AllianceCalcium Rbvez3231-93-70 09:56:00* Test Item Value Reference Range Interpretation Comments Calcium Level (test code = 96819-1) 10.0 8.4-10.2 [facility] AllianceTotal Ycjihslin7551-83-25 09:56:00* Test Item Value Reference Range Interpretation Comments Total Bilirubin (test code = 1975-2) 0.2 0.2-1.2 [facility] AllianceAspartate Amino Transf (AST/SGOT) 2018-11-04 09:56:00* Test Item Value Reference Range Interpretation Comments Aspartate Amino Transf (AST/SGOT) (test code = Aspartate Amino Transf (AST/SGOT)) 19 5-34 [facility] AllianceAlanine Aminotransferase (ALT/SGPT) 2018-11-04 09:56:00* Test Item Value Reference Range Interpretation Comments Alanine Aminotransferase (ALT/SGPT) (test code = 1742-6) 17 0-55 [facility] AllianceTotal Quvjqrx1687-91-53 09:56:00* Test Item Value Reference Range Interpretation Comments Total Protein (test code = 2885-2) 7.9 6.5-8.1 [place] [facility] AllianceAlbumin[facility]-05[facility] 09:56:00* Test Item Value Reference Range Interpretation Comments Albumin (test code = 1751-7) 3.8 3.5-5.0 [facility] AllianceGlobulin2019-05-[facility] 09:56:00* Test Item Value Reference Range Interpretation Comments Globulin (test code = 48441-4) 4.1 2.3-3.5 H [facility] AllianceAlbumin/Globulin Okprw7050-43-30 09:56:00 * Test Item Value Reference Range Interpretation Comments Albumin/Globulin Ratio (test code = 1759-0) 0.9 0.8-2.0 [facility] AllianceAlkaline Htubewcffjo5674-02-75 09:56:00* Test Item Value Reference Range Interpretation Comments Alkaline Phosphatase (test code = 6768-6) 115 40-150 [facility] AllianceProthrombin Jqdo1726-55-97 09:56:00* Test Item Value Reference Range Interpretation Comments Prothrombin Time (test code = 5902-2) 11.6 11.9-14.5 L [facility] AllianceProthromb Time International Ratio 2018-11-04 09:56:00* Test Item Value Reference Range Interpretation Comments Prothromb Time International Ratio (test code = 6301-6) 0.81 Oral Anticoagulant Therapy INR Values:1. Low Intensity Therapy 1.5 - 2.02 . Moderate Intensity Therapy 2.0 - 3.03. High Intensity Therapy(1) 2.5 - 3. 54. High Intensity Therapy(2) 3.0 - 4.05. Panic Value INR > 5.0 [facility] AllianceActivated Partial Thromboplast Time 2018-11-04 09:56:00* Test Item Value Reference Range Interpretation Comments Activated Partial Thromboplast Time (test code = 30334-1) 30.7 23.8-35.5 [facility] AllianceWhite Blood Kwmat9134-03-46 09:39:00* Test Item Value Reference Range Interpretation Comments White Blood Count (test code = 6690-2) 7.64 4.8-10.8 [facility] AllianceRed Blood Zykob8730-96-82 09:39:00* Test Item Value Reference Range Interpretation Comments Red Blood Count (test code = 789-8) 4.39 3.6-5.1 [facility] AllianceHemoglobin2019-05-20 09:39:00* Test Item Value Reference Range Interpretation Comments Hemoglobin (test code = 67292-7) 12.5 12.0-16.0 [facility] AllianceHematocrit2019-05-20 09:39:00* Test Item Value Reference Range Interpretation Comments Hematocrit (test code = 4544-3) 38.2 34.2-44.1 [facility] AllianceMean Corpuscular Bmnwuy5036-38-01 09:39:00* Test Item Value Reference Range Interpretation Comments Mean Corpuscular Volume (test code = 787-2) 87.0 81-99 [facility] AllianceMean Corpuscular Vsptwiyeoa9063-31-34 09:39:00* Test Item Value Reference Range Interpretation Comments Mean Corpuscular Hemoglobin (test code = 785-6) 28.5 28-32 [facility] AllianceMean Corpuscular Hemoglobin Concent 2018-11-04 09:39:00* Test Item Value Reference Range Interpretation Comments Mean Corpuscular Hemoglobin Concent (test code = 786-4) 32.7 31-35 [facility] AllianceRed Cell Distribution Nycws7336-67-12 09:39:00* Test Item Value Reference Range Interpretation Comments Red Cell Distribution Width (test code = 30206-2) 12.5 11.7 -14.4 [facility] AlliancePlatelet Yiixc1470-86-32 09:39:00* Test Item Value Reference Range Interpretation Comments Platelet Count (test code = 777-3) 383 140-360 H [facility] AllianceNeutrophils (%) (Auto)2018-11-04 09:39:00 * Test Item Value Reference Range Interpretation Comments Neutrophils (%) (Auto) (test code = 24919-3) 62.5 38.7-80.0 [facility] AllianceLymphocytes (%) (Auto)2018-11-04 09:39:00 * Test Item Value Reference Range Interpretation Comments Lymphocytes (%) (Auto) (test code = 736-9) 28.4 18.0-39.1 [facility] AllianceMonocytes (%) (Auto)2018-11-04 09:39:00* Test Item Value Reference Range Interpretation Comments Monocytes (%) (Auto) (test code = 5905-5) 4.7 4.4-11.3 [facility] AllianceEosinophils (%) (Auto)2018-11-04 09:39:00 * Test Item Value Reference Range Interpretation Comments Eosinophils (%) (Auto) (test code = 713-8) 3.0 0.0-6.0 [facility] AllianceBasophils (%) (Auto)2018-11-04 09:39:00* Test Item Value Reference Range Interpretation Comments Basophils (%) (Auto) (test code = 706-2) 0.5 0.0-1.0 [facility] AllianceIM GRANULOCYTES %2018-11-04 09:39:00* Test Item Value Reference Range Interpretation Comments IM GRANULOCYTES % (test code = IM GRANULOCYTES %) 0.9 0.0- 1.0 [facility] AllianceNeutrophils # (Auto)2018-11-04 09:39:00* Test Item Value Reference Range Interpretation Comments Neutrophils # (Auto) (test code = 751-8) 4.8 2.1-6.9 [facility] AllianceLymphocytes # (Auto)2018-11-04 09:39:00* Test Item Value Reference Range Interpretation Comments Lymphocytes # (Auto) (test code = 73003-8) 2.2 1.0-3.2 [facility] AllianceMonocytes # (Auto)2018-11-04 09:39:00* Test Item Value Reference Range Interpretation Comments Monocytes # (Auto) (test code = 742-7) 0.4 0.2-0.8 [facility] AllianceEosinophils # (Auto)2018-11-04 09:39:00* Test Item Value Reference Range Interpretation Comments Eosinophils # (Auto) (test code = 711-2) 0.2 0.0-0.4 [facility] AllianceBasophils # (Auto)2018-11-04 09:39:00* Test Item Value Reference Range Interpretation Comments Basophils # (Auto) (test code = 704-7) 0.0 0.0-0.1 [facility] AllianceAbsolute Immature Granulocyte (auto 2018-11-04 09:39:00* Test Item Value Reference Range Interpretation Comments Absolute Immature Granulocyte (auto (fidel t code = Absolute Immature Granulocyte (auto) 0.07 0-0.1 [facility] AllianceUrine PVQ3225-87-56 09:37:00* Test Item Value Reference Range Interpretation Comments Urine WBC (test code = 5821-4) 0-5 0-5 [facility] AllianceUrine POI5988-55-52 09:37:00* Test Item Value Reference Range Interpretation Comments Urine RBC (test code = 99309-7) 0-5 0-5 [facility] AllianceUrine Zalezzpd7930-37-23 09:37:00* Test Item Value Reference Range Interpretation Comments Urine Bacteria (test code = 95966-5) FEW NONE [facility] AllianceUrine Epithelial Lombw0814-37-45 09:37:00 * Test Item Value Reference Range Interpretation Comments Urine Epithelial Cells (test code = 12798-4) RARE NONE [facility] AllianceUrine PTP4069-81-50 09:37:00* Test Item Value Reference Range Interpretation Comments Urine WBC (test code = 5821-4) 0-5 0-5 [facility] AllianceUrine [id number] 09:37:00* Test Item Value Reference Range Interpretation Comments Urine RBC (test code = 43998-8) 0-5 0-5 [facility] AllianceUrine Yqlwhynj7027-74-72 09:37:00* Test Item Value Reference Range Interpretation Comments Urine Bacteria (test code = 50032-4) FEW NONE [facility] AllianceUrine Epithelial Gdstl8131-26-55 09:37:00 * Test Item Value Reference Range Interpretation Comments Urine Epithelial Cells (test code = 41996-4) RARE NONE [facility] AllianceUrine MOA9549-32-12 09:37:00* Test Item Value Reference Range Interpretation Comments Urine WBC (test code = 5821-4) 0-5 0-5 [facility] AllianceUrine XWY5474-63-81 09:37:00* Test Item Value Reference Range Interpretation Comments Urine RBC (test code = 05164-9) 0-5 0-5 [facility] Wlujrmza8752-54-58 09:37:00* Test Item Value Reference Range Interpretation Comments Urine Bacteria (test code = 92904-4) FEW NONE [facility] AllianceUrine Epithelial Ixeab9722-89-65 09:37:00 * Test Item Value Reference Range Interpretation Comments Urine Epithelial Cells (test code = 65660-3) RARE NONE [facility] AllianceUrine Kfebm1499-86-76 09:28:00* Test Item Value Reference Range Interpretation Comments Urine Color (test code = 5778-6) YELLOW YELLOW [facility] AllianceUrine Ribfldv9626-90-15 09:28:00* Test Item Value Reference Range Interpretation Comments Urine Clarity (test code = 36481-2) CLEAR CLEAR [facility] AllianceUrine Specific Xaylxqt3201-07-23 09:28:00 * Test Item Value Reference Range Interpretation Comments Urine Specific [place] (test code = 5811-5) 1.025 1.010-1.02 5 [facility] AllianceUrine hB9447-70-10 09:28:00* Test Item Value Reference Range Interpretation Comments Urine pH (test code = 83203-0) 5 5-7 [facility] AllianceU[facility] Leukocyte Vmkpvkmd9617-56-74 09:28:00* Test Item Value Reference Range Interpretation Comments Urine Leukocyte Esterase (test code = 5799-2) NEGATIVE NEGATIVE [facility] AllianceU[facility] Bcmvwlv4756-74-56 09:28:00* Test Item Value Reference Range Interpretation Comments Urine Nitrite (test code = 65904-1) NEGATIVE NEGATIVE [facility] AllianceU[facility] Kgwfnmv1135-73-52 09:28:00* Test Item Value Reference Range Interpretation Comments Urine Protein (test code = 5804-0) 1+ NEGATIVE H [facility] AllianceUrine Glucose (UA)2018-11-04 09:28:00* Test Item Value Reference Range Interpretation Comments Urine Glucose (UA) (test code = 2349-9) 2+ NEGATIVE H [facility] AllianceUrine Lidcpnl4680-37-89 09:28:00* Test Item Value Reference Range Interpretation Comments Urine Ketones (test code = 45928-5) NEGATIVE NEGATIVE [facility] Axneoudnhiva5225-04-67 09:28:00* Test Item Value Reference Range Interpretation Comments Urine Urobilinogen (test code = 83493-9) 0.2 0.2-1 [facility] AllianceU[facility] Titqrkfjr2923-76-40 09:28:00* Test Item Value Reference Range Interpretation Comments Urine Bilirubin (test code = 1978-6) NEGATIVE NEGATIVE [facility] AllianceU[facility] Eanrl6704-81-08 09:28:00* Test Item Value Reference Range Interpretation Comments Urine Blood (test code = 65720-3) NEGATIVE NEGATIVE [facility] AllianceU[facility] Visak2978-74-16 09:28:00* Test Item Value Reference Range Interpretation Comments Urine Color (test code = 5778-6) YELLOW YELLOW [facility] AllianceUrine Mrabncb2371-40-75 09:28:00* Test Item Value Reference Range Interpretation Comments Urine Clarity (test code = 86096-2) CLEAR CLEAR [facility] AllianceU[facility] Specific Qlrbalq3407-75-32 09:28:00 * Test Item Value Reference Range Interpretation Comments Urine Specific [place] (test code = 5811-5) 1.025 1.010-1.02 5 [facility] AllianceU[facility] [id number] 09:28:00* Test Item Value Reference Range Interpretation Comments Urine pH (test code = 88564-8) 5 5-7 [facility] AllianceU[facility] Leukocyte Irllftfo3835-18-53 09:28:00* Test Item Value Reference Range Interpretation Comments Urine Leukocyte Esterase (test code = 5799-2) NEGATIVE NEGATIVE [facility] AllianceU[facility] Jasmpgw4819-40-51 09:28:00* Test Item Value Reference Range Interpretation Comments Urine Nitrite (test code = 63794-4) NEGATIVE NEGATIVE [facility] AllianceU[facility] Oyyiezc5557-54-38 09:28:00* Test Item Value Reference Range Interpretation Comments Urine Protein (test code = 5804-0) 1+ NEGATIVE H [facility] Glucose (UA)2018-11-04 09:28:00* Test Item Value Reference Range Interpretation Comments Urine Glucose (UA) (test code = 2349-9) 2+ NEGATIVE H [facility] Czkhmjw8164-56-07 09:28:00* Test Item Value Reference Range Interpretation Comments Urine Ketones (test code = 11677-2) NEGATIVE NEGATIVE [facility] AllianceU[facility] Bnpbwhsmyqzl6879-68-05 09:28:00* Test Item Value Reference Range Interpretation Comments Urine Urobilinogen (test code = 86871-3) 0.2 0.2-1 [facility] AllianceU[facility] Enpljifpd1120-17-47 09:28:00* Test Item Value Reference Range Interpretation Comments Urine Bilirubin (test code = 1978-6) NEGATIVE NEGATIVE [facility] AllianceU[facility] Ovist7014-71-80 09:28:00* Test Item Value Reference Range Interpretation Comments Urine Blood (test code = 38432-2) NEGATIVE NEGATIVE [facility] AllianceU[facility] Xbnqv7623-03-17 09:28:00* Test Item Value Reference Range Interpretation Comments Urine Color (test code = 5778-6) YELLOW YELLOW [facility] AllianceU[facility] Swglxkd3210-35-85 09:28:00* Test Item Value Reference Range Interpretation Comments Urine Clarity (test code = 73971-3) CLEAR CLEAR [facility] AllianceU[facility] Specific Yyesiiu2461-97-61 09:28:00 * Test Item Value Reference Range Interpretation Comments Urine Specific [place] (test code = 5811-5) 1.025 1.010-1.02 5 [facility] AllianceU[facility] [id number] 09:28:00* Test Item Value Reference Range Interpretation Comments Urine pH (test code = 50450-9) 5 5-7 [facility] AllianceU[facility] Leukocyte Twnzjngy5221-91-41 09:28:00* Test Item Value Reference Range Interpretation Comments Urine Leukocyte Esterase (test code = 5799-2) NEGATIVE NEGATIVE [facility] Rdqarwq0606-37-25 09:28:00* Test Item Value Reference Range Interpretation Comments Urine Nitrite (test code = 84703-2) NEGATIVE NEGATIVE [facility] AllianceU[facility] Bimqrwe5364-73-49 09:28:00* Test Item Value Reference Range Interpretation Comments Urine Protein (test code = 5804-0) 1+ NEGATIVE H [facility] Glucose (UA)2018-11-04 09:28:00* Test Item Value Reference Range Interpretation Comments Urine Glucose (UA) (test code = 2349-9) 2+ NEGATIVE H [facility] AllianceU[facility] Dhtzxje0022-22-77 09:28:00* Test Item Value Reference Range Interpretation Comments Urine Ketones (test code = 97353-3) NEGATIVE NEGATIVE [facility] Ysmgepxmqttb3785-27-72 09:28:00* Test Item Value Reference Range Interpretation Comments Urine Urobilinogen (test code = 06546-7) 0.2 0.2-1 [facility] AllianceU[facility] Cphfwmxrw6328-74-63 09:28:00* Test Item Value Reference Range Interpretation Comments Urine Bilirubin (test code = 1978-6) NEGATIVE NEGATIVE [facility] AllianceU[facility] Gqfzb9727-17-04 09:28:00* Test Item Value Reference Range Interpretation Comments Urine Blood (test code = 81688-3) NEGATIVE NEGATIVE [facility] AllianceGlucose (Point of Care In Office) 2018-10-09 15:10:00* Test Item Value Reference Range Interpretation Comments Glucose POC Lifescan (test code = Glucose POC Lifescan) 195 A [facility][O] Drug Screen Urine (in Office)2018-10-01 16:36:00* Test Item Value Reference Range Interpretation Comments Marijuana (THC) (test code = Marijuana (THC)) negative N Cocaine (ISAAC) (test code = Cocaine (ISAAC)) nagative N Amphetamine (AMP) (test code = Amphetamine (AMP)) negative N Methamphetamine (MET) (test code = Methamphetamine (MET)) negative N Morphine (MOP/MBR3631) (test code = Morphine (MOP/MSM5305)) negativ e N Morphine 2000 (OPI) (test [...] = Tri-cycli c Antidepressant (TCA)) negative N [facility][Q] DRUG ABUSE PANEL [id number] 00:00:00* Test Item Value Reference Range Interpretation [...] ng/mL PHENCYCLIDINE 25 ng/mL PROPOXYPHENE 300 ng/mL [facility] Ret[facility] Eye Exam (Diabetic)2018-09-21 05:00:00* Test Item Value Reference Range Interpretation Comments Negative Diabetic Eye Screening (test code = Negative Diabetic Eye Screening) [id number] [facility]2018-09-12 15:58:00* Test Item Value Reference Range Interpretation Comments Glucose POC Lifescan (test code = Glucose POC Lifescan) 150 [facility][O] Hemoglobin A1c (in office)2018-09-12 15:57:00 * Test Item Value Reference Range Interpretation Comments HEMOGLOBIN A1c (test code = 4548-4) 8.2 [facility][O] Drug Screen Urine (in Office)2018-08-27 16:49:00* Test Item Value Reference Range Interpretation Comments Marijuana (THC) (test code = Marijuana (THC)) negative N Cocaine (ISAAC) (test code = Cocaine (ISAAC)) negative N Amphetamine (AMP) (test code = Amphetamine (AMP)) negative N Methamphetamine (MET) (test code = Methamphetamine (MET)) negative N Morphine (MOP/DTM7684) (test code = Morphine (MOP/YFE4490)) negativ e N Morphine 2000 (OPI) (test [...] = Tri-cycli c Antidepressant (TCA)) negative N [facility][Q] DRUG ABUSE PANEL [id number] 00:00:00* Test Item Value Reference Range Interpretation [...] ng/mL PHENCYCLIDINE 25 ng/mL PROPOXYPHENE 300 ng/mL [facility][Q] Clostridium difficile Toxin/GDH with reflex to [id number] 15:39:00* Test Item Value Reference Range Interpretation Comments Clostridium Difficile Toxin/GDH w/Refl t o PCR (test code = Clostridium Difficile Toxin/GDH w/Refl to PCR) See Comment CLOSTR IDIUM DIFFICILE TOXIN/GDH W/REFL TO PCR MICRO NUMBER: [id number] TEST STATUS: FINAL SPECIMEN SOURCE: STOOL SPECIMEN QUALITY: ADEQUATE GDH ANTIGEN: Not Detected TOXIN A AND B: Not Detected COMMENT: No toxigenic C. difficile detected For additional information, please refer to [email or web address] (This link is being provided for informational/educational purposes only.) [facility]] CMP W/[id number] 16:28:00* Test Item Value Reference Range Interpretation Comments GLUCOSE; Normal (test code = 1547-9) 133 mg/dl 65-139 N Non-fasting reference interval UREA NITROGEN (BUN) (test code = UREA NITROGEN (BUN)) 18 mg/dl 7-25 N CREATININE (test code = CREATININE) 0.66 mg/dl 0.50-0.99 N For patients >49 years of age, the reference limitfor Creatinine is approximately 13% higher for peopleidentified as -Azerbaij[place]. eGFR NON- (test code = eGFR NON-CATY N SWEDISH) 96 {ML/MIN/1.7} > OR = 60 N [...] N BILIRUBIN, TOTAL; Normal (test code = 84560-5) 0.3 mg/dl 0.2-1.2 N ALKALINE PHSPHATASE (test code = ALKALINE PHSPHATASE) 82 u/l 33-130 N AST; Normal (test code = 1916-6) 16 u/l 10-35 N ALT; Normal (test code = 1742-6) 19 u/l 6-29 N [facility]] CBC (INCLUDES DIFF/PLT)2018-05-29 16:28:00* Test Item Value Reference Range Interpretation Comments WHITE BLOOD CELL COUNT (test code = WHITE BLOOD CELL COUNT) 7.2 {Thousand/u} 3.8-10.8 N RED BLOOD CELL COUNT (test code = RED BLOOD CELL COUNT) 4.75 {Million/uL} 3.80-5.10 N HEMAGLOBIN; Normal (test code = 30198-7) 13.4 g/dl 11.7-15.5 N HEMATOCRIT; Normal (test code = 4544-3) 39.6 % 35.0-45.0 N MCV; Normal (test code = 787-2) 83.4 fL 80.0-100.0 N MCHC; Normal (test code = 79394-9) 33.8 g/dl 32.0-36.0 N RDW; Normal (test code = 788-0) 14.2 % 11.0-15.0 N PLATELET COUNT; Normal (test code = 777-3) 398 {Thousand/u} 140-400 N MPV; Normal (test code = 30986-7) 8.3 fL 7.5-12.5 N ABSOLUTE NEUTROPHILS (test code = ABSOLUTE NEUTROPHILS) 3794 {cells/uL} 4540-4699 N ABSOLUTE LYMPHOCYTES (test code = ABSOLUTE [...] % N MONOCYTES; Normal (test code = 37887-3) 5.2 % N EOSINOPHILS; Normal (test code = 89248-6) 1.3 % N BASOPHILS; Normal (test code = 43210-1) 0.6 % N [facility]] [id number] 16:28:00* Test Item Value Reference Range Interpretation Comments AMYLASE (test code = AMYLASE) 27 u/l 21-101 N [facility]] [id number] 16:28:00* Test Item Value Reference Range Interpretation Comments LIPASE (test code = LIPASE) 38 u/l 7-60 N [facility]iciansCT Abdomen/Pelvis wo contrast [id number] 16:07:00EXAM: CT ABDOMEN AND PELVIS WITHOUT CONTRASTDATE: [...] danilo Signed by: Sofía Whitlock 05/30/1808:50FINAL R [facility] Tib Fib wo contrast [id number] 07:47:00EXAM: Tib Fib wo contrast MRIDATE: 04/29/2018 [...] d by: Dora Carrero MD 04/29/1810:11FINAL REPORT [facility] Xzocqve7315-72-90 07:50:00* Test Item Value Reference Range Interpretation Comments Bedside Glucose (test code = 16663-6) 91 70-120 Meter ID: [id number] [facility] Glucose 2018-03-27 07:50:00* Test Item Value Reference Range Interpretation Comments Bedside Glucose (test code = 79386-1) 91 70-120 Meter ID: [id number] [facility] Cells Kgdkwnt9497-01-97 11:46:00* Test Item Value Reference Range Interpretation Comments Differential Total Cells Counted (test code = Differen tial Total Cells Counted) 100 [facility] AllianceNeutrophils % (Manual)2018-03-26 11:46:00 * Test Item Value Reference Range Interpretation Comments Neutrophils % (Manual) (test code = 60137-9) 66 40-74 [facility] AllianceBand Neutrophils %2018-03-26 11:46:00* Test Item Value Reference Range Interpretation Comments Band Neutrophils % (test code = 764-1) 1 [facility] AllianceLymphocytes % (Manual)2018-03-26 11:46:00 * Test Item Value Reference Range Interpretation Comments Lymphocytes % (Manual) (test code = 737-7) 26 19-48 [facility] AllianceMonocytes % (Manual)2018-03-26 11:46:00* Test Item Value Reference Range Interpretation Comments Monocytes % (Manual) (test code = 744-3) 3 3.4-9.0 L [facility] AllianceEosinophils % (Manual)2018-03-26 11:46:00 * Test Item Value Reference Range Interpretation Comments Eosinophils % (Manual) (test code = 714-6) 3 0-7 [facility] AllianceMetamyelocytes %2018-03-26 11:46:00* Test Item Value Reference Range Interpretation Comments Metamyelocytes % (test code = 740-1) 1 0-0 H [facility] AlliancePlatelet Mrwwwujv2892-10-22 11:46:00* Test Item Value Reference Range Interpretation Comments Platelet Estimate (test code = 81085-2) ADEQUATE [facility] AlliancePlatelet Morphology Dffldge8374-44-88 11:46:00* Test Item Value Reference Range Interpretation Comments Platelet Morphology Comment (test code = 02742-5) FEW LARGE [facility] AllianceHypochromasia2018-10-09 11:46:00* Test Item Value Reference Range Interpretation Comments Hypochromasia (test code = 728-6) MODERATE [facility] AllianceRed Cell Morphology Pfxtmuk4460-24-07 11:46:00* Test Item Value Reference Range Interpretation Comments Red Cell Morphology Comment (test code = 6742-1) ABNORMAL [facility] AllianceDifferential Total Cells Counted 2018-03-26 11:46:00* Test Item Value Reference Range Interpretation Comments Differential Total Cells Counted (test code = Differen tial Total Cells Counted) 100 [facility] AllianceNeutrophils % (Manual)2018-03-26 11:46:00 * Test Item Value Reference Range Interpretation Comments Neutrophils % (Manual) (test code = 62507-1) 66 40-74 [facility] AllianceBand Neutrophils %2018-03-26 11:46:00* Test Item Value Reference Range Interpretation Comments Band Neutrophils % (test code = 764-1) 1 [facility] AllianceLymphocytes % (Manual)2018-03-26 11:46:00 * Test Item Value Reference Range Interpretation Comments Lymphocytes % (Manual) (test code = 737-7) 26 19-48 [facility] AllianceMonocytes % (Manual)2018-03-26 11:46:00* Test Item Value Reference Range Interpretation Comments Monocytes % (Manual) (test code = 744-3) 3 3.4-9.0 L [facility] AllianceEosinophils % (Manual)2018-03-26 11:46:00 * Test Item Value Reference Range Interpretation Comments Eosinophils % (Manual) (test code = 714-6) 3 0-7 [facility] AllianceMetamyelocytes %2018-03-26 11:46:00* Test Item Value Reference Range Interpretation Comments Metamyelocytes % (test code = 740-1) 1 0-0 H [facility] AlliancePlatelet Gwbcmqls1555-03-58 11:46:00* Test Item Value Reference Range Interpretation Comments Platelet Estimate (test code = 01394-0) ADEQUATE [facility] AlliancePlatelet Morphology Gvrepge3959-00-64 11:46:00* Test Item Value Reference Range Interpretation Comments Platelet Morphology Comment (test code = 44473-7) FEW LARGE [facility] AllianceHypochromasia2018-10-09 11:46:00* Test Item Value Reference Range Interpretation Comments Hypochromasia (test code = 728-6) MODERATE [facility] AllianceRed Cell Morphology Zsugpvt2854-21-03 11:46:00* Test Item Value Reference Range Interpretation Comments Red Cell Morphology Comment (test code = 6742-1) ABNORMAL [facility] AllianceCarbon Dioxide Jbzty4620-48-41 08:44:00* Test Item Value Reference Range Interpretation Comments Carbon Dioxide Level (test code = 2028-9) 19 22-29 L [facility] AllianceAnion Rql7561-70-14 08:44:00* Test Item Value Reference Range Interpretation Comments Anion Gap (test code = 50770-2) 21.5 8-16 H [facility] AllianceWhite Blood Cziay2322-63-35 07:49:00* Test Item Value Reference Range Interpretation Comments White Blood Count (test code = 6690-2) 5.95 4.8-10.8 [facility] AllianceRed Blood Qgkab9043-13-08 07:49:00* Test Item Value Reference Range Interpretation Comments Red Blood Count (test code = 789-8) 3.24 3.6-5.1 L [facility] AllianceHemoglobin2018-10-09 07:49:00* Test Item Value Reference Range Interpretation Comments Hemoglobin (test code = 43904-8) 9.2 12.0-16.0 L [facility] AllianceHematocrit2018-10-09 07:49:00* Test Item Value Reference Range Interpretation Comments Hematocrit (test code = 4544-3) 28.6 34.2-44.1 L [facility] AllianceMean Corpuscular Jafusc9663-48-08 07:49:00* Test Item Value Reference Range Interpretation Comments Mean Corpuscular Volume (test code = 787-2) 88.3 81-99 [facility] AllianceMean Corpuscular Rpqiponbpv1432-36-50 07:49:00* Test Item Value Reference Range Interpretation Comments Mean Corpuscular Hemoglobin (test code = 785-6) 28.4 28-32 [facility] AllianceMean Corpuscular Hemoglobin Concent 2018-03-26 07:49:00* Test Item Value Reference Range Interpretation Comments Mean Corpuscular Hemoglobin Concent (test code = 786-4) 32.2 31-35 [facility] AllianceRed Cell Distribution Ppfab7578-38-97 07:49:00* Test Item Value Reference Range Interpretation Comments Red Cell Distribution Width (test code = 90507-3) 12.8 11.7 -14.4 [facility] AlliancePlatelet Rmxos4932-15-40 07:49:00* Test Item Value Reference Range Interpretation Comments Platelet Count (test code = 777-3) 335 140-360 [facility] AllianceNeutrophils (%) (Auto)2018-03-26 07:49:00 * Test Item Value Reference Range Interpretation Comments Neutrophils (%) (Auto) (test code = 82189-9) 53.3 38.7-80.0 [facility] AllianceLymphocytes (%) (Auto)2018-03-26 07:49:00 * Test Item Value Reference Range Interpretation Comments Lymphocytes (%) (Auto) (test code = 736-9) 30.9 18.0-39.1 [facility] AllianceMonocytes (%) (Auto)2018-03-26 07:49:00* Test Item Value Reference Range Interpretation Comments Monocytes (%) (Auto) (test code = 5905-5) 6.6 4.4-11.3 [facility] AllianceEosinophils (%) (Auto)2018-03-26 07:49:00 * Test Item Value Reference Range Interpretation Comments Eosinophils (%) (Auto) (test code = 713-8) 1.8 0.0-6.0 [facility] AllianceBasophils (%) (Auto)2018-03-26 07:49:00* Test Item Value Reference Range Interpretation Comments Basophils (%) (Auto) (test code = 706-2) 0.5 0.0-1.0 [facility] AllianceIM GRANULOCYTES %2018-03-26 07:49:00* Test Item Value Reference Range Interpretation Comments IM GRANULOCYTES % (test code = IM GRANULOCYTES %) 6.9 0.0- 1.0 H [facility] AllianceNeutrophils # (Auto)2018-03-26 07:49:00* Test Item Value Reference Range Interpretation Comments Neutrophils # (Auto) (test code = 751-8) 3.2 2.1-6.9 [facility] AllianceLymphocytes # (Auto)2018-03-26 07:49:00* Test Item Value Reference Range Interpretation Comments Lymphocytes # (Auto) (test code = 10545-0) 1.8 1.0-3.2 [facility] AllianceMonocytes # (Auto)2018-03-26 07:49:00* Test Item Value Reference Range Interpretation Comments Monocytes # (Auto) (test code = 742-7) 0.4 0.2-0.8 [facility] AllianceEosinophils # (Auto)2018-03-26 07:49:00* Test Item Value Reference Range Interpretation Comments Eosinophils # (Auto) (test code = 711-2) 0.1 0.0-0.4 [facility] AllianceBasophils # (Auto)2018-03-26 07:49:00* Test Item Value Reference Range Interpretation Comments Basophils # (Auto) (test code = 704-7) 0.0 0.0-0.1 [facility] AllianceAbsolute Immature Granulocyte (auto 2018-03-26 07:49:00* Test Item Value Reference Range Interpretation Comments Absolute Immature Granulocyte (auto (fidel t code = Absolute Immature Granulocyte (auto) 0.41 0-0.1 [facility] Nuvne5435-59-46 06:50:00* Test Item Value Reference Range Interpretation Comments Sodium Level (test code = 2951-2) 140 136-145 [facility] AlliancePotassium Taeng8216-94-17 06:50:00* Test Item Value Reference Range Interpretation Comments Potassium Level (test code = 2823-3) 3.5 3.5-5.1 [facility] AllianceChloride Qqqwl4894-72-17 06:50:00* Test Item Value Reference Range Interpretation Comments Chloride Level (test code = 2075-0) 103 98-107 [facility] AllianceBlood Urea Hdaedbnl8770-49-50 06:50:00* Test Item Value Reference Range Interpretation Comments Blood Urea Nitrogen (test code = 3094-0) 8 7-26 [facility] AllianceCreatinine2018-10-09 06:50:00* Test Item Value Reference Range Interpretation Comments Creatinine (test code = 2160-0) 0.69 0.57-1.11 [facility] AllianceBUN/Creatinine Dgcna3720-48-40 06:50:00* Test Item Value Reference Range Interpretation Comments BUN/Creatinine Ratio (test code = 3097-3) 12 6-25 [facility] AllianceEstimat Glomerular Filtration Rate 2018-03-26 06:50:00* Test Item Value Reference Range Interpretation Comments Estimat Glomerular Filtration Rate (test code = 743446603) 60- >60 Ranges were taken from the National Kidney Disease Education Program and the [facility] Foundation literature.Reference ranges:60 or greater: Mjjfcs22-42 ( for 3 consecutive months): Chronic kidney disease 15 or less: Kidney failureTexas [facility] Medical [facility] AllianceGlucose Hdngf1651-93-40 06:50:00* Test Item Value Reference Range Interpretation Comments Glucose Level (test code = AMR1947) 111 74-118 [facility] AllianceCalcium Wczer0126-11-88 06:50:00* Test Item Value Reference Range Interpretation Comments Calcium Level (test code = 88311-2) 7.5 8.4-10.2 L [facility] AllianceVancomycin Level Tbkump5758-19-64 09:25:00* Test Item Value Reference Range Interpretation Comments Vancomycin Level Trough (test code = 4092-3) 5.6 5.0-10.0 [facility] AllianceVancomycin Level Mwrkoi1646-98-43 09:25:00* Test Item Value Reference Range Interpretation Comments Vancomycin Level Trough (test code = 4092-3) 5.6 5.0-10.0 [facility] AllianceBlood Zicysea7644-13-87 20:38:00* Test Item Value Reference Range Interpretation Comments Blood Culture (test code = 34640837) NO GROWTH AFTER 5 DAYS, FINAL REPORT [facility] AllianceBlood Nhxphcp7278-57-66 20:38:00* Test Item Value Reference Range Interpretation Comments Blood Culture (test code = 22477944) NO GROWTH AFTER 5 DAYS, FINAL REPORT [facility] AllianceUrine Rvjmt2601-61-57 00:52:00* Test Item Value Reference Range Interpretation Comments Urine Color (test code = 5778-6) YELLOW YELLOW [facility] AllianceUrine Sxjddmr7753-47-43 00:52:00* Test Item Value Reference Range Interpretation Comments Urine Clarity (test code = 16936-5) CLEAR CLEAR [facility] AllianceUrine Specific Hgdmcoh5793-69-11 00:52:00 * Test Item Value Reference Range Interpretation Comments Urine Specific [place] (test code = 5811-5) 1.005 1.010-1.02 5 L [facility] AllianceUrine lX0680-80-45 00:52:00* Test Item Value Reference Range Interpretation Comments Urine pH (test code = 30898-0) 6 5-7 [facility] Leukocyte Ndcqnain9527-76-28 00:52:00* Test Item Value Reference Range Interpretation Comments Urine Leukocyte Esterase (test code = 5799-2) NEGATIVE NEGATIVE [facility] Kqotjwq2512-61-06 00:52:00* Test Item Value Reference Range Interpretation Comments Urine Nitrite (test code = 48905-0) NEGATIVE NEGATIVE [facility] Pxivtsa8414-30-76 00:52:00* Test Item Value Reference Range Interpretation Comments Urine Protein (test code = 5804-0) NEGATIVE NEGATIVE [facility] Glucose (UA)2018-03-19 00:52:00* Test Item Value Reference Range Interpretation Comments Urine Glucose (UA) (test code = 2349-9) 3+ NEGATIVE H [facility] Gdhlwvt7592-00-87 00:52:00* Test Item Value Reference Range Interpretation Comments Urine Ketones (test code = 80519-4) NEGATIVE NEGATIVE [facility] Jwbipdoupuhr5775-84-49 00:52:00* Test Item Value Reference Range Interpretation Comments Urine Urobilinogen (test code = 01255-2) 0.2 0.2-1 [facility] Ktrncywja0793-87-46 00:52:00* Test Item Value Reference Range Interpretation Comments Urine Bilirubin (test code = 1978-6) NEGATIVE NEGATIVE [facility] Ooxps8934-31-29 00:52:00* Test Item Value Reference Range Interpretation Comments Urine Blood (test code = 83620-5) NEGATIVE NEGATIVE [facility] VRA0228-40-12 00:52:00* Test Item Value Reference Range Interpretation Comments Urine WBC (test code = 5821-4) 0-5 0-5 [facility] AYT0973-42-96 00:52:00* Test Item Value Reference Range Interpretation Comments Urine RBC (test code = 56089-3) 0-5 0-5 [facility] AllianceUrine Tpmqvuot1408-70-85 00:52:00* Test Item Value Reference Range Interpretation Comments Urine Bacteria (test code = 65454-6) NONE NONE [facility] AllianceUrine Epithelial Jolwc9165-47-31 00:52:00 * Test Item Value Reference Range Interpretation Comments Urine Epithelial Cells (test code = 18084-6) FEW NONE [facility] AllianceUrine Renal Epithelial Qyvtn5577-67-80 00:52:00* Test Item Value Reference Range Interpretation Comments Urine Renal Epithelial Cells (test code = 74396-5) FEW NON E H [facility] AllianceUrine Ftuzw5295-91-42 00:52:00* Test Item Value Reference Range Interpretation Comments Urine Mucus (test code = 8247-9) FEW RARE H [facility] AllianceUrine Renal Epithelial Grnbk7246-32-36 00:52:00* Test Item Value Reference Range Interpretation Comments Urine Renal Epithelial Cells (test code = 91960-1) FEW NON E H [facility] AllianceUrine Lxegv8699-76-44 00:52:00* Test Item Value Reference Range Interpretation Comments Urine Mucus (test code = 8247-9) FEW RARE H [facility] AllianceCreatine Kinase QM3760-33-93 21:07:00* Test Item Value Reference Range Interpretation Comments Creatine Kinase MB (test code = 70062-7) 0.70 0-5.0 [facility] AllianceTroponin V4295-55-19 21:07:00* Test Item Value Reference Range Interpretation Comments Troponin I (test code = ZES2317) -0.001 0-0.300 [facility] AllianceTotal Djaylqxlg3781-86-71 20:57:00* Test Item Value Reference Range Interpretation Comments Total Bilirubin (test code = 1975-2) 0.4 0.2-1.2 [facility] AllianceAspartate Amino Transf (AST/SGOT) 2018-03-18 20:57:00* Test Item Value Reference Range Interpretation Comments Aspartate Amino Transf (AST/SGOT) (test code = Aspartate Amino Transf (AST/SGOT)) 13 5-34 [facility] AllianceAlanine Aminotransferase (ALT/SGPT) 2018-03-18 20:57:00* Test Item Value Reference Range Interpretation Comments Alanine Aminotransferase (ALT/SGPT) (test code = 1742-6) 19 0-55 [facility] AllianceTotal Jwijpfn4859-89-27 20:57:00* Test Item Value Reference Range Interpretation Comments Total Protein (test code = 2885-2) 7.4 6.5-8.1 [facility] AllianceAlbumin2018-10-01 20:57:00* Test Item Value Reference Range Interpretation Comments Albumin (test code = 1751-7) 3.6 3.5-5.0 [facility] AllianceGlobulin2018-10-01 20:57:00* Test Item Value Reference Range Interpretation Comments Globulin (test code = 52235-4) 3.8 2.3-3.5 H [facility] AllianceAlbumin/Globulin Npyeu6734-46-80 20:57:00 * Test Item Value Reference Range Interpretation Comments Albumin/Globulin Ratio (test code = 1759-0) 0.9 0.8-2.0 [facility] AllianceAlkaline Avmcihyorti5847-06-82 20:57:00* Test Item Value Reference Range Interpretation Comments Alkaline Phosphatase (test code = 6768-6) 66 40-150 [facility] AllianceCreatine Loqjso4024-26-80 20:57:00* Test Item Value Reference Range Interpretation Comments Creatine Kinase (test code = 2157-6) 150 29-168 [facility] AllianceLactic Acid Ahpae9562-58-22 20:52:00* Test Item Value Reference Range Interpretation Comments Lactic Acid Level (test code = Lactic Acid Level) 25.1 4.5- 19.8 Results called to DORIAN SORTO at 205 on 03/18/18 by GRICELDA RAM. [place].[facility] AllianceLactic Acid Qhkak5984-36-62 20:52:00* Test Item Value Reference Range Interpretation Comments Lactic Acid Level (test code = Lactic Acid Level) 25.1 4.5- 19.8 HH Results called to DORIAN SORTO at 2050 on 03/18/18 by GRICELDA RAM. [place] 2 RVQAQ7424-93-24 19:58:00 [facility] [address] [address] Patient Name: LAURYN COLLINS MR #: [id number] : 1 Age/Sex: 57/F Req #: [id number] Adm Physician: Ordered by: DELIA GOMEZ MD Report #: [id number] Location: ER Room/ Bed: Procedure: [id number] DX/CHEST 2 VIEWS Exam Date : 03/18/18 [...] DELIA GOMEZ MD Influenza Virus Types A,B Zckkqmr4921-52-59 17:56:00* Test Item Value Reference Range Interpretation Comments Influenza Virus Types A,B Antigen (test code = 57889-7) NEGATIVE NEGATIVE [facility] AllianceInfluenza Virus Types A,B Antigen 2018-03-18 17:56:00* Test Item Value Reference Range Interpretation Comments Influenza Virus Types A,B Antigen (test code = 97645-6) NEGATIVE NEGATIVE [facility][O] Hemoglobin A1c (in office)2018-02-08 15:01:00* Test Item Value Reference Range Interpretation Comments HEMOGLOBIN A1c (test code = 4548-4) 8.0 [facility] PhysiciansGlucose ([facility])2018-02-08 15:01:00* Test Item Value Reference Range Interpretation Comments Glucose POC Lifescan (test code = Glucose POC Lifescan) [facility] 061416095-09-72 11:56:00EXAM: XR LEFT HIP 1 VIEWDATE: 02/06/2018 [...] left hip.--This report was dictated by a Radio Electrician/Fellow. I have personallyreviewed the images aswell as the Resident's interpretation and agree with the findings.Read by: Bertha Garcia MD Resident: Bertha MoralesgMDDictated Date/time: 02/06/18 13:24Electronically Signed by: Calixto Isbell MD 02/08/1812:14FINAL REPORTUnSteward Health [facility] PhysiciansXRAY Ribs unilateral [id number] 11:56:00EXAM: XR LEFT RIB 2 VIEWS DATE: [...] rib fractures.--This report was dictated by a Radio Electrician/Steven savage. I have personallyreviewed the images aswell as the Resident's interpretatio n and agree with the findings.Read by: Bertha Garcia MD Res ident: Bertha GarciagMDDictated Date/time: 02/06/18 13:26Electronically S igned by: Calixto Isbell MD 02/08/1812:19FINAL REPORT [facility] PhysiciansCT BRAIN PD1153-32-91 11:01:[address] [address] Patient Name: LAURYN COLLINS MR #: [id number] : 1960 Age/Sex: 57/F Req #: [id number] Adm Physician: Ordered by: ROHAN TURNER MD Report #: [id number] Location: ER Room/Bed: Procedure: [id number] CT/CT BRAIN WO Exam Date: Exam Time: [...] 1104 COPY TO: ELLIOT TURNER MD Urine ZDN0593-61-85 08:28:00* Test Item Value Reference Range Interpretation Comments Urine WBC (test code = 5821-4) 11-20 0-5 H [facility] AllianceUrine AQT8105-68-33 08:28:00* Test Item Value Reference Range Interpretation Comments Urine RBC (test code = 93256-3) 0-5 0-5 [facility] AllianceUrine Sufhznol5691-55-15 08:28:00* Test Item Value Reference Range Interpretation Comments Urine Bacteria (test code = 37367-9) FEW NONE [facility] AllianceUrine Epithelial Epjul3332-17-38 08:28:00 * Test Item Value Reference Range Interpretation Comments Urine Epithelial Cells (test code = 95288-6) MODERATE NONE [facility] AllianceUrine Renal Epithelial Cufbl0218-25-96 08:28:00* Test Item Value Reference Range Interpretation Comments Urine Renal Epithelial Cells (test code = 85490-4) RARE NON E H [facility] AllianceUrine Xguey8187-67-93 08:28:00* Test Item Value Reference Range Interpretation Comments Urine Mucus (test code = 8247-9) FEW RARE H [facility] AllianceCreatine Kinase GI9217-17-95 08:11:00* Test Item Value Reference Range Interpretation Comments Creatine Kinase MB (test code = 38682-5) 1.00 0-5.0 [facility] AllianceTroponin P8109-70-74 08:11:00* Test Item Value Reference Range Interpretation Comments Troponin I (test code = ZHB7739) -0.001 0-0.300 [facility] Oqydd2512-66-72 08:09:00* Test Item Value Reference Range Interpretation Comments Sodium Level (test code = 2951-2) 141 136-145 [facility] AlliancePotassium Mkyko4862-81-03 08:09:00* Test Item Value Reference Range Interpretation Comments Potassium Level (test code = 2823-3) 4.5 3.5-5.1 [facility] AllianceChloride Xesbh8576-63-42 08:09:00* Test Item Value Reference Range Interpretation Comments Chloride Level (test code = 2075-0) 105 98-107 [facility] AllianceCarbon Dioxide Ivzlx4741-79-12 08:09:00* Test Item Value Reference Range Interpretation Comments Carbon Dioxide Level (test code = 2028-9) 28 22-29 [facility] AllianceAnion Zws8198-07-09 08:09:00* Test Item Value Reference Range Interpretation Comments Anion Gap (test code = 03495-5) 12.5 8-16 [facility] AllianceBlood Urea Vcsyqlns6266-34-20 08:09:00* Test Item Value Reference Range Interpretation Comments Blood Urea Nitrogen (test code = 3094-0) 16 7-26 [facility] AllianceCreatinine2018-06-16 08:09:00* Test Item Value Reference Range Interpretation Comments Creatinine (test code = 2160-0) 0.77 0.57-1.11 [facility] AllianceBUN/Creatinine Wykfh1624-36-90 08:09:00* Test Item Value Reference Range Interpretation Comments BUN/Creatinine Ratio (test code = 3097-3) 21 6-25 [facility] AllianceEstimat Glomerular Filtration Rate 2017-12-01 08:09:00* Test Item Value Reference Range Interpretation Comments Estimat Glomerular Filtration Rate (test code = 96922-9) 60- >60 Ranges were taken from the National Kidney Disease Education Program and the [facility] literature.Reference ranges:60 or greater: Kfwkvy25-68 ( for 3 consecutive months): Chronic kidney disease 15 or less: Kidney failureTexas Health Harris Medical Hospital AllianceGlucose Tkadb0601-97-62 08:09:00* Test Item Value Reference Range Interpretation Comments Glucose Level (test code = FDZ8312) 178 74-118 H [facility] AllianceCalcium Priux1733-65-59 08:09:00* Test Item Value Reference Range Interpretation Comments Calcium Level (test code = 58225-5) 10.0 8.4-10.2 [facility] AllianceTotal Ymoyctsra8572-41-16 08:09:00* Test Item Value Reference Range Interpretation Comments Total Bilirubin (test code = 1975-2) 0.3 0.2-1.2 [facility] AllianceAspartate Amino Transf (AST/SGOT) 2017-12-01 08:09:00* Test Item Value Reference Range Interpretation Comments Aspartate Amino Transf (AST/SGOT) (test code = Aspartate Amino Transf (AST/SGOT)) 11 5-34 [facility] AllianceAlanine Aminotransferase (ALT/SGPT) 2017-12-01 08:09:00* Test Item Value Reference Range Interpretation Comments Alanine Aminotransferase (ALT/SGPT) (test code = 1742-6) 23 0-55 [facility] AllianceTotal Jomjyax3288-81-62 08:09:00* Test Item Value Reference Range Interpretation Comments Total Protein (test code = 2885-2) 7.5 6.5-8.1 [facility] AllianceAlbumin2018-06-16 08:09:00* Test Item Value Reference Range Interpretation Comments Albumin (test code = 1751-7) 3.7 3.5-5.0 [facility] AllianceGlobulin2018-06-16 08:09:00* Test Item Value Reference Range Interpretation Comments Globulin (test code = 92540-9) 3.8 2.3-3.5 H [facility] AllianceAlbumin/Globulin Hohpm8887-02-54 08:09:00 * Test Item Value Reference Range Interpretation Comments Albumin/Globulin Ratio (test code = 1759-0) 1.0 0.8-2.0 [facility] AllianceAlkaline Kmsvorifoaz9744-64-73 08:09:00* Test Item Value Reference Range Interpretation Comments Alkaline Phosphatase (test code = 6768-6) 90 40-150 [facility] AllianceCreatine Zhflll5883-34-66 08:09:00* Test Item Value Reference Range Interpretation Comments Creatine Kinase (test code = 2157-6) 63 29-168 [facility] AllianceUrine Ginvf4751-95-72 08:08:00* Test Item Value Reference Range Interpretation Comments Urine Color (test code = 5778-6) YELLOW YELLOW [facility] AllianceUrine Laipgch5136-16-29 08:08:00* Test Item Value Reference Range Interpretation Comments Urine Clarity (test code = 63055-5) HAZY CLEAR [facility] AllianceUrine Specific Slluirw2522-81-44 08:08:00 * Test Item Value Reference Range Interpretation Comments Urine Specific [place] (test code = 5811-5) 1.015 1.010-1.02 5 [facility] AllianceUrine pY7227-85-80 08:08:00* Test Item Value Reference Range Interpretation Comments Urine pH (test code = 85014-5) 6 5-7 [facility] AllianceUrine Leukocyte Rfwcwmtd9478-70-07 08:08:00* Test Item Value Reference Range Interpretation Comments Urine Leukocyte Esterase (test code = 5799-2) 1+ NEGATIVE H [facility] AllianceUrine Mvtulle3056-11-96 08:08:00* Test Item Value Reference Range Interpretation Comments Urine Nitrite (test code = 51262-3) NEGATIVE NEGATIVE [facility] AllianceUrine Lyvrmna0742-00-28 08:08:00* Test Item Value Reference Range Interpretation Comments Urine Protein (test code = 5804-0) NEGATIVE NEGATIVE [facility] AllianceUrine Glucose (UA)2017-12-01 08:08:00* Test Item Value Reference Range Interpretation Comments Urine Glucose (UA) (test code = 2349-9) 2+ NEGATIVE H [facility] AllianceUrine [id number] 08:08:00* Test Item Value Reference Range Interpretation Comments Urine Ketones (test code = 08078-5) NEGATIVE NEGATIVE [facility] Nmpyqjuxutjq5707-22-27 08:08:00* Test Item Value Reference Range Interpretation Comments Urine Urobilinogen (test code = 02801-0) 0.2 0.2-1 [facility] AllianceU[facility] [id number] 08:08:00* Test Item Value Reference Range Interpretation Comments Urine Bilirubin (test code = 1978-6) NEGATIVE NEGATIVE [facility] Alliance[facility] [id number] 08:08:00* Test Item Value Reference Range Interpretation Comments Urine Blood (test code = 02390-0) NEGATIVE NEGATIVE [facility] AllianceWhite Blood [id number] 07:52:00* Test Item Value Reference Range Interpretation Comments White Blood Count (test code = 6690-2) 6.60 4.8-10.8 [facility] AllianceRed Blood Pnazx7619-05-52 07:52:00* Test Item Value Reference Range Interpretation Comments Red Blood Count (test code = 789-8) 4.58 3.6-5.1 [facility] AllianceHemoglobin2018-06-16 07:52:00* Test Item Value Reference Range Interpretation Comments Hemoglobin (test code = 12771-2) 13.3 12.0-16.0 [facility] AllianceHematocrit2018-06-16 07:52:00* Test Item Value Reference Range Interpretation Comments Hematocrit (test code = 4544-3) 40.8 34.2-44.1 [facility] AllianceMean Corpuscular Ubyloc3211-93-27 07:52:00* Test Item Value Reference Range Interpretation Comments Mean Corpuscular Volume (test code = 787-2) 89.1 81-99 [facility] AllianceMean Corpuscular Mnegzalcnh9553-67-01 07:52:00* Test Item Value Reference Range Interpretation Comments Mean Corpuscular Hemoglobin (test code = 785-6) 29.0 28-32 [facility] AllianceMean Corpuscular Hemoglobin Concent 2017-12-01 07:52:00* Test Item Value Reference Range Interpretation Comments Mean Corpuscular Hemoglobin Concent (test code = 786-4) 32.6 31-35 [facility] AllianceRed Cell Distribution [id number] 07:52:00* Test Item Value Reference Range Interpretation Comments Red Cell Distribution Width (test code = 01182-8) 13.2 11.7 -14.4 [facility] AlliancePlatelet [id number] 07:52:00* Test Item Value Reference Range Interpretation Comments Platelet Count (test code = 777-3) 288 140-360 [facility] AllianceNeutrophils (%) (Auto)2017-12-01 07:52:00 * Test Item Value Reference Range Interpretation Comments Neutrophils (%) (Auto) (test code = 42601-2) 50.0 38.7-80.0 [facility] AllianceLymphocytes (%) (Auto)2017-12-01 07:52:00 * Test Item Value Reference Range Interpretation Comments Lymphocytes (%) (Auto) (test code = 736-9) 40.3 18.0-39.1 H [facility] AllianceMonocytes (%) (Auto)2017-12-01 07:52:00* Test Item Value Reference Range Interpretation Comments Monocytes (%) (Auto) (test code = 5905-5) 5.6 4.4-11.3 [facility] AllianceEosinophils (%) (Auto)2017-12-01 07:52:00 * Test Item Value Reference Range Interpretation Comments Eosinophils (%) (Auto) (test code = 713-8) 2.7 0.0-6.0 [facility] AllianceBasophils (%) (Auto)2017-12-01 07:52:00* Test Item Value Reference Range Interpretation Comments Basophils (%) (Auto) (test code = 706-2) 0.6 0.0-1.0 [facility] AllianceIM GRANULOCYTES %2017-12-01 07:52:00* Test Item Value Reference Range Interpretation Comments IM GRANULOCYTES % (test code = IM GRANULOCYTES %) 0.8 0.0- 1.0 [facility] AllianceNeutrophils # (Auto)2017-12-01 07:52:00* Test Item Value Reference Range Interpretation Comments Neutrophils # (Auto) (test code = 751-8) 3.3 2.1-6.9 [facility] AllianceLymphocytes # (Auto)2017-12-01 07:52:00* Test Item Value Reference Range Interpretation Comments Lymphocytes # (Auto) (test code = 59145-3) 2.7 1.0-3.2 [facility] AllianceMonocytes # (Auto)2017-12-01 07:52:00* Test Item Value Reference Range Interpretation Comments Monocytes # (Auto) (test code = 742-7) 0.4 0.2-0.8 [facility] AllianceEosinophils # (Auto)2017-12-01 07:52:00* Test Item Value Reference Range Interpretation Comments Eosinophils # (Auto) (test code = 711-2) 0.2 0.0-0.4 [facility] AllianceBasophils # (Auto)2017-12-01 07:52:00* Test Item Value Reference Range Interpretation Comments Basophils # (Auto) (test code = 704-7) 0.0 0.0-0.1 [facility] AllianceAbsolute Immature Granulocyte (auto 2017-12-01 07:52:00* Test Item Value Reference Range Interpretation Comments Absolute Immature Granulocyte (auto (fidel t code = Absolute Immature Granulocyte (auto) 0.05 0-0.1 [facility] AllianceTobacco Use Toapjdgce8881-14-77 16:00:00 * Test Item Value Reference Range Interpretation Comments Completed (test code = Completed) DONE [facility]] CBC (INCLUDES DIFF/PLT)2017-09-21 12:46:00* Test Item Value Reference Range Interpretation Comments WBC (test code = 6690-2) 6.0 {K/CMM} 3.7-10.4 RBC (test code = 789-8) 4.64 {M/CMM} 4.20-5.40 Hgb (test code = 718-7) 13.6 g/dl 12.0-16.0 Hct (test code = 69445-5) 40.6 % 36.0-48.0 MCV (test code = 787-2) 87.5 fL 80.0-98.0 MCH (test code = 785-6) 29.3 pg 27.0-31.0 MCHC (test code = 786-4) 33.5 g/dl 32.0-36.0 RDW (test code = 788-0) 13.8 % 11.5-14.5 Platelet (test code = 82466-4) 298 {K/CMM} 133-450 Mean Platelet Volume; Below Low Threshold (test code = 17901-1) 6.3 fL 7.4-10.4 [facility]] Gdckeykcpmmo0612-12-74 12:46:00* Test Item Value Reference Range Interpretation Comments Segmented Neutrophils (test code = 76903-5) 62.8 % 45.0-75.0 Monocytes (test code = 76743-4) 4.1 % 2.0-12.0 Lymphocytes (test code = 60361-7) 31.1 % 20.0-40.0 Eosinophils (test code = 62003-9) 1.5 % 0.0-4.0 Basophils (test code = 706-2) 0.5 % 0.0-1.0 Segs-Bands # (test code = 94170-6) 3.7 {K/CMM} 1.5-8.1 Lymphocytes # (test code = 28200-9) 1.9 {K/CMM} 1.0-5.5 Monocytes # (test code = 53300-5) 0.2 {K/CMM} 0.0-0.8 Eosinophils # (test code = 35442-7) 0.1 {K/CMM} 0.0-0.5 [facility]] BASIC METABOLIC PANEL [id number] 12:46:00* Test Item Value Reference Range Interpretation Comments Glucose Lvl; Above High Threshold (test code = 2345-7) 165 mg/dl 70-99 Adult reference range values reflect the clinical guidelinesof the [place] [employer]. Blood Urea Nitrogen (test code = 3094-0) 11 mg/dl 7-22 Creatinine Lvl (test code = 2160-0) 0.80 mg/dl 0.50-1.40 Sodium Level (test code = 2951-2) 143 {mEq/l} 135-145 Potassium Level (test code = 2823-3) 4.5 {mEq/l} 3.5-5.1 Chloride Level; Above High Threshold (test code = 5-0) 111 {mEq/ l} 95-109 Carbon Dioxide (test code = 2027-) 24 {mEq/l} 24-32 AGAP (test code = 57460-1) 12.5 {mEq/l} 10.0-20.0 Calcium Level Total (test code = 81937-3) 10.1 mg/dl 8.5-10.5 eGFR (test code = 92311-6) 81 {ML/MIN/1.7} The eGFR is calculated using [...] eGFR shouldbe multiplied by the estimated BMI. [facility]iciansNegative [facility] Eye Exam (Diabetic)2017-09-21 05:00:00* Test Item Value Reference Range Interpretation Comments Negative Diabetic Eye Screening (test code = Negative Diabetic Eye Screening) [id number] [facility]] CMP [id number] 11:01:01* Test Item Value Reference Range Interpretation Comments Sodium Level (test code = 2951-2) 142 {mEq/l} 135-145 Potassium Level (test code = 2823-3) 4.0 {mEq/l} 3.5-5.1 Chloride Level (test code = 5-0) 105 {mEq/l} 95-109 Carbon Dioxide (test code = 2027-9) 29 {mEq/l} 24-32 AGAP (test code = 25050-3) 12.0 {mEq/l} 10.0-20.0 Glucose Lvl; Above High Threshold (test code = 2345-7) 112 mg/dl 70-99 Adult reference range values reflect the clinical guidelinesof the [place] [employer]. Creatinine Lvl (test code = 2160-0) 0.80 mg/dl 0.50-1.40 Blood Urea Nitrogen (test code = 3094-0) 14 mg/dl 7-22 BUN/Creatinine Ratio (test code = 3097-3) 18 6-25 Total Protein (test code = 2885-2) 7.9 g/dl 6.4-8.4 Albumin Lvl (test code = 1751-7) 3.9 g/dl 3.5-5.0 Globulin (test code = 88166-6) 4.0 g/dl 2.7-4.2 A/G Ratio (test code = 1759-0) 1.0 0.7-1.6 Calcium Level Total (test code = 27231-1) 9.3 mg/dl 8.5-10.5 ALT (test code = 1743-4) 21 u/l 0-65 AST (test code = 17344-6) 13 u/l 0-37 Bili Total (test code = 1974-2) 0.2 mg/dl 0.2-1.3 Alk Phos (test code = 1783-0) 103 u/l 39-136 eGFR (test code = 12679-4) 81 {ML/MIN/1.7} The eGFR is calculated using [...] eGFR shouldbe multiplied by the estimated BMI. [facility]] LIPID [id number] 11:01:01* Test Item Value Reference Range Interpretation Comments LDL (test code = 60721-6) 65 mg/dl <=99 Chol (test code = 2093-3) 179 mg/dl <=199 Trig; Above High Threshold (test code = 2571-8) 181 mg/dl <=149 HDL Cholesterol (test code = 2085-9) 78 mg/dl >=61 CHD Risk; Below Low Threshold (test code = 40442-9) 2.29 3. 90-5.80 VLDL (test code = VLDL) 36 [facility]] MICROALBUMIN, RANDOM URINE (W/CREATININE) 2017-09-10 11:01:01* Test Item Value Reference Range Interpretation Comments Urine Microalbumin (test code = Urine Microalbumin) 6.0 mg/L U Creatinine (test code = 2161-8) 17.60 mg/dl No established reference ranges. Urine Microalbuming Creatinine Ratio; Ab ove High Threshold (test code = 05766-2) 34.1 {MCG/MG CRE} <=30.0 [facility]iciansGlucose (Point of Care In Office)2017-08-31 15:09:00* Test Item Value Reference Range Interpretation Comments Glucose POC Lifescan (test code = Glucose POC Lifescan) 358 [facility][O] Hemoglobin A1c (in office)2017-08-31 15:09:00 * Test Item Value Reference Range Interpretation Comments HEMOGLOBIN A1c (test code = 4548-4) 7.5 [facility]
[2020-03-23] MEDS: FENTANYL CITRATE/PF 100MCG/2 ML INJ IV PRN ×2 (09:47→16:35)
[2020-03-23] MEDS: ONDANSETRON HCL INJ 2MG/ML 2ML 2 MG/ML VIAL IV PRN ×4 (09:47→23:59)
--- NOTE | 2020-03-23 11:30 | NUR ---
Nursing report called to Kris SHIPLEY
[2020-03-23] MEDS: PIPER-TAZ 3.375 GM 50 ML IV SCH ×3 (12:35→23:52)
--- NOTE | 2020-03-23 14:11 | NUR ---
Awaiting results of Covid test, for assignment of bed. Pt resting quietly.
--- NOTE | 2020-03-23 17:25 | NUR ---
Awaiting covid results for bed placement.
--- NOTE | 2020-03-23 17:40 | NUR ---
REPORT RECEIVED FROM [employer], FELIX FOR PT COMING TO ROOM 204. COVID TEST NEGATIVE.
--- NOTE | 2020-03-23 18:17 | NUR ---
PT ARRIVED TO ROOM 204 VIA WHEELCHAIR, IN STABLE CONDITION.
[2020-03-23] MEDS ORDERED: SODIUM CHLORIDE 0.9% 250ML 250 ML ONE (18:36)
--- NOTE | 2020-03-23 19:00 | NUR ---
REPORT GIVEN TO QUINTEN LEVINE FOR TRANSFER OF CARE. IV INFUSING ZOSYN, PT IN STABLE CONDITION. ALL SAFETY MEASURES IN PLACE.
--- NOTE | 2020-03-23 19:00 | NUR ---
Resumed care of patient. Patient awake and sitting up in bed, no s/s of distress at this time. Bed locked and in lowest position, side rails upx2, call light placed within reach. Patient instructed to call for assistance if needed, verbalized understanding. All safety measures in place.
[2020-03-23] MEDS: HYDROCODONE/APAP 10MG-325MG TAB PO PRN (19:50)
[2020-03-23 20:00] VITALS: BP 135/55
[2020-03-23] MEDS: GABAPENTIN 400 MG CAP PO SCH (20:00)
[2020-03-23] MEDS: INSULIN GLARGINE 100 UNITS/ML VIAL SQ SCH (20:00)
[2020-03-23] MEDS: SIMVASTATIN 20 MG TAB PO SCH (20:00)
[2020-03-23 20:06] VITALS: BP 135/55
[2020-03-23 20:13] VITALS: BP 135/55
[2020-03-23] MEDS: CYCLOBENZAPRINE HCL 10 MG TAB PO PRN (23:58)
[2020-03-24] VITALS (7 sets, daily range): BP systolic 130–156; BP diastolic 52–83
[2020-03-24] MEDS: LEVOTHYROXINE SODIUM 75 MCG TAB PO SCH (05:37)
[2020-03-24] MEDS: PIPER-TAZ 3.375 GM 50 ML IV SCH ×4 (05:37→23:25)
[2020-03-24] MEDS: HYDROCODONE/APAP 10MG-325MG TAB PO PRN ×2 (05:41→17:15)
[2020-03-24 06:42] LABS: ANION GAP 16.2 mmol/L (8-16); CREATININE, SERUM 1.11 mg/dL (0.57-1.11); POTASSIUM 4.2 mmol/L (3.5-5.1)
--- NOTE | 2020-03-24 07:00 | NUR ---
Bedside report given to oncoming nurse. Patient in stable condition, no s/s of distress at this time. All safety measures in place.
--- NOTE | 2020-03-24 07:00 | NUR ---
RCD PT AT BED PT IS ALERT AND ORIENTED RESTING ON BED IV PATENT BY SALINE FLUSH BED LOW AND LOCKED CALL LIGHT IN
[2020-03-24] MEDS: FENOFIBRATE 48 MG TAB PO SCH (09:00)
[2020-03-24] MEDS: PANTOPRAZOLE SOD 40 MG TABEC PO SCH (09:00)
[2020-03-24] MEDS: CLOPIDOGREL BISULFATE 75 MG TAB PO SCH (09:00)
[2020-03-24] MEDS: AMLODIPINE BESYLATE 10 MG TAB PO SCH (09:00)
[2020-03-24] MEDS: GABAPENTIN 400 MG CAP PO SCH ×3 (09:00→20:14)
[2020-03-24] MEDS: POLYETHYLENE GLYCOL 3350 17 GM PACK PO SCH (09:00)
[2020-03-24] MEDS: ONDANSETRON HCL INJ 2MG/ML 2ML 2 MG/ML VIAL IV PRN ×2 (09:06→17:15)
[2020-03-24] MEDS: CYCLOBENZAPRINE HCL 10 MG TAB PO PRN (09:06)
[2020-03-24 09:16] LABS: BASOPHILS % 0.4 % (0.0-1.0); EOSINOPHILS # (AUTO) 0.1 (0.0-0.4); EOSINOPHILS % 1.1 % (0.0-6.0); HEMOGLOBIN 10.2 g/dL (12.0-16.0); LYMPHOCYTES # (AUTO) 1.6 (1.0-3.2); LYMPHOCYTES % 14.5 % (18.0-39.1); MEAN CORPUSCULAR HEMOGLOBIN 29.4 pg (28-32); MEAN CORPUSCULAR HGB CONC 32.9 g/dL (31-35); MEAN CORPUSCULAR VOLUME 89.3 fL (81-99); MONOCYTES # (AUTO) 0.5 (0.2-0.8); MONOCYTES % 4.2 % (4.4-11.3); NEUTROPHILS # (AUTO) 8.8 (2.1-6.9); NEUTROPHILS % 79.3 % (38.7-80.0); PLATELET COUNT 215 x10e3/uL (140-360); RED BLOOD COUNT 3.47 x10e6/uL (3.6-5.1); RED CELL DISTRIBUTION WIDTH 14.6 % (11.7-14.4)
--- NOTE | 2020-03-24 10:15 | NUR ---
OBS DAY 1. WBC TRENDING DOWN; 11.06, IV ZOSYN, PT EVAL, PAIN MGMT. ECHO AND VENOUS DOPP PENDING. SENT TO R1 FOR LOC. SPOKE Lew STOKES REGARDING INPT. SHE WILL ASSESS THE CASE FIRST.
[2020-03-24] MEDS ORDERED: KETOROLAC TROMETHAMINE 30 MG/ML VIAL IV PRN (11:15)
[2020-03-24] MEDS ORDERED: DEXTROSE 50% SYRINGE 50 ML IV PRN (11:30)
[2020-03-24] MEDS: INSULIN LISPRO 100 UNIT/1 ML 3ML VIAL SQ SCH ×3 (11:30→20:16)
[2020-03-24] MEDS ORDERED: FUROSEMIDE INJ 10 MG/ML 2 ML VIAL IV ONE (11:45)
--- NOTE | 2020-03-24 12:50 | NUR ---
[facility] case account ending in 7630 has been reviewed and completed by [facility]. Service Line: Level of Care (LOC) / Admission Status Review Initial patient type was submitted as: IO - Initial Observation [facility] Recommendation: OU SPOKE W DIVYA. STATES SHE PLANS TO SEND THE PT HOME TOMORROW. AGREED TO LEAVE PT IN OBSERVATION
[2020-03-24] MEDS ORDERED: TIZANIDINE HCL 4 MG TAB PO PRN (18:15)
--- NOTE | 2020-03-24 18:43 | NUR ---
PT RESTING ON BED BED SIDE REPORT GIVEN TO ONCOMING NURSE
[2020-03-24] MEDS: SIMVASTATIN 20 MG TAB PO SCH (20:14)
[2020-03-24] MEDS: INSULIN GLARGINE 100 UNITS/ML VIAL SQ SCH (20:17)
[2020-03-25] VITALS: BP 145/78
[2020-03-25] MEDS: ONDANSETRON HCL INJ 2MG/ML 2ML 2 MG/ML VIAL IV PRN ×2 (00:01→00:30)
[2020-03-25 04:00] VITALS: BP 137/68
[2020-03-25] MEDS: LEVOTHYROXINE SODIUM 75 MCG TAB PO SCH (05:50)
[2020-03-25] MEDS: PIPER-TAZ 3.375 GM 50 ML IV SCH (05:50)
[2020-03-25 06:05] LABS: BASOPHILS % 0.6 % (0.0-1.0); EOSINOPHILS # (AUTO) 0.1 (0.0-0.4); EOSINOPHILS % 1.9 % (0.0-6.0); HEMATOCRIT 32.5 % (34.2-44.1); HEMOGLOBIN 10.5 g/dL (12.0-16.0); LYMPHOCYTES # (AUTO) 1.8 (1.0-3.2); LYMPHOCYTES % 33.5 % (18.0-39.1); MEAN CORPUSCULAR HEMOGLOBIN 28.5 pg (28-32); MEAN CORPUSCULAR HGB CONC 32.3 g/dL (31-35); MEAN CORPUSCULAR VOLUME 88.1 fL (81-99); MONOCYTES # (AUTO) 0.3 (0.2-0.8); MONOCYTES % 6.3 % (4.4-11.3); NEUTROPHILS % 56.9 % (38.7-80.0); PLATELET COUNT 233 x10e3/uL (140-360); RED BLOOD COUNT 3.69 x10e6/uL (3.6-5.1); RED CELL DISTRIBUTION WIDTH 13.8 % (11.7-14.4)
[2020-03-25 06:25] LABS: ANION GAP 13.9 mmol/L (8-16); CALCIUM 9.5 mg/dL (8.4-10.2); CREATININE, SERUM 0.98 mg/dL (0.57-1.11); MAGNESIUM 2.2 MG/DL (1.3-2.1); POTASSIUM 3.9 mmol/L (3.5-5.1)
--- NOTE | 2020-03-25 07:00 | NUR ---
RCD PT AT BED PT IS ALERT AND ORIENTED RESTING ON BED IV PATENT BY SALINE FLUSH BED LOW AND LOCKED CALL LIGHT IN
[2020-03-25] MEDS: INSULIN LISPRO 100 UNIT/1 ML 3ML VIAL SQ SCH (07:30)
[2020-03-25 07:46] VITALS: BP 149/77
[2020-03-25 08:54] VITALS: BP 149/77
[2020-03-25] MEDS: GABAPENTIN 400 MG CAP PO SCH (09:00)
[2020-03-25] MEDS: POLYETHYLENE GLYCOL 3350 17 GM PACK PO SCH (09:00)
[2020-03-25] MEDS: AMLODIPINE BESYLATE 10 MG TAB PO SCH (09:00)
[2020-03-25] MEDS: PANTOPRAZOLE SOD 40 MG TABEC PO SCH (09:00)
[2020-03-25] MEDS: CLOPIDOGREL BISULFATE 75 MG TAB PO SCH (09:00)
[2020-03-25] MEDS: FENOFIBRATE 48 MG TAB PO SCH (09:00)
--- NOTE | 2020-03-25 09:00 | NUR ---
VERIFIED THE HOME MEDS WITH HER LIST AND UPDATED
[2020-03-25] MEDS ORDERED: AUGMENTIN 875-1 EACH PO (09:36)
[2020-03-25] MEDS ORDERED: ULTRAM50 MG PO (09:36)
--- NOTE | 2020-03-25 10:41 | NUR ---
PATIENT WENT HOME IN SAFE CONDITION WITH HER SISTER
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
== END 2020-03-25 10:41 | disposition home or self-care (01) ==
LOC: ER 05:05 → ERHOLD 09:13 → MED/SURG2 18:18
PROVIDERS: ADMIT Internal Medicine; ATTEND Internal Medicine
DX: A41.9 Sepsis, unspecified organism (principal); R65.20 Severe sepsis without septic shock; G47.33 Obstructive sleep apnea (adult) (pediatric); N39.0 Urinary tract infection, site not specified; E03.9 Hypothyroidism, unspecified; E78.5 Hyperlipidemia, unspecified; Z11.59 Encounter for screening for other viral diseases; M25.551 Pain in right hip; I12.9 Hypertensive chronic kidney disease with stage 1 through stage 4 chronic kidney disease, or unspecified chronic kidney disease; E11.22 Type 2 diabetes mellitus with diabetic chronic kidney disease; N18.30 Chronic kidney disease, stage 3 unspecified; N17.9 Acute kidney failure, unspecified
CPT/HCPCS: 36415 ×3; 71045; 74177; 80048 ×2; 80053; 81001; 82550; 82553; 82948 ×3; 83036; 83605; 83690; 83735; 83880; 84443; 84484; 85025 ×3; 87040; 87086; 93005; 93306; 93970; 99284; G0378 ×3; J1815; J1885; J1940; J2405 ×3; J2543 ×3; J3010; J7030; J7050; Q9967; S0164 ×2; U0002

== ENCOUNTER 2021-02-13 10:14 | Emergency (ER) | payer OTHER ==
[~2021-02-13] VITALS: Ht 172.7 cm; Wt 112.9 kg
[~2021-02-13 10:14] MED LIST changes: +AUGMENTIN 875-1 EACH PO
[2021-02-13 11:52] LABS: CLARITY,URINE CLOUDY (CLEAR); COLOR,URINE YELLOW (YELLOW); KETONES,URINE NEGATIVE (NEGATIVE); LEUKOCYTE ESTERASE ,URINE NEGATIVE (NEGATIVE); NITRITE,URINE NEGATIVE (NEGATIVE); PROTEIN,URINE DIPSTICK 2+ (NEGATIVE); URINE UROBILINOGEN 0.2 mg/dL (0.2 - 1)
[2021-02-13 12:23] LABS: BACTERIA,URINE FEW /HPF; EPITHELIAL CELLS,URINE MODERATE /LPF; RBC,URINE 0-5 /HPF (0-5)
[2021-02-13] MEDS ORDERED: SODIUM CHLORIDE 0.9% 1000ML 1,000 ML ONE (13:51)
[2021-02-13] MEDS: ONDANSETRON HCL INJ 2MG/ML 2ML 2 MG/ML VIAL IV STA (14:03)
[2021-02-13] MEDS: SODIUM CHLORIDE 0.9% 1000ML 1,000 ML IV STA (14:03)
[2021-02-13] MEDS: DICYCLOMINE HCL 20 MG/2 ML VIAL IM ONE (14:03)
[2021-02-13 14:17] LABS: BASOPHILS % 0.3 % (0.0-1.0); EOSINOPHILS # (AUTO) 0.1 (0.0-0.4); EOSINOPHILS % 0.7 % (0.0-6.0); HEMATOCRIT 40.5 % (34.2-44.1); HEMOGLOBIN 13.1 g/dL (12.0-16.0); LYMPHOCYTES # (AUTO) 1.9 (1.0-3.2); LYMPHOCYTES % 19.4 % (18.0-39.1); MEAN CORPUSCULAR HEMOGLOBIN 27.9 pg (28-32); MEAN CORPUSCULAR HGB CONC 32.3 g/dL (31-35); MEAN CORPUSCULAR VOLUME 86.4 fL (81-99); MONOCYTES # (AUTO) 0.4 (0.2-0.8); MONOCYTES % 4.3 % (4.4-11.3); NEUTROPHILS # (AUTO) 7.4 (2.1-6.9); NEUTROPHILS % 74.5 % (38.7-80.0); PLATELET COUNT 330 x10e3/uL (140-360); RED BLOOD COUNT 4.69 x10e6/uL (3.6-5.1); RED CELL DISTRIBUTION WIDTH 12.6 % (11.7-14.4)
[2021-02-13 14:40] LABS: ALBUMIN 4.2 g/dL (3.5-5.0); ALBUMIN/GLOBULIN RATIO 1.2 (0.8-2.0); ANION GAP 19.7 mmol/L (8-16); CALCIUM 9.7 mg/dL (8.4-10.2); CREATINE KINASE MB 1.3 ng/mL (0-5.0); CREATININE, SERUM 1.01 mg/dL (0.57-1.11); MAGNESIUM 1.8 MG/DL (1.3-2.1); POTASSIUM 3.7 mmol/L (3.5-5.1)
[2021-02-13] MEDS ORDERED: IOPAMIDOL 370 MG/ML 200 ML INFUS..BTL INJ ONE (15:34)
[2021-02-13] MEDS ORDERED: SODIUM CHLORIDE 0.9% 50ML 50 ML ONE (15:34)
== END 2021-02-13 18:33 | disposition home or self-care (01) ==
LOC: ER 10:42
DX: R10.9 Unspecified abdominal pain (principal); R11.10 Vomiting, unspecified; R19.7 Diarrhea, unspecified; I10 Essential (primary) hypertension; E11.9 Type 2 diabetes mellitus without complications; E03.9 Hypothyroidism, unspecified; I25.10 Atherosclerotic heart disease of native coronary artery without angina pectoris; Z88.6 Allergy status to analgesic agent; Z91.010 Allergy to peanuts; Z91.018 Allergy to other foods; Z20.822 Contact with and (suspected) exposure to COVID-19; Z79.4 Long term (current) use of insulin; Z79.02 Long term (current) use of antithrombotics/antiplatelets
CPT/HCPCS: 36415; 71045; 74177; 80053; 81001; 82150; 82550; 82553; 83690; 83735; 83880; 84484; 85025; 87086; 93005; 99284; J7030; Q9967; U0002

== ENCOUNTER 2021-03-13 11:28 | Emergency (ER) | payer OTHER ==
[~2021-03-13] VITALS: Ht 172.7 cm; Wt 112.9 kg
[2021-03-13 12:42] LABS: CLARITY,URINE CLEAR (CLEAR); COLOR,URINE YELLOW (YELLOW); KETONES,URINE NEGATIVE (NEGATIVE); LEUKOCYTE ESTERASE ,URINE NEGATIVE (NEGATIVE); NITRITE,URINE NEGATIVE (NEGATIVE); PROTEIN,URINE DIPSTICK >=300 (NEGATIVE); URINE UROBILINOGEN 0.2 mg/dL (0.2 - 1)
[2021-03-13 12:58] LABS: EPITHELIAL CELLS,URINE FEW /LPF; RBC,URINE 0-5 /HPF (0-5); TRANSITIONAL EPI CELLS,URINE MODERATE; WBC,URINE (MAN) 0-5 /HPF (0-5)
[2021-03-13 12:59] LABS: BACTERIA,URINE FEW /HPF
[2021-03-13] MEDS ORDERED: HYDROCODONE/APAP 7.5MG-325MG 1 EA TAB PO ONE (13:30)
[2021-03-13] MEDS ORDERED: DIPHENHYDRAMINE HCL 25 MG CAP ONE (13:44)
[2021-03-13] MEDS ORDERED: DIPHENHYDRAMINE HCL 25 MG CAP PO ONE (14:00)
[2021-03-13 14:29] VITALS: BP 142/81
== END 2021-03-13 14:40 | disposition home or self-care (01) ==
LOC: ER 11:34
DX: L29.9 Pruritus, unspecified (principal); M54.9 Dorsalgia, unspecified; G89.29 Other chronic pain; I10 Essential (primary) hypertension; E11.9 Type 2 diabetes mellitus without complications; E03.9 Hypothyroidism, unspecified; I25.10 Atherosclerotic heart disease of native coronary artery without angina pectoris; K21.9 Gastro-esophageal reflux disease without esophagitis; G47.30 Sleep apnea, unspecified
CPT/HCPCS: 74176; 81001; 87086; 99283

== ENCOUNTER 2022-04-28 07:56 | Emergency (ER) | payer SELFPAY ==
[~2022-04-28] VITALS: Ht 172.7 cm; Wt 112.9 kg
[2022-04-28] MEDS ORDERED: SODIUM CHLORIDE 0.9% 500ML 500 ML IV ONE (08:30)
[2022-04-28 08:39] LABS: BASOPHILS % 0.6 % (0.0-1.0); EOSINOPHILS # (AUTO) 0.2 (0.0-0.4); EOSINOPHILS % 2.4 % (0.0-6.0); HEMATOCRIT 40.5 % (34.2-44.1); HEMOGLOBIN 12.2 g/dL (12.0-16.0); LYMPHOCYTES # (AUTO) 1.8 (1.0-3.2); LYMPHOCYTES % 26.1 % (18.0-39.1); MEAN CORPUSCULAR HEMOGLOBIN 25.8 pg (28-32); MEAN CORPUSCULAR HGB CONC 30.1 g/dL (31-35); MEAN CORPUSCULAR VOLUME 85.6 fL (81-99); MONOCYTES # (AUTO) 0.6 (0.2-0.8); MONOCYTES % 8.3 % (4.4-11.3); NEUTROPHILS # (AUTO) 4.2 (2.1-6.9); NEUTROPHILS % 62.2 % (38.7-80.0); PLATELET COUNT 347 x10e3/uL (140-360); RED BLOOD COUNT 4.73 x10e6/uL (3.6-5.1); RED CELL DISTRIBUTION WIDTH 13.7 % (11.7-14.4)
[2022-04-28 08:42] LABS: INR 0.86; PROTHROMBIN TIME 12.5 seconds (11.9-14.5)
[2022-04-28 08:43] LABS: PARTIAL THROMBOPLASTIN TIME 29.3 seconds (23.8-35.5)
[2022-04-28 08:54] LABS: ALBUMIN/GLOBULIN RATIO 0.7 (0.8-2.0); ANION GAP 16.9 mmol/L (8-16); CALCIUM 9.1 mg/dL (8.4-10.2); CREATININE, SERUM 0.88 mg/dL (0.57-1.11); MAGNESIUM 1.5 MG/DL (1.3-2.1); POTASSIUM 3.9 mmol/L (3.5-5.1)
[2022-04-28 09:01] LABS: CREATINE KINASE MB 1.6 ng/mL (0-5.0)
[2022-04-28] MEDS ORDERED: KETOROLAC TROMETHAMINE 30 MG/ML VIAL IV STA (09:56)
[2022-04-28] MEDS ORDERED: ACETAMINOPHEN 325 MG TAB PO ONE (10:00)
[2022-04-28 10:54] LABS: BACTERIA,URINE MODERATE /HPF; CLARITY,URINE TURBID (CLEAR); COLOR,URINE YELLOW (YELLOW); EPITHELIAL CELLS,URINE MODERATE /LPF; KETONES,URINE NEGATIVE (NEGATIVE); LEUKOCYTE ESTERASE ,URINE TRACE (NEGATIVE); NITRITE,URINE NEGATIVE (NEGATIVE); PROTEIN,URINE DIPSTICK >=300 (NEGATIVE); RBC,URINE 0-5 /HPF (0-5); URINE UROBILINOGEN 0.2 mg/dL (0.2 - 1); WBC,URINE (MAN) >50 /HPF (0-5)
[2022-04-28 10:55] LABS: RENAL EPITHELIAL CELLS,URINE MODERATE; TRANSITIONAL EPI CELLS,URINE FEW
[2022-04-28] MEDS ORDERED: CEFUROXIME250 MG PO (11:42)
[2022-04-28] MEDS ORDERED: IOPAMIDOL 370 MG/ML 100 ML INFUS..BTL INJ ONE (13:57)
== END 2022-04-28 12:03 | disposition home or self-care (01) ==
LOC: ER 08:04
DX: R10.11 Right upper quadrant pain (principal); N39.0 Urinary tract infection, site not specified; R05.9 Cough, unspecified; E11.65 Type 2 diabetes mellitus with hyperglycemia; I10 Essential (primary) hypertension; E78.5 Hyperlipidemia, unspecified; E03.9 Hypothyroidism, unspecified; I25.10 Atherosclerotic heart disease of native coronary artery without angina pectoris; G47.30 Sleep apnea, unspecified; R94.31 Abnormal electrocardiogram [ECG] [EKG]; Z20.822 Contact with and (suspected) exposure to COVID-19
CPT/HCPCS: 0223U; 36415; 71045; 74177; 80053; 81001; 82550; 82553; 83690; 83735; 84484; 85025; 85610; 85730; 87086; 87400; 93005; 99284; C9113; J1885; J7040; Q9967